=== PATIENT | female | born 1995 | race Caucasian/White ===

== ENCOUNTER 2016-10-13 16:48 | Emergency (ER) | payer OTHER ==
[2016-10-13 16:55] VITALS: BP 109/72
[2016-10-13 17:36] LABS: BILIRUBIN,URINE NEGATIVE (NEGATIVE)
[2016-10-13 17:40] LABS: HCG UR QUAL NEGATIVE; UA w/ MICROSCOPIC CHARGE YES
[2016-10-13 17:42] LABS: UR CULTURE IF IND NOT INDICATED; WBC,URINE 0-3 /HPF (0-5)
--- NOTE | 2016-10-13 17:53 | ED Physician Documentation ---
PD HPI MHE - Stated complaint Stated Complaint: SI - Chief complaint Chief Complaint: MHE - History obtained from History obtained from: Patient, Family (mom) - History of Present Illness Primary symptom: Other (21-year-old woman with long-standing auditory hallucinations, on olanzapine pain for same. She has subacute suicidal ideation without plan. She had an emotional outburst this morning prompting emergency department visit.) Review of Systems Constitutional: reports: Reviewed and negative Throat: reports: Reviewed and negative Cardiac: reports: Reviewed and negative Respiratory: reports: Reviewed and negative PD PAST MEDICAL HISTORY - Past Surgical History Past Surgical History: No - Present Medications Home Medications: Ambulatory Orders Medication Instructions Recorded Confirmed Olanzapine 10 mg PO DAILY 10/13/16 10/13/16 - Allergies Allergies/Adverse Reactions: Allergies Allergy/AdvReac Type Severity Reaction Status Date / Time No Known Drug Allergies Allergy Verified 02/04/13 19:29 - Social History Does the pt smoke?: No Smoking Status: Never smoker Does the pt drink ETOH?: Yes Does the pt have substance abuse?: Yes - Immunizations Immunizations are current?: Yes - POLST Patient has POLST: No PD ED PE NORMAL - Vitals Vital signs reviewed: Yes - General General: Alert and oriented X 3, No acute distress - HEENT HEENT: PERRL, EOMI - Neck Neck: Supple, no meningeal sign, No bony TTP - Cardiac Cardiac: RRR, No murmur - Respiratory Respiratory: No respiratory distress, Clear bilaterally - Abdomen Abdomen: Non tender - Neuro Neuro: Alert and oriented X 3, Normal speech - Psych Psych: Normal mood, Normal affect Results - Vitals Vitals: Vital Signs - 24 hr 10/13/16 16:50 Temperature 36.6 C Heart Rate 75 Respiratory 20 Rate Blood Pressure 109/72 O2 Saturation 99 Oxygen O2 Source Room air - Labs Labs: Laboratory Tests 10/13/16 10/13/16 17:14 17:14 Urine Color YELLOW Urine Clarity CLEAR Urine pH 6.0 Ur Specific [place] 1.025 Urine Protein NEGATIVE Urine Glucose (UA) NEGATIVE Urine Ketones NEGATIVE Urine Occult Blood MODERATE H Urine Nitrite NEGATIVE Urine Bilirubin NEGATIVE Urine Urobilinogen 0.2 (NORMAL) Ur Leukocyte Esterase NEGATIVE Urine RBC 0-5 Urine WBC 0-3 Ur Squamous Epith Cells RARE Squamous Urine Bacteria Rare Ur Microscopic Review INDICATED Urine Culture Comments NOT INDICATED Urine HCG, Qual NEGATIVE Urine Opiates Screen NEGATIVE Ur Oxycodone Screen NEGATIVE Urine Methadone Screen NEGATIVE Ur Propoxyphene Screen NEGATIVE Ur Barbiturates Screen NEGATIVE Ur Tricyclics Screen NEGATIVE Ur Phencyclidine Scrn NEGATIVE Ur Amphetamine Screen NEGATIVE U Methamphetamines Scrn NEGATIVE U Benzodiazepines Scrn NEGATIVE Urine Cocaine Screen NEGATIVE U Cannabinoids Screen NEGATIVE PD MEDICAL DECISION MAKING - ED course ED course: She has underlying psychiatric disease with suicidal ideation that is chronic but no plan. She has a normal mood and affect at this juncture. We discussed potentially hospitalization it is something she would like to consider, however there is no social research assistant available at this hour. She contracted for safety overnight and plans to return in the morning as opposed to boarding in the emergency department. Mom is also comfortable with the plan. Departure - Departure Disposition: 01 Home, Self Care Clinical Impression: Depressive disorder Condition: Good Record reviewed to determine appropriate education?: Yes Instructions: ED Depression Comments: Come back tomorrow at 8 a.m. for social research assistant evaluation or call your psychiatrist in the morning. Return sooner if worse. Discharge Date/Time: 10/13/16 17:57
== END 2016-10-13 17:57 | disposition home or self-care (01) ==
LOC: ED 16:48
DX: F32.9 Major depressive disorder, single episode, unspecified (principal); R45.851 Suicidal ideations; R44.0 Auditory hallucinations
CPT/HCPCS: 80306; 81001; 81003; 81025; 87086; 99282; 99284

== ENCOUNTER 2017-08-03 11:09 | Outpatient (CLI) | payer OTHER | END 2017-08-03 11:10 | disposition critical access hospital (66) | LOC: EMS 11:09 | PROVIDERS: ATTEND Surgery | DX: R45.851 Suicidal ideations (principal) | CPT/HCPCS: A0425; A0429 ==

== ENCOUNTER 2017-08-03 11:43 | Emergency (ER) | payer OTHER ==
[2017-08-03 12:18] LABS: MEAN CORPUSCULAR HEMOGLOBIN 29.6 pg (27.0-31.0); MEAN CORPUSCULAR HGB CONC 34.2 g/dL (32.0-36.0); MEAN CORPUSCULAR VOLUME 86.6 fL (81.0-99.0); MEAN PLATELET VOLUME 6.6 fL (7.9-10.8); RED BLOOD COUNT 4.39 10^6/uL (4.20-5.40); RED CELL DISTRIBUTION WIDTH 13.3 % (12.0-15.0); WHITE BLOOD COUNT 7.7 x10^3/uL (4.8-10.8)
[2017-08-03 12:36] LABS: ALBUMIN 5.2 g/dL (3.2-5.5); ALBUMIN/GLOBULIN RATIO 1.7 (1.0-2.2); ALKALINE PHOSPHATASE 48 IU/L (42-121); ALT ALANINE AMINOTRANSFERASE 39 IU/L (10-60); AST ASPARTATE AMINOTRANSFERASE 55 IU/L (10-42); BUN - BLOOD UREA NITROGEN 11 mg/dL (6-20); CALCIUM 9.5 mg/dL (8.5-10.3); CARBON DIOXIDE - CO2 26 mmol/L (21-32); CHLORIDE 103 mmol/L (101-111); CREATININE 0.7 mg/dL (0.4-1.0); GFR - MDRD 104 (>89); GLUCOSE 93 mg/dL (70-100); LIPASE 16 U/L (22-51); SALICYLATE < 6.0 mg/dL; SODIUM 138 mmol/L (135-145); TOTAL PROTEIN 8.3 g/dL (6.7-8.2)
[2017-08-03 12:37] LABS: ACETAMINOPHEN < 10 ug/mL (10-30)
[2017-08-03 13:01] LABS: MUDS CUTOFF CONCENTRATIONS CUTOFF CONC BELOW:
[2017-08-03 13:05] LABS: GLUCOSE, URINE (UA) NEGATIVE (NEGATIVE); KETONES,URINE (UA) 15 mg/dL (NEGATIVE); LEUKOCYTE ESTERASE, URINE TRACE (NEGATIVE); NITRITE,URINE NEGATIVE (NEGATIVE); OCCULT BLOOD,URINE SMALL (NEGATIVE); PROTEIN,URINE NEGATIVE (NEGATIVE); UROBILINOGEN,URINE 0.2 (NORMAL) E.U./dL (NORMAL)
[2017-08-03 13:12] LABS: BILIRUBIN,URINE NEGATIVE (NEGATIVE); CLARITY,URINE CLEAR (CLEAR); HCG UR QUAL NEGATIVE; ICTOTEST,URINE NEGATIVE
[2017-08-03 13:14] LABS: AMPHETAMINE SCREEN,URINE POSITIVE (NEGATIVE); BENZODIAZEPINES SCREEN, URINE NEGATIVE (NEGATIVE); COCAINE SCREEN URINE POSITIVE (NEGATIVE); METHADONE SCREEN, URINE NEGATIVE (NEGATIVE); METHAMPHETAMINES SCREEN, URINE POSITIVE (NEGATIVE); OPIATE SCREEN, URINE NEGATIVE (NEGATIVE); OXYCODONE SCREEN, URINE NEGATIVE (NEGATIVE); PROPOXYPHENE SCREEN, URINE NEGATIVE (NEGATIVE); TRICYCLIC ANTIDEPRESSANT,URINE NEGATIVE (NEGATIVE)
[2017-08-03 13:29] LABS: BACTERIA,URINE Few /HPF (None Seen); RBC,URINE 0-5 /HPF (0-5); SQUAMOUS EPITHELIAL CELL,UR RARE Squamous (<= Few)
--- NOTE | 2017-08-03 13:39 | ED Physician Documentation ---
PD HPI MHE - Stated complaint Stated Complaint: MHE/SI - Chief complaint Chief Complaint: MHE - History obtained from History obtained from: Patient - History of Present Illness Primary symptom: Other (She got out of a residential treatment facility for methamphetamines about 5 days ago and immediately started using again. She has had some suicidal ideation today without plan. She is not interested in going back into treatment or psychiatric care.) Review of Systems Constitutional: reports: Reviewed and negative Cardiac: reports: Reviewed and negative Respiratory: reports: Reviewed and negative PD PAST MEDICAL HISTORY - Past Surgical History Past Surgical History: No - Present Medications Home Medications: Ambulatory Orders Medication Instructions Recorded Confirmed OLANZapine [Olanzapine] 10 mg PO DAILY 10/13/16 08/03/17 - Allergies Allergies/Adverse Reactions: Allergies Allergy/AdvReac Type Severity Reaction Status Date / Time No Known Drug Allergies Allergy Verified 08/03/17 11:51 - Social History Does the pt smoke?: No Smoking Status: Never smoker Does the pt drink ETOH?: Yes Does the pt have substance abuse?: Yes - Immunizations Immunizations are current?: Yes - POLST Patient has POLST: No PD ED PE NORMAL - Vitals Vital signs reviewed: Yes - General General: Alert and oriented X 3, No acute distress - HEENT HEENT: PERRL, EOMI - Neck Neck: Supple, no meningeal sign, No bony TTP - Derm Derm: No rash - Neuro Neuro: Alert and oriented X 3, No motor deficit, No sensory deficit, Normal speech Eye Opening: Spontaneous Motor: Obeys Commands Verbal: Oriented GCS Score: 15 - Psych Psych: Normal mood, Normal affect Results - Vitals Vitals: Vital Signs - 24 hr 08/03/17 11:47 Temperature 36.5 C Heart Rate 77 Respiratory 20 Rate Blood Pressure 105/76 O2 Saturation 100 Oxygen O2 Source Room air - Labs Labs: Laboratory Tests 08/03/17 08/03/17 08/03/17 12:13 12:13 12:58 WBC 7.7 RBC 4.39 Hgb 13.0 Hct 38.0 MCV 86.6 MCH 29.6 MCHC 34.2 RDW 13.3 Plt Count 328 MPV 6.6 L Sodium 138 Potassium 4.1 Chloride 103 Carbon Dioxide 26 Anion Gap 9.0 BUN 11 Creatinine 0.7 Estimated GFR (MDRD) 104 Glucose 93 Calcium 9.5 Total Bilirubin 1.0 AST 55 H ALT 39 Alkaline Phosphatase 48 Total Protein 8.3 H Albumin 5.2 Globulin 3.1 Albumin/Globulin Ratio 1.7 Lipase 16 L Urine Color Urine Clarity Urine pH Ur Specific [place] Urine Protein Urine Glucose (UA) Urine Ketones Urine Occult Blood Urine Nitrite Urine Bilirubin Urine Urobilinogen Ur Leukocyte Esterase Urine RBC Urine WBC Ur Squamous Epith Cells Urine Bacteria Ur Microscopic Review Urine Culture Comments Urine HCG, Qual Salicylates < 6.0 Urine Opiates Screen NEGATIVE Ur Oxycodone Screen NEGATIVE Urine Methadone Screen NEGATIVE Ur Propoxyphene Screen NEGATIVE Acetaminophen < 10 L Ur Barbiturates Screen NEGATIVE Ur Tricyclics Screen NEGATIVE Ur Phencyclidine Scrn NEGATIVE Ur Amphetamine Screen POSITIVE H U Methamphetamines Scrn POSITIVE H U Benzodiazepines Scrn NEGATIVE Urine Cocaine Screen POSITIVE H U Cannabinoids Screen POSITIVE H Ethyl Alcohol < 5.0 08/03/17 12:58 WBC RBC Hgb Hct MCV MCH MCHC RDW Plt Count MPV Sodium Potassium Chloride Carbon Dioxide Anion Gap BUN Creatinine Estimated GFR (MDRD) Glucose Calcium Total Bilirubin AST ALT Alkaline Phosphatase Total Protein Albumin Globulin Albumin/Globulin Ratio Lipase Urine Color YELLOW Urine Clarity CLEAR Urine pH 6.0 Ur Specific [place] 1.025 Urine Protein NEGATIVE Urine Glucose (UA) NEGATIVE Urine Ketones 15 H Urine Occult Blood SMALL H Urine Nitrite NEGATIVE Urine Bilirubin NEGATIVE Urine Urobilinogen 0.2 (NORMAL) Ur Leukocyte Esterase TRACE H Urine RBC 0-5 Urine WBC 4-5 Ur Squamous Epith Cells RARE Squamous Urine Bacteria Few Ur Microscopic Review INDICATED Urine Culture Comments INDICATED Urine HCG, Qual NEGATIVE Salicylates Urine Opiates Screen Ur Oxycodone Screen Urine Methadone Screen Ur Propoxyphene Screen Acetaminophen Ur Barbiturates Screen Ur Tricyclics Screen Ur Phencyclidine Scrn Ur Amphetamine Screen U Methamphetamines Scrn U Benzodiazepines Scrn Urine Cocaine Screen U Cannabinoids Screen Ethyl Alcohol PD MEDICAL DECISION MAKING - ED course ED course: She has had vague suicidal ideation, but no plan and she is not suicidal at this juncture. She declines further evaluation or treatment. There is no director social service available to evaluate her, but she seems safe for discharge given that she is not actively suicidal. Departure - Departure Disposition: 01 Home, Self Care Clinical Impression: Depressive disorder, Methamphetamine abuse Condition: Good Record reviewed to determine appropriate education?: Yes Instructions: ED Depression Comments: Avoid taking drugs. Return anytime if you are worse or feel unsafe.
[2017-08-03 14:51] VITALS: BP 110/74
== END 2017-08-03 14:49 | disposition home or self-care (01) ==
LOC: EDUNIT# → ED 11:43
DX: F32.9 Major depressive disorder, single episode, unspecified (principal); F15.10 Other stimulant abuse, uncomplicated; R45.851 Suicidal ideations
CPT/HCPCS: 36415; 80053; 80306; 80307; 80320; 80329; 81001; 81003; 81025; 83690; 87086; 99283

== ENCOUNTER 2018-03-10 12:12 | Emergency (ER) | payer OTHER, MEDICAID ==
[2018-03-10 12:59] LABS: BILIRUBIN,URINE NEGATIVE (NEGATIVE); GLUCOSE, URINE (UA) NEGATIVE (NEGATIVE); KETONES,URINE (UA) NEGATIVE (NEGATIVE); LEUKOCYTE ESTERASE, URINE NEGATIVE (NEGATIVE); NITRITE,URINE NEGATIVE (NEGATIVE); OCCULT BLOOD,URINE NEGATIVE (NEGATIVE); PROTEIN,URINE NEGATIVE (NEGATIVE); UROBILINOGEN,URINE 0.2 (NORMAL) E.U./dL (NORMAL)
[2018-03-10 13:03] LABS: CLARITY,URINE CLEAR (CLEAR); HCG UR QUAL NEGATIVE
[2018-03-10 13:13] LABS: AMPHETAMINE SCREEN,URINE NEGATIVE (NEGATIVE); BENZODIAZEPINES SCREEN, URINE NEGATIVE (NEGATIVE); COCAINE SCREEN URINE NEGATIVE (NEGATIVE); METHADONE SCREEN, URINE NEGATIVE (NEGATIVE); METHAMPHETAMINES SCREEN, URINE NEGATIVE (NEGATIVE); MUDS CUTOFF CONCENTRATIONS CUTOFF CONC BELOW:; OPIATE SCREEN, URINE NEGATIVE (NEGATIVE); OXYCODONE SCREEN, URINE NEGATIVE (NEGATIVE); PROPOXYPHENE SCREEN, URINE NEGATIVE (NEGATIVE); TRICYCLIC ANTIDEPRESSANT,URINE NEGATIVE (NEGATIVE)
[2018-03-10 13:24] LABS: BASOPHILS % (AUTO) 0.4 %; HGB - HEMOGLOBIN 13.3 g/dL (12.0-16.0); LYMPHOCYTES # (AUTO) 2.8 10^3/uL (1.5-3.5); LYMPHOCYTES % (AUTO) 30.9 %; MEAN CORPUSCULAR HEMOGLOBIN 28.8 pg (27.0-31.0); MEAN CORPUSCULAR HGB CONC 33.8 g/dL (32.0-36.0); MEAN CORPUSCULAR VOLUME 85.3 fL (81.0-99.0); MONOCYTES # (AUTO) 0.7 10^3/uL (0.0-1.0); MONOCYTES % (AUTO) 8.4 %; NEUTROPHILS # (AUTO) 5.4 10^3/uL (1.5-6.6); NEUTROPHILS % (AUTO) 60.3 %; PLT - PLATELET COUNT 358 10^3/uL (130-450); RED CELL DISTRIBUTION WIDTH 13.9 % (12.0-15.0); WHITE BLOOD COUNT 8.9 x10^3/uL (4.8-10.8)
[2018-03-10 13:36] LABS: ALBUMIN 4.9 g/dL (3.2-5.5); ALBUMIN/GLOBULIN RATIO 1.5 (1.0-2.2); ALKALINE PHOSPHATASE 60 IU/L (42-121); ALT ALANINE AMINOTRANSFERASE 20 IU/L (10-60); AST ASPARTATE AMINOTRANSFERASE 20 IU/L (10-42); BILIRUBIN,TOTAL 0.6 mg/dL (0.2-1.0); BUN - BLOOD UREA NITROGEN 8 mg/dL (6-20); CALCIUM 9.7 mg/dL (8.5-10.3); CARBON DIOXIDE - CO2 27 mmol/L (21-32); CHLORIDE 102 mmol/L (101-111); CREATININE 0.6 mg/dL (0.4-1.0); GFR - MDRD 124 (>89); GLUCOSE 75 mg/dL (70-100); LIPASE 29 U/L (22-51); SALICYLATE < 6.0 mg/dL; SODIUM 136 mmol/L (135-145); TOTAL PROTEIN 8.1 g/dL (6.7-8.2)
[2018-03-10 13:37] LABS: ACETAMINOPHEN < 10 ug/mL (10-30)
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
[2018-03-10] MEDS ORDERED: cefTRIAXone 250 MG VIAL IM STA (18:48)
[2018-03-10] MEDS ORDERED: LIDOCAINE 1% 2 ML VIAL SUBQ ONE (18:48)
[2018-03-10] MEDS ORDERED: AZITHROMYCIN 250 MG TABLET PO STA (18:49)
[2018-03-10] MEDS ORDERED: ULIPRISTAL ACETATE 30 MG TABLET PO STA (18:51)
[2018-03-10 19:31] VITALS: BP 117/57
== END 2018-03-10 19:55 | disposition home or self-care (01) ==
LOC: ED 12:12
DX: Z04.71 Encounter for examination and observation following alleged adult physical abuse (principal)
CPT/HCPCS: 0133C; 36415; 80053; 80306; 80307; 80320; 80329; 81003; 81025; 83690; 85025; 87491; 87591; A9270; 81001; 87086; 99283

== ENCOUNTER 2018-03-15 13:27 | Emergency (ER) | payer MEDICAID ==
--- NOTE | 2018-03-15 14:45 | ED Physician Documentation ---
PD HPI MHE - Stated complaint Stated Complaint: MHE - Chief complaint Chief Complaint: MHE - History obtained from History obtained from: Patient - History of Present Illness Primary symptom: Other (She presents with someone from [facility] house although this person is not at the bedside when I am talking to her. She admits to methamphetamine use last night and is feeling out of sorts and would like "group therapy counselor" which is traditional for her ethnicity which is /[place] /[place]. She denies suicidal or homicidal ideation) Review of Systems Ten Systems: 10 systems reviewed and negative Constitutional: denies: Fever, Chills GI: denies: Nausea, Vomiting : denies: Now [place] PD PAST MEDICAL HISTORY - Past Surgical History Past Surgical History: No - Present Medications Home Medications: Ambulatory Orders Medication Instructions Recorded Confirmed OLANZapine [Olanzapine] 10 mg PO DAILY 10/13/16 08/03/17 - Allergies Allergies/Adverse Reactions: Allergies Allergy/AdvReac Type Severity Reaction Status Date / Time No Known Drug Allergies Allergy Verified 03/15/18 13:39 - Social History Does the pt smoke?: No Smoking Status: Never smoker Does the pt drink ETOH?: Yes Does the pt have substance abuse?: Yes - Immunizations Immunizations are current?: Yes - POLST Patient has POLST: No PD ED PE NORMAL - Vitals Vital signs reviewed: Yes - General General: Alert and oriented X 3, Other (She is a tangential historian and somewhat intense affect but cooperative and pleasant.) - HEENT HEENT: PERRL, EOMI - Neck Neck: Supple, no meningeal sign, No bony TTP - Cardiac Cardiac: RRR, No murmur - Respiratory Respiratory: No respiratory distress, Clear bilaterally - Abdomen Abdomen: Non tender - Back Back: No CVA TTP, No spinal TTP - Derm Derm: Normal color, Warm and dry - Neuro Neuro: Alert and oriented X 3 - Psych Psych: Normal mood Results - Vitals Vitals: Vital Signs - 24 hr 03/15/18 13:34 Temperature 37 C Heart Rate 128 H Respiratory 22 Rate Blood Pressure 135/100 H O2 Saturation 100 Oxygen O2 Source Room air PD MEDICAL DECISION MAKING - ED course ED course: Seen and evaluated by the bilingual social worker who gave her resources on how to obtain travel group therapy counselor. She was advised not to use methamphetamines. Other than drug use no ongoing medical emergency was identified. She was stable for discharge. - Sepsis Event Vital Signs: Vital Signs - 24 hr 03/15/18 13:34 Temperature 37 C Heart Rate 128 H Respiratory 22 Rate Blood Pressure 135/100 H O2 Saturation 100 Oxygen O2 Source Room air Departure - Departure Disposition: 01 Home, Self Care Clinical Impression: Methamphetamine abuse Condition: Good Record reviewed to determine appropriate education?: Yes Instructions: ED Drug Abuse General Comments: Follow the instructions the bilingual social worker on how to obtain [place] group therapy counselor. Return if worse. Avoid using methamphetamines. Your blood pressure was elevated today on check into the emergency department. This does not mean that you have hypertension, it is a common phenomenon to come to the emergency department and have elevated blood pressure. I recommend that you see your primary care physician within the week to have it rechecked when you are feeling better.
[2018-03-15 15:53] VITALS: BP 163/149
== END 2018-03-15 15:51 | disposition home or self-care (01) ==
LOC: ED 13:27
DX: F15.10 Other stimulant abuse, uncomplicated (principal); R03.0 Elevated blood-pressure reading, without diagnosis of hypertension
CPT/HCPCS: 80053; 80307; 80320; 80329; 83690; 99283

== ENCOUNTER 2018-03-15 18:54 | Emergency (ER) | payer MEDICAID ==
[2018-03-15] MEDS ORDERED: ALPRAZolam 0.25 MG TABLET PO STA (19:13)
--- NOTE | 2018-03-15 19:16 | ED Physician Documentation ---
PD HPI MHE - Stated complaint Stated Complaint: MHE - Chief complaint Chief Complaint: MHE - History obtained from History obtained from: Patient, Caregiver - History of Present Illness Primary symptom: Other (She was seen earlier in the day for being high on methamphetamines. Given resources by the socially responsible investment adviser but returns from her youth assisted-living facility because of continued odd behavior.) - Additional information Additional information: Rep from [facility] house tells me, "they are saving a bed for her at [facility] and will pick her up tomorrow" Review of Systems Ten Systems: 10 systems reviewed and negative Constitutional: denies: Fever, Chills Cardiac: denies: Chest pain / pressure, Palpitations Respiratory: denies: Dyspnea, Cough PD PAST MEDICAL HISTORY - Past Medical History Past Medical History: No - Past Surgical History Past Surgical History: No - Present Medications Home Medications: Ambulatory Orders Medication Instructions Recorded Confirmed OLANZapine [Olanzapine] 10 mg PO DAILY 10/13/16 08/03/17 - Allergies Allergies/Adverse Reactions: Allergies Allergy/AdvReac Type Severity Reaction Status Date / Time No Known Drug Allergies Allergy Verified 03/15/18 13:39 - Social History Does the pt smoke?: No Smoking Status: Never smoker Does the pt drink ETOH?: Yes Does the pt have substance abuse?: Yes - Family History Family history: reports: Non contributory - Immunizations Immunizations are current?: Yes - POLST Patient has POLST: No PD ED PE NORMAL - Vitals Vital signs reviewed: Yes - General General: Alert and oriented X 3, Other (She is tearful and tangential. However she is cooperative and makes good eye contact.) - HEENT HEENT: PERRL, EOMI - Neck Neck: Supple, no meningeal sign, No bony TTP - Cardiac Cardiac: RRR, No murmur - Respiratory Respiratory: No respiratory distress, Clear bilaterally - Abdomen Abdomen: Normal bowel sounds, Soft, Non tender - Back Back: No CVA TTP, No spinal TTP - Derm Derm: Normal color, Warm and dry - Extremities Extremities: No deformity, No tenderness to palpate - Neuro Neuro: Alert and oriented X 3, Normal speech Results - Vitals Vitals: Vital Signs - 24 hr 03/15/18 19:00 Temperature 36.6 C Heart Rate 107 H Respiratory 22 Rate Blood Pressure 129/100 H O2 Saturation 100 Oxygen O2 Source Room air PD MEDICAL DECISION MAKING - ED course ED course: She presents with continued odd behavior related to ongoing methamphetamine abuse. No new use since last discharge. Will board overnight in Ed pending soc wk eval. No obvious EMC other than methamphetamine use on eval. - Sepsis Event Vital Signs: Vital Signs - 24 hr 03/15/18 19:00 Temperature 36.6 C Heart Rate 107 H Respiratory 22 Rate Blood Pressure 129/100 H O2 Saturation 100 Oxygen O2 Source Room air Departure - Departure Clinical Impression: Methamphetamine abuse Condition: Stable Record reviewed to determine appropriate education?: Yes
[2018-03-16] MEDS ORDERED: ALPRAZolam 0.25 MG TABLET PO STA (03:06)
[2018-03-16 08:49] LABS: BASOPHILS % (AUTO) 0.5 %; EOSINOPHILS % (AUTO) 0.2 %; HGB - HEMOGLOBIN 12.9 g/dL (12.0-16.0); LYMPHOCYTES # (AUTO) 3.4 10^3/uL (1.5-3.5); LYMPHOCYTES % (AUTO) 45.2 %; MEAN CORPUSCULAR HEMOGLOBIN 29.2 pg (27.0-31.0); MEAN CORPUSCULAR HGB CONC 34.5 g/dL (32.0-36.0); MEAN CORPUSCULAR VOLUME 84.6 fL (81.0-99.0); MEAN PLATELET VOLUME 6.7 fL (7.9-10.8); MONOCYTES # (AUTO) 0.8 10^3/uL (0.0-1.0); MONOCYTES % (AUTO) 10.4 %; NEUTROPHILS # (AUTO) 3.3 10^3/uL (1.5-6.6); NEUTROPHILS % (AUTO) 43.7 %; PLT - PLATELET COUNT 277 10^3/uL (130-450); RED BLOOD COUNT 4.44 10^6/uL (4.20-5.40); RED CELL DISTRIBUTION WIDTH 13.7 % (12.0-15.0); WHITE BLOOD COUNT 7.5 x10^3/uL (4.8-10.8)
[2018-03-16 09:05] LABS: ALBUMIN 4.3 g/dL (3.2-5.5); ALBUMIN/GLOBULIN RATIO 1.5 (1.0-2.2); ALKALINE PHOSPHATASE 46 IU/L (42-121); ALT ALANINE AMINOTRANSFERASE 25 IU/L (10-60); AST ASPARTATE AMINOTRANSFERASE 37 IU/L (10-42); BILIRUBIN,TOTAL 0.9 mg/dL (0.2-1.0); BUN - BLOOD UREA NITROGEN 12 mg/dL (6-20); CALCIUM 9.4 mg/dL (8.5-10.3); CARBON DIOXIDE - CO2 25 mmol/L (21-32); CHLORIDE 105 mmol/L (101-111); CK- CREATINE KINASE 595 IU/L (22-269); CREATININE 0.8 mg/dL (0.4-1.0); GFR - MDRD 89 (>89); GLUCOSE 81 mg/dL (70-100); LIPASE 22 U/L (22-51); SODIUM 138 mmol/L (135-145); TOTAL PROTEIN 7.2 g/dL (6.7-8.2)
[2018-03-16 12:10] LABS: MUDS CUTOFF CONCENTRATIONS CUTOFF CONC BELOW:
[2018-03-16 12:13] LABS: BILIRUBIN,URINE NEGATIVE (NEGATIVE); GLUCOSE, URINE (UA) NEGATIVE (NEGATIVE); KETONES,URINE (UA) NEGATIVE (NEGATIVE); LEUKOCYTE ESTERASE, URINE NEGATIVE (NEGATIVE); NITRITE,URINE NEGATIVE (NEGATIVE); OCCULT BLOOD,URINE NEGATIVE (NEGATIVE); PROTEIN,URINE NEGATIVE (NEGATIVE); UROBILINOGEN,URINE 0.2 (NORMAL) E.U./dL (NORMAL)
[2018-03-16 12:18] LABS: CLARITY,URINE CLEAR (CLEAR); HCG UR QUAL NEGATIVE
[2018-03-16 12:26] LABS: AMPHETAMINE SCREEN,URINE POSITIVE (NEGATIVE); BENZODIAZEPINES SCREEN, URINE POSITIVE (NEGATIVE); COCAINE SCREEN URINE NEGATIVE (NEGATIVE); METHADONE SCREEN, URINE NEGATIVE (NEGATIVE); METHAMPHETAMINES SCREEN, URINE POSITIVE (NEGATIVE); OPIATE SCREEN, URINE NEGATIVE (NEGATIVE); OXYCODONE SCREEN, URINE NEGATIVE (NEGATIVE); PROPOXYPHENE SCREEN, URINE NEGATIVE (NEGATIVE); TRICYCLIC ANTIDEPRESSANT,URINE NEGATIVE (NEGATIVE)
--- NOTE | 2018-03-16 19:08 | ED Physician Documentation ---
ED Addendum - Addendum Addendum: The patient remains stable here in the emergency department. She is seen by social work and subsequently by Mar Lazcano. They do feel the patient needs to be detained. There looking for bed availability at the psychiatric facilities. There decision is based on information from the visits here as well as talking with counselors and other personnel at [facility] where she is staying. 03/16/18 19:06
--- NOTE | 2018-03-16 21:15 | ED Physician Documentation ---
ED Addendum - Addendum Addendum: 03/16/18 21:14 Patient placed on JUAN CARLOS hold. Dr. Hooks at [facility] accepts. COBRA forms completed. Pt transferred. Departure - Departure Disposition: 65 Psych Hosp/Unit DC/Xfer Clinical Impression: Methamphetamine abuse Psychosis Qualifiers: Psychosis type: unspecified psychosis type Qualified Code(s): F29 - Unspecified psychosis not due to a substance or known physiological condition Condition: Stable
[2018-03-17 00:13] VITALS: BP 103/57
== END 2018-03-17 00:05 ==
LOC: ED 18:54
DX: F15.10 Other stimulant abuse, uncomplicated (principal); Z75.1 Person awaiting admission to adequate facility elsewhere; F29 Unspecified psychosis not due to a substance or known physiological condition; F15.159 Other stimulant abuse with stimulant-induced psychotic disorder, unspecified
CPT/HCPCS: 36415; 80053; 80306; 80320; 81003; 81025; 82550; 83690; 85025; 99283; 99284; A9270; 81001; 87086

== ENCOUNTER 2018-03-17 | Outpatient (CLI) | payer MEDICAID | END 2018-03-17 00:01 | disposition critical access hospital (66) | LOC: EMS | PROVIDERS: ATTEND Surgery | DX: F91.9 Conduct disorder, unspecified (principal) | CPT/HCPCS: A0425; A0428; A0999 ==

== ENCOUNTER 2018-03-24 11:45 | Outpatient (CLI) | payer MEDICAID ==
[2018-03-26 15:51] LABS: HIV AG/AB 4TH GEN NON-REACTIVE (NON-REACTIVE)
[2018-03-26 16:56] LABS: HEPATITIS C ANTIBODY NON-REACTIVE (NON-REACTIVE)
[2018-03-27 13:21] LABS: HSV 2 IGG TYPE SPECIFIC AB <0.90 index
== END 2018-03-24 11:46 | disposition home or self-care (01) ==
LOC: LAB.F 11:45
PROVIDERS: ATTEND Nurse Practitioner Family
DX: Z11.3 Encounter for screening for infections with a predominantly sexual mode of transmission (principal)
CPT/HCPCS: 36415; 81599; 86592; 86695; 86696; 86803; 87389; 87491; 87591

== ENCOUNTER 2018-04-05 08:00 | Outpatient (CLI) | payer MEDICAID | END 2018-04-05 08:01 | disposition home or self-care (01) | LOC: LAB.R 08:00 | PROVIDERS: ATTEND Nurse Practitioner Family | DX: R19.5 Other fecal abnormalities (principal) | CPT/HCPCS: 87177; 87209 ==

== ENCOUNTER 2018-04-26 08:00 | Outpatient (CLI) | payer MEDICAID | END 2018-04-26 08:01 | disposition home or self-care (01) | LOC: LAB.R 08:00 | PROVIDERS: ATTEND Nurse Practitioner Family | DX: R19.5 Other fecal abnormalities (principal) | CPT/HCPCS: 87177; 87209 ==

== ENCOUNTER 2018-05-03 10:50 | Outpatient (CLI) | payer MEDICAID | END 2018-05-03 10:51 | disposition home or self-care (01) | LOC: LAB.R 10:50 | PROVIDERS: ATTEND Nurse Practitioner Family | DX: R19.5 Other fecal abnormalities (principal) | CPT/HCPCS: 87177; 87209 ==

== ENCOUNTER 2020-06-14 20:16 | Outpatient (CLI) | payer MEDICAID | END 2020-06-14 20:17 | disposition critical access hospital (66) | LOC: EMS 20:16 | PROVIDERS: ATTEND Surgery | DX: R41.89 Other symptoms and signs involving cognitive functions and awareness (principal); Z59.0 Homelessness | CPT/HCPCS: A0425; A0429 ==

== ENCOUNTER 2020-06-14 20:33 | Emergency (ER) | payer MEDICAID ==
[2020-06-14 22:37] LABS: MUDS CUTOFF CONCENTRATIONS CUTOFF CONC BELOW:
[2020-06-14 22:40] LABS: BILIRUBIN,URINE NEGATIVE (NEGATIVE); GLUCOSE, URINE (UA) NEGATIVE (NEGATIVE); KETONES,URINE (UA) NEGATIVE (NEGATIVE); LEUKOCYTE ESTERASE, URINE NEGATIVE (NEGATIVE); NITRITE,URINE NEGATIVE (NEGATIVE); OCCULT BLOOD,URINE TRACE-INTA (NEGATIVE); PH,URINE 5.5 PH (5.0-7.5); PROTEIN,URINE NEGATIVE (NEGATIVE); UROBILINOGEN,URINE 2 E.U./dL (NORMAL)
[2020-06-14 22:42] LABS: CLARITY,URINE CLEAR (CLEAR); HCG UR QUAL NEGATIVE
[2020-06-14 22:54] LABS: BASOPHILS % (AUTO) 0.3 %; HGB - HEMOGLOBIN 12.4 g/dL (12.0-16.0); LYMPHOCYTES # (AUTO) 2.9 10^3/uL (1.5-3.5); LYMPHOCYTES % (AUTO) 26.7 %; MEAN CORPUSCULAR HEMOGLOBIN 28.8 pg (27.0-31.0); MEAN CORPUSCULAR HGB CONC 31.5 g/dL (32.0-36.0); MEAN CORPUSCULAR VOLUME 91.4 fL (81.0-99.0); MEAN PLATELET VOLUME 8.9 fL (7.9-10.8); MONOCYTES # (AUTO) 0.9 10^3/uL (0.0-1.0); MONOCYTES % (AUTO) 8.5 %; PLT - PLATELET COUNT 280 10^3/uL (130-450); RED BLOOD COUNT 4.31 10^6/uL (4.20-5.40); RED CELL DISTRIBUTION WIDTH 12.3 % (12.0-15.0); WHITE BLOOD COUNT 10.9 x10^3/uL (4.8-10.8)
[2020-06-14 22:55] LABS: COCAINE SCREEN URINE NEGATIVE (NEGATIVE)
[2020-06-14 22:56] LABS: AMPHETAMINE SCREEN,URINE POSITIVE (NEGATIVE); BENZODIAZEPINES SCREEN, URINE NEGATIVE (NEGATIVE); METHADONE SCREEN, URINE NEGATIVE (NEGATIVE); METHAMPHETAMINES SCREEN, URINE POSITIVE (NEGATIVE); OPIATE SCREEN, URINE POSITIVE (NEGATIVE); OXYCODONE SCREEN, URINE NEGATIVE (NEGATIVE); PROPOXYPHENE SCREEN, URINE NEGATIVE (NEGATIVE); TRICYCLIC ANTIDEPRESSANT,URINE NEGATIVE (NEGATIVE)
[2020-06-14 23:11] LABS: ACETAMINOPHEN < 10 ug/mL (10-30); ALBUMIN 4.7 g/dL (3.2-5.5); ALBUMIN/GLOBULIN RATIO 1.6 (1.0-2.2); ALKALINE PHOSPHATASE 68 IU/L (42-121); ALT ALANINE AMINOTRANSFERASE 14 IU/L (10-60); AST ASPARTATE AMINOTRANSFERASE 16 IU/L (10-42); BILIRUBIN,TOTAL 0.5 mg/dL (0.2-1.0); BUN - BLOOD UREA NITROGEN 14 mg/dL (6-20); CARBON DIOXIDE - CO2 26 mmol/L (21-32); CHLORIDE 103 mmol/L (101-111); CREATININE 0.8 mg/dL (0.4-1.0); GLUCOSE 88 mg/dL (70-100); LIPASE 24 U/L (22-51); SALICYLATE < 6.0 mg/dL; SODIUM 140 mmol/L (135-145); TOTAL PROTEIN 7.6 g/dL (6.7-8.2)
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
--- NOTE | 2020-06-15 13:54 | ED Physician Documentation ---
ED Addendum - Addendum Addendum: Patient's mental status cleared back to her normal baseline in the emergency department as the methamphetamine wore off. Social work was consulted, they spoke with the patient as well. She is not suicidal, homicidal or acutely psychotic. Resources given. [facility] Counseled not to use methamphetamine. Patient counseled regarding signs and symptoms for which I believe and urgent re-evaluation would be necessary. Patient with good understanding of and agreement to plan and is comfortable going home at this time This document was made in part using voice recognition software. While efforts are made to proofread this document, sound alike and grammatical errors may occur. Departure - Departure Disposition: Home, Self Care Clinical Impression: Methamphetamine abuse Psychosis Qualifiers: Psychosis type: unspecified psychosis type Qualified Code(s): F29 - Unspecified psychosis not due to a substance or known physiological condition Condition: Stable Instructions: Abuse Meth Abuse and Addiction Follow-Up: your,doctor in 1 week [Other] Comments: Follow-up with your doctor for further care. Return if you worsen. You should stop using methamphetamines. Crisis Line and is available to talk to someone [email or web address] is also available to chat with someone online if you prefer. There are also many resources on this website and apps for your phone to help with your mental health You can also text the word START to [phone] to chat with someome via text.
[2020-06-15 14:04] VITALS: BP 109/61
[2020-06-15] MEDS ORDERED: ACETAMINOPHEN 325 MG TABLET PO STA (14:10)
== END 2020-06-15 14:15 | disposition home or self-care (01) ==
LOC: EDUNIT# → ED 20:33
DX: F15.129 Other stimulant abuse with intoxication, unspecified (principal); F22 Delusional disorders; F17.200 Nicotine dependence, unspecified, uncomplicated; Z59.0 Homelessness
CPT/HCPCS: 36415; 80053; 80306; 80307; 80320; 80329; 81003; 81025; 83690; 85025; 99283; 99284; A9270; 81001; 87086

== ENCOUNTER 2020-06-27 07:46 | Outpatient (CLI) | payer MEDICAID | END 2020-06-27 07:47 | disposition critical access hospital (66) | LOC: EMS 07:46 | PROVIDERS: ATTEND Surgery | DX: R46.89 Other symptoms and signs involving appearance and behavior (principal) | CPT/HCPCS: A0425; A0429; A0999 ==

== ENCOUNTER 2020-06-27 08:10 | Emergency (ER) | payer MEDICAID ==
[2020-06-27] MEDS ORDERED: KETAMINE 500 MG/10 ML VIAL IM STA (08:14)
--- NOTE | 2020-06-27 08:22 | ED Physician Documentation ---
PD HPI MHE - Stated complaint Stated Complaint: MHE - Chief complaint Chief Complaint: MHE - History obtained from History obtained from: Patient, EMS - History of Present Illness Primary symptom: Psychosis - Additional information Additional information: 25-year-old female with psychosis. EMS brought in by ambulance. Patient was placed on an [facility] hold by police. She reportedly was outside of a [employer] this morning, screaming and yelling. They state that she believes she is a historical figure from [place]. Patient is yelling, gesturing and appears quite agitated. She has a history of methamphetamine abuse. Review of Systems Ten Systems: 10 systems reviewed and negative Constitutional: denies: Fever, Chills GI: denies: Vomiting, Diarrhea Skin: denies: Rash Musculoskeletal: denies: Neck pain, Back pain Neurologic: denies: Focal weakness, Numbness, Headache PD PAST MEDICAL HISTORY - Past Medical History Cardiovascular: None Respiratory: None Neuro: None Endocrine/Autoimmune: None GI: None DRIP BOX TENDER: None : None HEENT: None Psych: Depression, Anxiety Musculoskeletal: None Derm: None - Past Surgical History Past Surgical History: No - Present Medications Home Medications: Ambulatory Orders Medication Instructions Recorded Confirmed ARIPiprazole [Abilify] 06/14/20 Cephalexin [Keflex] 500 mg PO Q6H #20 capsule 06/27/20 - Allergies Allergies/Adverse Reactions: Allergies Allergy/AdvReac Type Severity Reaction Status Date / Time No Known Drug Allergies Allergy Verified 06/14/20 20:45 - Social History Does the pt smoke?: Yes Smoking Status: Current every day smoker Does the pt drink ETOH?: Yes Does the pt have substance abuse?: Yes - Immunizations Immunizations are current?: Yes - POLST Patient has POLST: No PD ED PE NORMAL - Vitals Vital signs reviewed: Yes - General General: Other (Agitated, gesticulating wildly, screaming) - HEENT HEENT: Moist mucous membranes - Neck Neck: Supple, no meningeal sign - Cardiac Cardiac: RRR - Respiratory Respiratory: No respiratory distress, Clear bilaterally - Abdomen Abdomen: Soft, Non tender, Non distended - Derm Derm: Warm and dry - Neuro Neuro: Alert and oriented X 3 - Psych Psych: Normal mood, Normal affect Results - Vitals Vitals: Vital Signs - 24 hr 06/27/20 06/27/20 06/27/20 08:10 09:10 09:15 Temperature 36.6 C Heart Rate 136 H 118 H 104 H Respiratory 22 19 20 Rate Blood Pressure 116/96 H 134/78 H 123/74 O2 Saturation 100 100 98 06/27/20 06/27/20 06/27/20 09:30 09:45 10:00 Temperature Heart Rate 99 103 H 110 H Respiratory 18 18 20 Rate Blood Pressure 103/73 111/64 115/69 O2 Saturation 99 98 99 06/27/20 06/27/20 10:15 15:05 Temperature 36.8 C Heart Rate 95 90 Respiratory 19 20 Rate Blood Pressure 108/67 110/54 L O2 Saturation 96 100 Oxygen O2 Source Room air - Labs Labs: Laboratory Tests 06/27/20 06/27/20 06/27/20 08:50 08:50 08:50 WBC 24.9 H RBC 4.89 Hgb 14.2 Hct 43.0 MCV 87.9 MCH 29.0 MCHC 33.0 RDW 12.7 Plt Count 408 MPV 8.7 Neut # (Auto) Not Reportable Lymph # (Auto) Not Reportable [place] # (Auto) Not Reportable Eos # (Auto) Not Reportable Baso # (Auto) Not Reportable Absolute Nucleated RBC Not Reportable Total Counted 100 Band Neuts % (Manual) 5 Abnorm Lymph % (Manual) 0 Nucleated RBC % Not Reportable Neutrophils # (Manual) 21.2 H Lymphocytes # (Manual) 2.2 Monocytes # (Manual) 1.2 H Eosinophils # (Manual) 0.0 Basophils # (Manual) 0.2 H Differential Comment MANUAL DIFFERENTIAL Manual Slide Review Indicated WBC Morphology 1+ VACUOLATION Platelet Estimate NORMAL (130-450,000) Platelet Morphology NORMAL APPEARANCE RBC Morph Micro Appear NORMAL APPEARANCE Sodium 141 Potassium 4.4 Chloride 102 Carbon Dioxide 19 L Anion Gap 20.0 H BUN 25 H Creatinine 2.3 H Estimated GFR (MDRD) 26 L Glucose 76 Calcium 10.5 H Total Bilirubin 0.9 AST 49 H ALT 30 Alkaline Phosphatase 59 Total Creatine Kinase Total Protein 8.8 H Albumin 5.3 Globulin 3.5 Albumin/Globulin Ratio 1.5 Lipase 28 TSH 6.07 H Urine Color Urine Clarity Urine pH Ur Specific [place] Urine Protein Urine Glucose (UA) Urine Ketones Urine Occult Blood Urine Nitrite Urine Bilirubin Urine Urobilinogen Ur Leukocyte Esterase Urine RBC Urine WBC Urine WBC Clumps Ur Squamous Epith Cells Urine Crystals Amorphous Sediment Urine Bacteria Urine Casts Ur Microscopic Review Urine Culture Comments Urine HCG, Qual Salicylates < 6.0 Urine Opiates Screen Ur Oxycodone Screen Urine Methadone Screen Ur Propoxyphene Screen Acetaminophen < 10 L Ur Barbiturates Screen Ur Tricyclics Screen Ur Phencyclidine Scrn Ur Amphetamine Screen U Methamphetamines Scrn U Benzodiazepines Scrn Urine Cocaine Screen U Cannabinoids Screen Ethyl Alcohol < 5.0 06/27/20 06/27/20 06/27/20 08:50 09:05 13:00 WBC 17.9 H RBC 4.08 L Hgb 12.0 Hct 36.7 L MCV 90.0 MCH 29.4 MCHC 32.7 RDW 12.9 Plt Count 319 MPV 8.6 Neut # (Auto) 13.6 H Lymph # (Auto) 3.0 [place] # (Auto) 1.1 H Eos # (Auto) 0.0 Baso # (Auto) 0.1 Absolute Nucleated RBC 0.00 Total Counted Band Neuts % (Manual) Abnorm Lymph % (Manual) Nucleated RBC % 0.0 Neutrophils # (Manual) Lymphocytes # (Manual) Monocytes # (Manual) Eosinophils # (Manual) Basophils # (Manual) Differential Comment Manual Slide Review WBC Morphology Platelet Estimate Platelet Morphology RBC Morph Micro Appear Sodium Potassium Chloride Carbon Dioxide Anion Gap BUN Creatinine Estimated GFR (MDRD) Glucose Calcium Total Bilirubin AST ALT Alkaline Phosphatase Total Creatine Kinase 1144 H* Total Protein Albumin Globulin Albumin/Globulin Ratio Lipase TSH Urine Color YELLOW Urine Clarity CLOUDY Urine pH 5.0 Ur Specific [place] >=1.030 H Urine Protein 100 H Urine Glucose (UA) NEGATIVE Urine Ketones NEGATIVE Urine Occult Blood TRACE-INTA Urine Nitrite NEGATIVE Urine Bilirubin NEGATIVE Urine Urobilinogen 0.2 (NORMAL) Ur Leukocyte Esterase NEGATIVE Urine RBC 0-5 Urine WBC >25 H Urine WBC Clumps PRESENT Ur Squamous Epith Cells MANY Squamous H Urine Crystals 3-5 Calcium Oxalate Amorphous Sediment Marked Urine Bacteria Many H Urine Casts 3-5 Granular Casts Ur Microscopic Review INDICATED Urine Culture Comments NOT INDICATED Urine HCG, Qual NEGATIVE Salicylates Urine Opiates Screen NEGATIVE Ur Oxycodone Screen NEGATIVE Urine Methadone Screen NEGATIVE Ur Propoxyphene Screen NEGATIVE Acetaminophen Ur Barbiturates Screen NEGATIVE Ur Tricyclics Screen NEGATIVE Ur Phencyclidine Scrn NEGATIVE Ur Amphetamine Screen POSITIVE H U Methamphetamines Scrn POSITIVE H U Benzodiazepines Scrn NEGATIVE Urine Cocaine Screen NEGATIVE U Cannabinoids Screen NEGATIVE Ethyl Alcohol 06/27/20 13:00 WBC RBC Hgb Hct MCV MCH MCHC RDW Plt Count MPV Neut # (Auto) Lymph # (Auto) [place] # (Auto) Eos # (Auto) Baso # (Auto) Absolute Nucleated RBC Total Counted Band Neuts % (Manual) Abnorm Lymph % (Manual) Nucleated RBC % Neutrophils # (Manual) Lymphocytes # (Manual) Monocytes # (Manual) Eosinophils # (Manual) Basophils # (Manual) Differential Comment Manual Slide Review WBC Morphology Platelet Estimate Platelet Morphology RBC Morph Micro Appear Sodium 141 Potassium 4.4 Chloride 106 Carbon Dioxide 21 Anion Gap 14.0 H BUN 21 H Creatinine 1.4 H Estimated GFR (MDRD) 45 L Glucose 87 Calcium 8.9 Total Bilirubin AST ALT Alkaline Phosphatase Total Creatine Kinase 810 H Total Protein Albumin Globulin Albumin/Globulin Ratio Lipase TSH Urine Color Urine Clarity Urine pH Ur Specific [place] Urine Protein Urine Glucose (UA) Urine Ketones Urine Occult Blood Urine Nitrite Urine Bilirubin Urine Urobilinogen Ur Leukocyte Esterase Urine RBC Urine WBC Urine WBC Clumps Ur Squamous Epith Cells Urine Crystals Amorphous Sediment Urine Bacteria Urine Casts Ur Microscopic Review Urine Culture Comments Urine HCG, Qual Salicylates Urine Opiates Screen Ur Oxycodone Screen Urine Methadone Screen Ur Propoxyphene Screen Acetaminophen Ur Barbiturates Screen Ur Tricyclics Screen Ur Phencyclidine Scrn Ur Amphetamine Screen U Methamphetamines Scrn U Benzodiazepines Scrn Urine Cocaine Screen U Cannabinoids Screen Ethyl Alcohol PD MEDICAL DECISION MAKING - ED course Complexity details: reviewed results, re-evaluated patient, considered differential, d/w patient ED course: Patient was given ketamine in the emergency department. Her symptoms gradually improved and resolved. Feels better after IV fluids. Tolerating p.o. without d ifficulty here. She is not suicidal or homicidal. Social work was consulted and she was given drug information. She is not acutely psychotic. This is a methamphetamine induced psychosis. Patient counseled regarding signs and symptoms for which I believe and urgent re-evaluation would be necessary. Patient with good understanding of and agreement to plan and is comfortable going home at this time This document was made in part using voice recognition software. While efforts are made to proofread this document, sound alike and grammatical errors may occur. Patient given Rocephin for UTI. Will place on Keflex for home. Departure - Departure Disposition: Home, Self Care Clinical Impression: Methamphetamine abuse, Dehydration Psychosis Qualifiers: Psychosis type: unspecified psychosis type Qualified Code(s): F29 - Unspecified psychosis not due to a substance or known physiological condition UTI (urinary tract infection) Qualifiers: Urinary tract infection type: acute cystitis Hematuria presence: without hematuria Qualified Code(s): N30.00 - Acute cystitis without hematuria Condition: Stable Instructions: ED Drug Abuse General Follow-Up: your,doctor in 1 week [Other] Prescriptions: Cephalexin [Keflex] 500 mg PO Q6H #20 capsule Comments: You need to stop using methamphetamines. Follow-up with your doctor for further care. Return if you worsen Discharge Date/Time: 06/27/20 15:35
[2020-06-27 08:53] LABS: BASOPHILS % (AUTO) 0.3 %; HGB - HEMOGLOBIN 14.2 g/dL (12.0-16.0); LYMPHOCYTES % (AUTO) 8.4 %; MEAN CORPUSCULAR VOLUME 87.9 fL (81.0-99.0); MEAN PLATELET VOLUME 8.7 fL (7.9-10.8); MONOCYTES % (AUTO) 5.6 %; NEUTROPHILS % (AUTO) 85.2 %; PLT - PLATELET COUNT 408 10^3/uL (130-450); RED BLOOD COUNT 4.89 10^6/uL (4.20-5.40); RED CELL DISTRIBUTION WIDTH 12.7 % (12.0-15.0); WHITE BLOOD COUNT 24.9 x10^3/uL (4.8-10.8)
[2020-06-27 09:03] LABS: ABNORMAL LYMPHS % (MANUAL) 0 %
[2020-06-27 09:13] LABS: MUDS CUTOFF CONCENTRATIONS CUTOFF CONC BELOW:
[2020-06-27 09:13] LABS: ACETAMINOPHEN < 10 ug/mL (10-30); ALBUMIN 5.3 g/dL (3.2-5.5); ALBUMIN/GLOBULIN RATIO 1.5 (1.0-2.2); ALKALINE PHOSPHATASE 59 IU/L (42-121); ALT ALANINE AMINOTRANSFERASE 30 IU/L (10-60); AST ASPARTATE AMINOTRANSFERASE 49 IU/L (10-42); BILIRUBIN,TOTAL 0.9 mg/dL (0.2-1.0); BUN - BLOOD UREA NITROGEN 25 mg/dL (6-20); CALCIUM 10.5 mg/dL (8.5-10.3); CARBON DIOXIDE - CO2 19 mmol/L (21-32); CHLORIDE 102 mmol/L (101-111); CREATININE 2.3 mg/dL (0.4-1.0); GLUCOSE 76 mg/dL (70-100); LIPASE 28 U/L (22-51); SALICYLATE < 6.0 mg/dL; SODIUM 141 mmol/L (135-145); TOTAL PROTEIN 8.8 g/dL (6.7-8.2)
[2020-06-27 09:19] LABS: GLUCOSE, URINE (UA) NEGATIVE (NEGATIVE); KETONES,URINE (UA) NEGATIVE (NEGATIVE); LEUKOCYTE ESTERASE, URINE NEGATIVE (NEGATIVE); NITRITE,URINE NEGATIVE (NEGATIVE); OCCULT BLOOD,URINE TRACE-INTA (NEGATIVE); PROTEIN,URINE 100 mg/dL (NEGATIVE); UROBILINOGEN,URINE 0.2 (NORMAL) E.U./dL (NORMAL)
[2020-06-27 09:25] LABS: BILIRUBIN,URINE NEGATIVE (NEGATIVE); CLARITY,URINE CLOUDY (CLEAR); HCG UR QUAL NEGATIVE; ICTOTEST,URINE NEGATIVE
[2020-06-27 09:29] LABS: BAND NEUTROPHILS % (MANUAL) 5 %; BASOPHILS # (MANUAL) 0.2 10^3/uL (0-0.1); BASOPHILS % (MANUAL) 1 %; DIFFERENTIAL COMMENT MANUAL DIFFERENTIAL; LYMPHOCYTES # (MANUAL) 2.2 10^3/uL (1.5-3.5); LYMPHOCYTES % (MANUAL) 9 %; MONOCYTES # (MANUAL) 1.2 10^3/uL (0.0-1.0)
[2020-06-27 09:30] LABS: PLATELET ESTIMATE, MANUAL NORMAL (130-450,000) (NORMAL); PLATELET MORPHOLOGY NORMAL APPEARANCE (NORMAL); RBC MORPHOLOGY (MULTIPLE) NORMAL APPEARANCE (NORMAL)
[2020-06-27] MEDS ORDERED: SODIUM CHLORIDE 0.9% 1,000 ML IV STA ×3 (09:32→12:56)
[2020-06-27 09:37] LABS: AMORPHOUS SEDIMENT,UR Marked /LPF; BACTERIA,URINE Many /HPF (None Seen); RBC,URINE 0-5 /HPF (0-5); SQUAMOUS EPITHELIAL CELL,UR MANY Squamous (<= Few); WBC CLUMPS,URINE PRESENT
[2020-06-27 09:38] LABS: CRYSTALS,URINE 3-5 Calcium Oxalate /LPF
[2020-06-27] MEDS ORDERED: cefTRIAXone 1 GM VIAL IVP STA (09:53)
[2020-06-27 09:55] LABS: AMPHETAMINE SCREEN,URINE POSITIVE (NEGATIVE); BENZODIAZEPINES SCREEN, URINE NEGATIVE (NEGATIVE); COCAINE SCREEN URINE NEGATIVE (NEGATIVE); METHADONE SCREEN, URINE NEGATIVE (NEGATIVE); METHAMPHETAMINES SCREEN, URINE POSITIVE (NEGATIVE); OPIATE SCREEN, URINE NEGATIVE (NEGATIVE); OXYCODONE SCREEN, URINE NEGATIVE (NEGATIVE); PROPOXYPHENE SCREEN, URINE NEGATIVE (NEGATIVE); TRICYCLIC ANTIDEPRESSANT,URINE NEGATIVE (NEGATIVE)
[2020-06-27 13:08] LABS: BASOPHILS # (AUTO) 0.1 10^3/uL (0.0-0.1); BASOPHILS % (AUTO) 0.3 %; LYMPHOCYTES % (AUTO) 16.9 %; MEAN CORPUSCULAR HEMOGLOBIN 29.4 pg (27.0-31.0); MEAN CORPUSCULAR HGB CONC 32.7 g/dL (32.0-36.0); MEAN PLATELET VOLUME 8.6 fL (7.9-10.8); MONOCYTES # (AUTO) 1.1 10^3/uL (0.0-1.0); MONOCYTES % (AUTO) 6.2 %; NEUTROPHILS # (AUTO) 13.6 10^3/uL (1.5-6.6); NEUTROPHILS % (AUTO) 76.3 %; PLT - PLATELET COUNT 319 10^3/uL (130-450); RED BLOOD COUNT 4.08 10^6/uL (4.20-5.40); RED CELL DISTRIBUTION WIDTH 12.9 % (12.0-15.0); WHITE BLOOD COUNT 17.9 x10^3/uL (4.8-10.8)
[2020-06-27 13:24] LABS: CALCIUM 8.9 mg/dL (8.5-10.3); CREATININE 1.4 mg/dL (0.4-1.0)
[2020-06-27 15:05] VITALS: BP 110/54
== END 2020-06-27 15:35 | disposition home or self-care (01) ==
LOC: ED 08:10
DX: F15.159 Other stimulant abuse with stimulant-induced psychotic disorder, unspecified (principal); N30.00 Acute cystitis without hematuria; E86.0 Dehydration; F17.200 Nicotine dependence, unspecified, uncomplicated
CPT/HCPCS: 36415; 51701; 80048; 80053; 80306; 80307; 80320; 80329; 81001; 81003; 81025; 82550; 83690; 84443; 85025; 87086; 99285

== ENCOUNTER 2020-07-07 22:54 | Emergency (ER) | payer MEDICAID ==
[2020-07-08 01:31] LABS: BASOPHILS % (AUTO) 0.3 %; HGB - HEMOGLOBIN 12.4 g/dL (12.0-16.0); LYMPHOCYTES # (AUTO) 3.5 10^3/uL (1.5-3.5); LYMPHOCYTES % (AUTO) 33.6 %; MEAN CORPUSCULAR HEMOGLOBIN 28.6 pg (27.0-31.0); MEAN CORPUSCULAR VOLUME 89.2 fL (81.0-99.0); MEAN PLATELET VOLUME 8.5 fL (7.9-10.8); MONOCYTES # (AUTO) 0.8 10^3/uL (0.0-1.0); MONOCYTES % (AUTO) 8.1 %; NEUTROPHILS % (AUTO) 57.8 %; PLT - PLATELET COUNT 373 10^3/uL (130-450); RED BLOOD COUNT 4.34 10^6/uL (4.20-5.40); RED CELL DISTRIBUTION WIDTH 12.8 % (12.0-15.0); WHITE BLOOD COUNT 10.3 x10^3/uL (4.8-10.8)
[2020-07-08 01:42] LABS: ALBUMIN 4.7 g/dL (3.2-5.5); ALBUMIN/GLOBULIN RATIO 1.6 (1.0-2.2); ALKALINE PHOSPHATASE 52 IU/L (42-121); ALT ALANINE AMINOTRANSFERASE 21 IU/L (10-60); AST ASPARTATE AMINOTRANSFERASE 20 IU/L (10-42); BILIRUBIN,TOTAL 1.1 mg/dL (0.2-1.0); BUN - BLOOD UREA NITROGEN 10 mg/dL (6-20); CALCIUM 9.8 mg/dL (8.5-10.3); CARBON DIOXIDE - CO2 23 mmol/L (21-32); CHLORIDE 102 mmol/L (101-111); CREATININE 0.8 mg/dL (0.4-1.0); GLUCOSE 98 mg/dL (70-100); TOTAL PROTEIN 7.7 g/dL (6.7-8.2)
[2020-07-08] MEDS ORDERED: OLANZapine ODT 5 MG TABLET TL ONE (01:49)
[2020-07-08] MEDS ORDERED: OLANZapine ODT 5 MG TABLET TL STA (03:06)
[2020-07-08] MEDS ORDERED: ARIPiprazole 5 MG TABLET PO SCH (03:30)
[2020-07-08] MEDS ORDERED: HALOPERIDOL 5 MG/ML VIAL IM STA (03:42)
[2020-07-08 05:16] LABS: MUDS CUTOFF CONCENTRATIONS CUTOFF CONC BELOW:
[2020-07-08 05:19] LABS: HCG UR QUAL NEGATIVE
[2020-07-08 05:27] LABS: AMPHETAMINE SCREEN,URINE POSITIVE (NEGATIVE); BENZODIAZEPINES SCREEN, URINE NEGATIVE (NEGATIVE); COCAINE SCREEN URINE NEGATIVE (NEGATIVE); METHADONE SCREEN, URINE NEGATIVE (NEGATIVE); METHAMPHETAMINES SCREEN, URINE POSITIVE (NEGATIVE); OPIATE SCREEN, URINE NEGATIVE (NEGATIVE); OXYCODONE SCREEN, URINE NEGATIVE (NEGATIVE); PROPOXYPHENE SCREEN, URINE NEGATIVE (NEGATIVE); TRICYCLIC ANTIDEPRESSANT,URINE NEGATIVE (NEGATIVE)
[2020-07-08 06:09] LABS: C. PNEUMONIAE- RESP PCR PANEL NOT DETECTED
--- NOTE | 2020-07-08 07:21 | ED Physician Documentation ---
History of Present Illness - Stated complaint Stated Complaint: MHE - Chief complaint Chief Complaint: MHE - History obtained from History obtained from: Patient - Additonal information Additional information: Patient is brought to the emergency department by the police after being found in her van, which is her home, screaming, hallucinating, and combative. Police report that the patient is calm down considerably well in their custody. The patient has a history of traumatic brain injury and has had issues with depression, anxiety, and substance abuse since. Patient does admit to taking meth within the last 24 hours. She states she was screaming and yelling because "people were trying to attack her". Patient states that she has been on Abilify recently, but has been off her medications for the last 2 weeks. According to a letter sent from the patient's family, the patient has previously been on Zyprexa with good results, but was switched to Abilify after she brought up concerns over weight gain. Family feel that the Abilify has been somewhat helpful, but not as effective as the Zyprexa. The patient is not able to offer any other information at this time. Review of Systems Ten Systems: 10 systems reviewed and negative Constitutional: reports: Reviewed and negative Eyes: reports: Reviewed and negative Ears: reports: Reviewed and negative Nose: reports: Reviewed and negative Throat: reports: Reviewed and negative Cardiac: reports: Reviewed and negative Respiratory: reports: Reviewed and negative GI: reports: Reviewed and negative : reports: Reviewed and negative Skin: reports: Reviewed and negative Musculoskeletal: reports: Reviewed and negative Neurologic: reports: Reviewed and negative Psychiatric: reports: Hallucinations, Anxiety, Insomnia Endocrine: reports: Reviewed and negative Immunocompromised: reports: Reviewed and negative PD PAST MEDICAL HISTORY - Past Medical History Past Medical History: Yes Cardiovascular: None Respiratory: None Neuro: None Endocrine/Autoimmune: None GI: None JACKAROO: None : None HEENT: None Psych: Depression, Anxiety, Other Musculoskeletal: None Derm: None Other Past Medical History: Schizoaffective Disorder - Past Surgical History Past Surgical History: No - Present Medications Home Medications: Ambulatory Orders Medication Instructions Recorded Confirmed ARIPiprazole [Abilify] 06/14/20 Cephalexin [Keflex] 500 mg PO Q6H #20 capsule 06/27/20 - Allergies Allergies/Adverse Reactions: Allergies Allergy/AdvReac Type Severity Reaction Status Date / Time No Known Drug Allergies Allergy Verified 06/14/20 20:45 - Social History Does the pt smoke?: Yes Smoking Status: Current every day smoker Does the pt drink ETOH?: Yes Does the pt have substance abuse?: Yes - Immunizations Immunizations are current?: Yes - POLST Patient has POLST: No PD ED PE NORMAL - Vitals Vital signs reviewed: Yes - General General: Other (Patient is agitated and disheveled, but answers questions and is reasonably cooperative.) - HEENT HEENT: Atraumatic, PERRL, EOMI, Moist mucous membranes - Neck Neck: Supple, no meningeal sign - Cardiac Cardiac: RRR, No murmur - Respiratory Respiratory: No respiratory distress, Clear bilaterally - Abdomen Abdomen: Soft, Non tender, Non distended - Derm Derm: Normal color, Warm and dry, No rash - Extremities Extremities: No deformity, No edema, No calf tenderness / cord - Neuro Neuro: Other (Patient is awake and neurologic exam is grossly intact with the exception of psychiatric exam as below.) - Psych Psych: Other (Patient is agitated and frequently distracted by internal stimuli, to which she does respond with agitation. Patient is modestly cooperative.) Results - Vitals Vitals: Vital Signs - 24 hr 07/07/20 23:56 Temperature 37.4 C Heart Rate 101 H Respiratory 20 Rate Blood Pressure 129/80 O2 Saturation 98 Oxygen O2 Source Room air - Labs Labs: Laboratory Tests 07/08/20 07/08/20 07/08/20 01:25 01:25 05:10 WBC 10.3 RBC 4.34 Hgb 12.4 Hct 38.7 MCV 89.2 MCH 28.6 MCHC 32.0 RDW 12.8 Plt Count 373 MPV 8.5 Neut # (Auto) 6.0 Lymph # (Auto) 3.5 [place]ia # (Auto) 0.8 Eos # (Auto) 0.0 Baso # (Auto) 0.0 Absolute Nucleated RBC 0.00 Nucleated RBC % 0.0 Sodium 135 Potassium 3.3 L Chloride 102 Carbon Dioxide 23 Anion Gap 10.0 BUN 10 Creatinine 0.8 Estimated GFR (MDRD) 87 L Glucose 98 Calcium 9.8 Total Bilirubin 1.1 H AST 20 ALT 21 Alkaline Phosphatase 52 Total Protein 7.7 Albumin 4.7 Globulin 3.0 Albumin/Globulin Ratio 1.6 Urine HCG, Qual Nasal Adenovirus (PCR) Nasal B. parapertussis DNA (PCR) Nasal Coronavir 229E PCR Nasal Coronavir HKU1 PCR Nasal Coronavir NL63 PCR Nasal Coronavir OC43 PCR Nasal Enterovir/Rhinovir PCR Nasal Influenza B PCR Nasal Influenza A PCR Nasal Parainfluen 1 PCR Nasal Parainfluen 2 PCR Nasal Parainfluen 3 PCR Nasal Parainfluen 4 PCR Nasal RSV (PCR) Nasal B.pertussis DNA PCR Nasal C.pneumoniae (PCR) Jayesh Human Metapneumo PCR Nasal M.pneumoniae (PCR) Nasal SARS-CoV-2 (PCR) Urine Opiates Screen NEGATIVE Ur Oxycodone Screen NEGATIVE Urine Methadone Screen NEGATIVE Ur Propoxyphene Screen NEGATIVE Ur Barbiturates Screen NEGATIVE Ur Tricyclics Screen NEGATIVE Ur Phencyclidine Scrn NEGATIVE Ur Amphetamine Screen POSITIVE H U Methamphetamines Scrn POSITIVE H U Benzodiazepines Scrn NEGATIVE Urine Cocaine Screen NEGATIVE U Cannabinoids Screen NEGATIVE Ethyl Alcohol < 5.0 07/08/20 07/08/20 05:10 05:10 WBC RBC Hgb Hct MCV MCH MCHC RDW Plt Count MPV Neut # (Auto) Lymph # (Auto) Concordia # (Auto) Eos # (Auto) Baso # (Auto) Absolute Nucleated RBC Nucleated RBC % Sodium Potassium Chloride Carbon Dioxide Anion Gap BUN Creatinine Estimated GFR (MDRD) Glucose Calcium Total Bilirubin AST ALT Alkaline Phosphatase Total Protein Albumin Globulin Albumin/Globulin Ratio Urine HCG, Qual NEGATIVE Nasal Adenovirus (PCR) NOT DETECTED Nasal B. parapertussis DNA (PCR) NOT DETECTED Nasal Coronavir 229E PCR NOT DETECTED Nasal Coronavir HKU1 PCR NOT DETECTED Nasal Coronavir NL63 PCR NOT DETECTED Nasal Coronavir OC43 PCR NOT DETECTED Nasal Enterovir/Rhinovir PCR NOT DETECTED Nasal Influenza B PCR NOT DETECTED Nasal Influenza A PCR NOT DETECTED Nasal Parainfluen 1 PCR NOT DETECTED Nasal Parainfluen 2 PCR NOT DETECTED Nasal Parainfluen 3 PCR NOT DETECTED Nasal Parainfluen 4 PCR NOT DETECTED Nasal RSV (PCR) NOT DETECTED Nasal B.pertussis DNA PCR NOT DETECTED Nasal C.pneumoniae (PCR) NOT DETECTED Jayesh Human Metapneumo PCR NOT DETECTED Nasal M.pneumoniae (PCR) NOT DETECTED Nasal SARS-CoV-2 (PCR) NOT DETECTED Urine Opiates Screen Ur Oxycodone Screen Urine Methadone Screen Ur Propoxyphene Screen Ur Barbiturates Screen Ur Tricyclics Screen Ur Phencyclidine Scrn Ur Amphetamine Screen U Methamphetamines Scrn U Benzodiazepines Scrn Urine Cocaine Screen U Cannabinoids Screen Ethyl Alcohol PD MEDICAL DECISION MAKING - ED course Complexity details: reviewed results, re-evaluated patient, considered differential, d/w patient ED course: The patient was worked up with labs, urine drug screen and urine test. She did seem to become increasingly agitated throughout her stay in the emergency department and was initially given Zyprexa 5 mg p.o. and then Abilify 15 mg after refusing a second dose of Zyprexa. When neither of these were successful in calming the patient's increasing agitation, she was given Haldol 5 mg IM. The patient did rest quietly after this. I spoke with the DCR Cinthya after the patient's labs were back and she was medically cleared, and DCR did agree to come and see the patient in the emergency department. The patient is signed out to oncoming emergency physician Dr. Yepez, pending DCR evaluation and final disposition.
--- NOTE | 2020-07-08 07:28 | ED Physician Documentation ---
ED Addendum - Addendum Addendum: 07/08/20 07:27 Tonny pending DCR evaluation this morning. Patient had endorsed methamphetamine use overnight in the setting of traumatic brain injury and psychiatric illness. She was acutely agitated delirium overnight requiring Haldol administration and is still sleepy but has no complaints at this time. Opening her eyes to voice, shaking and nodding her head. Denies pain. 07/08/20 16:17 dw DCR re: bed availability- no one available within 12 hour time frame. [facility] stating they are interested but need her to wake up more. likely going to close the case for the 12 hour period however will plan to re-dispatch when condition changes. 07/08/20 17:25 DCR called back and states that patient has forethought about how to voluntarily address her mental health issues. Symptoms last night are consistent with being high on meth. no pattern of escalation. patient will be re-enrolled with [facility] tomorrow (team will f/u.) also will call her to touch base on getting back on her psych meds. can't detain. patient will f/u with voluntary outpatient services. patient still not eating. not responding to internal stimuli at present. if anything changes, please re-consult. 07/08/20 19:22 Patient still not eating. will monitor and have social work see the patient as needed in the morning. Patient endorsed to Dr Rivas for further managment. 07/08/20 19:22
[2020-07-08 20:41] VITALS: BP 110/60
== END 2020-07-08 21:17 | disposition home or self-care (01) ==
LOC: ED 22:54
DX: F15.121 Other stimulant abuse with intoxication delirium (principal); Z87.820 Personal history of traumatic brain injury; F17.200 Nicotine dependence, unspecified, uncomplicated
CPT/HCPCS: 0202U; 36415; 80053; 80306; 80320; 81025; 85025; 93005; 96372; 99283; 99284; A9270

== ENCOUNTER 2020-08-22 06:03 | Emergency (ER) | payer MEDICAID ==
[2020-08-22] MEDS ORDERED: ARIPiprazole 5 MG TABLET PO STA (06:17)
--- NOTE | 2020-08-22 06:21 | ED Physician Documentation ---
PD HPI MHE - Stated complaint Stated Complaint: MHE - History obtained from History obtained from: Patient - History of Present Illness Primary symptom: Psychosis, Anxiety, Out of meds (she says she needs a refill of her medication that she takes "for mood stabilization". She also has some swelling and tenderness 4th MCP right hand, and does not remember injury of it. Brought by Sheriff rbiggs when found wandering on street.). No: Suicidal ideation, Self harm - other Timing - onset: Today, Last night Contributing factors: Substance abuse - drugs (prior history of meth use causing exac of psychiatric symptoms. Last seen June 2020 for similar. Not detained.) Similar symptoms before: Diagnosis (Meth abuse and also psychiatric diagnoses.) Recently seen: Emergency Dept (last time Jun 2020) Review of Systems Constitutional: denies: Fever Nose: denies: Rhinorrhea / runny nose, Congestion Throat: denies: Sore throat Respiratory: denies: Cough GI: denies: Vomiting, Diarrhea Skin: denies: Abrasion (s), Laceration (s) Musculoskeletal: reports: Extremity swelling (right hand) Neurologic: denies: Headache, Head injury PD PAST MEDICAL HISTORY - Past Medical History Cardiovascular: None Respiratory: None Neuro: None Endocrine/Autoimmune: None GI: None 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 : None HEENT: None Psych: Depression, Anxiety, Other Musculoskeletal: None Derm: None - Past Surgical History Past Surgical History: No - Present Medications Home Medications: Ambulatory Orders Medication Instructions Recorded Confirmed ARIPiprazole [Abilify] 06/14/20 cephALEXin [Keflex] 500 mg PO Q6H #20 capsule 06/27/20 Aripiprazole [Abilify] 15 mg PO DAILY #60 tablet 07/08/20 Aripiprazole [Abilify] 15 mg PO DAILY #30 tab 08/22/20 Mupirocin Calcium [Mupirocin] 1 applic TP TID #15 gm 08/22/20 - Allergies Allergies/Adverse Reactions: Allergies Allergy/AdvReac Type Severity Reaction Status Date / Time No Known Drug Allergies Allergy Verified 06/14/20 20:45 - Social History Does the pt smoke?: Yes Smoking Status: Current every day smoker Does the pt drink ETOH?: Yes Does the pt have substance abuse?: Yes - Immunizations Immunizations are current?: Yes - POLST Patient has POLST: No PD ED PE NORMAL - Vitals Vital signs reviewed: Yes - General General: Alert and oriented X 3, Well developed/nourished, Other (anxious and reluctant for care. Agrees to get hand checked and some limited testing in order to get Rx of her psych med. ) - HEENT HEENT: Atraumatic, Other (lower lip with small split without signs of infection. ) - Neck Neck: Supple, no meningeal sign, No adenopathy - Cardiac Cardiac: RRR, No murmur - Respiratory Respiratory: No respiratory distress, Clear bilaterally - Derm Derm: Normal color, Warm and dry - Extremities Extremities: Normal ROM s pain, Other (dorsum right hand with swelling and mild tender over 4th MC/MCP. No bony deformity and has good flex/extension there. No skin breakdown. ) - Neuro Neuro: Alert and oriented X 3, No motor deficit Eye Opening: Spontaneous Motor: Obeys Commands Verbal: Oriented GCS Score: 15 - Psych Psych: Other (She is a little bit agitated and is quite certain that she does not want any blood tests. She does take her usual medication Abilify but declines Tylenol or Ativan. She is able to tell me where she is and has a plan for the day to head back towards her house. ). No: Normal affect (anxious, slightly hyperkinetic, but able to answer questions. ) - Free text exam Free text exam: I asked the patient how she would get towards home and she states she would take the [employer] bus [address] to get home. She denies any self-harm ideation. She states she does not want any social work evaluation and declines any other treatment at this time aside from her usual prescription medication. She seems able to make clear decisions even though she is a bit agitated. There is no apparent grave disability nor potential harm to self or others. At this point do not see a reason for involuntarily detaining her. Results - Vitals Vitals: Oxygen O2 Source Room air PD MEDICAL DECISION MAKING - ED course Complexity details: reviewed results (CLinically the hand/knuckle does not feel broken. The patient declines xray. I feel comfortable with this. ), considered differential (The school occupational therapist's deputy that brought her here did not feel she met grounds for involuntary detainment. He had brought her here as courtesy to try to get help and evaluation. I talked with her and the patient was accepting of care for some ointment for her hand and also a refill of her prescription.), d/w patient ED course: There is enough clear thinking with a plan of self-care of getting home and wanting to be on her usual medications. Despite some agitation she does not seem to reach the level of disability no are any potential for harm to self or others. As such I do not see reason for detainment. Her mother is reportedly in the parking lot and talked with the nurse and is upset that we cannot forcing treatment on the patient. The nurse did convey the rationale that there is a certain level of disability that needs to be met in order to involuntarily treat. Departure - Departure Disposition: 01 Home, Self Care Clinical Impression: Anxiety, Agitation Hand swelling Qualifiers: Laterality: right Qualified Code(s): M79.89 - Other specified soft tissue disorders Condition: Stable Record reviewed to determine appropriate education?: Yes Follow-Up: [facility] [Provider Group] [facility] [Provider Group] Prescriptions: Aripiprazole [Abilify] 15 mg PO DAILY #30 tab Mupirocin Calcium [Mupirocin] 1 applic TP TID #15 gm Comments: Stay well-hydrated. Avoid recreational drugs. Use ointment twice daily to the skin sore as needed. Continue usual Abilify medication. Follow-up with your primary care or a primary care. Follow-up with counseling and psychological services. Return if you are needing extra help with medications and other treatment.
[2020-08-22] MEDS: LORazepam 1 MG TABLET PO STA ×2 (06:25→07:16)
[2020-08-22] MEDS: ACETAMINOPHEN 325 MG TABLET PO STA ×2 (06:25→07:16)
[2020-08-22] MEDS ORDERED: BACITRACIN ZINC OINT 1 PACKET TOP STA (06:43)
[2020-08-22 07:16] VITALS: BP 128/75
== END 2020-08-22 06:55 | disposition home or self-care (01) ==
LOC: ED 06:03
DX: F41.9 Anxiety disorder, unspecified (principal); R45.1 Restlessness and agitation; M79.89 Other specified soft tissue disorders; M79.641 Pain in right hand; F17.200 Nicotine dependence, unspecified, uncomplicated
CPT/HCPCS: 99283; 99284; A9270

== ENCOUNTER 2020-09-02 21:58 | Emergency (ER) | payer MEDICAID ==
[2020-09-02] MEDS ORDERED: OLANZapine ODT 5 MG TABLET TL ONE (22:15)
--- NOTE | 2020-09-02 23:56 | ED Physician Documentation ---
History of Present Illness - Stated complaint Stated Complaint: AMS - Chief complaint Chief Complaint: MHE - History obtained from History obtained from: Police - Additonal information Additional information: 25-year-old woman with history of schizophrenia and methamphetamine abuse presents After being brought in by police as an JUAN CARLOS, found in a [employer] line acting erratic in the rain. On arrival to the emergency department patient was initially handcuffed and shivering but was able to be uncuffed and is compliant with staff although muttering to herself. She is endorsing methamphetamine ab use tonight. Denies pain anywhere. Agreeable to oral zyprexa. 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 : None HEENT: None Psych: Depression, Anxiety, Other Musculoskeletal: None Derm: None - Past Surgical History Past Surgical History: No - Present Medications Home Medications: Ambulatory Orders Medication Instructions Recorded Confirmed ARIPiprazole [Abilify] 06/14/20 cephALEXin [Keflex] 500 mg PO Q6H #20 capsule 06/27/20 Aripiprazole [Abilify] 15 mg PO DAILY #60 tablet 07/08/20 Aripiprazole [Abilify] 15 mg PO DAILY #30 tab 08/22/20 Mupirocin Calcium [Mupirocin] 1 applic TP TID #15 gm 08/22/20 - Allergies Allergies/Adverse Reactions: Allergies Allergy/AdvReac Type Severity Reaction Status Date / Time No Known Drug Allergies Allergy Verified 09/02/20 22:17 - Social History Does the pt smoke?: Yes Smoking Status: Current every day smoker Does the pt drink ETOH?: Yes Does the pt have substance abuse?: Yes Substance Use and Type: Meth - Immunizations Immunizations are current?: Yes - POLST Patient has POLST: No PD ED PE NORMAL - Vitals Vital signs reviewed: Yes - General General: No acute distress (clinically intoxicated with meth), Other - HEENT HEENT: Atraumatic, PERRL, EOMI - Neck Neck: Supple, no meningeal sign - Cardiac Cardiac: Other - Respiratory Respiratory: No respiratory distress, Clear bilaterally - Abdomen Abdomen: Non tender, Non distended - Female Female : Deferred - Rectal Rectal: Deferred - Back Back: No spinal TTP - Derm Derm: Normal color, Warm and dry - Extremities Extremities: No deformity - Neuro Neuro: Other (able to state name. intermittently mumbling to self. clinically intoxicated) - Psych Psych: Other (clinically intoxicated with methamphetamine) Results - Vitals Vitals: Vital Signs - 24 hr 09/02/20 09/02/20 09/03/20 22:17 22:23 06:52 Temperature 36.6 C 36.6 C 36.7 C Heart Rate 120 H 120 H 97 Respiratory 16 16 16 Rate Blood Pressure 122/72 122/72 125/57 L O2 Saturation 97 97 98 Oxygen O2 Source Room air PD MEDICAL DECISION MAKING - ED course ED course: 25-year-old woman with history of methamphetamine abuse presents brought in by police after being found acting erratically in a [employer] line. She was compliant on arrival to the emergency department and is now sleeping comfortably. Will reassess in a few hours. 4:30am- patient ambulatory to bathroom without difficulty. Appears tired/drawn but is speaking with staff. 7am - patient endorsed to Dr. Meyer. still sleepy but appears to be sobering up. Departure - Departure Clinical Impression: Methamphetamine abuse Condition: Good Instructions: Abuse Meth Abuse and Addiction
--- NOTE | 2020-09-03 12:42 | ED Physician Documentation ---
ED Addendum - Addendum Addendum: 09/03/20 12:40The patient has cleared mentation well after sleeping. She is able to interact with the nurses. Her main issue was "I do not have a place to go". She does have a history of psychiatric disorder and some substance abuse so I had social work talk with her to see if there was any potential for crisis bed or such. Social work talked with her and the patient declined actually any placement like that. She had lived with her mother and she states she will call her mother and see if she can come back home. [place] those previously as well. No suicidal ideation and is not seeming gravely disabled. Has clear conversation and forward planning. Disposition: The patient is discharged home in stable condition.
[2020-09-03 12:45] VITALS: BP 106/46
[2020-09-03] MEDS ORDERED: OLANZapine ODT 5 MG TABLET TL ONE (13:34)
[2020-09-03] MEDS ORDERED: ARIPiprazole 5 MG TABLET PO ONE (14:15)
[2020-09-04] MEDS ORDERED: ARIPiprazole 5 MG TABLET PO SCH (09:00)
== END 2020-09-03 14:18 | disposition home or self-care (01) ==
LOC: ED 21:58
DX: F15.129 Other stimulant abuse with intoxication, unspecified (principal); F20.9 Schizophrenia, unspecified; F17.200 Nicotine dependence, unspecified, uncomplicated
CPT/HCPCS: 99281; 99282; A9270

== ENCOUNTER 2020-09-16 09:43 | Outpatient (CLI) | payer MEDICAID | END 2020-09-16 09:44 | disposition critical access hospital (66) | LOC: EMS 09:43 | PROVIDERS: ATTEND Emergency Medicine | DX: R46.89 Other symptoms and signs involving appearance and behavior (principal) | CPT/HCPCS: A0425; A0429; A0999 ==

== ENCOUNTER 2020-09-16 10:00 | Emergency (ER) | payer MEDICAID ==
[2020-09-16] MEDS ORDERED: LORazepam 1 MG TABLET PO STA (10:12)
[2020-09-16] MEDS ORDERED: OLANZapine ODT 5 MG TABLET TL ONE (10:12)
--- NOTE | 2020-09-16 10:13 | ED Physician Documentation ---
PD HPI MHE - Stated complaint Stated Complaint: MHE - History obtained from History obtained from: Patient, EMS - History of Present Illness Primary symptom: Psychosis (She was in [employer] and screaming and yelling and acting erratically. Police were called and then EMS to bring her for evaluation. History of similar episodes in the past related to psychiatric disorder and meth use.), Other (She repeatedly claims we have made sex toys from her blood from previous visits. She states she does not consent to sex toys being made for her. 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 She states she has made her own medications in past approved by [employer].) Timing - onset: Today Contributing factors: Substance abuse - drugs (meth use in the past, and has been to ER multiple times with similar presentation. Typically has calmed and been discharged after time for drugs to wear off a bit.) Similar symptoms before: Diagnosis (some psychiatric underlying, and often meth psychosis.) Recently seen: Not recently seen Review of Systems Unable to obtain: Uncooperative (will answer questions but somewhat unfocused, but does answer some ROS.) Constitutional: denies: Fever Nose: denies: Rhinorrhea / runny nose, Congestion Throat: denies: Sore throat Cardiac: denies: Chest pain / pressure Respiratory: denies: Cough GI: denies: Abdominal Pain Neurologic: denies: Headache, Head injury PD PAST MEDICAL HISTORY - Past Medical History Cardiovascular: None Respiratory: None Neuro: None Endocrine/Autoimmune: None GI: None 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 : None HEENT: None Psych: Depression, Anxiety, Other Musculoskeletal: None Derm: None - Past Surgical History Past Surgical History: No - Present Medications Home Medications: Ambulatory Orders Medication Instructions Recorded Confirmed ARIPiprazole [Abilify] 06/14/20 cephALEXin [Keflex] 500 mg PO Q6H #20 capsule 06/27/20 Aripiprazole [Abilify] 15 mg PO DAILY #30 tab 08/22/20 Mupirocin Calcium [Mupirocin] 1 applic TP TID #15 gm 08/22/20 Aripiprazole [Abilify] 15 mg PO DAILY #60 tab 09/03/20 - Allergies Allergies/Adverse Reactions: Allergies Allergy/AdvReac Type Severity Reaction Status Date / Time No Known Drug Allergies Allergy Verified 09/16/20 10:15 - Social History Does the pt smoke?: Yes Smoking Status: Current every day smoker Does the pt drink ETOH?: Yes Does the pt have substance abuse?: Yes - Immunizations Immunizations are current?: Yes - POLST Patient has POLST: No PD ED PE NORMAL - Vitals Vital signs reviewed: Yes - General General: Alert and oriented X 3 (labile mood with yelling and angry at times; other times not really sounding angry by content, just yelling the answer. 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 ) - Cardiac Cardiac: RRR, No murmur - Respiratory Respiratory: Clear bilaterally - Abdomen Abdomen: Other (not examined) - Derm Derm: Normal color, Warm and dry - Neuro Neuro: Alert and oriented X 3, No motor deficit - Psych Psych: No: Normal affect (agitated and rather hyperkinetic, with hand gestures but no threatening gestures nor any directed at providers. ) Results - Vitals Vitals: Oxygen O2 Source Room air PD MEDICAL DECISION MAKING - ED course Complexity details: re-evaluated patient (The patient did take oral medication here. It did not been that long but she was calming some in less erratic. She was not yelling. The Yefri was here talking to whoever when she was cooperative. She did state she wanted to leave and not stay. She eloped and decision to not bring her back. ), considered differential, d/w patient ED course: The Yefri was here talking with the patient. She was calm and interacting with him. She had stated she did not want to stay and was declining further treatment. She declined blood draw. She was seeming calmer enough and having decision process at the officer did not feel she needed detaining per se. Departure - Departure Disposition: ED Elope Discharge Date/Time: 09/16/20 10:29
== END 2020-09-16 10:29 | disposition left against medical advice (07) ==
LOC: EDUNIT# → ED 10:00
DX: Z53.29 Procedure and treatment not carried out because of patient's decision for other reasons (principal); F17.200 Nicotine dependence, unspecified, uncomplicated
CPT/HCPCS: 99283; A9270; J8499; 80053; 80307; 80320; 80329; 83690; 84443; 85025

== ENCOUNTER 2020-09-23 11:51 | Outpatient (CLI) | payer MEDICAID | END 2020-09-23 11:52 | disposition critical access hospital (66) | LOC: EMS 11:51 | PROVIDERS: ATTEND Emergency Medicine | DX: R46.89 Other symptoms and signs involving appearance and behavior (principal) | CPT/HCPCS: A0425; A0429; A0999 ==

== ENCOUNTER 2020-09-23 12:31 | Emergency (ER) | payer MEDICAID ==
[2020-09-23] MEDS ORDERED: KETAMINE 500 MG/10 ML VIAL IM STA (12:36)
--- NOTE | 2020-09-23 12:40 | ED Physician Documentation ---
History of Present Illness - Stated complaint Stated Complaint: MHE - Chief complaint Chief Complaint: MHE - History obtained from History obtained from: Patient, EMS, Police - History of Present Illness Timing: Today - Additonal information Additional information: 25-year-old female was caught stealing a water bottle from a store. When police arrived she started screaming, acting aggressively, walking into traffic. She has been speaking to people that are not present. Accusing EMS of grabbing her genitals. She has a longstanding history of methamphetamine abuse and mental health issues. Unknown if she is taking her medications or not. Patient is completely uncooperative here. Attempted to strike the paramedics multiple times. She arrives in restraints. 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 : None HEENT: None Psych: Depression, Anxiety, Other Musculoskeletal: None Derm: None - Past Surgical History Past Surgical History: No - Present Medications Home Medications: Ambulatory Orders Medication Instructions Recorded Confirmed ARIPiprazole [Abilify] 06/14/20 cephALEXin [Keflex] 500 mg PO Q6H #20 capsule 06/27/20 Aripiprazole [Abilify] 15 mg PO DAILY #30 tab 08/22/20 Mupirocin Calcium [Mupirocin] 1 applic TP TID #15 gm 08/22/20 Aripiprazole [Abilify] 15 mg PO DAILY #60 tab 09/03/20 - Allergies Allergies/Adverse Reactions: Allergies Allergy/AdvReac Type Severity Reaction Status Date / Time No Known Drug Allergies Allergy Verified 09/23/20 12:43 - Social History Does the pt smoke?: Yes Smoking Status: Current every day smoker Does the pt drink ETOH?: Yes Does the pt have substance abuse?: Yes - Immunizations Immunizations are current?: Yes - POLST Patient has POLST: No PD ED PE NORMAL - Vitals Vital signs reviewed: Yes - General General: Other (alert, screaming, spitting, attempting to hit and bite) - HEENT HEENT: Moist mucous membranes, Pharynx benign - Neck Neck: Supple, no meningeal sign - Cardiac Cardiac: RRR - Respiratory Respiratory: No respiratory distress, Clear bilaterally - Abdomen Abdomen: Soft, Non tender, Non distended - Derm Derm: Warm and dry - Extremities Extremities: Other (MAEE) - Neuro Neuro: Other (alert, hyperverbal, speaking to non-existant people, screaming) Results - Vitals Vitals: Vital Signs - 24 hr 09/23/20 09/23/20 09/23/20 12:43 12:51 19:01 Temperature 37.6 C 37.6 C 36.7 C Heart Rate 137 H 137 H 73 Respiratory 17 17 14 Rate Blood Pressure 130/70 130/70 100/47 L O2 Saturation 98 98 100 Oxygen O2 Source Room air - EKG (time done) 2012 Rate: Rate (enter#) (68) Rhythm: NSR [place]: Normal Intervals: Normal [place] QRS: Normal Ischemia: Normal ST segments - Labs Labs: Laboratory Tests 09/23/20 09/23/20 09/23/20 13:12 13:12 13:12 WBC 7.3 RBC 4.27 Hgb 12.4 Hct 38.1 MCV 89.2 MCH 29.0 MCHC 32.5 RDW 13.0 Plt Count 316 MPV 8.5 Neut # (Auto) 4.1 Lymph # (Auto) 2.5 [place] # (Auto) 0.5 Eos # (Auto) 0.2 Baso # (Auto) 0.0 Absolute Nucleated RBC 0.00 Nucleated RBC % 0.0 Sodium 137 Potassium 3.8 Chloride 102 Carbon Dioxide 21 Anion Gap 14.0 H BUN 26 H Creatinine 1.0 Estimated GFR (MDRD) 67 L Glucose 125 H Calcium 9.8 Total Bilirubin 1.0 AST 22 ALT 20 Alkaline Phosphatase 48 Total Protein 7.4 Albumin 4.6 Globulin 2.8 Albumin/Globulin Ratio 1.6 Lipase 20 L TSH 1.05 Urine Color Urine Clarity Urine pH Ur Specific [place] Urine Protein Urine Glucose (UA) Urine Ketones Urine Occult Blood Urine Nitrite Urine Bilirubin Urine Urobilinogen Ur Leukocyte Esterase Urine RBC Urine WBC Ur Squamous Epith Cells Amorphous Sediment Urine Bacteria Ur Microscopic Review Urine Culture Comments Urine HCG, Qual Nasal Adenovirus (PCR) Nasal B. parapertussis DNA (PCR) Nasal Coronavir 229E PCR Nasal Coronavir HKU1 PCR Nasal Coronavir NL63 PCR Nasal Coronavir OC43 PCR Nasal Enterovir/Rhinovir PCR Nasal Influenza B PCR Nasal Influenza A PCR Nasal Parainfluen 1 PCR Nasal Parainfluen 2 PCR Nasal Parainfluen 3 PCR Nasal Parainfluen 4 PCR Nasal RSV (PCR) Nasal B.pertussis DNA PCR Nasal C.pneumoniae (PCR) Jayesh Human Metapneumo PCR Nasal M.pneumoniae (PCR) Nasal SARS-CoV-2 (PCR) Salicylates < 6.0 Urine Opiates Screen Ur Oxycodone Screen Urine Methadone Screen Ur Propoxyphene Screen Acetaminophen < 10 L Ur Barbiturates Screen Ur Tricyclics Screen Ur Phencyclidine Scrn Ur Amphetamine Screen U Methamphetamines Scrn U Benzodiazepines Scrn Urine Cocaine Screen U Cannabinoids Screen Ethyl Alcohol < 5.0 09/23/20 09/23/20 13:21 14:57 WBC RBC Hgb Hct MCV MCH MCHC RDW Plt Count MPV Neut # (Auto) Lymph # (Auto) [place] # (Auto) Eos # (Auto) Baso # (Auto) Absolute Nucleated RBC Nucleated RBC % Sodium Potassium Chloride Carbon Dioxide Anion Gap BUN Creatinine Estimated GFR (MDRD) Glucose Calcium Total Bilirubin AST ALT Alkaline Phosphatase Total Protein Albumin Globulin Albumin/Globulin Ratio Lipase TSH Urine Color YELLOW Urine Clarity CLOUDY Urine pH 5.5 Ur Specific [place] >=1.030 H Urine Protein NEGATIVE Urine Glucose (UA) NEGATIVE Urine Ketones NEGATIVE Urine Occult Blood TRACE-INTA Urine Nitrite NEGATIVE Urine Bilirubin NEGATIVE Urine Urobilinogen 0.2 (NORMAL) Ur Leukocyte Esterase MODERATE H Urine RBC 6-10 H Urine WBC 11-25 H Ur Squamous Epith Cells MANY Squamous H Amorphous Sediment Few Urine Bacteria Many H Ur Microscopic Review INDICATED Urine Culture Comments NOT INDICATED Urine HCG, Qual NEGATIVE Nasal Adenovirus (PCR) NOT DETECTED Nasal B. parapertussis DNA (PCR) NOT DETECTED Nasal Coronavir 229E PCR NOT DETECTED Nasal Coronavir HKU1 PCR NOT DETECTED Nasal Coronavir NL63 PCR NOT DETECTED Nasal Coronavir OC43 PCR NOT DETECTED Nasal Enterovir/Rhinovir PCR NOT DETECTED Nasal Influenza B PCR NOT DETECTED Nasal Influenza A PCR NOT DETECTED Nasal Parainfluen 1 PCR NOT DETECTED Nasal Parainfluen 2 PCR NOT DETECTED Nasal Parainfluen 3 PCR NOT DETECTED Nasal Parainfluen 4 PCR NOT DETECTED Nasal RSV (PCR) NOT DETECTED Nasal B.pertussis DNA PCR NOT DETECTED Nasal C.pneumoniae (PCR) NOT DETECTED Jayesh Human Metapneumo PCR NOT DETECTED Nasal M.pneumoniae (PCR) NOT DETECTED Nasal SARS-CoV-2 (PCR) NOT DETECTED Salicylates Urine Opiates Screen NEGATIVE Ur Oxycodone Screen NEGATIVE Urine Methadone Screen NEGATIVE Ur Propoxyphene Screen NEGATIVE Acetaminophen Ur Barbiturates Screen NEGATIVE Ur Tricyclics Screen NEGATIVE Ur Phencyclidine Scrn NEGATIVE Ur Amphetamine Screen POSITIVE H U Methamphetamines Scrn POSITIVE H U Benzodiazepines Scrn NEGATIVE Urine Cocaine Screen NEGATIVE U Cannabinoids Screen NEGATIVE Ethyl Alcohol PD MEDICAL DECISION MAKING - ED course Complexity details: reviewed results, re-evaluated patient, considered differential, d/w patient ED course: 25-year-old female with history of bipolar disorder, traumatic brain injury and methamphetamine abuse. Appears acutely psychotic. Consistent with prior presentations. She is medically clear for psychiatric care. Would likely benefit from long-acting antipsychotics. She was given Macrobid for UTI. Patient signed out to the oncoming ED physician awaiting final disposition Would recommend Macrobid p.o. twice daily for 3 more days for her UTI Departure - Departure Clinical Impression: Acute psychosis, Methamphetamine abuse UTI (urinary tract infection) Qualifiers: Urinary tract infection type: acute cystitis Hematuria presence: without hematuria Qualified Code(s): N30.00 - Acute cystitis without hematuria Condition: Stable
[2020-09-23 13:17] LABS: BASOPHILS % (AUTO) 0.4 %; EOSINOPHILS # (AUTO) 0.2 10^3/uL (0.0-0.7); EOSINOPHILS % (AUTO) 2.1 %; HCT - HEMATOCRIT 38.1 % (37.0-47.0); HGB - HEMOGLOBIN 12.4 g/dL (12.0-16.0); LYMPHOCYTES # (AUTO) 2.5 10^3/uL (1.5-3.5); LYMPHOCYTES % (AUTO) 34.2 %; MEAN CORPUSCULAR HGB CONC 32.5 g/dL (32.0-36.0); MEAN CORPUSCULAR VOLUME 89.2 fL (81.0-99.0); MEAN PLATELET VOLUME 8.5 fL (7.9-10.8); MONOCYTES # (AUTO) 0.5 10^3/uL (0.0-1.0); MONOCYTES % (AUTO) 6.7 %; NEUTROPHILS # (AUTO) 4.1 10^3/uL (1.5-6.6); NEUTROPHILS % (AUTO) 56.3 %; PLT - PLATELET COUNT 316 10^3/uL (130-450); RED BLOOD COUNT 4.27 10^6/uL (4.20-5.40); WHITE BLOOD COUNT 7.3 x10^3/uL (4.8-10.8)
[2020-09-23 13:36] LABS: ACETAMINOPHEN < 10 ug/mL (10-30); ALBUMIN 4.6 g/dL (3.2-5.5); ALBUMIN/GLOBULIN RATIO 1.6 (1.0-2.2); ALKALINE PHOSPHATASE 48 IU/L (42-121); ALT ALANINE AMINOTRANSFERASE 20 IU/L (10-60); AST ASPARTATE AMINOTRANSFERASE 22 IU/L (10-42); BUN - BLOOD UREA NITROGEN 26 mg/dL (6-20); CALCIUM 9.8 mg/dL (8.5-10.3); CARBON DIOXIDE - CO2 21 mmol/L (21-32); CHLORIDE 102 mmol/L (101-111); ETOH - ETHANOL < 5.0 mg/dL; GFR - MDRD 67 (>89); GLUCOSE 125 mg/dL (70-100); LIPASE 20 U/L (22-51); POTASSIUM 3.8 mmol/L (3.5-5.0); SALICYLATE < 6.0 mg/dL; SODIUM 137 mmol/L (135-145); TOTAL PROTEIN 7.4 g/dL (6.7-8.2)
[2020-09-23 14:17] LABS: B. PARAPERTUSSIS- RESP PCR PAN NOT DETECTED; B. PERTUSSIS- RESP PCR PANEL NOT DETECTED; C. PNEUMONIAE- RESP PCR PANEL NOT DETECTED; CORONAVIRUS 229E-RESP PCR NOT DETECTED; CORONAVIRUS HKU1-RESP PCR NOT DETECTED; CORONAVIRUS NL63-RESP PCR NOT DETECTED; CORONAVIRUS OC43-RESP PCR NOT DETECTED; HUMAN METAPNEUMOVIRUS NOT DETECTED; INFLUENZA A- RESP PCR PANEL NOT DETECTED; INFLUENZA B - RESP PCR PANEL NOT DETECTED; M. PNEUMONIAE- RESP PCR PANEL NOT DETECTED; PARAINFLUENZA VIRUS 1 NOT DETECTED; PARAINFLUENZA VIRUS 2 NOT DETECTED; PARAINFLUENZA VIRUS 3 NOT DETECTED; PARAINFLUENZA VIRUS 4 NOT DETECTED; RHINOVIRUS/ENTEROVIRUS NOT DETECTED; RSV- RESP PCR PANEL NOT DETECTED; SARS-CoV-2 -RESP PCR PANEL NOT DETECTED
[2020-09-23 15:03] LABS: MUDS CUTOFF CONCENTRATIONS CUTOFF CONC BELOW:
[2020-09-23 15:07] LABS: BILIRUBIN,URINE NEGATIVE (NEGATIVE); GLUCOSE, URINE (UA) NEGATIVE (NEGATIVE); KETONES,URINE (UA) NEGATIVE (NEGATIVE); LEUKOCYTE ESTERASE, URINE MODERATE (NEGATIVE); NITRITE,URINE NEGATIVE (NEGATIVE); OCCULT BLOOD,URINE TRACE-INTA (NEGATIVE); PH,URINE 5.5 PH (5.0-7.5); PROTEIN,URINE NEGATIVE (NEGATIVE); UROBILINOGEN,URINE 0.2 (NORMAL) E.U./dL (NORMAL)
[2020-09-23 15:09] LABS: CLARITY,URINE CLOUDY (CLEAR); HCG UR QUAL NEGATIVE
[2020-09-23 15:17] LABS: AMORPHOUS SEDIMENT,UR Few /LPF; AMPHETAMINE SCREEN,URINE POSITIVE (NEGATIVE); BACTERIA,URINE Many /HPF (None Seen); BENZODIAZEPINES SCREEN, URINE NEGATIVE (NEGATIVE); COCAINE SCREEN URINE NEGATIVE (NEGATIVE); METHADONE SCREEN, URINE NEGATIVE (NEGATIVE); METHAMPHETAMINES SCREEN, URINE POSITIVE (NEGATIVE); OPIATE SCREEN, URINE NEGATIVE (NEGATIVE); SQUAMOUS EPITHELIAL CELL,UR MANY Squamous (<= Few); THC CANNABINOID SCREEN, URINE NEGATIVE (NEGATIVE); TRICYCLIC ANTIDEPRESSANT,URINE NEGATIVE (NEGATIVE)
[2020-09-23 15:18] LABS: BARBITURATE SCREEN,UR NEGATIVE (NEGATIVE); OXYCODONE SCREEN, URINE NEGATIVE (NEGATIVE); PROPOXYPHENE SCREEN, URINE NEGATIVE (NEGATIVE)
[2020-09-23] MEDS ORDERED: NITROFURANTOIN MACRO 100 MG CAPSULE PO STA (15:20)
[2020-09-23] MEDS ORDERED: OLANZapine 10 MG VIAL IM STA ×2 (15:22→20:43)
--- NOTE | 2020-09-24 00:50 | ED Physician Documentation ---
ED Addendum - Addendum Addendum: 09/24/20 00:49 Patient endorsed to me by Dr. Barrett. She has a bed available at [facility]Sleeping comfortably at this time after getting Zyprexa. Prescription printed out for her Macrobid for urinary tract infection. Diagnosis 1. Acute psychosis 2. Methamphetamine abuse 3. Urinary tract infection
[2020-09-24 08:20] VITALS: BP 111/78
--- OUTSIDE RECORDS SUMMARY | 2020-10-15 14:29 | EXTERNAL MEDICAL SUMMARY RPT | Continuity of Care Document ---
:1995 Demographics Phone Unavailable Preferred Language Unknown Marital Status Unknown Faith Affiliation Unknown Race Unknown Ethnic Group Unknown Author Organization [place] Address [address] [phone] Phone Social History date description facility [phone]
== END 2020-09-24 08:20 ==
LOC: EDUNIT# → EDBD → ED 12:31
DX: N30.00 Acute cystitis without hematuria (principal); F23 Brief psychotic disorder; F15.129 Other stimulant abuse with intoxication, unspecified; F31.9 Bipolar disorder, unspecified; F17.200 Nicotine dependence, unspecified, uncomplicated; Z20.822 Contact with and (suspected) exposure to COVID-19
CPT/HCPCS: 0202U; 36415; 80053; 80306; 80307; 80320; 80329; 81001; 81025; 83690; 84443; 85025; 93005; 96372; 99285; A9270; 81003; 87086

== ENCOUNTER 2020-10-06 03:37 | Outpatient (CLI) | payer MEDICAID | END 2020-10-06 03:38 | disposition critical access hospital (66) | LOC: EMS 03:37 | PROVIDERS: ATTEND Emergency Medicine | DX: R41.82 Altered mental status, unspecified (principal) | CPT/HCPCS: A0425; A0429; A0999 ==

== ENCOUNTER 2020-10-06 03:52 | Emergency (ER) | payer MEDICAID ==
[2020-10-06] MEDS ORDERED: OLANZapine ODT 5 MG TABLET TL ONE ×2 (04:19→07:09)
[2020-10-06 05:18] LABS: MUDS CUTOFF CONCENTRATIONS CUTOFF CONC BELOW:
[2020-10-06 05:19] LABS: BILIRUBIN,URINE NEGATIVE (NEGATIVE); GLUCOSE, URINE (UA) NEGATIVE (NEGATIVE); KETONES,URINE (UA) 15 mg/dL (NEGATIVE); LEUKOCYTE ESTERASE, URINE NEGATIVE (NEGATIVE); NITRITE,URINE NEGATIVE (NEGATIVE); OCCULT BLOOD,URINE NEGATIVE (NEGATIVE); PH,URINE 6.5 PH (5.0-7.5); PROTEIN,URINE TRACE mg/dL (NEGATIVE); UROBILINOGEN,URINE 1 (NORMAL) E.U./dL (NORMAL)
[2020-10-06 05:20] LABS: CLARITY,URINE CLEAR (CLEAR)
[2020-10-06 05:21] LABS: HCG UR QUAL NEGATIVE
[2020-10-06 05:30] LABS: COCAINE SCREEN URINE NEGATIVE (NEGATIVE); METHAMPHETAMINES SCREEN, URINE POSITIVE (NEGATIVE); OPIATE SCREEN, URINE NEGATIVE (NEGATIVE); THC CANNABINOID SCREEN, URINE NEGATIVE (NEGATIVE)
[2020-10-06 05:31] LABS: AMPHETAMINE SCREEN,URINE POSITIVE (NEGATIVE); BARBITURATE SCREEN,UR NEGATIVE (NEGATIVE); BENZODIAZEPINES SCREEN, URINE NEGATIVE (NEGATIVE); METHADONE SCREEN, URINE NEGATIVE (NEGATIVE); OXYCODONE SCREEN, URINE NEGATIVE (NEGATIVE); PROPOXYPHENE SCREEN, URINE NEGATIVE (NEGATIVE); TRICYCLIC ANTIDEPRESSANT,URINE NEGATIVE (NEGATIVE)
--- NOTE | 2020-10-06 05:45 | ED Physician Documentation ---
PD HPI MHE - Stated complaint Stated Complaint: MHE - Chief complaint Chief Complaint: MHE - History obtained from History obtained from: EMS - History of Present Illness Primary symptom: Psychosis Timing - onset: Today Contributing factors: Other (unknown) Similar symptoms before: Diagnosis (acute psychosis) Recently seen: Not recently seen - Additional information Additional information: 25-year-old female with a history of psychosis and amphetamine abuse was found in the [employer] store talking nonsensically yelling and required restraint for transfer to the hospital. She is unable to provide any significant history as she appears acutely psychotic. 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 : None HEENT: None Psych: Depression, Anxiety, Schizophrenia, Other Musculoskeletal: None Derm: None - Past Surgical History Past Surgical History: No - Present Medications Home Medications: Ambulatory Orders Medication Instructions Recorded Confirmed Aripiprazole [Abilify] 15 mg PO DAILY #30 tab 08/22/20 10/06/20 Nitrofurantoin Monohyd/M-Cryst 100 mg PO BID 3 Days #6 tab 09/24/20 10/06/20 [Macrobid 100 mg Capsule] - Allergies Allergies/Adverse Reactions: Allergies Allergy/AdvReac Type Severity Reaction Status Date / Time No Known Drug Allergies Allergy Verified 10/06/20 04:11 - Social History Does the pt smoke?: Yes Smoking Status: Current every day smoker Does the pt drink ETOH?: Yes Does the pt have substance abuse?: Yes - Immunizations Immunizations are current?: Yes - POLST Patient has POLST: No PD ED PE NORMAL - Vitals Vital signs reviewed: Yes (Tachycardic and hypertensive) - General General: Well developed/nourished, Other (25-year-old female with wide open eyes and nonsensical talk. She has been removed from restraints and is being cooperative at the time.) - HEENT HEENT: Atraumatic, PERRL, EOMI - Neck Neck: Supple, no meningeal sign, No bony TTP - Cardiac Cardiac: RRR, No murmur - Respiratory Respiratory: No respiratory distress, Clear bilaterally - Abdomen Abdomen: Normal bowel sounds, Soft, Non distended, No organomegaly - Back Back: No CVA TTP, No spinal TTP - Derm Derm: Normal color, Warm and dry, No rash - Extremities Extremities: No deformity, No edema - Neuro Neuro: Alert and oriented X 3, Normal speech Eye Opening: Spontaneous Motor: Obeys Commands Verbal: Confused GCS Score: 14 - Psych Psych: Other (mood and affect are labile ) Results - Vitals Vitals: Vital Signs - 24 hr 10/06/20 10/06/20 03:52 05:18 Temperature 37.0 C 36.6 C Heart Rate 119 H 96 Respiratory 20 16 Rate Blood Pressure 146/103 H 117/77 O2 Saturation 100 97 Oxygen O2 Source Room air - Labs Labs: Laboratory Tests 10/06/20 10/06/20 10/06/20 05:12 06:20 06:20 WBC 15.4 H RBC 4.00 L Hgb 11.8 L Hct 35.3 L MCV 88.3 MCH 29.5 MCHC 33.4 RDW 12.9 Plt Count 308 MPV 8.4 Neut # (Auto) 11.0 H Lymph # (Auto) 3.4 [place] # (Auto) 0.8 Eos # (Auto) 0.0 Baso # (Auto) 0.1 Absolute Nucleated RBC 0.00 Nucleated RBC % 0.0 Sodium 143 Potassium 3.9 Chloride 109 Carbon Dioxide 23 Anion Gap 11.0 BUN 16 Creatinine 0.9 Estimated GFR (MDRD) 76 L Glucose 94 Calcium 9.6 Total Bilirubin 0.9 AST 29 ALT 22 Alkaline Phosphatase 56 Total Protein 7.1 Albumin 4.5 Globulin 2.6 Albumin/Globulin Ratio 1.7 Lipase 18 L TSH Urine Color YELLOW Urine Clarity CLEAR Urine pH 6.5 Ur Specific [place] 1.025 Urine Protein TRACE Urine Glucose (UA) NEGATIVE Urine Ketones 15 H Urine Occult Blood NEGATIVE Urine Nitrite NEGATIVE Urine Bilirubin NEGATIVE Urine Urobilinogen 1 (NORMAL) Ur Leukocyte Esterase NEGATIVE Ur Microscopic Review NOT INDICATED Urine Culture Comments NOT INDICATED Urine HCG, Qual NEGATIVE Salicylates < 6.0 Urine Opiates Screen NEGATIVE Ur Oxycodone Screen NEGATIVE Urine Methadone Screen NEGATIVE Ur Propoxyphene Screen NEGATIVE Acetaminophen < 10 L Ur Barbiturates Screen NEGATIVE Ur Tricyclics Screen NEGATIVE Ur Phencyclidine Scrn NEGATIVE Ur Amphetamine Screen POSITIVE H U Methamphetamines Scrn POSITIVE H U Benzodiazepines Scrn NEGATIVE Urine Cocaine Screen NEGATIVE U Cannabinoids Screen NEGATIVE Ethyl Alcohol < 5.0 10/06/20 06:20 WBC RBC Hgb Hct MCV MCH MCHC RDW Plt Count MPV Neut # (Auto) Lymph # (Auto) [place] # (Auto) Eos # (Auto) Baso # (Auto) Absolute Nucleated RBC Nucleated RBC % Sodium Potassium Chloride Carbon Dioxide Anion Gap BUN Creatinine Estimated GFR (MDRD) Glucose Calcium Total Bilirubin AST ALT Alkaline Phosphatase Total Protein Albumin Globulin Albumin/Globulin Ratio Lipase TSH 1.25 Urine Color Urine Clarity Urine pH Ur Specific [place] Urine Protein Urine Glucose (UA) Urine Ketones Urine Occult Blood Urine Nitrite Urine Bilirubin Urine Urobilinogen Ur Leukocyte Esterase Ur Microscopic Review Urine Culture Comments Urine HCG, Qual Salicylates Urine Opiates Screen Ur Oxycodone Screen Urine Methadone Screen Ur Propoxyphene Screen Acetaminophen Ur Barbiturates Screen Ur Tricyclics Screen Ur Phencyclidine Scrn Ur Amphetamine Screen U Methamphetamines Scrn U Benzodiazepines Scrn Urine Cocaine Screen U Cannabinoids Screen Ethyl Alcohol PD MEDICAL DECISION MAKING - ED course Complexity details: reviewed old records, reviewed results, re-evaluated patient, considered differential, d/w patient ED course: 25-year-old female with a history of TBI, psychosis and methamphetamine abuse presents to the emergency department this morning confused and psychotic. We are able to remove the restraints and the patient is cooperative to take Zyprexa 5 mg TL. We were able to obtain specimens. We are able to obtain a urinalysis and tox screen demonstrating methamphetamine and amphetamine. She has similar prior presentation with meth induced psychosis. She has previously metabolized to [facility] and she has previously been detained to psych facility. Most recently 2+ weeks ago she was transferred to psych facility. She is homeless wet and cold. At shift change her care is turned over to the capable Dr. Ivey. Departure - Departure Clinical Impression: Acute psychosis, Methamphetamine abuse Condition: Serious
[2020-10-06 06:27] LABS: BASOPHILS # (AUTO) 0.1 10^3/uL (0.0-0.1); BASOPHILS % (AUTO) 0.5 %; HCT - HEMATOCRIT 35.3 % (37.0-47.0); HGB - HEMOGLOBIN 11.8 g/dL (12.0-16.0); LYMPHOCYTES # (AUTO) 3.4 10^3/uL (1.5-3.5); LYMPHOCYTES % (AUTO) 22.3 %; MEAN CORPUSCULAR HEMOGLOBIN 29.5 pg (27.0-31.0); MEAN CORPUSCULAR HGB CONC 33.4 g/dL (32.0-36.0); MEAN CORPUSCULAR VOLUME 88.3 fL (81.0-99.0); MEAN PLATELET VOLUME 8.4 fL (7.9-10.8); MONOCYTES # (AUTO) 0.8 10^3/uL (0.0-1.0); MONOCYTES % (AUTO) 5.5 %; NEUTROPHILS % (AUTO) 71.3 %; PLT - PLATELET COUNT 308 10^3/uL (130-450); RED CELL DISTRIBUTION WIDTH 12.9 % (12.0-15.0); WHITE BLOOD COUNT 15.4 x10^3/uL (4.8-10.8)
[2020-10-06 06:40] LABS: ACETAMINOPHEN < 10 ug/mL (10-30); ALBUMIN 4.5 g/dL (3.2-5.5); ALBUMIN/GLOBULIN RATIO 1.7 (1.0-2.2); ALKALINE PHOSPHATASE 56 IU/L (42-121); ALT ALANINE AMINOTRANSFERASE 22 IU/L (10-60); AST ASPARTATE AMINOTRANSFERASE 29 IU/L (10-42); BILIRUBIN,TOTAL 0.9 mg/dL (0.2-1.0); BUN - BLOOD UREA NITROGEN 16 mg/dL (6-20); CALCIUM 9.6 mg/dL (8.5-10.3); CARBON DIOXIDE - CO2 23 mmol/L (21-32); CHLORIDE 109 mmol/L (101-111); CREATININE 0.9 mg/dL (0.4-1.0); ETOH - ETHANOL < 5.0 mg/dL; GFR - MDRD 76 (>89); GLUCOSE 94 mg/dL (70-100); LIPASE 18 U/L (22-51); POTASSIUM 3.9 mmol/L (3.5-5.0); SALICYLATE < 6.0 mg/dL; SODIUM 143 mmol/L (135-145); TOTAL PROTEIN 7.1 g/dL (6.7-8.2)
[2020-10-06] MEDS ORDERED: LORazepam 1 MG TABLET PO STA (08:09)
[2020-10-06 13:10] LABS: CORONAVIRUS 229E-RESP PCR NOT DETECTED; CORONAVIRUS HKU1-RESP PCR NOT DETECTED; CORONAVIRUS NL63-RESP PCR NOT DETECTED; CORONAVIRUS OC43-RESP PCR NOT DETECTED; HUMAN METAPNEUMOVIRUS NOT DETECTED; INFLUENZA A- RESP PCR PANEL NOT DETECTED; RHINOVIRUS/ENTEROVIRUS NOT DETECTED; SARS-CoV-2 -RESP PCR PANEL NOT DETECTED
[2020-10-06 13:11] LABS: B. PARAPERTUSSIS- RESP PCR PAN NOT DETECTED; B. PERTUSSIS- RESP PCR PANEL NOT DETECTED; C. PNEUMONIAE- RESP PCR PANEL NOT DETECTED; INFLUENZA B - RESP PCR PANEL NOT DETECTED; M. PNEUMONIAE- RESP PCR PANEL NOT DETECTED; PARAINFLUENZA VIRUS 1 NOT DETECTED; PARAINFLUENZA VIRUS 2 NOT DETECTED; PARAINFLUENZA VIRUS 3 NOT DETECTED; PARAINFLUENZA VIRUS 4 NOT DETECTED; RSV- RESP PCR PANEL NOT DETECTED
--- NOTE | 2020-10-06 15:10 | ED Physician Documentation ---
ED Addendum - Addendum Addendum: 10/06/20 15:10 Patient is medically clear for psychiatric care. She was evaluated by social work and the DCR was consulted. DCRCinthya, evaluated the patient and will look for a bed. EKG 1450 - 97 bpm, sinus rhythm, RSR prime in V1. Normal ST segments. Normal AL segments. Normal QRS duration. 10/06/20 18:37 Patient accepted to a [facility] in [place] by MOLLY Mendosa. COBRA forms completed. Patient was detained by the DCR and an involuntary hold and will be transferred. This document was made in part using voice recognition software. While efforts are made to proofread this document, sound alike and grammatical errors may occur. Departure - Departure Disposition: [facility] Psych Hosp/Unit DC/Xfer Clinical Impression: Acute psychosis, Methamphetamine abuse Condition: Serious
[2020-10-06 19:47] VITALS: BP 134/98
[2020-10-06] MEDS ORDERED: LORazepam 0.5 MG TABLET PO STA (19:56)
== END 2020-10-06 21:38 ==
LOC: EDUNIT# → ED 03:52
DX: F23 Brief psychotic disorder (principal); F15.129 Other stimulant abuse with intoxication, unspecified; F17.200 Nicotine dependence, unspecified, uncomplicated; Z59.0 Homelessness; Z20.822 Contact with and (suspected) exposure to COVID-19
CPT/HCPCS: 0202U; 36415; 80053; 80306; 80307; 80320; 80329; 81003; 81025; 83690; 84443; 85025; 93005; 99281; 99285; A9270; J8499; 81001; 87086

== ENCOUNTER 2020-11-03 14:28 | Outpatient (CLI) | payer MEDICAID | END 2020-11-03 14:29 | disposition critical access hospital (66) | LOC: EMS 14:28 | DX: R45.89 Other symptoms and signs involving emotional state (principal); N93.9 Abnormal uterine and vaginal bleeding, unspecified | CPT/HCPCS: A0425; A0429; A0999 ==

== ENCOUNTER 2020-11-03 14:33 | Emergency (ER) | payer MEDICAID ==
--- OUTSIDE RECORDS SUMMARY | 2020-11-03 14:37 | EXTERNAL MEDICAL SUMMARY RPT | Continuity of Care Document ---
:1995 Demographics Phone Unavailable Preferred Language Unknown Marital Status Unknown Catholic Affiliation Unknown Race Unknown Ethnic Group Unknown Author Organization [place] Address [address] [phone] Phone Social History date description facility [phone]
--- OUTSIDE RECORDS SUMMARY | 2020-11-03 14:39 | EXTERNAL MEDICAL SUMMARY RPT | Continuity of Care Document ---
:1995 Demographics Phone Unavailable Preferred Language Unknown Marital Status Unknown Mandaen Affiliation Unknown Race Unknown Ethnic Group Unknown Author Organization [place] Address [address] [phone] Phone Social History date description facility [phone]
[2020-11-03] MEDS ORDERED: LORazepam 2 MG/ML VIAL IM STA (14:57)
[2020-11-03] MEDS ORDERED: OLANZapine 10 MG VIAL IM STA (14:57)
--- NOTE | 2020-11-03 15:00 | ED Physician Documentation ---
PD HPI ALTERED MENTAL STATUS - Stated complaint Stated Complaint: FEMALE - Chief complaint Chief Complaint: MHE - History obtained from History obtained from: Patient - Additional information Additional information: This is an unfortunate 25-year-old woman who presents by private vehicle for hard to elicit complaints. She says that there is something wrong with her vagina and she would like a debridement. She is mumbling rambling and anxious crying historian not making much sense. She has a history of heavy chronic methamphetamine abuse which is probably relevant to her current presentation. 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 : None HEENT: None Psych: Depression, Anxiety, Schizophrenia, Other Musculoskeletal: None Derm: None - Past Surgical History Past Surgical History: No - Present Medications Home Medications: Ambulatory Orders Medication Instructions Recorded Confirmed Aripiprazole [Abilify] 15 mg PO DAILY #30 tab 08/22/20 10/06/20 Nitrofurantoin Monohyd/M-Cryst 100 mg PO BID 3 Days #6 tab 09/24/20 10/06/20 [Macrobid 100 mg Capsule] - Allergies Allergies/Adverse Reactions: Allergies Allergy/AdvReac Type Severity Reaction Status Date / Time No Known Drug Allergies Allergy Verified 11/03/20 14:35 - Social History Does the pt smoke?: Yes Smoking Status: Current every day smoker Does the pt drink ETOH?: Yes Does the pt have substance abuse?: Yes - Immunizations Immunizations are current?: Yes - POLST Patient has POLST: No PD ED PE NORMAL - Vitals Vital signs reviewed: Yes - General General: Other (She is crying, mumbling, almost inconsolable, hard to tell what she is saying.) - HEENT HEENT: PERRL, EOMI - Neck Neck: Supple, no meningeal sign, No bony TTP - Cardiac Cardiac: RRR, No murmur - Respiratory Respiratory: No respiratory distress, Clear bilaterally - Abdomen Abdomen: Normal bowel sounds, Soft, Non tender - Female Female : Other (External genitalia examination is normal. I would not have normally examined her in the hallway, but she lifted up her blanket and showed me her privates without prompting.) - Back Back: No CVA TTP, No spinal TTP - Derm Derm: Normal color, Warm and dry - Extremities Extremities: No edema, No calf tenderness / cord - Neuro Eye Opening: Spontaneous Motor: Obeys Commands Verbal: Inappropriate GCS Score: 13 Results - Vitals Vitals: Vital Signs - 24 hr 11/03/20 11/03/20 14:35 19:28 Temperature 36.5 C 36.7 C Heart Rate 108 H 84 Respiratory 16 20 Rate Blood Pressure 147/85 H 113/67 O2 Saturation 97 99 Oxygen O2 Source Room air - Labs Labs: Laboratory Tests 11/03/20 11/03/20 11/03/20 15:12 15:12 15:12 WBC 8.0 RBC 4.12 L Hgb 12.0 Hct 36.4 L MCV 88.3 MCH 29.1 MCHC 33.0 RDW 13.3 Plt Count 321 MPV 8.7 Neut # (Auto) 4.6 Lymph # (Auto) 2.8 [place] # (Auto) 0.6 Eos # (Auto) 0.0 Baso # (Auto) 0.1 Absolute Nucleated RBC 0.00 Nucleated RBC % 0.0 Sodium 138 Potassium 3.8 Chloride 103 Carbon Dioxide 23 Anion Gap 12.0 BUN 17 Creatinine 0.5 Estimated GFR (MDRD) 149 Glucose 102 H Calcium 9.5 Total Bilirubin 1.0 AST 26 ALT 26 Alkaline Phosphatase 49 Total Protein 7.4 Albumin 4.7 Globulin 2.7 Albumin/Globulin Ratio 1.7 Lipase 26 TSH 1.00 Urine Color Urine Clarity Urine pH Ur Specific [place] Urine Protein Urine Glucose (UA) Urine Ketones Urine Occult Blood Urine Nitrite Urine Bilirubin Urine Urobilinogen Ur Leukocyte Esterase Ur Microscopic Review Urine Culture Comments Urine HCG, Qual Nasal Adenovirus (PCR) Nasal B. parapertussis DNA (PCR) Nasal Coronavir 229E PCR Nasal Coronavir HKU1 PCR Nasal Coronavir NL63 PCR Nasal Coronavir OC43 PCR Nasal Enterovir/Rhinovir PCR Nasal Influenza B PCR Nasal Influenza A PCR Nasal Parainfluen 1 PCR Nasal Parainfluen 2 PCR Nasal Parainfluen 3 PCR Nasal Parainfluen 4 PCR Nasal RSV (PCR) Nasal B.pertussis DNA PCR Nasal C.pneumoniae (PCR) Jayesh Human Metapneumo PCR Nasal M.pneumoniae (PCR) Nasal SARS-CoV-2 (PCR) Salicylates < 6.0 Urine Opiates Screen Ur Oxycodone Screen Urine Methadone Screen Ur Propoxyphene Screen Acetaminophen < 10 L Ur Barbiturates Screen Ur Tricyclics Screen Ur Phencyclidine Scrn Ur Amphetamine Screen U Methamphetamines Scrn U Benzodiazepines Scrn Urine Cocaine Screen U Cannabinoids Screen Ethyl Alcohol < 5.0 11/03/20 11/03/20 18:08 19:26 WBC RBC Hgb Hct MCV MCH MCHC RDW Plt Count MPV Neut # (Auto) Lymph # (Auto) [place] # (Auto) Eos # (Auto) Baso # (Auto) Absolute Nucleated RBC Nucleated RBC % Sodium Potassium Chloride Carbon Dioxide Anion Gap BUN Creatinine Estimated GFR (MDRD) Glucose Calcium Total Bilirubin AST ALT Alkaline Phosphatase Total Protein Albumin Globulin Albumin/Globulin Ratio Lipase TSH Urine Color LT. YELLOW Urine Clarity CLEAR Urine pH 5.5 Ur Specific [place] >=1.030 H Urine Protein NEGATIVE Urine Glucose (UA) NEGATIVE Urine Ketones NEGATIVE Urine Occult Blood TRACE-LYSE Urine Nitrite NEGATIVE Urine Bilirubin NEGATIVE Urine Urobilinogen 1 (NORMAL) Ur Leukocyte Esterase NEGATIVE Ur Microscopic Review NOT INDICATED Urine Culture Comments NOT INDICATED Urine HCG, Qual NEGATIVE Nasal Adenovirus (PCR) NOT DETECTED Nasal B. parapertussis DNA (PCR) NOT DETECTED Nasal Coronavir 229E PCR NOT DETECTED Nasal Coronavir HKU1 PCR NOT DETECTED Nasal Coronavir NL63 PCR NOT DETECTED Nasal Coronavir OC43 PCR NOT DETECTED Nasal Enterovir/Rhinovir PCR NOT DETECTED Nasal Influenza B PCR NOT DETECTED Nasal Influenza A PCR NOT DETECTED Nasal Parainfluen 1 PCR NOT DETECTED Nasal Parainfluen 2 PCR NOT DETECTED Nasal Parainfluen 3 PCR NOT DETECTED Nasal Parainfluen 4 PCR NOT DETECTED Nasal RSV (PCR) NOT DETECTED Nasal B.pertussis DNA PCR NOT DETECTED Nasal C.pneumoniae (PCR) NOT DETECTED Jayesh Human Metapneumo PCR NOT DETECTED Nasal M.pneumoniae (PCR) NOT DETECTED Nasal SARS-CoV-2 (PCR) NOT DETECTED Salicylates Urine Opiates Screen NEGATIVE Ur Oxycodone Screen NEGATIVE Urine Methadone Screen NEGATIVE Ur Propoxyphene Screen NEGATIVE Acetaminophen Ur Barbiturates Screen NEGATIVE Ur Tricyclics Screen NEGATIVE Ur Phencyclidine Scrn NEGATIVE Ur Amphetamine Screen POSITIVE H U Methamphetamines Scrn POSITIVE H U Benzodiazepines Scrn POSITIVE H Urine Cocaine Screen NEGATIVE U Cannabinoids Screen POSITIVE H Ethyl Alcohol PD MEDICAL DECISION MAKING - ED course ED course: 25 yo female presents high on meth. SW felt DCR appropriate for eval. DCR consulted but patient required sedation and then was too sleepy to talk to her. Care to overnight ED MD to redispatch DCR when pt able to converse with her. Departure - Departure Clinical Impression: Methamphetamine abuse, Acute psychosis Condition: Stable
[2020-11-03 15:19] LABS: BASOPHILS # (AUTO) 0.1 10^3/uL (0.0-0.1); BASOPHILS % (AUTO) 0.6 %; EOSINOPHILS % (AUTO) 0.1 %; HCT - HEMATOCRIT 36.4 % (37.0-47.0); LYMPHOCYTES # (AUTO) 2.8 10^3/uL (1.5-3.5); LYMPHOCYTES % (AUTO) 34.3 %; MEAN CORPUSCULAR HEMOGLOBIN 29.1 pg (27.0-31.0); MEAN CORPUSCULAR VOLUME 88.3 fL (81.0-99.0); MEAN PLATELET VOLUME 8.7 fL (7.9-10.8); MONOCYTES # (AUTO) 0.6 10^3/uL (0.0-1.0); MONOCYTES % (AUTO) 7.1 %; NEUTROPHILS # (AUTO) 4.6 10^3/uL (1.5-6.6); NEUTROPHILS % (AUTO) 57.7 %; PLT - PLATELET COUNT 321 10^3/uL (130-450); RED BLOOD COUNT 4.12 10^6/uL (4.20-5.40); RED CELL DISTRIBUTION WIDTH 13.3 % (12.0-15.0)
[2020-11-03 15:37] LABS: ACETAMINOPHEN < 10 ug/mL (10-30); ALBUMIN 4.7 g/dL (3.2-5.5); ALBUMIN/GLOBULIN RATIO 1.7 (1.0-2.2); ALKALINE PHOSPHATASE 49 IU/L (42-121); ALT ALANINE AMINOTRANSFERASE 26 IU/L (10-60); AST ASPARTATE AMINOTRANSFERASE 26 IU/L (10-42); BUN - BLOOD UREA NITROGEN 17 mg/dL (6-20); CALCIUM 9.5 mg/dL (8.5-10.3); CARBON DIOXIDE - CO2 23 mmol/L (21-32); CHLORIDE 103 mmol/L (101-111); CREATININE 0.5 mg/dL (0.4-1.0); ETOH - ETHANOL < 5.0 mg/dL; GFR - MDRD 149 (>89); GLUCOSE 102 mg/dL (70-100); LIPASE 26 U/L (22-51); POTASSIUM 3.8 mmol/L (3.5-5.0); SALICYLATE < 6.0 mg/dL; SODIUM 138 mmol/L (135-145); TOTAL PROTEIN 7.4 g/dL (6.7-8.2)
[2020-11-03 19:19] LABS: B. PARAPERTUSSIS- RESP PCR PAN NOT DETECTED; B. PERTUSSIS- RESP PCR PANEL NOT DETECTED; C. PNEUMONIAE- RESP PCR PANEL NOT DETECTED; CORONAVIRUS 229E-RESP PCR NOT DETECTED; CORONAVIRUS HKU1-RESP PCR NOT DETECTED; CORONAVIRUS NL63-RESP PCR NOT DETECTED; CORONAVIRUS OC43-RESP PCR NOT DETECTED; HUMAN METAPNEUMOVIRUS NOT DETECTED; INFLUENZA A- RESP PCR PANEL NOT DETECTED; INFLUENZA B - RESP PCR PANEL NOT DETECTED; M. PNEUMONIAE- RESP PCR PANEL NOT DETECTED; PARAINFLUENZA VIRUS 1 NOT DETECTED; PARAINFLUENZA VIRUS 2 NOT DETECTED; PARAINFLUENZA VIRUS 3 NOT DETECTED; PARAINFLUENZA VIRUS 4 NOT DETECTED; RHINOVIRUS/ENTEROVIRUS NOT DETECTED; RSV- RESP PCR PANEL NOT DETECTED; SARS-CoV-2 -RESP PCR PANEL NOT DETECTED
[2020-11-03 19:32] LABS: MUDS CUTOFF CONCENTRATIONS CUTOFF CONC BELOW:
[2020-11-03 19:35] LABS: BILIRUBIN,URINE NEGATIVE (NEGATIVE); GLUCOSE, URINE (UA) NEGATIVE (NEGATIVE); KETONES,URINE (UA) NEGATIVE (NEGATIVE); LEUKOCYTE ESTERASE, URINE NEGATIVE (NEGATIVE); NITRITE,URINE NEGATIVE (NEGATIVE); OCCULT BLOOD,URINE TRACE-LYSE (NEGATIVE); PH,URINE 5.5 PH (5.0-7.5); PROTEIN,URINE NEGATIVE (NEGATIVE); UROBILINOGEN,URINE 1 (NORMAL) E.U./dL (NORMAL)
[2020-11-03 19:39] LABS: CLARITY,URINE CLEAR (CLEAR); HCG UR QUAL NEGATIVE
[2020-11-03 19:49] LABS: AMPHETAMINE SCREEN,URINE POSITIVE (NEGATIVE); BARBITURATE SCREEN,UR NEGATIVE (NEGATIVE); BENZODIAZEPINES SCREEN, URINE POSITIVE (NEGATIVE); COCAINE SCREEN URINE NEGATIVE (NEGATIVE); METHADONE SCREEN, URINE NEGATIVE (NEGATIVE); METHAMPHETAMINES SCREEN, URINE POSITIVE (NEGATIVE); OPIATE SCREEN, URINE NEGATIVE (NEGATIVE); THC CANNABINOID SCREEN, URINE POSITIVE (NEGATIVE); TRICYCLIC ANTIDEPRESSANT,URINE NEGATIVE (NEGATIVE)
[2020-11-03 19:50] LABS: OXYCODONE SCREEN, URINE NEGATIVE (NEGATIVE); PROPOXYPHENE SCREEN, URINE NEGATIVE (NEGATIVE)
--- NOTE | 2020-11-04 10:35 | ED Physician Documentation ---
ED Addendum - Addendum Addendum: 11/04/20 10:33 25-year-old female was medically clear for psychiatric care. DCRCinthya, evaluated the patient. The patient was calm and cooperative at this point. The patient has an IOP appointment tomorrow. [facility] She is not acutely psychotic. She is clear and coherent currently. Cinthya does not feel that the patient needs inpatient care at this time. She did discuss with the patient that should she relapse and return within the next 48 hours, she would likely be detained. Patient was comfortable going home and states she will abstain from drugs. Patient counseled regarding signs and symptoms for which I believe and urgent re-evaluation would be necessary. Patient with good understanding of and agreement to plan and is comfortable going home at this time This document was made in part using voice recognition software. While efforts are made to proofread this document, sound alike and grammatical errors may occur. Departure - Departure Disposition: 01 Home, Self Care Clinical Impression: Methamphetamine abuse, Acute psychosis Condition: Stable Instructions: ED Drug Abuse General Follow-Up: your,doctor tomorrow [Other] Comments: Make sure you are keeping all of your appointments and avoid any drug use. Return if you worsen
[2020-11-04 10:41] VITALS: BP 126/76
== END 2020-11-04 10:50 | disposition home or self-care (01) ==
LOC: ED 14:33
DX: F15.129 Other stimulant abuse with intoxication, unspecified (principal); F23 Brief psychotic disorder; F17.200 Nicotine dependence, unspecified, uncomplicated; Z20.822 Contact with and (suspected) exposure to COVID-19
CPT/HCPCS: 0202U; 36415; 80053; 80306; 80307; 80320; 80329; 81003; 81025; 83690; 84443; 85025; 96372; 99281; 99284; J2060; 81001; 87086

== ENCOUNTER 2020-11-24 01:02 | Outpatient (CLI) | payer MEDICAID, OTHER | END 2020-11-24 01:03 | disposition EMS.NT | LOC: EMS 01:02 | DX: S80.219A Abrasion, unspecified knee, initial encounter (principal); Y09 Assault by unspecified means ==

== ENCOUNTER 2020-12-08 16:38 | Outpatient (CLI) | payer MEDICAID | END 2020-12-08 16:39 | disposition critical access hospital (66) | LOC: EMS 16:38 | DX: R41.82 Altered mental status, unspecified (principal) | CPT/HCPCS: A0425; A0429; A0999 ==

== ENCOUNTER 2020-12-08 16:56 | Emergency (ER) | payer MEDICAID ==
--- OUTSIDE RECORDS SUMMARY | 2020-12-08 17:17 | EXTERNAL MEDICAL SUMMARY RPT | Continuity of Care Document ---
:1995 Demographics Phone Unavailable Preferred Language Unknown Marital Status Unknown Congregational Affiliation Unknown Race Unknown Ethnic Group Unknown Author Organization [facility] Address [address] [phone] Phone Allergies Encounters Medications Problems Results
[2020-12-08] MEDS ORDERED: QUEtiapine 25 MG TABLET PO STA (17:23)
[2020-12-08] MEDS ORDERED: OLANZapine ODT 5 MG TABLET TL ONE (17:23)
--- NOTE | 2020-12-08 17:33 | ED Physician Documentation ---
PD HPI MHE - Stated complaint Stated Complaint: MHE - Chief complaint Chief Complaint: MHE - History obtained from History obtained from: Patient, EMS - Additional information Additional information: 25-year-old female brought in by EMS for reported psychotic behavior today. They state that they were contacted by police to bring her into the emergency department. According to police the patient has not been taking her medications. She was running into traffic and "threatening the police". Patient denies running into traffic. She states that she has not been taking her medications because there are people trespassing in her house. Patient refuses blood draw here. 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 : None HEENT: None Psych: Depression, Anxiety, Schizophrenia, Other Musculoskeletal: None Derm: None - Past Surgical History Past Surgical History: No - Present Medications Home Medications: Ambulatory Orders Medication Instructions Recorded Confirmed ARIPiprazole [Abilify] 15 mg PO DAILY #30 tab 08/22/20 10/06/20 Nitrofurantoin Monohyd/M-Cryst 100 mg PO BID 3 Days #6 tab 09/24/20 10/06/20 [Macrobid 100 mg Capsule] - Allergies Allergies/Adverse Reactions: Allergies Allergy/AdvReac Type Severity Reaction Status Date / Time No Known Drug Allergies Allergy Verified 12/08/20 17:08 - Social History Does the pt smoke?: Yes Smoking Status: Current every day smoker Does the pt drink ETOH?: Yes Does the pt have substance abuse?: Yes - Immunizations Immunizations are current?: Yes - POLST Patient has POLST: No PD ED PE NORMAL - Vitals Vital signs reviewed: Yes - General General: No acute distress, Well developed/nourished, Other (alert, intermittently screams) - HEENT HEENT: PERRL, Moist mucous membranes - Neck Neck: Supple, no meningeal sign - Cardiac Cardiac: RRR, Strong equal pulses - Respiratory Respiratory: No respiratory distress, Clear bilaterally - Abdomen Abdomen: Soft, Non tender, Non distended - Derm Derm: Warm and dry - Extremities Extremities: No edema - Neuro Neuro: Alert and oriented X 3 - Psych Psych: Normal mood, Normal affect Results - Vitals Vitals: Vital Signs - 24 hr 12/08/20 12/08/20 17:03 22:10 Temperature 36.3 C L 36.4 C L Heart Rate 100 81 Respiratory 20 18 Rate Blood Pressure 132/89 H 122/79 O2 Saturation 98 98 Oxygen O2 Source Room air PD MEDICAL DECISION MAKING - ED course Complexity details: reviewed old records, reviewed results, re-evaluated patient, considered differential, d/w patient, d/w account consultant ED course: Patient is uncooperative in the emergency department. She refuses blood work. She did take her Abilify eventually. She is screaming and taunting patients around her. She was given Zyprexa IM. VOMarek was contacted for DCR dispatch, apparently the dispatch will not take place until the patient has blood work. After sedation, will reevaluate to see if she will allow us to draw blood. Patient will be signed out to the oncoming emergency department physician. Patient on an JUAN CARLOS from police. This document was made in part using voice recognition software. While efforts are made to proofread this document, sound alike and grammatical errors may occur. Departure - Departure Clinical Impression: Psychosis Qualifiers: Psychosis type: unspecified psychosis type Qualified Code(s): F29 - Unspecified psychosis not due to a substance or known physiological condition Condition: Stable
[2020-12-08] MEDS ORDERED: OLANZapine 10 MG VIAL IM STA (19:32)
[2020-12-09] MEDS ORDERED: QUEtiapine 25 MG TABLET PO STA (06:58)
--- NOTE | 2020-12-09 06:58 | ED Physician Documentation ---
ED Addendum - Addendum Addendum: 12/09/20 06:57 The patient was resting when I came into see her on change of shift. She aroused easily and was calm and smiled. I asked how she was doing and she said feeling okay. I asked if she felt able to be discharged and what her plan would be. She stated she would try to get a ride and get back to her home in [place]. She denied any intention of self-harm. At this point the nursing notes states she was not in need of being evaluated by VOA/DCR. We could wait for so cial work to talk with her although she could be discharged at this point. Not sure how she would get back to [place] as the buses are not running today.
[2020-12-09 07:40] VITALS: BP 120/74
== END 2020-12-09 07:40 | disposition home or self-care (01) ==
LOC: EDBD → EDUNIT# → ED 16:56
DX: F29 Unspecified psychosis not due to a substance or known physiological condition (principal); Z91.14 Patient's other noncompliance with medication regimen; F17.200 Nicotine dependence, unspecified, uncomplicated
CPT/HCPCS: 96372; 99281; 99283; A9270; 80053; 80307; 80320; 80329; 83690; 84443; 85025

== ENCOUNTER 2020-12-19 17:08 | Outpatient (CLI) | payer MEDICAID | END 2020-12-19 17:09 | disposition critical access hospital (66) | LOC: EMS 17:08 | DX: Z04.6 Encounter for general psychiatric examination, requested by authority (principal); R46.89 Other symptoms and signs involving appearance and behavior; Z78.1 Physical restraint status | CPT/HCPCS: A0425; A0429; A0999 ==

== ENCOUNTER 2020-12-19 17:32 | Emergency (ER) | payer MEDICAID ==
[2020-12-19] MEDS ORDERED: OLANZapine 10 MG VIAL IM STA ×2 (17:34→18:28)
--- NOTE | 2020-12-19 17:40 | ED Physician Documentation ---
PD HPI MHE - Stated complaint Stated Complaint: MHE - History obtained from History obtained from: Patient, EMS, Police - History of Present Illness Primary symptom: Psychosis Pain level max: 0 Pain level now: 0 Contributing factors: Substance abuse - drugs - Additional information Additional information: Patient is a 25-year-old female who was put on an involuntary hold by the police for psychosis. No threats to herself. She has a history of traumatic brain injury and methamphetamine abuse. Patient is uncooperative. 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: None : None HEENT: None Psych: Depression, Anxiety, Schizophrenia, Other Musculoskeletal: None Derm: None - Past Surgical History Past Surgical History: No - Present Medications Home Medications: Ambulatory Orders Medication Instructions Recorded Confirmed Home Medications Unobtainable 12/09/20 12/09/20 [HOME MEDICATIONS UNOBTAINABLE] - Allergies Allergies/Adverse Reactions: Allergies Allergy/AdvReac Type Severity Reaction Status Date / Time No Known Drug Allergies Allergy Verified 12/08/20 17:08 - Social History Does the pt smoke?: Yes Smoking Status: Current every day smoker Does the pt drink ETOH?: Yes Does the pt have substance abuse?: Yes - Immunizations Immunizations are current?: Yes - POLST Patient has POLST: No PD ED PE NORMAL - Vitals Vital signs reviewed: Yes - General General: No acute distress, Well developed/nourished, Other (alert, screaming, attempting to bite and hit staff) - HEENT HEENT: Moist mucous membranes - Neck Neck: Supple, no meningeal sign - Cardiac Cardiac: RRR - Respiratory Respiratory: No respiratory distress, Clear bilaterally - Abdomen Abdomen: Soft, Non tender, Non distended - Back Back: No spinal TTP - Derm Derm: Warm and dry, No rash - Extremities Extremities: Other (maee) - Neuro Neuro: Other (alert) - Psych Psych: Other (psychotic) Results - Vitals Vitals: Vital Signs - 24 hr 12/19/20 12/19/20 12/19/20 17:45 18:00 18:28 Temperature Heart Rate 128 H 129 H 120 H Respiratory 25 H 22 20 Rate Blood Pressure 95/67 98/69 101/69 O2 Saturation 95 96 92 0612/19/20 12/19/20 19:00 19:32 22:02 Temperature 36.1 C L Heart Rate 102 H 101 H 86 Respiratory 20 18 16 Rate Blood Pressure 107/62 103/68 91/55 L O2 Saturation 100 98 100 Oxygen O2 Source Room air - Labs Labs: Laboratory Tests 12/19/20 12/19/20 12/19/20 19:16 19:16 19:16 WBC 12.9 H RBC 4.38 Hgb 13.0 Hct 39.0 MCV 89.0 MCH 29.7 MCHC 33.3 RDW 12.7 Plt Count 324 MPV 8.3 Neut # (Auto) 9.5 H Lymph # (Auto) 2.3 Borden # (Auto) 1.0 Eos # (Auto) 0.0 Baso # (Auto) 0.0 Absolute Nucleated RBC 0.00 Nucleated RBC % 0.0 Sodium 140 Potassium 3.5 Chloride 104 Carbon Dioxide 26 Anion Gap 10.0 BUN 13 Creatinine 1.1 H Estimated GFR (MDRD) 60 L Glucose 88 Calcium 10.0 Total Bilirubin 1.0 AST 22 ALT 18 Alkaline Phosphatase 41 L Total Protein 7.7 Albumin 4.8 Globulin 2.9 Albumin/Globulin Ratio 1.7 Lipase 20 L TSH 3.22 Nasal Adenovirus (PCR) Nasal B. parapertussis DNA (PCR) Nasal Coronavir 229E PCR Nasal Coronavir HKU1 PCR Nasal Coronavir NL63 PCR Nasal Coronavir OC43 PCR Nasal Enterovir/Rhinovir PCR Nasal Influenza B PCR Nasal Influenza A PCR Nasal Parainfluen 1 PCR Nasal Parainfluen 2 PCR Nasal Parainfluen 3 PCR Nasal Parainfluen 4 PCR Nasal RSV (PCR) Nasal B.pertussis DNA PCR Nasal C.pneumoniae (PCR) Jayesh Human Metapneumo PCR Nasal M.pneumoniae (PCR) Nasal SARS-CoV-2 (PCR) Salicylates < 6.0 Acetaminophen < 10 L Ethyl Alcohol < 5.0 12/19/20 20:10 WBC RBC Hgb Hct MCV MCH MCHC RDW Plt Count MPV Neut # (Auto) Lymph # (Auto) Borden # (Auto) Eos # (Auto) Baso # (Auto) Absolute Nucleated RBC Nucleated RBC % Sodium Potassium Chloride Carbon Dioxide Anion Gap BUN Creatinine Estimated GFR (MDRD) Glucose Calcium Total Bilirubin AST ALT Alkaline Phosphatase Total Protein Albumin Globulin Albumin/Globulin Ratio Lipase TSH Nasal Adenovirus (PCR) NOT DETECTED Nasal B. parapertussis DNA (PCR) NOT DETECTED Nasal Coronavir 229E PCR NOT DETECTED Nasal Coronavir HKU1 PCR NOT DETECTED Nasal Coronavir NL63 PCR NOT DETECTED Nasal Coronavir OC43 PCR NOT DETECTED Nasal Enterovir/Rhinovir PCR NOT DETECTED Nasal Influenza B PCR NOT DETECTED Nasal Influenza A PCR NOT DETECTED Nasal Parainfluen 1 PCR NOT DETECTED Nasal Parainfluen 2 PCR NOT DETECTED Nasal Parainfluen 3 PCR NOT DETECTED Nasal Parainfluen 4 PCR NOT DETECTED Nasal RSV (PCR) NOT DETECTED Nasal B.pertussis DNA PCR NOT DETECTED Nasal C.pneumoniae (PCR) NOT DETECTED Jayesh Human Metapneumo PCR NOT DETECTED Nasal M.pneumoniae (PCR) NOT DETECTED Nasal SARS-CoV-2 (PCR) NOT DETECTED Salicylates Acetaminophen Ethyl Alcohol PD MEDICAL DECISION MAKING - ED course Complexity details: reviewed old records, considered differential ED course: Patient with a longstanding psychiatric history, traumatic brain injury and methamphetamine abuse. She was administered 20 mg total of Zyprexa over 2 hours along with 2 mg of Ativan. Placed in restraints. Eventually the restraints were able to be removed and she became calm and cooperative. She will be reassessed once she wakes up from sleeping. Patient signed out to the [facility] emergency department physician. This document was made in part using voice recognition software. While efforts are made to proofread this document, sound alike and grammatical errors may occur. Departure - Departure Clinical Impression: Methamphetamine abuse Psychosis Qualifiers: Psychosis type: unspecified psychosis type Qualified Code(s): F29 - Unspecified psychosis not due to a substance or known physiological condition Schizoaffective disorder Qualifiers: Schizoaffective disorder type: unspecified Qualified Code(s): F25.9 - Schizoaffective disorder, unspecified Condition: Stable
--- OUTSIDE RECORDS SUMMARY | 2020-12-19 17:40 | EXTERNAL MEDICAL SUMMARY RPT | Continuity of Care Document ---
:1995 Demographics Phone Unavailable Preferred Language Unknown Marital Status Unknown Adventist Affiliation Unknown Race Unknown Ethnic Group Unknown Author Organization [facility] Address [address] [phone] Phone Allergies Encounters Medications Problems Results
[2020-12-19] MEDS ORDERED: LORazepam 2 MG/ML VIAL IM STA (17:43)
[2020-12-19 19:21] LABS: BASOPHILS % (AUTO) 0.3 %; LYMPHOCYTES # (AUTO) 2.3 10^3/uL (1.5-3.5); MEAN CORPUSCULAR HEMOGLOBIN 29.7 pg (27.0-31.0); MEAN CORPUSCULAR HGB CONC 33.3 g/dL (32.0-36.0); MEAN PLATELET VOLUME 8.3 fL (7.9-10.8); MONOCYTES % (AUTO) 7.4 %; NEUTROPHILS # (AUTO) 9.5 10^3/uL (1.5-6.6); PLT - PLATELET COUNT 324 10^3/uL (130-450); RED BLOOD COUNT 4.38 10^6/uL (4.20-5.40); RED CELL DISTRIBUTION WIDTH 12.7 % (12.0-15.0); WHITE BLOOD COUNT 12.9 x10^3/uL (4.8-10.8)
[2020-12-19 19:37] LABS: ACETAMINOPHEN < 10 ug/mL (10-30); ALBUMIN 4.8 g/dL (3.2-5.5); ALBUMIN/GLOBULIN RATIO 1.7 (1.0-2.2); ALKALINE PHOSPHATASE 41 IU/L (42-121); ALT ALANINE AMINOTRANSFERASE 18 IU/L (10-60); AST ASPARTATE AMINOTRANSFERASE 22 IU/L (10-42); BUN - BLOOD UREA NITROGEN 13 mg/dL (6-20); CARBON DIOXIDE - CO2 26 mmol/L (21-32); CHLORIDE 104 mmol/L (101-111); CREATININE 1.1 mg/dL (0.4-1.0); ETOH - ETHANOL < 5.0 mg/dL; GFR - MDRD 60 (>89); GLUCOSE 88 mg/dL (70-100); LIPASE 20 U/L (22-51); POTASSIUM 3.5 mmol/L (3.5-5.0); SALICYLATE < 6.0 mg/dL; SODIUM 140 mmol/L (135-145); TOTAL PROTEIN 7.7 g/dL (6.7-8.2)
[2020-12-19 21:20] LABS: B. PARAPERTUSSIS- RESP PCR PAN NOT DETECTED; B. PERTUSSIS- RESP PCR PANEL NOT DETECTED; C. PNEUMONIAE- RESP PCR PANEL NOT DETECTED; CORONAVIRUS 229E-RESP PCR NOT DETECTED; CORONAVIRUS HKU1-RESP PCR NOT DETECTED; CORONAVIRUS NL63-RESP PCR NOT DETECTED; CORONAVIRUS OC43-RESP PCR NOT DETECTED; HUMAN METAPNEUMOVIRUS NOT DETECTED; INFLUENZA A- RESP PCR PANEL NOT DETECTED; INFLUENZA B - RESP PCR PANEL NOT DETECTED; M. PNEUMONIAE- RESP PCR PANEL NOT DETECTED; PARAINFLUENZA VIRUS 1 NOT DETECTED; PARAINFLUENZA VIRUS 2 NOT DETECTED; PARAINFLUENZA VIRUS 3 NOT DETECTED; PARAINFLUENZA VIRUS 4 NOT DETECTED; RHINOVIRUS/ENTEROVIRUS NOT DETECTED; RSV- RESP PCR PANEL NOT DETECTED; SARS-CoV-2 -RESP PCR PANEL NOT DETECTED
[2020-12-20] MEDS ORDERED: OLANZapine ODT 5 MG TABLET TL STA (10:06)
[2020-12-20] MEDS ORDERED: ARIPiprazole 5 MG TABLET PO STA (10:07)
--- NOTE | 2020-12-20 10:10 | ED Physician Documentation ---
ED Addendum - Addendum Addendum: 12/20/20 10:08The patient is awake now and exhibiting verbal outbursts at times. This is consistent with prior visits when she has been here. She asks for her normal daily medicines. I did ask if she would like any added medicines to help her relax and she was agreeable for oral medications. Social work will talk with the patient
--- NOTE | 2020-12-20 10:24 | ED Physician Documentation ---
Face to Face for Restraints - Immediate Situation Face to Face Evaluation Date: 12/19/20 Face to Face Evaluation Time: 19:15 Restraint Situation: Locking, Chemical Patient's Reactions to the Intervention: Fighting restraints, Swearing, Screaming/Yelling - Behavioral Condition Attitude: Other (angry) Behavior: Belligerent, Agitated Orientation: Not oriented to person, place, time, and situation Mood: Angry - Evaluation Review of Systems: uncooperative Pertinent History/Illicit Drugs/Medications/Results: psychosis - Plan Need to Continue or Terminate Violent or Chemical Restraint: continue
[2020-12-20] MEDS ORDERED: OLANZapine 10 MG VIAL IM STA (11:10)
--- NOTE | 2020-12-20 11:14 | ED Physician Documentation ---
Face to Face for Restraints - Immediate Situation Face to Face Evaluation Date: 12/20/20 Face to Face Evaluation Time: 11:12 Restraint Situation: Chemical Patient's Reactions to the Intervention: Swearing, Screaming/Yelling - Behavioral Condition Attitude: Guarded Behavior: Agitated Orientation: Person Mood: Labile, Angry Behavioral Condition Comments: The patient had been given her morning medications that she had asked for earlier. She does have a history of yelling and physical agitation in the past. This is currently more than her baseline. She has unable to focus and follow direction. We attempted verbal calming and offered food and repeat oral medicines which she did not seem to comprehend. At this point we will repeat dose of Zyprexa IM. She does have verbal yelling and is not able to be calmed by, voice. She is physically thrusting her arms out towards other people though is physically distant enough from them to not actually be able to hit anyone but seems to be emotionally trying to lash out. Concern for physical safety. - Evaluation Review of Systems: uncooperative Pertinent History/Illicit Drugs/Medications/Results: psychosis - Plan Need to Continue or Terminate Violent or Chemical Restraint: We will provide IM medication here and reassess the need for any further interventions.
[2020-12-20] MEDS ORDERED: LORazepam 2 MG/ML VIAL IM STA (11:52)
--- NOTE | 2020-12-20 11:55 | ED Physician Documentation ---
Face to Face for Restraints - Immediate Situation Face to Face Evaluation Date: 12/20/20 Face to Face Evaluation Time: 11:53 Restraint Situation: Chemical Patient's Reactions to the Intervention: Screaming/Yelling, Demanding - Behavioral Condition Attitude: Guarded Behavior: Belligerent, Agitated Orientation: Person, Place Mood: Labile, Angry - Evaluation Review of Systems: uncooperative Pertinent History/Illicit Drugs/Medications/Results: psychosis - Plan Need to Continue or Terminate Violent or Chemical Restraint: We will reassess after time for medication and see if any further interventions are needed.
--- NOTE | 2020-12-20 12:49 | ED Physician Documentation ---
ED Addendum - Addendum Addendum: 12/20/20 12:47The patient had been given further medications to help with her anxiety and anger. She was starting to feel little bit relaxed. Social work had talked with her and DCR was coming to see her. The patient eloped from the ER towards the bus stop. Ronel Asif was notified to assess the patient.
--- NOTE | 2020-12-20 14:06 | ED Physician Documentation ---
Face to Face for Restraints - Immediate Situation Face to Face Evaluation Date: 12/20/20 Face to Face Evaluation Time: 02:05 Restraint Situation: Locking Patient's Reactions to the Intervention: Physically safe, Resting quietly - Behavioral Condition Attitude: Guarded Behavior: Uncooperative Orientation: Person, Place Mood: Content - Evaluation Review of Systems: uncooperative Pertinent History/Illicit Drugs/Medications/Results: psychosis - Plan Need to Continue or Terminate Violent or Chemical Restraint: terminate restraints
--- NOTE | 2020-12-20 22:36 | ED Physician Documentation ---
ED Addendum - Addendum Addendum: 12/20/20 22:35 Patient was signed out to me awaiting DCR placement. The DCR stated that they were going to come in and see the patient but they have not yet arrived. Patient has been sleeping throughout most of my shift. She did elope from the emergency department x1 and was brought back by police. Was briefly back in restraints but then they were removed. Patient signed out to the oncoming emergency department physician.
[2020-12-21 05:23] LABS: MUDS CUTOFF CONCENTRATIONS CUTOFF CONC BELOW:
[2020-12-21 05:25] LABS: BILIRUBIN,URINE NEGATIVE (NEGATIVE); GLUCOSE, URINE (UA) NEGATIVE (NEGATIVE); KETONES,URINE (UA) NEGATIVE (NEGATIVE); LEUKOCYTE ESTERASE, URINE NEGATIVE (NEGATIVE); NITRITE,URINE POSITIVE (NEGATIVE); OCCULT BLOOD,URINE NEGATIVE (NEGATIVE); PH,URINE 5.5 PH (5.0-7.5); PROTEIN,URINE NEGATIVE (NEGATIVE); UROBILINOGEN,URINE 0.2 (NORMAL) E.U./dL (NORMAL)
[2020-12-21 05:27] LABS: CLARITY,URINE CLEAR (CLEAR); HCG UR QUAL NEGATIVE
[2020-12-21 05:32] LABS: BACTERIA,URINE Moderate /HPF (None Seen); RBC,URINE None Seen /HPF (0-5); SQUAMOUS EPITHELIAL CELL,UR NONE SEEN (<= Few)
[2020-12-21 05:35] LABS: AMPHETAMINE SCREEN,URINE POSITIVE (NEGATIVE); BARBITURATE SCREEN,UR NEGATIVE (NEGATIVE); BENZODIAZEPINES SCREEN, URINE POSITIVE (NEGATIVE); COCAINE SCREEN URINE NEGATIVE (NEGATIVE); METHADONE SCREEN, URINE NEGATIVE (NEGATIVE); METHAMPHETAMINES SCREEN, URINE POSITIVE (NEGATIVE); OPIATE SCREEN, URINE NEGATIVE (NEGATIVE); OXYCODONE SCREEN, URINE NEGATIVE (NEGATIVE); PROPOXYPHENE SCREEN, URINE NEGATIVE (NEGATIVE); THC CANNABINOID SCREEN, URINE NEGATIVE (NEGATIVE); TRICYCLIC ANTIDEPRESSANT,URINE NEGATIVE (NEGATIVE)
--- NOTE | 2020-12-21 08:38 | ED Physician Documentation ---
Face to Face for Restraints - Immediate Situation Face to Face Evaluation Date: 12/21/20 Face to Face Evaluation Time: 08:37 Restraint Situation: Locking Patient's Reactions to the Intervention: Fighting restraints, Swearing, Screaming/Yelling - Behavioral Condition Attitude: Guarded, Indifferent Behavior: Uncooperative, Belligerent, Agitated Orientation: Person Mood: Labile - Evaluation Review of Systems: uncooperative Pertinent History/Illicit Drugs/Medications/Results: psychosis - Plan Need to Continue or Terminate Violent or Chemical Restraint: Patient had eloped from the department. I was notified after she left. Apparently has been watching the clock and knows when the bus comes by so had just gotten on the bus. She was brought back by police. DCR is still considering penitentiary.
[2020-12-21 20:11] VITALS: BP 112/54
== END 2020-12-21 20:26 ==
LOC: EDUNIT# → ED 17:32
DX: F15.10 Other stimulant abuse, uncomplicated (principal); F29 Unspecified psychosis not due to a substance or known physiological condition; F25.9 Schizoaffective disorder, unspecified; Z78.1 Physical restraint status; Z87.820 Personal history of traumatic brain injury; F41.9 Anxiety disorder, unspecified; Z20.822 Contact with and (suspected) exposure to COVID-19; F17.200 Nicotine dependence, unspecified, uncomplicated
CPT/HCPCS: 0202U; 36415; 80053; 80306; 80307; 80320; 80329; 81001; 81025; 83690; 84443; 85025; 87086; 87181; 93005; 96372; 99285; A9270; J2060; 81003

== ENCOUNTER 2021-05-11 21:16 | Outpatient (CLI) | payer MEDICAID | END 2021-05-11 21:17 | disposition EMS.NT | LOC: EMS 21:16 | DX: R11.2 Nausea with vomiting, unspecified (principal) ==

== ENCOUNTER 2021-05-23 11:05 | Outpatient (CLI) | payer MEDICAID ==
--- NOTE | 2021-05-23 12:40 | Ultrasound Report ---
PROCEDURE: OB Detailed Eval INDICATIONS: SUPERVISION OF HIGH RISK , UNKNOWN LMP OUTSIDE/PRIOR DATING DATA: Last menstrual period (LMP): Not known. LMP-based estimated date of delivery (YUDELKA): Not applicable. First dating scan (date and location): Today. Estimated date of delivery (YUDELKA) from first dating scan: 09/14/2021. The below data below was generated using the ultrasound YUDELKA of 09/14/2021 TECHNIQUE: Real-time scanning was performed of the fetus, with image documentation and biometric measurements. COMPARISON: None. FINDINGS: General: A single living intrauterine gestation is present. Presentation: Cephalic Placenta: Placental position is posterior, without previa. Amniotic fluid index: 13.9 cm, largest pocket is 3.6 cm normal for gestational age. A synechia is noted in the fundus. heart rate: 150 beats per minute. Maternal cervical canal: 8.8 cm long; normal length is 2.5 cm or more. biometrics: Biparietal diameter: 5.7 cm. 23 weeks 3 days Head circumference: 21.2 cm. 23 weeks 2 days. Abdominal circumference: 18.8 cm. 23 weeks 4 days. Femur length: 4.5 cm. 24 weeks 5 days. Estimated gestational age from initial scan: not applicable. Composite gestational age from present scan: 23 weeks 5 days Estimated weight and percentile: 648 g Measurement variability in biometric dating: +/- 10 days from 12-20 weeks gestation, +/- 2 weeks from 20-30 weeks gestation, +/- 3 weeks at 30 weeks gestation or later. Anatomic survey: Neuro: Ventricles are normal at less than 10 mm. Cisterna magna is normal at 3-11 mm. Cerebellum i s normal in size and morphology. Nuchal skin fold: Normal at less than 6 mm between 14 and 20 weeks gestational age. Face: Nose and lips, facial profile are normal. Spine: No evidence for spina bifida. Heart: 4-chambered heart is present, with normal ventricular outflow tracts. Diaphragm: Diaphragm is intact. Stomach: Left-sided stomach is present. Kidneys: No hydronephrosis. Normal is less than 5 mm in 2nd trimester, less than 7 mm in 3rd trimester. Cord: 3 vessel cord has orthotopic insertion. Bladder: Normal in size. Extremities: All 4 extremities are visualized. IMPRESSION: 1. Normal intrauterine with a composite ultrasound age of 23 weeks 5 days. 2. Normal BEENA = 13.9 cm. In length. 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 3. Reviewed by: Guru Trinidad on 05/23/2021 12:39 PM PST Approved by: Guru Trinidad on 05/23/2021 12:39 PM PST Station ID: [id number]
[2021-05-23 15:05] LABS: BASOPHILS % (AUTO) 0.3 %; HCT - HEMATOCRIT 34.7 % (37.0-47.0); HGB - HEMOGLOBIN 11.4 g/dL (12.0-16.0); LYMPHOCYTES # (AUTO) 2.5 10^3/uL (1.5-3.5); LYMPHOCYTES % (AUTO) 25.4 %; MEAN CORPUSCULAR HEMOGLOBIN 29.7 pg (27.0-31.0); MEAN CORPUSCULAR HGB CONC 32.9 g/dL (32.0-36.0); MEAN CORPUSCULAR VOLUME 90.4 fL (81.0-99.0); MEAN PLATELET VOLUME 8.4 fL (7.9-10.8); MONOCYTES # (AUTO) 0.6 10^3/uL (0.0-1.0); MONOCYTES % (AUTO) 5.8 %; NEUTROPHILS # (AUTO) 6.7 10^3/uL (1.5-6.6); NEUTROPHILS % (AUTO) 68.2 %; PLT - PLATELET COUNT 294 10^3/uL (130-450); RED BLOOD COUNT 3.84 10^6/uL (4.20-5.40); WHITE BLOOD COUNT 9.8 x10^3/uL (4.8-10.8)
[2021-05-23 15:07] LABS: BILIRUBIN,URINE NEGATIVE (NEGATIVE); GLUCOSE, URINE (UA) NEGATIVE (NEGATIVE); KETONES,URINE (UA) TRACE mg/dL (NEGATIVE); LEUKOCYTE ESTERASE, URINE SMALL (NEGATIVE); NITRITE,URINE NEGATIVE (NEGATIVE); OCCULT BLOOD,URINE NEGATIVE (NEGATIVE); PH,URINE 6.5 PH (5.0-7.5); PROTEIN,URINE NEGATIVE (NEGATIVE); UROBILINOGEN,URINE 1 (NORMAL) E.U./dL (NORMAL)
[2021-05-23 15:26] LABS: BACTERIA,URINE Rare /HPF (None Seen); CLARITY,URINE CLEAR (CLEAR); MUCUS,URINE Few Strands; RBC,URINE None Seen /HPF (0-5); SQUAMOUS EPITHELIAL CELL,UR RARE Squamous (<= Few)
[2021-05-24 13:21] LABS: HEPATITIS B SURFACE ANTIGEN NON-REACTIVE (NON-REACTIVE); HEPATITIS C ANTIBODY NON-REACTIVE (NON-REACTIVE)
[2021-05-24 15:30] LABS: HIV AG/AB 4TH GEN NON-REACTIVE (NON-REACTIVE)
== END 2021-05-23 11:06 | disposition home or self-care (01) ==
LOC: DI 11:05
PROVIDERS: ATTEND Obstetrics & Gynecology
DX: O09.92 Supervision of high risk pregnancy, unspecified, second trimester (principal); Z36.89 Encounter for other specified antenatal screening; Z3A.23 23 weeks gestation of pregnancy
CPT/HCPCS: 36415; 81001; 85025; 86592; 86762; 86787; 86803; 86850; 86900; 86901; 87086; 87340; 87389

== ENCOUNTER 2021-08-08 20:24 | Outpatient (CLI) | payer MEDICAID | END 2021-08-08 20:25 | disposition critical access hospital (66) | LOC: EMS 20:24 | DX: O26.93 Pregnancy related conditions, unspecified, third trimester (principal); R45.89 Other symptoms and signs involving emotional state; O99.333 Smoking (tobacco) complicating pregnancy, third trimester; F17.210 Nicotine dependence, cigarettes, uncomplicated | CPT/HCPCS: A0425; A0429 ==

== ENCOUNTER 2021-08-08 21:00 | Outpatient (CLI) | payer MEDICAID ==
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
[2021-08-08 23:58] VITALS: BP 126/81
--- NOTE | 2021-08-09 01:45 | Ultrasound Report ---
PROCEDURE: OB F/U or Repeat INDICATIONS: malnutrition OUTSIDE/PRIOR DATING DATA: Last menstrual period (LMP): Unknown. LMP-based estimated date of delivery (YUDELKA): Unknown. First dating scan (date and location): 05/23/2021. Estimated date of delivery (YUDELKA) from first dating scan: 09/14/2021. The below data below was generated using the ultrasound YUDELKA of 09/14/2021 TECHNIQUE: Real-time scanning was performed of the fetus, with image documentation and biometric measurements. COMPARISON: OB ultrasound 05/23/2021 FINDINGS: General: A single living intrauterine gestation is present. Presentation: Vertex Placenta: Placental position is posterior, without previa. Amniotic fluid index: 11.1 cm, within normal limits for gestational age. Largest pocket 5.0 cm heart rate: 135 beats per minute. Maternal cervical canal: 3.3 cm long; normal length is 2.5 cm or more. biometrics: Biparietal diameter: 2.4 cm 33 weeks 6 days Head circumference: 31.5 cm 35 weeks 3 days Abdominal circumference: 20.8 cm 32 weeks 5 days Femur length: 6.8 cm 35 weeks 1 day Estimated gestational age from initial scan: 34 weeks 5 days Composite gestational age from present scan: 34 weeks 2 days Estimated weight and percentile: 2283 g, 22nd percentile Measurement variability in biometric dating: +/- 10 days from 12-20 weeks gestation, +/- 2 weeks from 20-30 weeks gestation, +/- 3 weeks at 30 weeks gestation or more. Other: Not applicable. IMPRESSION: 1. Single live intrauterine with ultrasound gestational age today of 34 weeks 2 days compar ed to 34 weeks 5 days from initial ultrasound. 2. Appropriate interval growth. 3. Previous uterine synechiae is nonvisualized on current exam. However, it is noted this area had li mited visualization secondary to position. Reviewed by: Miryam Lilly MD on 08/09/2021 1:44 AM PST Approved by: Miryam Lilly MD on 08/09/2021 1:44 AM PST Station ID: [id number]
[2021-08-09 02:06] LABS: NEISSERIA GONORRHOEAE DNA NEGATIVE (NEGATIVE); TRICHOMONAS VAGINALIS DNA NEGATIVE (NEGATIVE)
[2021-08-09 02:07] LABS: CHLAMYDIA TRACHOMATIS DNA POSITIVE (NEGATIVE)
[2021-08-09] MEDS ORDERED: ERYTHROMYCIN BASE DR 250 MG TABLET PO SCH (03:00)
== END 2021-08-09 02:50 | disposition home or self-care (01) ==
LOC: WFO 21:00 → FBP 21:07 → WFO 08-09 02:50
PROVIDERS: ATTEND Obstetrics & Gynecology
DX: O36.8130 Decreased fetal movements, third trimester, not applicable or unspecified (principal); O09.33 Supervision of pregnancy with insufficient antenatal care, third trimester; O99.343 Other mental disorders complicating pregnancy, third trimester; F20.9 Schizophrenia, unspecified; O99.891 Other specified diseases and conditions complicating pregnancy; M79.89 Other specified soft tissue disorders; O9A.413 Sexual abuse complicating pregnancy, third trimester; O98.313 Other infections with a predominantly sexual mode of transmission complicating pregnancy, third trimester; A56.09 Other chlamydial infection of lower genitourinary tract; Z3A.34 34 weeks gestation of pregnancy; Z59.01 Sheltered homelessness; Z87.820 Personal history of traumatic brain injury
CPT/HCPCS: 59025; 76816; 87491; 87591; 87661; 99215; A9270; 85025

== ENCOUNTER 2021-08-27 15:28 | Outpatient (CLI) | payer MEDICAID | END 2021-08-27 15:29 | disposition critical access hospital (66) | LOC: EMS 15:28 | DX: R46.89 Other symptoms and signs involving appearance and behavior (principal); Z78.1 Physical restraint status; Z87.820 Personal history of traumatic brain injury | CPT/HCPCS: A0425; A0429; A0999 ==

== ENCOUNTER 2021-08-27 15:44 | Emergency (ER) | payer MEDICAID ==
--- NOTE | 2021-08-27 15:50 | ED Physician Documentation ---
PD HPI MHE - Stated complaint Stated Complaint: MHE - History obtained from History obtained from: Patient, EMS - Additional information Additional information: 26-year-old woman with recent miscarriage, homeless, history of traumatic brain injury and methamphetamine abuse presents by ambulance. Recent discharge from [facility] for stillbirth. Recent frostbite of the toes. She was acting agitated And brought in by ambulance. She was agitated on route and violence but doing better now and the restraints were released at least initially on arrival. Review of Systems Unable to obtain: Uncooperative PD PAST MEDICAL HISTORY - Past Medical History Cardiovascular: None Respiratory: None Neuro: None Endocrine/Autoimmune: None GI: None SPEEDER TENDER: None : None HEENT: None Psych: Depression, Anxiety, Schizophrenia, Other Musculoskeletal: None Derm: None - Past Surgical History Past Surgical History: No - Present Medications Home Medications: Ambulatory Orders Medication Instructions Recorded Confirmed Home Medications Unobtainable 12/09/20 12/09/20 [HOME MEDICATIONS UNOBTAINABLE] - Allergies Allergies/Adverse Reactions: Allergies Allergy/AdvReac Type Severity Reaction Status Date / Time No Known Drug Allergies Allergy Verified 08/27/21 16:08 - Social History Does the pt smoke?: Yes Smoking Status: Current every day smoker Does the pt drink ETOH?: Yes Does the pt have substance abuse?: Yes - Immunizations Immunizations are current?: Yes - POLST Patient has POLST: No PD ED PE NORMAL - Vitals Vital signs reviewed: Yes - General General: Other (Tearful, slightly agitated but generally cooperative, incontinent of urine and disheveled) - HEENT HEENT: PERRL, EOMI - Neck Neck: Supple, no meningeal sign, No bony TTP - Cardiac Cardiac: RRR, No murmur - Respiratory Respiratory: No respiratory distress, Clear bilaterally - Abdomen Abdomen: Normal bowel sounds, Soft, Non tender - Back Back: No CVA TTP, No spinal TTP - Derm Derm: Normal color, Warm and dry - Extremities Extremities: Other (She is multiple areas of frostbite of the feet, some small areas of gangrene of the toes and ulcers, nothing needing urgent intervention though. But will need wound care.) - Neuro Eye Opening: Spontaneous Motor: Obeys Commands Verbal: Confused GCS Score: 14 Results - Vitals Vitals: Vital Signs - 24 hr 08/27/21 08/28/21 08/28/21 23:15 07:53 15:05 Heart Rate 89 102 H 84 Respiratory 16 16 16 Rate Blood Pressure 131/81 H 133/77 H 123/60 O2 Saturation 97 98 100 Oxygen O2 Source Room air - Labs Labs: Laboratory Tests 08/27/21 08/27/21 08/27/21 16:45 16:45 16:45 WBC 10.3 RBC 4.16 L Hgb 11.9 L Hct 36.4 L MCV 87.5 MCH 28.6 MCHC 32.7 RDW 15.4 H Plt Count 349 MPV 8.0 Neut # (Auto) 7.2 H Lymph # (Auto) 2.2 [place] # (Auto) 0.8 Eos # (Auto) 0.0 Baso # (Auto) 0.1 Absolute Nucleated RBC 0.00 Nucleated RBC % 0.0 Sodium 135 Potassium 3.6 Chloride 99 L Carbon Dioxide 24 Anion Gap 12.0 BUN 16 Creatinine 0.7 Estimated GFR (MDRD) 100 Glucose 130 H Calcium 8.9 Total Bilirubin 0.8 AST 66 H ALT 50 Alkaline Phosphatase 84 Total Protein 6.7 Albumin 3.3 Globulin 3.4 Albumin/Globulin Ratio 1.0 Lipase 25 TSH 0.43 Urine Color Urine Clarity Urine pH Ur Specific [place] Urine Protein Urine Glucose (UA) Urine Ketones Urine Occult Blood Urine Nitrite Urine Bilirubin Urine Urobilinogen Ur Leukocyte Esterase Urine RBC Urine WBC Ur Squamous Epith Cells Amorphous Sediment Urine Bacteria Urine Mucus Ur Microscopic Review Urine Culture Comments Urine HCG, Qual Salicylates < 6.0 Urine Opiates Screen Ur Oxycodone Screen Urine Methadone Screen Ur Propoxyphene Screen Acetaminophen < 10 L Ur Barbiturates Screen Ur Tricyclics Screen Ur Phencyclidine Scrn Ur Amphetamine Screen U Methamphetamines Scrn U Benzodiazepines Scrn Urine Cocaine Screen U Cannabinoids Screen Ethyl Alcohol < 5.0 SARS-CoV-2 (PCR) 08/27/21 08/28/21 08/28/21 17:30 11:08 11:08 WBC RBC Hgb Hct MCV MCH MCHC RDW Plt Count MPV Neut # (Auto) Lymph # (Auto) [place] # (Auto) Eos # (Auto) Baso # (Auto) Absolute Nucleated RBC Nucleated RBC % Sodium Potassium Chloride Carbon Dioxide Anion Gap BUN Creatinine Estimated GFR (MDRD) Glucose Calcium Total Bilirubin AST ALT Alkaline Phosphatase Total Protein Albumin Globulin Albumin/Globulin Ratio Lipase TSH Urine Color ORANGE Urine Clarity CLEAR Urine pH 6.5 Ur Specific [place] 1.025 Urine Protein NEGATIVE Urine Glucose (UA) NEGATIVE Urine Ketones NEGATIVE Urine Occult Blood MODERATE H Urine Nitrite NEGATIVE Urine Bilirubin NEGATIVE Urine Urobilinogen Ur Leukocyte Esterase NEGATIVE Urine RBC 6-10 H Urine WBC 4-5 Ur Squamous Epith Cells RARE Squamous Amorphous Sediment None Seen Urine Bacteria Few Urine Mucus Few Strands Ur Microscopic Review INDICATED Urine Culture Comments NOT INDICATED Urine HCG, Qual POSITIVE Salicylates Urine Opiates Screen NEGATIVE Ur Oxycodone Screen NEGATIVE Urine Methadone Screen NEGATIVE Ur Propoxyphene Screen NEGATIVE Acetaminophen Ur Barbiturates Screen NEGATIVE Ur Tricyclics Screen NEGATIVE Ur Phencyclidine Scrn NEGATIVE Ur Amphetamine Screen POSITIVE H U Methamphetamines Scrn POSITIVE H U Benzodiazepines Scrn NEGATIVE Urine Cocaine Screen NEGATIVE U Cannabinoids Screen NEGATIVE Ethyl Alcohol SARS-CoV-2 (PCR) NOT DETECTED PD MEDICAL DECISION MAKING - ED course ED course: 26-year-old woman brought in with restraints in place and these were removed. She was initially cooperative but then became more uncooperative when the need for blood work for the DCR placement was discussed. As such chemical restraint was ordered but was never actually initiated as the patient became more cooperative without this intervention and blood was drawn. The DCR is looking for a bed for her. Departure - Departure Disposition: [facility] Hosp/Unit DC/Xfer Clinical Impression: Methamphetamine abuse, Depressive disorder Psychosis Qualifiers: Psychosis type: schizoaffective disorder Schizoaffective disorder type: depressive Qualified Code(s): F25.1 - Schizoaffective disorder, depressive type Condition: Stable Discharge Date/Time: 08/28/21 18:21 Face to Face for Restraints - Immediate Situation Face to Face Evaluation Date: 08/27/21 Face to Face Evaluation Time: 16:21 Restraint Situation: Chemical Patient's Reactions to the Intervention: Screaming/Yelling, Demanding - Behavioral Condition Attitude: Indifferent Behavior: Belligerent, Agitated Orientation: Person Mood: Labile - Evaluation Review of Systems: unable d/t condition Pertinent History/Illicit Drugs/Medications/Results: 26-year-old woman with mental illness and methamphetamine abuse is being detained by the DCR if able. They need blood work for placement and the patient is not cooperative and fighting with staff. - Plan Need to Continue or Terminate Violent or Chemical Restraint: sdf
[2021-08-27] MEDS ORDERED: MIDAZOLAM 2 MG/2 ML VIAL IM STA (16:20)
[2021-08-27] MEDS ORDERED: HALOPERIDOL 5 MG/ML VIAL IM STA (16:20)
[2021-08-27 16:52] LABS: BASOPHILS # (AUTO) 0.1 10^3/uL (0.0-0.1); BASOPHILS % (AUTO) 0.5 %; EOSINOPHILS % (AUTO) 0.1 %; HCT - HEMATOCRIT 36.4 % (37.0-47.0); HGB - HEMOGLOBIN 11.9 g/dL (12.0-16.0); LYMPHOCYTES # (AUTO) 2.2 10^3/uL (1.5-3.5); LYMPHOCYTES % (AUTO) 21.6 %; MEAN CORPUSCULAR HEMOGLOBIN 28.6 pg (27.0-31.0); MEAN CORPUSCULAR HGB CONC 32.7 g/dL (32.0-36.0); MEAN CORPUSCULAR VOLUME 87.5 fL (81.0-99.0); MONOCYTES # (AUTO) 0.8 10^3/uL (0.0-1.0); MONOCYTES % (AUTO) 7.3 %; NEUTROPHILS # (AUTO) 7.2 10^3/uL (1.5-6.6); NEUTROPHILS % (AUTO) 70.1 %; PLT - PLATELET COUNT 349 10^3/uL (130-450); RED BLOOD COUNT 4.16 10^6/uL (4.20-5.40); RED CELL DISTRIBUTION WIDTH 15.4 % (12.0-15.0); WHITE BLOOD COUNT 10.3 x10^3/uL (4.8-10.8)
[2021-08-27 17:10] LABS: ACETAMINOPHEN < 10 ug/mL (10-30); ALBUMIN 3.3 g/dL (3.2-5.5); ALKALINE PHOSPHATASE 84 IU/L (42-121); ALT ALANINE AMINOTRANSFERASE 50 IU/L (10-60); AST ASPARTATE AMINOTRANSFERASE 66 IU/L (10-42); BILIRUBIN,TOTAL 0.8 mg/dL (0.2-1.0); BUN - BLOOD UREA NITROGEN 16 mg/dL (6-20); CALCIUM 8.9 mg/dL (8.5-10.3); CARBON DIOXIDE - CO2 24 mmol/L (21-32); CHLORIDE 99 mmol/L (101-111); CREATININE 0.7 mg/dL (0.4-1.0); ETOH - ETHANOL < 5.0 mg/dL; GFR - MDRD 100 (>89); GLUCOSE 130 mg/dL (70-100); LIPASE 25 U/L (22-51); POTASSIUM 3.6 mmol/L (3.5-5.0); SALICYLATE < 6.0 mg/dL; SODIUM 135 mmol/L (135-145); TOTAL PROTEIN 6.7 g/dL (6.7-8.2)
[2021-08-28] MEDS ORDERED: OLANZapine ODT 5 MG TABLET TL ONE (08:07)
[2021-08-28 11:34] LABS: MUDS CUTOFF CONCENTRATIONS CUTOFF CONC BELOW:
[2021-08-28 11:38] LABS: BILIRUBIN,URINE NEGATIVE (NEGATIVE); GLUCOSE, URINE (UA) NEGATIVE (NEGATIVE); KETONES,URINE (UA) NEGATIVE (NEGATIVE); LEUKOCYTE ESTERASE, URINE NEGATIVE (NEGATIVE); NITRITE,URINE NEGATIVE (NEGATIVE); OCCULT BLOOD,URINE MODERATE (NEGATIVE); PH,URINE 6.5 PH (5.0-7.5); PROTEIN,URINE NEGATIVE (NEGATIVE)
[2021-08-28 11:45] LABS: CLARITY,URINE CLEAR (CLEAR)
[2021-08-28 11:47] LABS: AMPHETAMINE SCREEN,URINE POSITIVE (NEGATIVE); BARBITURATE SCREEN,UR NEGATIVE (NEGATIVE); BENZODIAZEPINES SCREEN, URINE NEGATIVE (NEGATIVE); COCAINE SCREEN URINE NEGATIVE (NEGATIVE); HCG UR QUAL POSITIVE; METHADONE SCREEN, URINE NEGATIVE (NEGATIVE); METHAMPHETAMINES SCREEN, URINE POSITIVE (NEGATIVE); OPIATE SCREEN, URINE NEGATIVE (NEGATIVE); THC CANNABINOID SCREEN, URINE NEGATIVE (NEGATIVE); TRICYCLIC ANTIDEPRESSANT,URINE NEGATIVE (NEGATIVE)
[2021-08-28 11:48] LABS: OXYCODONE SCREEN, URINE NEGATIVE (NEGATIVE); PROPOXYPHENE SCREEN, URINE NEGATIVE (NEGATIVE)
[2021-08-28 11:52] LABS: BACTERIA,URINE Few /HPF (None Seen); SQUAMOUS EPITHELIAL CELL,UR RARE Squamous (<= Few)
[2021-08-28 11:53] LABS: AMORPHOUS SEDIMENT,UR None Seen /LPF; MUCUS,URINE Few Strands
[2021-08-28 15:05] VITALS: BP 123/60
--- NOTE | 2021-08-28 16:37 | ED Physician Documentation ---
ED Addendum - Addendum Addendum: 08/28/21 16:36 26-year-old homeless female who was recently had a stillbirth has become significantly depressed and she is using excessive amounts of methamphetamine and amphetamine. She has depression enough that she has become suicidal and has developed psychosis. Abated a dual diagnosis facility has been secured for the patient and she will be transferred there.
== END 2021-08-28 18:21 ==
LOC: EDUNIT# → ED 15:44
DX: T34.8 Frostbite with tissue necrosis of ankle, foot, and toe(s) (principal); F25.1 Schizoaffective disorder, depressive type; F15.129 Other stimulant abuse with intoxication, unspecified; F32.A Depression, unspecified; F17.200 Nicotine dependence, unspecified, uncomplicated; Z59.00 Homelessness unspecified
CPT/HCPCS: 36415; 80053; 80306; 80307; 80320; 80329; 81001; 81003; 81025; 83690; 84443; 85025; 87086; 99285

== ENCOUNTER 2021-09-28 12:30 | Outpatient (CLI) | payer MEDICAID | END 2021-09-28 12:31 | disposition critical access hospital (66) | LOC: EMS 12:30 | DX: L98.9 Disorder of the skin and subcutaneous tissue, unspecified (principal); M79.89 Other specified soft tissue disorders; M79.672 Pain in left foot; M79.671 Pain in right foot; Z59.02 Unsheltered homelessness | CPT/HCPCS: A0425; A0429 ==

== ENCOUNTER 2021-09-28 12:50 | Emergency (ER) | payer MEDICAID ==
--- NOTE | 2021-09-28 13:02 | ED Physician Documentation ---
PD HPI WOUND RECHECK - Stated complaint Stated Complaint: FROSTBITE - Chief complaint Chief Complaint: Wound - Histroy obtained from History obtained from: Patient, EMS - Additional information Additional information: 26-year-old woman with history of homelessness and methamphetamine abuse presents "requesting iodine treatment" for her feet. She has sores on both feet that are infected that have been there for at least a few days. She also requests inpatient treatment for depression and detoxification. Review of Systems Ten Systems: 10 systems reviewed and negative Constitutional: reports: Reviewed and negative Ears: reports: Reviewed and negative Nose: reports: Reviewed and negative Throat: reports: Reviewed and negative Cardiac: reports: Reviewed and negative Respiratory: reports: Reviewed and negative PD PAST MEDICAL HISTORY - Past Medical History Cardiovascular: None Respiratory: None Neuro: None Endocrine/Autoimmune: None GI: None RECORDS MANAGEMENT ASSOCIATE: None : None HEENT: None Psych: Depression, Anxiety, Schizophrenia, Other Musculoskeletal: None Derm: None - Past Surgical History Past Surgical History: No - Present Medications Home Medications: Ambulatory Orders Medication Instructions Recorded Confirmed cephALEXin [Keflex] 500 mg PO Q6H #28 cap 09/28/21 - Allergies Allergies/Adverse Reactions: Allergies Allergy/AdvReac Type Severity Reaction Status Date / Time No Known Drug Allergies Allergy Verified 08/27/21 16:08 - Social History Does the pt smoke?: Yes Smoking Status: Current every day smoker Does the pt drink ETOH?: Yes Does the pt have substance abuse?: Yes - Immunizations Immunizations are current?: Yes - POLST Patient has POLST: No PD ED PE NORMAL - Vitals Vital signs reviewed: Yes - General General: Alert and oriented X 3, No acute distress - HEENT HEENT: PERRL, EOMI - Neck Neck: Supple, no meningeal sign, No bony TTP - Cardiac Cardiac: RRR, No murmur - Respiratory Respiratory: No respiratory distress, Clear bilaterally - Abdomen Abdomen: Normal bowel sounds, Soft, Non tender - Back Back: No CVA TTP, No spinal TTP - Derm Derm: Normal color, Warm and dry - Extremities Extremities: Other (Sore on the tip/bottom of the right great toe with infection and purulent base but no significant spreading cellulitis. There is also a sore on the lateral side of the distal fifth metatarsal on the left with a purulent base and mild surrounding cellulitis.) - Neuro Neuro: Alert and oriented X 3, Normal speech Results - Vitals Vitals: Vital Signs - 24 hr 09/29/21 09/29/21 07:55 14:35 Temperature 37.4 C 37 C Heart Rate 73 74 Respiratory 16 16 Rate Blood Pressure 111/72 110/75 O2 Saturation 98 98 Oxygen O2 Source Room air - Labs Labs: Microbiology 09/28/21 16:14 Wound Culture - Preliminary Foot - Left Laboratory Tests 09/28/21 09/28/21 09/28/21 06:03 13:02 13:02 WBC 5.9 RBC 4.59 Hgb 13.0 Hct 40.8 MCV 88.9 MCH 28.3 MCHC 31.9 L RDW 14.4 Plt Count 312 MPV 8.6 Neut # (Auto) 3.7 Lymph # (Auto) 1.8 [place] # (Auto) 0.4 Eos # (Auto) 0.0 Baso # (Auto) 0.0 Absolute Nucleated RBC 0.00 Nucleated RBC % 0.0 Sodium 140 Potassium 3.8 Chloride 101 Carbon Dioxide 26 Anion Gap 13.0 BUN 7 Creatinine 0.6 Estimated GFR (MDRD) 120 Glucose 85 Calcium 9.5 Total Bilirubin 0.3 AST 34 ALT 27 Alkaline Phosphatase 60 Total Protein 7.6 Albumin 4.5 Globulin 3.1 Albumin/Globulin Ratio 1.5 Lipase 31 TSH Urine Color Urine Clarity Urine pH Ur Specific [place] Urine Protein Urine Glucose (UA) Urine Ketones Urine Occult Blood Urine Nitrite Urine Bilirubin Urine Urobilinogen Ur Leukocyte Esterase Urine RBC Urine WBC Ur Squamous Epith Cells Urine Bacteria Ur Microscopic Review Urine Culture Comments Urine HCG, Qual Salicylates < 6.0 Urine Opiates Screen NEGATIVE Ur Oxycodone Screen NEGATIVE Urine Methadone Screen NEGATIVE Ur Propoxyphene Screen NEGATIVE Acetaminophen < 10 L Ur Barbiturates Screen NEGATIVE Ur Tricyclics Screen NEGATIVE Ur Phencyclidine Scrn NEGATIVE Ur Amphetamine Screen POSITIVE H U Methamphetamines Scrn POSITIVE H U Benzodiazepines Scrn NEGATIVE Urine Cocaine Screen NEGATIVE U Cannabinoids Screen NEGATIVE Ethyl Alcohol < 5.0 SARS-CoV-2 (PCR) 09/28/21 09/28/21 09/29/21 13:02 19:19 06:03 WBC RBC Hgb Hct MCV MCH MCHC RDW Plt Count MPV Neut # (Auto) Lymph # (Auto) [place] # (Auto) Eos # (Auto) Baso # (Auto) Absolute Nucleated RBC Nucleated RBC % Sodium Potassium Chloride Carbon Dioxide Anion Gap BUN Creatinine Estimated GFR (MDRD) Glucose Calcium Total Bilirubin AST ALT Alkaline Phosphatase Total Protein Albumin Globulin Albumin/Globulin Ratio Lipase TSH 0.73 Urine Color YELLOW Urine Clarity CLEAR Urine pH 6.5 Ur Specific [place] 1.015 Urine Protein NEGATIVE Urine Glucose (UA) NEGATIVE Urine Ketones NEGATIVE Urine Occult Blood SMALL H Urine Nitrite NEGATIVE Urine Bilirubin NEGATIVE Urine Urobilinogen 1 (NORMAL) Ur Leukocyte Esterase NEGATIVE Urine RBC 0-5 Urine WBC 0-3 Ur Squamous Epith Cells FEW Squamous Urine Bacteria Rare Ur Microscopic Review INDICATED Urine Culture Comments NOT INDICATED Urine HCG, Qual NEGATIVE Salicylates Urine Opiates Screen Ur Oxycodone Screen Urine Methadone Screen Ur Propoxyphene Screen Acetaminophen Ur Barbiturates Screen Ur Tricyclics Screen Ur Phencyclidine Scrn Ur Amphetamine Screen U Methamphetamines Scrn U Benzodiazepines Scrn Urine Cocaine Screen U Cannabinoids Screen Ethyl Alcohol SARS-CoV-2 (PCR) NOT DETECTED - Rads (name of study) Three-view x-ray of bilateral feet show no evidence of osteomyelitis Radiology: EMP read contemporaneously PD MEDICAL DECISION MAKING - ED course ED course: 26-year-old woman presents by ambulance with bilateral feet wounds, one on the right great toe and 1 on the left fifth metatarsal. The larger one on the left fifth metatarsal was cultured and both were cleansed and dressed. She is started on Keflex. She would like to go to detox, but become somnolent after arrival suggesting methamphetamine withdrawal and social work was unable to place during her shift due to that. Probably boarding overnight pending sobriety and reevaluation in the morning for outpatient voluntary detoxification. Departure - Departure Disposition: 01 Home, Self Care Clinical Impression: Methamphetamine abuse Open wound of foot Qualifiers: Encounter type: initial encounter Laterality: unspecified laterality Qualified Code(s): S91.309A - Unspecified open wound, unspecified foot, initial encounter Condition: Stable Record reviewed to determine appropriate education?: Yes Instructions: ED Drug Abuse General, ED Wound Care Follow-Up: Your,doctor in 2 to 3 days [Other] Prescriptions: cephALEXin [Keflex] 500 mg PO Q6H #28 cap Comments: We are performing a wound culture, the results should be done in 48-72 hours. If antibiotic change is necessary we will call you. Return if worse in the meantime, especially if you develop increased pain, fevers, cannot keep down the medication. Otherwise follow-up with your physician in approximately 2-3 days. At that visit discuss a referral to wound care for your feet. Your prescriptions were sent to [facility] in [place] Discharge Date/Time: 09/29/21 15:25
[2021-09-28 13:07] LABS: BASOPHILS % (AUTO) 0.3 %; HCT - HEMATOCRIT 40.8 % (37.0-47.0); LYMPHOCYTES # (AUTO) 1.8 10^3/uL (1.5-3.5); LYMPHOCYTES % (AUTO) 30.3 %; MEAN CORPUSCULAR HEMOGLOBIN 28.3 pg (27.0-31.0); MEAN CORPUSCULAR HGB CONC 31.9 g/dL (32.0-36.0); MEAN CORPUSCULAR VOLUME 88.9 fL (81.0-99.0); MEAN PLATELET VOLUME 8.6 fL (7.9-10.8); MONOCYTES # (AUTO) 0.4 10^3/uL (0.0-1.0); MONOCYTES % (AUTO) 6.8 %; NEUTROPHILS # (AUTO) 3.7 10^3/uL (1.5-6.6); NEUTROPHILS % (AUTO) 62.4 %; PLT - PLATELET COUNT 312 10^3/uL (130-450); RED BLOOD COUNT 4.59 10^6/uL (4.20-5.40); RED CELL DISTRIBUTION WIDTH 14.4 % (12.0-15.0); WHITE BLOOD COUNT 5.9 x10^3/uL (4.8-10.8)
--- OUTSIDE RECORDS SUMMARY | 2021-09-28 13:19 | EXTERNAL MEDICAL SUMMARY RPT | Continuity of Care Document ---
:1995 Author Organization [facility] Address [address] [place] [address] Phone Allergies No information. Encounters No information. Medications No information. Problems date description facility [id number] Unspecified psychosis not due to a [facility] substance or known physiological condition [id number] Maternal care for intrauterine , [facility] fetus 1 [id number] Encounter for full-term uncomplicated [facility] delivery [id number] Vomiting, unspecified [facility] [id number] Personal history of other mental and [facility] behavioral disorders [id number] Other psychoactive substance abuse, in [facility] remission [id number] Nausea with vomiting, unspecified [facility] [id number] Homelessness unspecified [facility] [id number] Encounter for supervision of normal [facility] , unspecified, unspecified trimester [id number] Diarrhea, unspecified [facility] [id number] Dehydration [facility] [id number] Contusion of right forearm, initial [facility] encounter [id number] 30 weeks gestation of [facility] Results No information.
[2021-09-28 13:23] LABS: ACETAMINOPHEN < 10 ug/mL (10-30); ALBUMIN 4.5 g/dL (3.2-5.5); ALBUMIN/GLOBULIN RATIO 1.5 (1.0-2.2); ALKALINE PHOSPHATASE 60 IU/L (42-121); ALT ALANINE AMINOTRANSFERASE 27 IU/L (10-60); AST ASPARTATE AMINOTRANSFERASE 34 IU/L (10-42); BILIRUBIN,TOTAL 0.3 mg/dL (0.2-1.0); BUN - BLOOD UREA NITROGEN 7 mg/dL (6-20); CALCIUM 9.5 mg/dL (8.5-10.3); CARBON DIOXIDE - CO2 26 mmol/L (21-32); CHLORIDE 101 mmol/L (101-111); CREATININE 0.6 mg/dL (0.4-1.0); ETOH - ETHANOL < 5.0 mg/dL; GFR - MDRD 120 (>89); GLUCOSE 85 mg/dL (70-100); LIPASE 31 U/L (22-51); POTASSIUM 3.8 mmol/L (3.5-5.0); SALICYLATE < 6.0 mg/dL; SODIUM 140 mmol/L (135-145); TOTAL PROTEIN 7.6 g/dL (6.7-8.2)
[2021-09-28] MEDS ORDERED: NAPROXEN 250 MG TABLET PO STA (14:26)
--- NOTE | 2021-09-28 14:58 | XRAY Report ---
PROCEDURE: Foot 3 View BILAT INDICATIONS: Infected wound right great toe and left fifth MTP TECHNIQUE: views of the foot were acquired. COMPARISON: None FINDINGS: Soft tissue irregularity at the lateral aspect of the left foot adjacent to the metatarsophalangeal j oint. No evidence of osteomyelitis radiographically in either foot. No acute fracture. No suspicious lytic or blastic osseous lesion. No radio opaque foreign body. IMPRESSION: No plain radiographic evidence of osteomyelitis. Reviewed by: Vamshi Munguia MD on 09/28/2021 2:57 PM PDT Approved by: Vamshi Munguia MD on 09/28/2021 2:57 PM PDT Station ID: [id number]
[2021-09-28] MEDS ORDERED: cephALEXin 250 MG CAPSULE PO SCH (17:00)
[2021-09-29] MEDS: cephALEXin 250 MG CAPSULE PO SCH ×3 (01:42→13:43)
[2021-09-29 06:06] LABS: MUDS CUTOFF CONCENTRATIONS CUTOFF CONC BELOW:
[2021-09-29 06:19] LABS: BILIRUBIN,URINE NEGATIVE (NEGATIVE); GLUCOSE, URINE (UA) NEGATIVE (NEGATIVE); KETONES,URINE (UA) NEGATIVE (NEGATIVE); LEUKOCYTE ESTERASE, URINE NEGATIVE (NEGATIVE); NITRITE,URINE NEGATIVE (NEGATIVE); OCCULT BLOOD,URINE SMALL (NEGATIVE); PH,URINE 6.5 PH (5.0-7.5); PROTEIN,URINE NEGATIVE (NEGATIVE); UROBILINOGEN,URINE 1 (NORMAL) E.U./dL (NORMAL)
[2021-09-29 06:22] LABS: CLARITY,URINE CLEAR (CLEAR); HCG UR QUAL NEGATIVE
[2021-09-29 06:26] LABS: BACTERIA,URINE Rare /HPF (None Seen); RBC,URINE 0-5 /HPF (0-5); SQUAMOUS EPITHELIAL CELL,UR FEW Squamous (<= Few); WBC,URINE 0-3 /HPF (0-5)
[2021-09-29 06:28] LABS: AMPHETAMINE SCREEN,URINE POSITIVE (NEGATIVE); COCAINE SCREEN URINE NEGATIVE (NEGATIVE); METHAMPHETAMINES SCREEN, URINE POSITIVE (NEGATIVE); OPIATE SCREEN, URINE NEGATIVE (NEGATIVE); THC CANNABINOID SCREEN, URINE NEGATIVE (NEGATIVE)
[2021-09-29 06:29] LABS: BARBITURATE SCREEN,UR NEGATIVE (NEGATIVE); BENZODIAZEPINES SCREEN, URINE NEGATIVE (NEGATIVE); METHADONE SCREEN, URINE NEGATIVE (NEGATIVE); OXYCODONE SCREEN, URINE NEGATIVE (NEGATIVE); PROPOXYPHENE SCREEN, URINE NEGATIVE (NEGATIVE); TRICYCLIC ANTIDEPRESSANT,URINE NEGATIVE (NEGATIVE)
--- NOTE | 2021-09-29 14:22 | ED Physician Documentation ---
ED Addendum - Addendum Addendum: 09/29/21 14:21 26-year-old female is awaiting social work consult for possible inpatient detox. She has not suicidal or homicidal. While waiting in the emergency department and after speaking with social work she does not feel that she needs inpatient detox any longer. Her feet were cleansed and bandaged. We will start her on oral antibiotics. No fevers. No evidence of sepsis, osteomyelitis. Patient counseled regarding signs and symptoms for which I believe and urgent re-francie luation would be necessary. Patient with good understanding of and agreement to plan and is comfortable going home at this time This document was made in part using voice recognition software. While efforts are made to proofread this document, sound alike and grammatical errors may occur. Departure - Departure Disposition: 01 Home, Self Care Clinical Impression: Methamphetamine abuse Open wound of foot Qualifiers: Encounter type: initial encounter Laterality: unspecified laterality Qualified Code(s): S91.309A - Unspecified open wound, unspecified foot, initial encounter Condition: Stable Instructions: ED Drug Abuse General, ED Wound Care Follow-Up: Your,doctor in 2 to 3 days [Other] Prescriptions: cephALEXin [Keflex] 500 mg PO Q6H #28 cap Comments: We are performing a wound culture, the results should be done in 48-72 hours. If antibiotic change is necessary we will call you. Return if worse in the meantime, especially if you develop increased pain, fevers, cannot keep down the medication. Otherwise follow-up with your physician in approximately 2-3 days. At that visit discuss a referral to wound care for your feet. Your prescriptions were sent to [facility]
[2021-09-29 15:00] VITALS: BP 110/75
--- NOTE | 2021-10-01 14:48 | ED Physician Documentation ---
ED Addendum - Addendum Addendum: 10/01/21 14:47 Bactrim was added to the patient's prescription. 1 tab p.o. twice daily x7 days. 10/01/21 14:48 The prescription was electronically sent to [facility]. Departure - Departure Disposition: 01 Home, Self Care Clinical Impression: Methamphetamine abuse Open wound of foot Qualifiers: Encounter type: initial encounter Laterality: unspecified laterality Qualified Code(s): S91.309A - Unspecified open wound, unspecified foot, initial encounter Condition: Stable Instructions: ED Drug Abuse General, ED Wound Care Follow-Up: Your,doctor in 2 to 3 days [Other] Prescriptions: Sulfamethox/Trimeth 800/160 [Bactrim Ds 800/160] 1 each PO BID #14 tablet cephALEXin [Keflex] 500 mg PO Q6H #28 cap Comments: We are performing a wound culture, the results should be done in 48-72 hours. If antibiotic change is necessary we will call you. Return if worse in the meantime, especially if you develop increased pain, fevers, cannot keep down the medication. Otherwise follow-up with your physician in approximately 2-3 days. At that visit discuss a referral to wound care for your feet. Your prescriptions were sent to [facility] Discharge Date/Time: 09/29/21 15:25
== END 2021-09-29 15:25 | disposition home or self-care (01) ==
LOC: EDUNIT# → ED 12:50
DX: F15.10 Other stimulant abuse, uncomplicated (principal); S91.309A Unspecified open wound, unspecified foot, initial encounter; X31.XXXA Exposure to excessive natural cold, initial encounter; F17.200 Nicotine dependence, unspecified, uncomplicated; Z59.00 Homelessness unspecified; Z20.822 Contact with and (suspected) exposure to COVID-19
CPT/HCPCS: 36415; 73630; 80053; 80306; 80307; 80320; 80329; 81001; 81025; 83690; 84443; 85025; 87070; 87077; 87181; 87205; 87635; 99284; A9270; 81003; 87086

== ENCOUNTER 2021-10-02 21:42 | Outpatient (CLI) | payer MEDICAID | END 2021-10-02 21:43 | disposition critical access hospital (66) | LOC: EMS 21:42 | DX: R41.82 Altered mental status, unspecified (principal); R46.89 Other symptoms and signs involving appearance and behavior | CPT/HCPCS: A0425; A0429; A0999 ==

== ENCOUNTER 2021-10-02 21:58 | Emergency (ER) | payer MEDICAID ==
--- OUTSIDE RECORDS SUMMARY | 2021-10-02 22:13 | EXTERNAL MEDICAL SUMMARY RPT | Continuity of Care Document ---
:1995 Author Organization [facility] Address [address] [place] [address] Phone Allergies No information. Encounters No information. Medications No information. Problems date description facility [id number] Unspecified psychosis not due to a [facility] substance or known physiological condition [id number] Maternal care for intrauterine , [facility] fetus 1 [id number] Encounter for full-term uncomplicated [facility] delivery [id number] Vomiting, unspecified [facility] [id number] Personal history of other mental and [facility] behavioral disorders [id number] Other psychoactive substance abuse, in [facility] remission [id number] Nausea with vomiting, unspecified [facility] [id number] Homelessness unspecified [facility] [id number] Encounter for supervision of normal [facility] , unspecified, unspecified trimester [id number] Diarrhea, unspecified [facility] [id number] Dehydration [facility] [id number] Contusion of right forearm, initial [facility] encounter [id number] 30 weeks gestation of [facility] Results No information.
--- NOTE | 2021-10-03 01:02 | ED Physician Documentation ---
PD HPI MHE - Stated complaint Stated Complaint: URINATING ON [employer] DO[address], YELLING - Chief complaint Chief Complaint: MHE - History obtained from History obtained from: EMS - Additional information Additional information: Patient with a history of a traumatic brain injury and methamphetamine abuse presenting for evaluation via EMS. She was reportedly urinating on the door at [employer] and yelling. Police were at the scene and placed the patient in an involuntary hold for acute psychosis. No reported suicidal or homicidal threats.Patient is not cooperative with history taking. 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 : None HEENT: None Psych: Depression, Anxiety, Schizophrenia, Other Musculoskeletal: None Derm: None - Past Surgical History Past Surgical History: No - Present Medications Home Medications: Ambulatory Orders Medication Instructions Recorded Confirmed cephALEXin [Keflex] 500 mg PO Q6H #28 cap 09/28/21 Sulfamethox/Trimeth 800/160 1 each PO BID #14 tablet 10/01/21 [Bactrim Ds 800/160] Sulfamethox/Trimeth 800/160 1 each PO BID #14 tablet 10/03/21 [Bactrim Ds 800/160] - Allergies Allergies/Adverse Reactions: Allergies Allergy/AdvReac Type Severity Reaction Status Date / Time No Known Drug Allergies Allergy Verified 10/02/21 22:03 - Social History Does the pt smoke?: Yes Smoking Status: Current every day smoker Does the pt drink ETOH?: Yes Does the pt have substance abuse?: Yes - Immunizations Immunizations are current?: Yes - POLST Patient has POLST: No PD ED PE NORMAL - General General: No acute distress, Well developed/nourished - HEENT HEENT: Atraumatic, PERRL, Moist mucous membranes - Neck Neck: Supple, no meningeal sign - Cardiac Cardiac: Other (Tachycardic, regular rhythm) - Respiratory Respiratory: No respiratory distress - Extremities Extremities: Other (Uncooperative with removing boots and shoes to evaluate feet as she is recently been seen for frostbite) - Neuro Neuro: No motor deficit - Psych Psych: Other (Rapid, pressured speech,At times yelling statements, Not cooperative with answering direct questions, speaking to herself, waving her arms around,) Results - Vitals Vitals: Vital Signs - 24 hr 10/02/21 10/03/21 22:03 03:45 Temperature 36.7 C Heart Rate 101 H 88 Respiratory 18 16 Rate Blood Pressure 140/60 H 132/62 H O2 Saturation 98 97 Oxygen O2 Source Room air - Labs Labs: Laboratory Tests 10/02/21 10/03/21 10/03/21 22:35 06:12 06:12 WBC 6.8 RBC 4.09 L Hgb 12.0 Hct 35.6 L MCV 87.0 MCH 29.3 MCHC 33.7 RDW 13.8 Plt Count 277 MPV 8.5 Neut # (Auto) 4.1 Lymph # (Auto) 2.0 [place] # (Auto) 0.7 Eos # (Auto) 0.0 Baso # (Auto) 0.0 Absolute Nucleated RBC 0.00 Nucleated RBC % 0.0 Sodium 137 Potassium 3.8 Chloride 103 Carbon Dioxide 25 Anion Gap 9.0 BUN 9 Creatinine 0.6 Estimated GFR (MDRD) 120 Glucose 112 H Calcium 9.1 Total Bilirubin 0.6 AST 17 ALT 18 Alkaline Phosphatase 59 Total Protein 6.6 L Albumin 3.6 Globulin 3.0 Albumin/Globulin Ratio 1.2 Lipase 24 TSH Urine Color Urine Clarity Urine pH Ur Specific [place] Urine Protein Urine Glucose (UA) Urine Ketones Urine Occult Blood Urine Nitrite Urine Bilirubin Urine Urobilinogen Ur Leukocyte Esterase Ur Microscopic Review Urine Culture Comments Urine HCG, Qual Salicylates < 6.0 Urine Opiates Screen Ur Oxycodone Screen Urine Methadone Screen Ur Propoxyphene Screen Acetaminophen < 10 L Ur Barbiturates Screen Ur Tricyclics Screen Ur Phencyclidine Scrn Ur Amphetamine Screen U Methamphetamines Scrn U Benzodiazepines Scrn Urine Cocaine Screen U Cannabinoids Screen Ethyl Alcohol < 5.0 SARS-CoV-2 (PCR) NOT DETECTED 10/03/21 10/03/21 10/03/21 06:12 07:01 07:01 WBC RBC Hgb Hct MCV MCH MCHC RDW Plt Count MPV Neut # (Auto) Lymph # (Auto) [place] # (Auto) Eos # (Auto) Baso # (Auto) Absolute Nucleated RBC Nucleated RBC % Sodium Potassium Chloride Carbon Dioxide Anion Gap BUN Creatinine Estimated GFR (MDRD) Glucose Calcium Total Bilirubin AST ALT Alkaline Phosphatase Total Protein Albumin Globulin Albumin/Globulin Ratio Lipase TSH 0.70 Urine Color YELLOW Urine Clarity CLEAR Urine pH 5.5 Ur Specific [place] >=1.030 H Urine Protein NEGATIVE Urine Glucose (UA) NEGATIVE Urine Ketones NEGATIVE Urine Occult Blood NEGATIVE Urine Nitrite NEGATIVE Urine Bilirubin NEGATIVE Urine Urobilinogen 0.2 (NORMAL) Ur Leukocyte Esterase NEGATIVE Ur Microscopic Review NOT INDICATED Urine Culture Comments NOT INDICATED Urine HCG, Qual NEGATIVE Salicylates Urine Opiates Screen NEGATIVE Ur Oxycodone Screen NEGATIVE Urine Methadone Screen NEGATIVE Ur Propoxyphene Screen NEGATIVE Acetaminophen Ur Barbiturates Screen NEGATIVE Ur Tricyclics Screen NEGATIVE Ur Phencyclidine Scrn NEGATIVE Ur Amphetamine Screen POSITIVE H U Methamphetamines Scrn POSITIVE H U Benzodiazepines Scrn NEGATIVE Urine Cocaine Screen NEGATIVE U Cannabinoids Screen NEGATIVE Ethyl Alcohol SARS-CoV-2 (PCR) PD MEDICAL DECISION MAKING - ED course ED course: 1:01 - Patient has been refusing lab draws and giving a urine specimen. However she has not been violent or aggressive with emergency department staff. I do not think she warrants chemical or physical restraints in order to obtain these tests at this time.We will continue to encourage patient to be cooperative. 04:30 - Patient has been sleeping with no outbursts. When asked to cooperate for labs and urine specimen collection, patient states "no". Not exhibiting behavior warranting chemical or physical restraints. 0607 - Patient allowed me to remove her boots and socks to examine her feet. Socks were wet. Healing ulcer to Dorsum of right great toe and Lateral aspect of left fifth toe. Patient also agrees to blood draws long as it is only a small amount. 0640- Patient states she is dying and needs to stay in the hospital Because we took so much blood. Becoming argumentative And again talking to herself. 0700 - Patient signed out to Dr. Izaguirre. Plan for UA and dispatch DCR. Departure - Departure Disposition: 01 Home, Self Care Clinical Impression: Methamphetamine abuse Open wound of foot Qualifiers: Encounter type: subsequent encounter Laterality: unspecified laterality Qualified Code(s): S91.309D - Unspecified open wound, unspecified foot, subsequent encounter Psychosis Qualifiers: Psychosis type: unspecified psychosis type Qualified Code(s): F29 - Unspecified psychosis not due to a substance or known physiological condition Condition: Good Instructions: ED Drug Abuse General, ED Wound Care Prescriptions: Sulfamethox/Trimeth 800/160 [Bactrim Ds 800/160] 1 each PO BID #14 tablet Comments: Continue the antibiotics you are prescribed on last visit. Recommend you abstain from methamphetamines and other intoxicants. Based on prior culture review I am changing your antibiotics, you can stop the cephalexin and simply start the new antibiotic. You should wash your feet with soap and water once a day and apply clean dressings at that time. Follow-up with your primary care physician. Return for new or worsening symptoms. Discharge Date/Time: 10/03/21 12:42
[2021-10-03 03:46] VITALS: BP 132/62
[2021-10-03 06:16] LABS: BASOPHILS % (AUTO) 0.3 %; HCT - HEMATOCRIT 35.6 % (37.0-47.0); MEAN CORPUSCULAR HEMOGLOBIN 29.3 pg (27.0-31.0); MEAN CORPUSCULAR HGB CONC 33.7 g/dL (32.0-36.0); MEAN PLATELET VOLUME 8.5 fL (7.9-10.8); MONOCYTES # (AUTO) 0.7 10^3/uL (0.0-1.0); MONOCYTES % (AUTO) 10.8 %; NEUTROPHILS # (AUTO) 4.1 10^3/uL (1.5-6.6); NEUTROPHILS % (AUTO) 59.6 %; PLT - PLATELET COUNT 277 10^3/uL (130-450); RED BLOOD COUNT 4.09 10^6/uL (4.20-5.40); RED CELL DISTRIBUTION WIDTH 13.8 % (12.0-15.0); WHITE BLOOD COUNT 6.8 x10^3/uL (4.8-10.8)
[2021-10-03 06:37] LABS: ACETAMINOPHEN < 10 ug/mL (10-30); ALBUMIN 3.6 g/dL (3.2-5.5); ALBUMIN/GLOBULIN RATIO 1.2 (1.0-2.2); ALKALINE PHOSPHATASE 59 IU/L (42-121); ALT ALANINE AMINOTRANSFERASE 18 IU/L (10-60); AST ASPARTATE AMINOTRANSFERASE 17 IU/L (10-42); BILIRUBIN,TOTAL 0.6 mg/dL (0.2-1.0); BUN - BLOOD UREA NITROGEN 9 mg/dL (6-20); CALCIUM 9.1 mg/dL (8.5-10.3); CARBON DIOXIDE - CO2 25 mmol/L (21-32); CHLORIDE 103 mmol/L (101-111); CREATININE 0.6 mg/dL (0.4-1.0); ETOH - ETHANOL < 5.0 mg/dL; GFR - MDRD 120 (>89); GLUCOSE 112 mg/dL (70-100); LIPASE 24 U/L (22-51); POTASSIUM 3.8 mmol/L (3.5-5.0); SALICYLATE < 6.0 mg/dL; SODIUM 137 mmol/L (135-145); TOTAL PROTEIN 6.6 g/dL (6.7-8.2)
[2021-10-03] MEDS ORDERED: KETAMINE 500 MG/10 ML VIAL IM STA (06:57)
--- NOTE | 2021-10-03 06:59 | ED Physician Documentation ---
Face to Face for Restraints - Immediate Situation Face to Face Evaluation Date: 10/03/21 Face to Face Evaluation Time: 06:58 Restraint Situation: Chemical Patient's Reactions to the Intervention: Swearing, Screaming/Yelling - Behavioral Condition Attitude: Indifferent Behavior: Belligerent, Agitated Orientation: Not oriented to person, place, time, and situation Mood: Labile, Angry - Evaluation Review of Systems: not cooperative Pertinent History/Illicit Drugs/Medications/Results: high on meth - Plan Need to Continue or Terminate Violent or Chemical Restraint: Sedate for now, straight cath UA and DCR That said, she was able to be verbally deescalated by the nurse prior to ketamine administration, the ketamine was canceled but she was still given Zyprexa IM, but this was for anxiolysis.
[2021-10-03] MEDS ORDERED: OLANZapine 10 MG VIAL IM STA (07:06)
[2021-10-03 07:10] LABS: MUDS CUTOFF CONCENTRATIONS CUTOFF CONC BELOW:
[2021-10-03 07:13] LABS: BILIRUBIN,URINE NEGATIVE (NEGATIVE); GLUCOSE, URINE (UA) NEGATIVE (NEGATIVE); KETONES,URINE (UA) NEGATIVE (NEGATIVE); LEUKOCYTE ESTERASE, URINE NEGATIVE (NEGATIVE); NITRITE,URINE NEGATIVE (NEGATIVE); OCCULT BLOOD,URINE NEGATIVE (NEGATIVE); PH,URINE 5.5 PH (5.0-7.5); PROTEIN,URINE NEGATIVE (NEGATIVE); UROBILINOGEN,URINE 0.2 (NORMAL) E.U./dL (NORMAL)
[2021-10-03 07:16] LABS: CLARITY,URINE CLEAR (CLEAR); HCG UR QUAL NEGATIVE
[2021-10-03 07:21] LABS: AMPHETAMINE SCREEN,URINE POSITIVE (NEGATIVE); BENZODIAZEPINES SCREEN, URINE NEGATIVE (NEGATIVE); COCAINE SCREEN URINE NEGATIVE (NEGATIVE); METHAMPHETAMINES SCREEN, URINE POSITIVE (NEGATIVE); OPIATE SCREEN, URINE NEGATIVE (NEGATIVE); THC CANNABINOID SCREEN, URINE NEGATIVE (NEGATIVE)
[2021-10-03 07:22] LABS: BARBITURATE SCREEN,UR NEGATIVE (NEGATIVE); METHADONE SCREEN, URINE NEGATIVE (NEGATIVE); OXYCODONE SCREEN, URINE NEGATIVE (NEGATIVE); PROPOXYPHENE SCREEN, URINE NEGATIVE (NEGATIVE); TRICYCLIC ANTIDEPRESSANT,URINE NEGATIVE (NEGATIVE)
--- NOTE | 2021-10-03 11:08 | ED Physician Documentation ---
ED Addendum - Addendum Addendum: 10/03/21 11:08 Signed out to me at shift change by Dr. Mckeon. Briefly this is an u nfortunate and fairly well-known 26-year-old woman with history of brain injury and methamphetamine abuse. Brought in with JUAN CARLOS paperwork from [place] [employer]. DCR was dispatched but DCR would not come until evaluated by social work. [facility] saw the patient and then discussed with the DCR. DCR did not feel there was any need for involuntary long term. [facility]. Note made that she has wounds on the feet, I personally viewed these and they are improving with the current plan of care. That said cultures were reviewed and I will change her to Bactrim as first generation cephalosporin may not be the best for one of the isolates. Disposition discharged Condition stable 10/03/21 11:09 Diagnosis: 1. Methamphetamine abuse 2. Psychosis 3. Homelessness 4. Open foot wounds
== END 2021-10-03 12:42 | disposition home or self-care (01) ==
LOC: EDUNIT# → ED 21:58
DX: F15.129 Other stimulant abuse with intoxication, unspecified (principal); F29 Unspecified psychosis not due to a substance or known physiological condition; S91.301A Unspecified open wound, right foot, initial encounter; S91.302A Unspecified open wound, left foot, initial encounter; X31.XXXA Exposure to excessive natural cold, initial encounter; F17.200 Nicotine dependence, unspecified, uncomplicated; Z59.00 Homelessness unspecified
CPT/HCPCS: 36415; 80053; 80306; 80307; 80320; 80329; 81001; 81003; 81025; 83690; 84443; 85025; 87086; 96372; 99281; 99285

== ENCOUNTER 2021-10-08 16:07 | Outpatient (CLI) | payer MEDICAID ==
--- NOTE | 2021-10-09 10:18 | XRAY Report ---
PROCEDURE: Foot 2 View LT INDICATIONS: WOUND INFECTION TECHNIQUE: 3 views of the foot were acquired. COMPARISON: X-ray foot 09/28/2021 FINDINGS: Bones: No fractures or dislocations. Interval since the prior exam, there has been progressive decre ased density at the distal fifth metatarsal head. Soft tissues: No tibiotalar joint effusion. Achilles tendon appears normal. Soft tissue irregulari ty is noted adjacent to the fifth metatarsal head. IMPRESSION: Left lateral soft tissue wound with adjacent decreased density in the fifth metatarsal head, highly s uggestive of developing osteomyelitis. Reviewed by: Miryam Lilly MD on 10/09/2021 10:17 AM PDT Approved by: Miryam Lilly MD on 10/09/2021 10:17 AM PDT Station ID: [id number]
== END 2021-10-08 23:59 | disposition home or self-care (01) ==
LOC: DI.N 16:07
PROVIDERS: ATTEND Nurse Practitioner
DX: L08.9 Local infection of the skin and subcutaneous tissue, unspecified (principal)
CPT/HCPCS: 87070; 87077; 87181; 87205

== ENCOUNTER 2021-10-13 01:53 | Outpatient (CLI) | payer MEDICAID | END 2021-10-13 01:54 | disposition critical access hospital (66) | LOC: EMS 01:53 | DX: M79.672 Pain in left foot (principal); M79.89 Other specified soft tissue disorders; R45.1 Restlessness and agitation | CPT/HCPCS: A0425; A0429; A0999 ==

== ENCOUNTER 2021-10-13 02:08 | Emergency (ER) | payer MEDICAID ==
[2021-10-13] MEDS ORDERED: MUPIROCIN 2% OINT 1 GM TOP STA (02:17)
[2021-10-13] MEDS ORDERED: ACETAMINOPHEN 325 MG TABLET PO STA (02:17)
[2021-10-13] MEDS ORDERED: OLANZapine ODT 5 MG TABLET TL ONE (02:17)
--- NOTE | 2021-10-13 02:17 | ED Physician Documentation ---
PD HPI WOUND RECHECK - Stated complaint Stated Complaint: LEG PAIN AND LEFT FOOT SWELLING - Histroy obtained from History obtained from: Patient, EMS - History of Present Illness Location: Right Foot (great toe plantar tip.), Left Foot (heel and first MTP side medially) Timing - onset: How many weeks ago (2) Associated symptoms: Pain. No: Redness, Drainage Similar symptoms before: Diagnosis (diagnosis frostbite of toes and heel 2 weeks ago. has had bandage change ? at skilled nursing. 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 : None HEENT: None Psych: Depression, Anxiety, Schizophrenia, Other Musculoskeletal: None Derm: None - Past Surgical History Past Surgical History: No - Present Medications Home Medications: Ambulatory Orders Medication Instructions Recorded Confirmed cephALEXin [Keflex] 500 mg PO Q6H #28 cap 09/28/21 Sulfamethox/Trimeth 800/160 1 each PO BID #14 tablet 10/01/21 [Bactrim Ds 800/160] Sulfamethox/Trimeth 800/160 1 each PO BID #14 tablet 10/03/21 [Bactrim Ds 800/160] - Allergies Allergies/Adverse Reactions: Allergies Allergy/AdvReac Type Severity Reaction Status Date / Time No Known Drug Allergies Allergy Verified 10/02/21 22:03 - Social History Does the pt smoke?: Yes Smoking Status: Current every day smoker Does the pt drink ETOH?: Yes Does the pt have substance abuse?: Yes - Immunizations Immunizations are current?: Yes - POLST Patient has POLST: No PD ED PE NORMAL - Vitals Vital signs reviewed: Yes - General General: No acute distress, Well developed/nourished, Other (unfocused attention and tangential, but then will give directions and requests for particular ways to remove dressings and cleanse wound. She wants to do much of it herself. ) - HEENT HEENT: Atraumatic - Neck Neck: Supple, no meningeal sign - Cardiac Cardiac: RRR, No murmur - Respiratory Respiratory: Clear bilaterally - Abdomen Abdomen: Soft, Non tender - Derm Derm: Normal color, Warm and dry - Extremities Extremities: Other (right foot with skin breakdown to fatty tissue on great toe tip. No infection appearance. Left foot with skin breakdown heel and medial MTP first toe area. Not appearing infected there either. ) - Neuro Neuro: Alert and oriented X 3, No motor deficit, No sensory deficit, Normal speech, Other (good color and cap refill in base of great toes and the ends of other toes. ) Results - Vitals Vitals: Vital Signs - 24 hr 10/13/21 02:11 Heart Rate 93 O2 Saturation 100 Oxygen O2 Source Room air PD MEDICAL DECISION MAKING - ED course Complexity details: re-evaluated patient, considered differential (RemoveMostly here for dressing change. The dressings with her cooperation. She then started having more unfocused behavior with responding to internal stimulus. At this point we will let her relax a bit. She declined oral medication. ), d/w patient ED course: She is not acting out enough to really feel we need to do involuntary medication. Knowing Jennique from the past, it often is undulating degrees of psychosis and at this point I would give her some time and see if she focuses better again to allow possible oral medication and reapplication of dressings. Prolonged stay in ER due to her psychosis with some yelling at times. She was not bad enough to need involuntary medication, but did need time to sleep a few hours and see then if at her cooperative baseline. Would then redress wounds and discharge. The patient is still sleeping of presumed medication effect at the time of shift change. She has been calmer now. Departure - Departure Clinical Impression: Open wound of foot, Dressing change or removal, nonsurgical wound, Psychosis Condition: Stable Record reviewed to determine appropriate education?: Yes Comments: CLeanse the wounds daily with soap and water and apply some ointment. Dressing again. Recheck in about 4-5 days.
--- OUTSIDE RECORDS SUMMARY | 2021-10-13 02:37 | EXTERNAL MEDICAL SUMMARY RPT | Continuity of Care Document ---
:1995 Author Organization [facility] Address [address] [place] [address] Phone Allergies No information. Encounters No information. Medications No information. Problems date description facility [id number] Unspecified psychosis not due to a [facility] substance or known physiological condition [id number] Maternal care for intrauterine , [facility] fetus 1 [id number] Encounter for full-term uncomplicated [facility] delivery Results No information.
[2021-10-13] MEDS ORDERED: OLANZapine 10 MG VIAL IM ONE (03:48)
[2021-10-13 11:59] VITALS: BP 106/68
== END 2021-10-13 12:51 | disposition home or self-care (01) ==
LOC: EDUNIT# → ED 02:08
DX: Z48.00 Encounter for change or removal of nonsurgical wound dressing (principal); F29 Unspecified psychosis not due to a substance or known physiological condition; F17.200 Nicotine dependence, unspecified, uncomplicated
CPT/HCPCS: 99281; A9270

== ENCOUNTER 2021-10-18 08:00 | Outpatient (CLI) | payer MEDICAID | END 2021-10-18 08:01 | disposition critical access hospital (66) | LOC: EMS 08:00 | DX: M79.672 Pain in left foot (principal); M79.671 Pain in right foot; R53.1 Weakness | CPT/HCPCS: A0425; A0429; A0999 ==

== ENCOUNTER 2021-10-18 19:48 | Emergency (ER) | payer MEDICAID ==
[2021-10-18 19:58] VITALS: BP 127/71
--- OUTSIDE RECORDS SUMMARY | 2021-10-18 20:01 | EXTERNAL MEDICAL SUMMARY RPT | Continuity of Care Document ---
:1995 Author Organization [facility] Address [address] [phone] Phone Allergies No information. Encounters No information. Medications No information. Problems date description facility [id number] Unspecified psychosis not due to a [facility] substance or known physiological condition [id number] Maternal care for intrauterine , [facility] fetus 1 [id number] Encounter for full-term uncomplicated [facility] delivery Results No information.
--- NOTE | 2021-10-18 20:27 | ED Physician Documentation ---
PD HPI LOWER EXT INJURY - Stated complaint Stated Complaint: L LEG PX - Chief complaint Chief Complaint: Ext Problem - History obtained from History obtained from: Patient - Additional information Additional information: Patient Is a 26-year-old female with a long history of psychiatric disease and methamphetamine abuse presenting for Wanting her left foot to be cleaned. He was seen earlier this morning for left foot pain. She denies current pain and denies needing medication for pain.She did incur frostbite injury to the foot approximately 1 month ago and does have healing ulcers to the foot.History is limited due to patient's Chronic psychiatric illness. 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 : None HEENT: None Psych: Depression, Anxiety, Schizophrenia, Other Musculoskeletal: None Derm: None - Past Surgical History Past Surgical History: No - Present Medications Home Medications: Ambulatory Orders Medication Instructions Recorded Confirmed cephALEXin [Keflex] 500 mg PO Q6H #28 cap 09/28/21 Sulfamethox/Trimeth 800/160 1 each PO BID #14 tablet 10/01/21 [Bactrim Ds 800/160] Sulfamethox/Trimeth 800/160 1 each PO BID #14 tablet 10/03/21 [Bactrim Ds 800/160] - Allergies Allergies/Adverse Reactions: Allergies Allergy/AdvReac Type Severity Reaction Status Date / Time No Known Drug Allergies Allergy Verified 10/18/21 19:58 - Social History Does the pt smoke?: Yes Smoking Status: Current every day smoker Does the pt drink ETOH?: Yes Does the pt have substance abuse?: Yes - Immunizations Immunizations are current?: Yes - POLST Patient has POLST: No PD ED PE NORMAL - General General: No acute distress, Well developed/nourished, Other (Calm, pleasant, muttering to herself, Will answer direct questions) - HEENT HEENT: Atraumatic, PERRL, Moist mucous membranes - Neck Neck: Supple, no meningeal sign - Cardiac Cardiac: RRR, Strong equal pulses - Respiratory Respiratory: No respiratory distress - Extremities Extremities: Other (Left foot: Stage II ulcerations to lateral aspect of left fifth MTP joint and medial aspect of right first MTP joint, No surrounding erythema, no tenderness, palpable distal pulse, sensation and motor intact in foot, compartments of foot are soft) - Neuro Neuro: No motor deficit Results - Vitals Vitals: Vital Signs - 24 hr 10/18/21 19:54 Temperature 37.2 C Heart Rate 100 Respiratory 16 Rate Blood Pressure 127/71 O2 Saturation 95 Oxygen O2 Source Room air PD MEDICAL DECISION MAKING - ED course ED course: Patient with wounds to her left foot that appear to be healing, not currently infected, patient is ambulatory. Denies recent injury. Is requesting for her foot to be cleaned. Reviewed this with her nurse who attempted to clean the patient's foot but she only wanted to use hand hemstitcher on her foot. Patient has clean socks. Instructed that if her socks or dressing become wet that she should change them. Departure - Departure Disposition: 01 Home, Self Care Clinical Impression: Left foot pain Condition: Stable Instructions: Pressure Ulcer Foot Comments: Please try and keep your socks and dressings dry. If they do get wet you should replace them.
== END 2021-10-18 20:40 | disposition home or self-care (01) ==
LOC: ED 19:48
DX: L97.529 Non-pressure chronic ulcer of other part of left foot with unspecified severity (principal); F17.200 Nicotine dependence, unspecified, uncomplicated

== ENCOUNTER 2021-12-07 20:43 | Emergency (ER) | payer MEDICAID ==
[2021-12-07] MEDS ORDERED: OLANZapine 10 MG VIAL IM STA (20:59)
--- NOTE | 2021-12-07 21:05 | ED Physician Documentation ---
PD HPI ALTERED MENTAL STATUS - Stated complaint Stated Complaint: MHE - History obtained from History obtained from: Other (SANTIAGO Mehta (by phone)) - History of Present Illness Timing - onset: Unknown Quality / character: Agitated, Hallucinating Recently seen: Emergency Dept (few visits to [facility] ED last month. she is well known to this ED for frequent visits) - Additional information Additional information: brought to ED after evaluation in field by SANTIAGO Mehta. Per my phone conversation with Janine , patient is familiar to her from previous e valuations and Janine says this is unusual behavior for patient. Patient reportedly was out in rain , soaked, and covered in mud, and acting agitated and was exhibiting psychotic behaviors (growling, nonsensical statements, hallucinations). Patient has h/o TBI as well as methamphetamine use .However, Janine says she saw police confiscate patient's methamphetamines yesterday Patient is brought to ED by law enforcement. Patient is yelling, thrashing, verbally abusive to staff. She appears to be responding to internal stimuli and frequently describing people she perceives are in the room that are not in the room (such as celebrities). She does not contribute to HPI/ROS due to this behavior. She continues this behavior despite attempts to redirect and deescalate by ED staff and requires physical and chemical restraint. 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 : None HEENT: None Psych: Depression, Anxiety, Schizophrenia, Other Musculoskeletal: None Derm: None - Past Surgical History Past Surgical History: No - Present Medications Home Medications: Ambulatory Orders Medication Instructions Recorded Confirmed cephALEXin [Keflex] 500 mg PO Q6H #28 cap 09/28/21 Sulfamethox/Trimeth 800/160 1 each PO BID #14 tablet 10/01/21 [Bactrim Ds 800/160] Sulfamethox/Trimeth 800/160 1 each PO BID #14 tablet 10/03/21 [Bactrim Ds 800/160] - Allergies Allergies/Adverse Reactions: Allergies Allergy/AdvReac Type Severity Reaction Status Date / Time No Known Drug Allergies Allergy Verified 10/18/21 19:58 - Social History Does the pt smoke?: Yes Smoking Status: Current every day smoker Does the pt drink ETOH?: Yes Does the pt have substance abuse?: Yes - Immunizations Immunizations are current?: Yes - POLST Patient has POLST: No PD ED PE NORMAL - Vitals Vital signs reviewed: Yes - General General: Well developed/nourished, Other (portions of the exam below were performed subsequent to sedation with zyprexa) - HEENT HEENT: Atraumatic, PERRL - Cardiac Cardiac: RRR, No murmur - Respiratory Respiratory: No respiratory distress, Clear bilaterally - Abdomen Abdomen: Soft, Non distended - Derm Derm: Warm and dry - Extremities Extremities: No edema - Neuro Eye Opening: Spontaneous Motor: Localizes to Pain Verbal: Inappropriate GCS Score: 12 PD ED PE EXPANDED - General General: Disheveled, poorly kept, Other (agitated, yelling, verbally abusive to staff) - Extremities Extremities: Other (flat erythema right great toe , plantar surface, with superficial abrasion. superficial abrasions to lateral aspect of left foot, do not appear new (scabbed)) - Psych Psych: Anxious, Agitated, Combative Results - Vitals Vitals: Vital Signs - 24 hr 12/07/21 12/07/21 12/08/21 20:51 21:27 00:00 Temperature 36.2 C L 36.4 C L Heart Rate 102 H 105 H 83 Respiratory 22 18 14 Rate Blood Pressure 94/48 L 110/67 108/65 O2 Saturation 98 96 100 Oxygen O2 Source Room air - Labs Labs: Laboratory Tests 12/07/21 12/07/21 12/07/21 21:14 21:20 21:37 WBC 13.9 H RBC 4.00 L Hgb 11.5 L Hct 35.0 L MCV 87.5 MCH 28.8 MCHC 32.9 RDW 13.2 Plt Count 293 MPV 8.9 Neut # (Auto) 10.8 H Lymph # (Auto) 2.0 [place] # (Auto) 1.1 H Eos # (Auto) 0.0 Baso # (Auto) 0.0 Absolute Nucleated RBC 0.00 Nucleated RBC % 0.0 Sodium Potassium Chloride Carbon Dioxide Anion Gap BUN Creatinine Estimated GFR (MDRD) Glucose Calcium Total Bilirubin AST ALT Alkaline Phosphatase Total Protein Albumin Globulin Albumin/Globulin Ratio Lipase TSH Urine Color YELLOW Urine Clarity HAZY Urine pH 5.5 Ur Specific [place] >=1.030 H Urine Protein 100 H Urine Glucose (UA) NEGATIVE Urine Ketones 40 H Urine Occult Blood NEGATIVE Urine Nitrite NEGATIVE Urine Bilirubin NEGATIVE Urine Urobilinogen 0.2 (NORMAL) Ur Leukocyte Esterase NEGATIVE Urine RBC 0-5 Urine WBC 4-5 Ur Squamous Epith Cells FEW Squamous Urine Bacteria Few Ur Microscopic Review INDICATED Urine Culture Comments NOT INDICATED Urine HCG, Qual NEGATIVE Salicylates Urine Opiates Screen NEGATIVE Ur Oxycodone Screen NEGATIVE Urine Methadone Screen NEGATIVE Ur Propoxyphene Screen NEGATIVE Acetaminophen Ur Barbiturates Screen NEGATIVE Ur Tricyclics Screen NEGATIVE Ur Phencyclidine Scrn NEGATIVE Ur Amphetamine Screen POSITIVE H U Methamphetamines Scrn POSITIVE H U Benzodiazepines Scrn NEGATIVE Urine Cocaine Screen NEGATIVE U Cannabinoids Screen NEGATIVE Ethyl Alcohol SARS-CoV-2 (PCR) NOT DETECTED 12/07/21 12/07/21 21:37 21:37 WBC RBC Hgb Hct MCV MCH MCHC RDW Plt Count MPV Neut # (Auto) Lymph # (Auto) [place] # (Auto) Eos # (Auto) Baso # (Auto) Absolute Nucleated RBC Nucleated RBC % Sodium 141 Potassium 3.5 Chloride 106 Carbon Dioxide 13 L Anion Gap 22.0 H BUN 26 H Creatinine 1.1 H Estimated GFR (MDRD) 60 L Glucose 80 Calcium 9.7 Total Bilirubin 1.7 H AST 31 ALT 21 Alkaline Phosphatase 41 L Total Protein 7.7 Albumin 4.9 Globulin 2.8 Albumin/Globulin Ratio 1.8 Lipase 27 TSH 1.24 Urine Color Urine Clarity Urine pH Ur Specific [place] Urine Protein Urine Glucose (UA) Urine Ketones Urine Occult Blood Urine Nitrite Urine Bilirubin Urine Urobilinogen Ur Leukocyte Esterase Urine RBC Urine WBC Ur Squamous Epith Cells Urine Bacteria Ur Microscopic Review Urine Culture Comments Urine HCG, Qual Salicylates < 6.0 Urine Opiates Screen Ur Oxycodone Screen Urine Methadone Screen Ur Propoxyphene Screen Acetaminophen < 10 L Ur Barbiturates Screen Ur Tricyclics Screen Ur Phencyclidine Scrn Ur Amphetamine Screen U Methamphetamines Scrn U Benzodiazepines Scrn Urine Cocaine Screen U Cannabinoids Screen Ethyl Alcohol < 5.0 SARS-CoV-2 (PCR) PD MEDICAL DECISION MAKING - ED course Complexity details: reviewed old records, reviewed results, re-evaluated patient, considered differential ED course: presents for AMS with h/o TBI as well as methamphetamine use. Her behavior requires both physical and chemical restraints (see HPI, above). IM zyprexa resulted in good sedation. UDS is positive for amphetamines/methamphetamines. There are no concerning findings on her blood tests (mild leukocytosis, mildly elevated bun/creatinine, mildly elevated bilirubin without other LFT abnormalities). Restraints were removed early in ED stay once she was sedated and adequate time had passed to build confidence that patient was not going to return to agitated and combative behavior. She slept for the rest of my shift. Plan is to sign out to oncoming ED physician and patient can be reevaluated once she is awake and alert enough for reevaluation.
--- OUTSIDE RECORDS SUMMARY | 2021-12-07 21:17 | EXTERNAL MEDICAL SUMMARY RPT | Continuity of Care Document ---
:1995 Author Organization [facility] Address [address] [place] [address] Phone Allergies No information. Encounters No information. Medications No information. Problems date description facility [id number] Homeless [facility] [id number] Foot Pain [facility] Results No information.
--- NOTE | 2021-12-07 21:21 | ED Physician Documentation ---
Face to Face for Restraints - Immediate Situation Face to Face Evaluation Date: 12/07/21 Face to Face Evaluation Time: 21:20 Restraint Situation: Locking, Chemical Patient's Reactions to the Intervention: Swearing, Screaming/Yelling - Behavioral Condition Attitude: Indifferent Behavior: Agitated Orientation: Not oriented to person, place, time, and situation (unknown (does not give appropriate answers to any questions)) Mood: Angry, Anxious - Evaluation Review of Systems: see H+P (separate note) Pertinent History/Illicit Drugs/Medications/Results: see note (separate H+P) - Plan Need to Continue or Terminate Violent or Chemical Restraint: calm and cooperative
[2021-12-07] MEDS ORDERED: OLANZapine 10 MG VIAL IM ONE (21:28)
[2021-12-07 21:44] LABS: MUDS CUTOFF CONCENTRATIONS CUTOFF CONC BELOW:
[2021-12-07 21:45] LABS: BASOPHILS % (AUTO) 0.3 %; HGB - HEMOGLOBIN 11.5 g/dL (12.0-16.0); LYMPHOCYTES % (AUTO) 14.3 %; MEAN CORPUSCULAR HEMOGLOBIN 28.8 pg (27.0-31.0); MEAN CORPUSCULAR HGB CONC 32.9 g/dL (32.0-36.0); MEAN CORPUSCULAR VOLUME 87.5 fL (81.0-99.0); MEAN PLATELET VOLUME 8.9 fL (7.9-10.8); MONOCYTES # (AUTO) 1.1 10^3/uL (0.0-1.0); MONOCYTES % (AUTO) 7.5 %; NEUTROPHILS # (AUTO) 10.8 10^3/uL (1.5-6.6); NEUTROPHILS % (AUTO) 77.5 %; PLT - PLATELET COUNT 293 10^3/uL (130-450); RED CELL DISTRIBUTION WIDTH 13.2 % (12.0-15.0); WHITE BLOOD COUNT 13.9 x10^3/uL (4.8-10.8)
[2021-12-07 21:47] LABS: GLUCOSE, URINE (UA) NEGATIVE (NEGATIVE); KETONES,URINE (UA) 40 mg/dL (NEGATIVE); LEUKOCYTE ESTERASE, URINE NEGATIVE (NEGATIVE); NITRITE,URINE NEGATIVE (NEGATIVE); OCCULT BLOOD,URINE NEGATIVE (NEGATIVE); PH,URINE 5.5 PH (5.0-7.5); PROTEIN,URINE 100 mg/dL (NEGATIVE); UROBILINOGEN,URINE 0.2 (NORMAL) E.U./dL (NORMAL)
[2021-12-07 21:50] LABS: BILIRUBIN,URINE NEGATIVE (NEGATIVE); CLARITY,URINE HAZY (CLEAR); HCG UR QUAL NEGATIVE; ICTOTEST,URINE NEGATIVE
[2021-12-07 21:59] LABS: ACETAMINOPHEN < 10 ug/mL (10-30); ALBUMIN 4.9 g/dL (3.2-5.5); ALBUMIN/GLOBULIN RATIO 1.8 (1.0-2.2); ALKALINE PHOSPHATASE 41 IU/L (42-121); ALT ALANINE AMINOTRANSFERASE 21 IU/L (10-60); AST ASPARTATE AMINOTRANSFERASE 31 IU/L (10-42); BILIRUBIN,TOTAL 1.7 mg/dL (0.2-1.0); BUN - BLOOD UREA NITROGEN 26 mg/dL (6-20); CALCIUM 9.7 mg/dL (8.5-10.3); CARBON DIOXIDE - CO2 13 mmol/L (21-32); CHLORIDE 106 mmol/L (101-111); CREATININE 1.1 mg/dL (0.4-1.0); ETOH - ETHANOL < 5.0 mg/dL; GFR - MDRD 60 (>89); GLUCOSE 80 mg/dL (70-100); LIPASE 27 U/L (22-51); POTASSIUM 3.5 mmol/L (3.5-5.0); SALICYLATE < 6.0 mg/dL; SODIUM 141 mmol/L (135-145); TOTAL PROTEIN 7.7 g/dL (6.7-8.2)
[2021-12-07 22:01] LABS: BACTERIA,URINE Few /HPF (None Seen); RBC,URINE 0-5 /HPF (0-5); SQUAMOUS EPITHELIAL CELL,UR FEW Squamous (<= Few)
[2021-12-07 22:02] LABS: COCAINE SCREEN URINE NEGATIVE (NEGATIVE); METHAMPHETAMINES SCREEN, URINE POSITIVE (NEGATIVE); THC CANNABINOID SCREEN, URINE NEGATIVE (NEGATIVE)
[2021-12-07 22:03] LABS: AMPHETAMINE SCREEN,URINE POSITIVE (NEGATIVE); BARBITURATE SCREEN,UR NEGATIVE (NEGATIVE); BENZODIAZEPINES SCREEN, URINE NEGATIVE (NEGATIVE); METHADONE SCREEN, URINE NEGATIVE (NEGATIVE); OPIATE SCREEN, URINE NEGATIVE (NEGATIVE); OXYCODONE SCREEN, URINE NEGATIVE (NEGATIVE); PROPOXYPHENE SCREEN, URINE NEGATIVE (NEGATIVE); TRICYCLIC ANTIDEPRESSANT,URINE NEGATIVE (NEGATIVE)
--- NOTE | 2021-12-08 12:50 | ED Physician Documentation ---
ED Addendum - Addendum Addendum: 12/08/21 12:48The patient was asleep at the time of shift change and is remained sleeping and rested and quiet through the morning. Periodic assessment by nursing showed no obvious distress and nonlabored breathing etc. I subsequently did rouse the patient with just verbal and light tactile stimulus and she opened her eyes and was able to answer questions of if she was having any pains or any problems. She does have a history of Volatile Emotions so I the stimuli minimal. She does seem arousable enough to be able to interact with DCR. The DCR had left instruction overnight to be contacted when the patient was able to interact. Nursing staff will contact the [facility] to dispatch DCR. The concern is for level of grave disability as witnessed by the DCR evaluation out of hospital yesterday.
[2021-12-08] MEDS ORDERED: OLANZapine ODT 5 MG TABLET TL ONE (15:25)
[2021-12-08 16:12] VITALS: BP 110/70
== END 2021-12-08 16:12 | disposition home or self-care (01) ==
LOC: ED 20:43
DX: F15.159 Other stimulant abuse with stimulant-induced psychotic disorder, unspecified (principal); F25.9 Schizoaffective disorder, unspecified; F17.200 Nicotine dependence, unspecified, uncomplicated; Z20.822 Contact with and (suspected) exposure to COVID-19; Z78.1 Physical restraint status
CPT/HCPCS: 36415; 80053; 80306; 80307; 80320; 80329; 81001; 81025; 83690; 84443; 85025; 87635; 96372; 99285; A9270; 81003; 87086

== ENCOUNTER 2022-01-07 00:46 | Emergency (ER) | payer MEDICAID ==
[2022-01-07] MEDS ORDERED: OLANZapine ODT 5 MG TABLET TL ONE ×2 (01:18→01:20)
[2022-01-07] MEDS ORDERED: KETAMINE 500 MG/10 ML VIAL IM STA (01:56)
--- NOTE | 2022-01-07 02:10 | ED Physician Documentation ---
PD HPI MHE - Stated complaint Stated Complaint: MHE - Chief complaint Chief Complaint: MHE - History obtained from History obtained from: EMS - Additional information Additional information: Patient is a 26-year-old female with a history of methamphetamine abuse and traumatic brain injury presenting for mental health evaluation. Patient is a very poor historian. Per EMS, she Was with law enforcement and requested to come to the emergency department. She admitted to drug use. She stated she needed something to calm her down. Patient is responding to internal stimuli, frequently having conversations with people not present in the room And is very difficult to elicit any meaningful history from her.She at times is screaming and yelling as well as swearing. 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 : None HEENT: None Psych: Depression, Anxiety, Schizophrenia, Other Musculoskeletal: None Derm: None - Past Surgical History Past Surgical History: No - Present Medications Home Medications: Ambulatory Orders Medication Instructions Recorded Confirmed No Known Home Medications 12/08/21 12/08/21 - Allergies Allergies/Adverse Reactions: Allergies Allergy/AdvReac Type Severity Reaction Status Date / Time No Known Drug Allergies Allergy Verified 01/07/22 00:51 - Social History Does the pt smoke?: Yes Smoking Status: Current every day smoker Does the pt drink ETOH?: Yes Does the pt have substance abuse?: Yes - Immunizations Immunizations are current?: Yes - POLST Patient has POLST: No PD ED PE NORMAL - General General: Well developed/nourished, Other (Alert, knows her name and where she is) - HEENT HEENT: Atraumatic, PERRL, Moist mucous membranes - Neck Neck: Supple, no meningeal sign - Cardiac Cardiac: No murmur, Strong equal pulses, Other (Tachycardic, regular rhythm) - Respiratory Respiratory: No respiratory distress, Clear bilaterally - Abdomen Abdomen: Soft, Non tender, Non distended - Derm Derm: Warm and dry - Extremities Extremities: No edema - Psych Psych: Other (Very labile, easily agitated, hallucinating,). No: Normal mood, Normal affect Results - Vitals Vitals: Vital Signs - 24 hr 01/07/22 01/07/22 01/07/22 00:51 02:34 03:33 Temperature 37.1 C Heart Rate 117 H 116 H 98 Respiratory 18 15 16 Rate Blood Pressure 111/80 129/77 103/65 O2 Saturation 98 98 97 01/07/22 01/07/22 04:39 06:24 Temperature Heart Rate 81 73 Respiratory 15 15 Rate Blood Pressure 107/72 103/71 O2 Saturation 99 99 Oxygen O2 Source Room air - EKG (time done) 0336 Rate: Rate (enter#) (96) Rhythm: NSR Golden: Normal Intervals: No: Prolonged QT (QTC 463) Ischemia: No: ST elevation c/w ischemia - Labs Labs: Laboratory Tests 01/07/22 01/07/22 01/07/22 03:20 05:29 05:29 WBC 15.5 H RBC 4.14 L Hgb 11.8 L Hct 35.5 L MCV 85.7 MCH 28.5 MCHC 33.2 RDW 13.9 Plt Count 280 MPV 8.8 Neut # (Auto) 11.1 H Lymph # (Auto) 3.0 [place] # (Auto) 1.2 H Eos # (Auto) 0.0 Baso # (Auto) 0.0 Absolute Nucleated RBC 0.00 Nucleated RBC % 0.0 Sodium 135 Potassium 3.7 Chloride 102 Carbon Dioxide 21 Anion Gap 12.0 BUN 22 H Creatinine 1.1 H Estimated GFR (MDRD) 60 L Glucose 90 Calcium 9.3 Total Bilirubin 1.2 H AST 45 H ALT 24 Alkaline Phosphatase 44 Total Creatine Kinase 1800 H* Total Protein 7.3 Albumin 4.5 Globulin 2.8 Albumin/Globulin Ratio 1.6 Lipase 24 TSH Urine Color YELLOW Urine Clarity CLEAR Urine pH 5.5 Ur Specific [place] >=1.030 H Urine Protein 100 H Urine Glucose (UA) NEGATIVE Urine Ketones TRACE Urine Occult Blood NEGATIVE Urine Nitrite NEGATIVE Urine Bilirubin NEGATIVE Urine Urobilinogen 0.2 (NORMAL) Ur Leukocyte Esterase NEGATIVE Urine RBC 0-5 Urine WBC 0-3 Ur Squamous Epith Cells RARE Squamous Urine Bacteria Rare Urine Casts 6-10 Hyaline Casts Urine Mucus Few Strands Ur Microscopic Review INDICATED Urine Culture Comments NOT INDICATED Urine HCG, Qual NEGATIVE Salicylates < 6.0 Urine Opiates Screen NEGATIVE Ur Oxycodone Screen NEGATIVE Urine Methadone Screen NEGATIVE Ur Propoxyphene Screen NEGATIVE Acetaminophen < 10 L Ur Barbiturates Screen NEGATIVE Ur Tricyclics Screen NEGATIVE Ur Phencyclidine Scrn NEGATIVE Ur Amphetamine Screen POSITIVE H U Methamphetamines Scrn POSITIVE H U Benzodiazepines Scrn NEGATIVE Urine Cocaine Screen NEGATIVE U Cannabinoids Screen NEGATIVE Ethyl Alcohol < 5.0 01/07/22 05:29 WBC RBC Hgb Hct MCV MCH MCHC RDW Plt Count MPV Neut # (Auto) Lymph # (Auto) [place] # (Auto) Eos # (Auto) Baso # (Auto) Absolute Nucleated RBC Nucleated RBC % Sodium Potassium Chloride Carbon Dioxide Anion Gap BUN Creatinine Estimated GFR (MDRD) Glucose Calcium Total Bilirubin AST ALT Alkaline Phosphatase Total Creatine Kinase Total Protein Albumin Globulin Albumin/Globulin Ratio Lipase TSH 1.62 Urine Color Urine Clarity Urine pH Ur Specific [place] Urine Protein Urine Glucose (UA) Urine Ketones Urine Occult Blood Urine Nitrite Urine Bilirubin Urine Urobilinogen Ur Leukocyte Esterase Urine RBC Urine WBC Ur Squamous Epith Cells Urine Bacteria Urine Casts Urine Mucus Ur Microscopic Review Urine Culture Comments Urine HCG, Qual Salicylates Urine Opiates Screen Ur Oxycodone Screen Urine Methadone Screen Ur Propoxyphene Screen Acetaminophen Ur Barbiturates Screen Ur Tricyclics Screen Ur Phencyclidine Scrn Ur Amphetamine Screen U Methamphetamines Scrn U Benzodiazepines Scrn Urine Cocaine Screen U Cannabinoids Screen Ethyl Alcohol PD MEDICAL DECISION MAKING - ED course Complexity details: reviewed results, re-evaluated patient, d/w patient ED course: Patient well-known to ED presenting in agitated state. Admits to drug use and has history of methamphetamine abuse. Patient was initially given Zyprexa PO For her behavior. However it continued to escalate and for her safety as well as for staff members, we did administer IM ketamine. Patient remained on hall monitor. Patient did continue to be awake double with stimuli and took some time for Labs to be drawn. Labs reviewed with mild leukocytosis which patient has had previously as well as elevated CK. Will administer IV fluids and recheck CK. If CK is downtrending and patient is able to hydrate orally and she has returned to her baseline then can likely be discharged. Patient will be signed out to oncoming ED physician. 0156 - Shouting at person not present in room, growling, not able to redirect or calm her down for very long. Pt did take PO zyprexa but continues to ramp up in her agitation and psychosis. Becoming disruptive to other patients in ED.Will order IM Ketamine for sedation to help maintain her safety as she is at times climbing to stand on the bed and yell And is not redirectable. 0617 - Patient is awake able to touch, Attempted to review labs with the patient including elevated CK.Unclear if she was able to understand the conversation I was having with her.IV placed and patient to receive IV hydration. Plan to recheck CK In a few hours. If downtrending and patient is returned to baseline And able to hydrate orally, patient can likely be discharged. 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 Departure - Departure Clinical Impression: Methamphetamine abuse
--- NOTE | 2022-01-07 02:12 | ED Physician Documentation ---
Face to Face for Restraints - Immediate Situation Face to Face Evaluation Date: 01/07/22 Face to Face Evaluation Time: 02:11 Restraint Situation: Chemical Patient's Reactions to the Intervention: Physically safe, Screaming/Yelling - Behavioral Condition Attitude: Indifferent Behavior: Agitated Orientation: Person, Place Mood: Labile - Evaluation Review of Systems: See H&P from ED note Pertinent History/Illicit Drugs/Medications/Results: See H&P from ED note - Plan Need to Continue or Terminate Violent or Chemical Restraint: Cooperative, calm,Not yelling/swearing
[2022-01-07 03:28] LABS: MUDS CUTOFF CONCENTRATIONS CUTOFF CONC BELOW:
[2022-01-07 03:29] LABS: BILIRUBIN,URINE NEGATIVE (NEGATIVE); GLUCOSE, URINE (UA) NEGATIVE (NEGATIVE); KETONES,URINE (UA) TRACE mg/dL (NEGATIVE); LEUKOCYTE ESTERASE, URINE NEGATIVE (NEGATIVE); NITRITE,URINE NEGATIVE (NEGATIVE); OCCULT BLOOD,URINE NEGATIVE (NEGATIVE); PH,URINE 5.5 PH (5.0-7.5); PROTEIN,URINE 100 mg/dL (NEGATIVE); UROBILINOGEN,URINE 0.2 (NORMAL) E.U./dL (NORMAL)
[2022-01-07 03:37] LABS: BACTERIA,URINE Rare /HPF (None Seen); CASTS, URINE 6-10 Hyaline Casts /LPF; CLARITY,URINE CLEAR (CLEAR); HCG UR QUAL NEGATIVE; MUCUS,URINE Few Strands; RBC,URINE 0-5 /HPF (0-5); SQUAMOUS EPITHELIAL CELL,UR RARE Squamous (<= Few); WBC,URINE 0-3 /HPF (0-5)
[2022-01-07 04:04] LABS: AMPHETAMINE SCREEN,URINE POSITIVE (NEGATIVE); BARBITURATE SCREEN,UR NEGATIVE (NEGATIVE); BENZODIAZEPINES SCREEN, URINE NEGATIVE (NEGATIVE); COCAINE SCREEN URINE NEGATIVE (NEGATIVE); METHADONE SCREEN, URINE NEGATIVE (NEGATIVE); METHAMPHETAMINES SCREEN, URINE POSITIVE (NEGATIVE); OPIATE SCREEN, URINE NEGATIVE (NEGATIVE); OXYCODONE SCREEN, URINE NEGATIVE (NEGATIVE); PROPOXYPHENE SCREEN, URINE NEGATIVE (NEGATIVE); THC CANNABINOID SCREEN, URINE NEGATIVE (NEGATIVE); TRICYCLIC ANTIDEPRESSANT,URINE NEGATIVE (NEGATIVE)
[2022-01-07 05:37] LABS: BASOPHILS % (AUTO) 0.3 %; HCT - HEMATOCRIT 35.5 % (37.0-47.0); HGB - HEMOGLOBIN 11.8 g/dL (12.0-16.0); LYMPHOCYTES % (AUTO) 19.7 %; MEAN CORPUSCULAR HEMOGLOBIN 28.5 pg (27.0-31.0); MEAN CORPUSCULAR HGB CONC 33.2 g/dL (32.0-36.0); MEAN CORPUSCULAR VOLUME 85.7 fL (81.0-99.0); MEAN PLATELET VOLUME 8.8 fL (7.9-10.8); MONOCYTES # (AUTO) 1.2 10^3/uL (0.0-1.0); MONOCYTES % (AUTO) 7.9 %; NEUTROPHILS # (AUTO) 11.1 10^3/uL (1.5-6.6); NEUTROPHILS % (AUTO) 71.8 %; PLT - PLATELET COUNT 280 10^3/uL (130-450); RED BLOOD COUNT 4.14 10^6/uL (4.20-5.40); RED CELL DISTRIBUTION WIDTH 13.9 % (12.0-15.0); WHITE BLOOD COUNT 15.5 x10^3/uL (4.8-10.8)
[2022-01-07 06:01] LABS: ACETAMINOPHEN < 10 ug/mL (10-30); ALBUMIN 4.5 g/dL (3.2-5.5); ALBUMIN/GLOBULIN RATIO 1.6 (1.0-2.2); ALKALINE PHOSPHATASE 44 IU/L (42-121); ALT ALANINE AMINOTRANSFERASE 24 IU/L (10-60); AST ASPARTATE AMINOTRANSFERASE 45 IU/L (10-42); BILIRUBIN,TOTAL 1.2 mg/dL (0.2-1.0); BUN - BLOOD UREA NITROGEN 22 mg/dL (6-20); CALCIUM 9.3 mg/dL (8.5-10.3); CARBON DIOXIDE - CO2 21 mmol/L (21-32); CHLORIDE 102 mmol/L (101-111); CREATININE 1.1 mg/dL (0.4-1.0); ETOH - ETHANOL < 5.0 mg/dL; GFR - MDRD 60 (>89); GLUCOSE 90 mg/dL (70-100); LIPASE 24 U/L (22-51); POTASSIUM 3.7 mmol/L (3.5-5.0); SALICYLATE < 6.0 mg/dL; SODIUM 135 mmol/L (135-145); TOTAL PROTEIN 7.3 g/dL (6.7-8.2)
[2022-01-07 06:02] LABS: CK- CREATINE KINASE 1800 IU/L (22-269)
[2022-01-07] MEDS ORDERED: SODIUM CHLORIDE 0.9% 2,000 ML IV STA (06:02)
[2022-01-07 13:23] VITALS: BP 115/65
[2022-01-07 13:43] LABS: CALCIUM 8.6 mg/dL (8.5-10.3); CREATININE 0.8 mg/dL (0.4-1.0); POTASSIUM 3.4 mmol/L (3.5-5.0)
[2022-01-07] MEDS ORDERED: SODIUM CHLORIDE 0.9% 1,000 ML IV STA (14:02)
== END 2022-01-07 15:26 | disposition home or self-care (01) ==
LOC: EDUNIT# → ED 00:46
DX: F15.10 Other stimulant abuse, uncomplicated (principal); F17.200 Nicotine dependence, unspecified, uncomplicated
CPT/HCPCS: 36415; 80048; 80053; 80306; 80307; 80320; 80329; 81001; 81025; 82550; 83690; 83880; 84443; 85025; 93005; 96372; 99281; 99284; A9270; 81003; 87086

== ENCOUNTER → 2022-01-07 | Outpatient (CLI) | payer MEDICAID | END | disposition critical access hospital (66) | LOC: EMS 00:28 | DX: R41.82 Altered mental status, unspecified (principal); R46.89 Other symptoms and signs involving appearance and behavior; R45.1 Restlessness and agitation | CPT/HCPCS: A0425; A0429; A0999 ==

== ENCOUNTER 2022-01-17 06:12 | Outpatient (CLI) | payer MEDICAID | END 2022-01-17 06:13 | disposition critical access hospital (66) | LOC: EMS 06:12 | DX: R46.89 Other symptoms and signs involving appearance and behavior (principal); R41.82 Altered mental status, unspecified; R45.6 Violent behavior | CPT/HCPCS: A0425; A0429; A0999 ==

== ENCOUNTER 2022-01-17 06:28 | Emergency (ER) | payer MEDICAID ==
[2022-01-17] MEDS ORDERED: LORazepam 2 MG/ML VIAL IM STA (07:10)
[2022-01-17] MEDS ORDERED: HALOPERIDOL 5 MG/ML VIAL IM STA (07:10)
--- NOTE | 2022-01-17 07:29 | ED Physician Documentation ---
History of Present Illness - Stated complaint Stated Complaint: METH USE - Chief complaint Chief Complaint: General - History obtained from History obtained from: Patient - Additonal information Additional information: Patient is brought to the emergency department by EMS after being found to be agitated and creating a public nuisance. The patient is well-known to emergency department for both mental illness and methamphetamine use and has presented many times in the same condition previously. She does not offer any information and is intermittently yelling and then asking for ice water. When she asked for ice water, she is calm and coherent, but quickly reverts back to yelling. The patient denies any injuries. She does not give any specific information regarding when she might of last used methamphetamines. No complaints at this time. 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 : None HEENT: None Psych: Depression, Anxiety, Schizophrenia, Other Musculoskeletal: None Derm: None - Past Surgical History Past Surgical History: No - Present Medications Home Medications: Ambulatory Orders Medication Instructions Recorded Confirmed No Known Home Medications 12/08/21 12/08/21 - Allergies Allergies/Adverse Reactions: Allergies Allergy/AdvReac Type Severity Reaction Status Date / Time No Known Drug Allergies Allergy Verified 01/17/22 06:52 - Social History Does the pt smoke?: Yes Smoking Status: Current every day smoker Does the pt drink ETOH?: Yes Does the pt have substance abuse?: Yes - Immunizations Immunizations are current?: Yes - POLST Patient has POLST: No PD ED PE NORMAL - Vitals Vital signs reviewed: Yes - General General: Other (Alert, agitated, yelling repeatedly "fuck off, bitch!" and "get away from me!", Interspersed with "ice water please".) - HEENT HEENT: Atraumatic, PERRL, EOMI, Moist mucous membranes - Neck Neck: Supple, no meningeal sign - Respiratory Respiratory: No respiratory distress - Derm Derm: Normal color, Warm and dry, No rash - Extremities Extremities: No deformity, Normal ROM s pain - Neuro Neuro: Other (Other than hallucinations, neurologic exam is grossly intact.) - Psych Psych: Other (Agitated, yelling) Results - Vitals Vitals: Vital Signs - 24 hr 0701/17/22 01/17/22 06:53 08:18 14:38 Temperature 37.1 C 36.4 C L Heart Rate 116 H 76 69 Respiratory 24 12 12 Rate Blood Pressure 123/85 H 126/83 H O2 Saturation 98 92 100 Oxygen O2 Source Room air - Labs Labs: Laboratory Tests 01/17/22 01/17/22 01/17/22 13:34 13:34 14:27 WBC 14.7 H RBC 4.37 Hgb 12.5 Hct 38.2 MCV 87.4 MCH 28.6 MCHC 32.7 RDW 14.3 Plt Count 374 MPV 8.5 Neut # (Auto) 9.1 H Lymph # (Auto) 4.1 H [place] # (Auto) 1.4 H Eos # (Auto) 0.0 Baso # (Auto) 0.1 Absolute Nucleated RBC 0.00 Nucleated RBC % 0.0 Sodium 138 Potassium 4.2 Chloride 100 L Carbon Dioxide 27 Anion Gap 11.0 BUN 20 Creatinine 1.0 Estimated GFR (MDRD) 67 L Glucose 81 Calcium 9.4 Total Bilirubin 0.8 AST 30 ALT 24 Alkaline Phosphatase 47 Total Protein 7.6 Albumin 4.6 Globulin 3.0 Albumin/Globulin Ratio 1.5 Lipase 21 L Ethyl Alcohol < 5.0 SARS-CoV-2 (PCR) NOT DETECTED PD MEDICAL DECISION MAKING - ED course Complexity details: reviewed results, re-evaluated patient, considered differential, d/w family ED course: Patient was given Haldol and Ativan in the emergency department, Which did calm her down quite a bit. She was somnolent for some hours but eventually up and about in the emergency department, and did consume food. Overall, she was much Colmer than previously. Patient's mother came and was adamant that she wanted her daughter evaluated by the DCR and committed involuntarily. I did discuss with mom that we are unable to do a long-term psychiatric hold in the emergency department at this time as we are already boarding several psychiatric patients as well as to medical transfers and 3 inpatient admissions in our 13 bed emergency department. Ashley is very familiar to our department and has presented in the way that she almost always does. There is nothing different about her presentation today. She is not suicidal and is chronically gravely disabled, but is at baseline with this. SANTIAGO Gomez did come to see the patient after being called by the patient's mother, and has also relayed to the patient's mother that it is unlikely that the patient will be able to be placed involuntarily, given the paucity of beds. Mom is still unwilling to consider a voluntary inpatient stay, as she is afraid the patient will just leave. At this point in time, the patient has been medically cleared and is awaiting final evaluation by DCR. She is signed out to Dr. Izaguirre, pending final disposition. Departure - Departure Clinical Impression: Methamphetamine abuse, Methamphetamine-induced psychotic disorder Condition: Stable Instructions: ED Drug Abuse General
[2022-01-17 13:41] LABS: BASOPHILS # (AUTO) 0.1 10^3/uL (0.0-0.1); BASOPHILS % (AUTO) 0.3 %; HCT - HEMATOCRIT 38.2 % (37.0-47.0); HGB - HEMOGLOBIN 12.5 g/dL (12.0-16.0); LYMPHOCYTES # (AUTO) 4.1 10^3/uL (1.5-3.5); LYMPHOCYTES % (AUTO) 27.6 %; MEAN CORPUSCULAR HEMOGLOBIN 28.6 pg (27.0-31.0); MEAN CORPUSCULAR HGB CONC 32.7 g/dL (32.0-36.0); MEAN CORPUSCULAR VOLUME 87.4 fL (81.0-99.0); MEAN PLATELET VOLUME 8.5 fL (7.9-10.8); MONOCYTES # (AUTO) 1.4 10^3/uL (0.0-1.0); MONOCYTES % (AUTO) 9.7 %; NEUTROPHILS # (AUTO) 9.1 10^3/uL (1.5-6.6); NEUTROPHILS % (AUTO) 62.1 %; PLT - PLATELET COUNT 374 10^3/uL (130-450); RED BLOOD COUNT 4.37 10^6/uL (4.20-5.40); RED CELL DISTRIBUTION WIDTH 14.3 % (12.0-15.0); WHITE BLOOD COUNT 14.7 x10^3/uL (4.8-10.8)
[2022-01-17 13:53] LABS: ALBUMIN 4.6 g/dL (3.2-5.5); ALBUMIN/GLOBULIN RATIO 1.5 (1.0-2.2); ALKALINE PHOSPHATASE 47 IU/L (42-121); ALT ALANINE AMINOTRANSFERASE 24 IU/L (10-60); AST ASPARTATE AMINOTRANSFERASE 30 IU/L (10-42); BILIRUBIN,TOTAL 0.8 mg/dL (0.2-1.0); BUN - BLOOD UREA NITROGEN 20 mg/dL (6-20); CALCIUM 9.4 mg/dL (8.5-10.3); CARBON DIOXIDE - CO2 27 mmol/L (21-32); CHLORIDE 100 mmol/L (101-111); ETOH - ETHANOL < 5.0 mg/dL; GFR - MDRD 67 (>89); GLUCOSE 81 mg/dL (70-100); LIPASE 21 U/L (22-51); POTASSIUM 4.2 mmol/L (3.5-5.0); SODIUM 138 mmol/L (135-145); TOTAL PROTEIN 7.6 g/dL (6.7-8.2)
[2022-01-17 20:46] LABS: MUDS CUTOFF CONCENTRATIONS CUTOFF CONC BELOW:
[2022-01-17 20:47] LABS: BILIRUBIN,URINE NEGATIVE (NEGATIVE); GLUCOSE, URINE (UA) NEGATIVE (NEGATIVE); KETONES,URINE (UA) NEGATIVE (NEGATIVE); LEUKOCYTE ESTERASE, URINE NEGATIVE (NEGATIVE); NITRITE,URINE NEGATIVE (NEGATIVE); OCCULT BLOOD,URINE NEGATIVE (NEGATIVE); PH,URINE 5.5 PH (5.0-7.5); PROTEIN,URINE 100 mg/dL (NEGATIVE); UROBILINOGEN,URINE 0.2 (NORMAL) E.U./dL (NORMAL)
[2022-01-17 20:52] LABS: CLARITY,URINE CLEAR (CLEAR); HCG UR QUAL NEGATIVE
[2022-01-17 20:58] LABS: AMPHETAMINE SCREEN,URINE POSITIVE (NEGATIVE); BARBITURATE SCREEN,UR NEGATIVE (NEGATIVE); BENZODIAZEPINES SCREEN, URINE POSITIVE (NEGATIVE); COCAINE SCREEN URINE NEGATIVE (NEGATIVE); METHADONE SCREEN, URINE NEGATIVE (NEGATIVE); METHAMPHETAMINES SCREEN, URINE POSITIVE (NEGATIVE); OPIATE SCREEN, URINE NEGATIVE (NEGATIVE); OXYCODONE SCREEN, URINE NEGATIVE (NEGATIVE); PROPOXYPHENE SCREEN, URINE NEGATIVE (NEGATIVE); THC CANNABINOID SCREEN, URINE NEGATIVE (NEGATIVE); TRICYCLIC ANTIDEPRESSANT,URINE NEGATIVE (NEGATIVE)
[2022-01-17 21:02] LABS: AMORPHOUS SEDIMENT,UR Marked /LPF; BACTERIA,URINE Moderate /HPF (None Seen); RBC,URINE None Seen /HPF (0-5); SQUAMOUS EPITHELIAL CELL,UR MOD Squamous (<= Few)
[2022-01-17 21:03] LABS: CASTS, URINE 0-2 Course Granular /LPF
--- NOTE | 2022-01-18 00:42 | ED Physician Documentation ---
ED Addendum - Addendum Addendum: Pt received in signout. DCR has evaluated the patient and she is pending placement. 01/18/22 04:06 Patient has been accepted to a psychiatric facility in [place]. Unfortunately we have not been able to find transportation to get the patient to This facility. Per PROTOTYPE MODEL MAKER, patient needs to arrive by 4 PM or they will lose the bed. Patient signed out to Dr. Barrett at shift change. Departure - Departure Disposition: [facility]/Unit DC/Xfer Clinical Impression: Methamphetamine abuse, Methamphetamine-induced psychotic disorder Condition: Stable Instructions: ED Drug Abuse General Discharge Date/Time: 01/18/22 14:37
--- NOTE | 2022-01-18 09:06 | ED Physician Documentation ---
ED Addendum - Addendum Addendum: 01/18/22 09:05 An ambulance ride was finally found for the patient to take her to [facility]. COBRA forms have been completed. Patient will be transported for further care
[2022-01-18 11:14] VITALS: BP 97/48
== END 2022-01-18 14:37 ==
LOC: EDUNIT# → ED 06:28
DX: F15.159 Other stimulant abuse with stimulant-induced psychotic disorder, unspecified (principal); F17.200 Nicotine dependence, unspecified, uncomplicated; Z20.822 Contact with and (suspected) exposure to COVID-19
CPT/HCPCS: 36415; 80053; 80306; 80320; 81001; 81025; 83690; 85025; 87635; 93005; 96372; 99285; J2060; 81003; 87086

== ENCOUNTER 2022-04-10 09:13 | Emergency (ER) | payer MEDICAID ==
--- OUTSIDE RECORDS SUMMARY | 2022-04-10 09:19 | EXTERNAL MEDICAL SUMMARY RPT | Continuity of Care Document ---
:1995 Author Organization [facility] Address [address] [place] [address] Phone Allergies and Intolerances date description facility type (no date) Sulfa (Sulfonamide Antibiotics) [facility] (unknown) Encounters No information. Functional Status No information. Immunizations No information. Medications No information. Problems No information. Procedures No information. Results/Labs test date author facility value unit interpret ation Result panel 1 (unknown) (no date) (unknown) (unknown) (no value) (units (un known) unknown) (unknown) (no date) (unknown) (unknown) [address] (units ([address] nown) [address] unknown) (unknown) (no date) (unknown) (unknown) [place], [place] (units (unknown) [id number] unknown) (unknown) (no date) (unknown) (unknown) [facility]) (unknown) (no date) (unknown) (unknown) Signed (units (unkn own) unknown) (unknown) (no date) (unknown) (unknown) XRay Report (units (u nknown) unknown) (unknown) (no date) (unknown) (unknown) (no value) (units (un known) unknown) (unknown) (no date) (unknown) (unknown) 02/18/22 (units (unkn own) unknown) (unknown) (no date) (unknown) (unknown) 1. No (units (unkn own) fractures or unknown) radiopaque foreign bodies. (unknown) (no date) (unknown) (unknown) Approved by: (units ( unknown) marlena Abernathy) Elis on 02/19/2022 at 0:03 (unknown) (no date) (unknown) (unknown) Bones: No (units (unk nown) fractures or unknown) dislocations. No suspicious bony lesions. (unknown) (no date) (unknown) (unknown) COMPARISON: (units (u nknown) None. unknown) (unknown) (no date) (unknown) (unknown) Dictated by: (units ( unknown) Pepito Root unknown) Elis on 02/19/2022 at 0:02 (unknown) (no date) (unknown) (unknown) FINDINGS: (units (unk nown) unknown) (unknown) (no date) (unknown) (unknown) IMPRESSION: (units (u nknown) unknown) (unknown) (no date) (unknown) (unknown) INDICATIONS: (units ( unknown) Pain/injury/for unknown) eign body (unknown) (no date) (unknown) (unknown) Soft tissues: (units (unknown) No radiopaque unknown) foreign bodies. (unknown) (no date) (unknown) (unknown) TECHNIQUE: 3 (units ( unknown) views of the unknown) foot were acquired. (unknown) (no date) (unknown) (unknown) [id number] (units (unk nown) unknown) (unknown) (no date) (unknown) (unknown) Accession (units (unk nown) Number: unknown) [id number] (unknown) (no date) (unknown) (unknown) Age/Sex: 26 / (units (unknown) F Date of unknown) Service: (unknown) (no date) (unknown) (unknown) : (units (unkn own) 1995 unknown) Acct:[id number] (unknown) (no date) (unknown) (unknown) Loc: ED (units (unkn own) unknown) (unknown) (no date) (unknown) (unknown) Ordering (units (unkn own) Provider: unknown) Jeremy Griffin MD (unknown) (no date) (unknown) (unknown) PROCEDURE: XR (units (unknown) FOOT RT MIN 3V unknown) (unknown) (no date) (unknown) (unknown) Patient: (units (unkn own) Maria A Davisleola unknown) C MR#: [id number] (unknown) (no date) (unknown) (unknown) Procedure: XR (units (unknown) foot RT min 3V unknown) Result panel 2 (unknown) (no (unknown) (unknown) (no value) (units (unk nown) date) unknown) (unknown) (no (unknown) (unknown) Radiologist's (units ( unknown) date) Impression: unknown) (unknown) (no (unknown) (unknown) Date of (units (unkno wn) date) Service: unknown) 02/18/22 (unknown) (no (unknown) (unknown) (no value) (units (unk nown) date) unknown) (unknown) (no (unknown) (unknown) [address] (units (unkn own) date) Street unknown) (unknown) (no (unknown) (unknown) Allergies (units (unkn own) date) unknown) (unknown) (no (unknown) (unknown) [place] (units ( unknown) date) [address] unknown) (unknown) (no (unknown) (unknown) Documented By: (units (unknown) date) DKB unknown) (unknown) (no (unknown) (unknown) ED Orders (units (unkn own) date) unknown) (unknown) (no (unknown) (unknown) Emergency (units (unkn own) date) Report unknown) (unknown) (no (unknown) (unknown) [facility] (units (unknown) date) unknown) (unknown) (no (unknown) (unknown) [facility] (units (unknown) date) [address] unknown) [place] [address] (unknown) (no (unknown) (unknown) Last Admin: (units (un known) date) 02/18/22 22:54 unknown) Dose: 0.5 ml (unknown) (no (unknown) (unknown) Signed (units (unkno wn) date) unknown) (unknown) (no (unknown) (unknown) Stop: 02/18/22 (units (unknown) date) 22:14 unknown) (unknown) (no (unknown) (unknown) Vital Signs - 8 (units (unknown) date) hr unknown) (unknown) (no (unknown) (unknown) XRay Report (units (un known) date) unknown) (unknown) (no (unknown) (unknown) (no value) (units (unk nown) date) unknown) (unknown) (no (unknown) (unknown) 02/18/22 (units (unkno wn) date) unknown) (unknown) (no (unknown) (unknown) [id number] (units (unkno wn) date) unknown) (unknown) (no (unknown) (unknown) 02/18/22 22:13 (units (unknown) date) unknown) (unknown) (no (unknown) (unknown) 02/18/22 22:18 (units (unknown) date) unknown) (unknown) (no (unknown) (unknown) 1. No fractures (units (unknown) date) or radiopaque unknown) foreign bodies.? (unknown) (no (unknown) (unknown) 22:21 (units (unkno wn) date) unknown) (unknown) (no (unknown) (unknown) ? (units (unkno wn) date) unknown) (unknown) (no (unknown) (unknown) Accession (units (unkn own) date) Number: unknown) [id number] ?? (unknown) (no (unknown) (unknown) Acct:[id number] (units (unknown) date) unknown) (unknown) (no (unknown) (unknown) Age/Sex: 26 / F (units (unknown) date) unknown) (unknown) (no (unknown) (unknown) Age/Sex: 26 / F (units (unknown) date) unknown) (unknown) (no (unknown) (unknown) Allergy/AdvReac (units (unknown) date) Type Severity unknown) Reaction Status Date / Time (unknown) (no (unknown) (unknown) Antibiotics) (units (u nknown) date) unknown) (unknown) (no (unknown) (unknown) Approved by: (units (u nknown) date) Pepito Root unknownFelix Gillis on 02/19/2022 at 0:03 ? (unknown) (no (unknown) (unknown) BACK: No flank (units (unknown) date) tenderness. unknown) (unknown) (no (unknown) (unknown) Blood Pressure (units (unknown) date) 109/75 02/18/22 unknown) 22:21 (unknown) (no (unknown) (unknown) Blood Pressure (units (unknown) date) unknown) (unknown) (no (unknown) (unknown) Bones:? No (units (unk nown) date) fractures or unknown) dislocations.? No suspicious bony lesions.? (unknown) (no (unknown) (unknown) CARDIOVASCULAR: (units (unknown) date) Denies chest unknown) pain, palpitations (unknown) (no (unknown) (unknown) CARDIOVASCULAR: (units (unknown) date) Regular rate and unknown) rhythm without murmurs (unknown) (no (unknown) (unknown) COMPARISON:? (units (u nknown) date) None. unknown) (unknown) (no (unknown) (unknown) Chief (units (unkno wn) date) Complaint: unknown) Extremity Injury, Lower (unknown) (no (unknown) (unknown) Consult to [facility] (units (unknown) date) - Social unknown) Services Stat (unknown) (no (unknown) (unknown) Course (units (unkno wn) date) unknown) (unknown) (no (unknown) (unknown) : 1995 (units (unknown) date) Acct:[id number] unknown) (unknown) (no (unknown) (unknown) : 1995 (units (unknown) date) unknown) (unknown) (no (unknown) (unknown) Date of (units (o wn) date) Service: unknown) 02/18/22 (unknown) (no (unknown) (unknown) Dictated by: (units (u nknown) date) Pepito Root, unknown) Elis on 02/19/2022 at 0:02 ? ? (unknown) (no (unknown) (unknown) Differential (units (u nknown) date) Diagnosis unknown) (unknown) (no (unknown) (unknown) Differential (units (u nknown) date) diagnosis: unknown) Likely acute psychosis, bipolar disorder, depression, (unknown) (no (unknown) (unknown) Diphtheria/Teta (units (unknown) date) nus/Acell unknown) Pertussis (Tet,Diph,Pertus s(Acell),Vac/Pf 0.5 Ml (unknown) (no (unknown) (unknown) Discontinued (units (u nknown) date) Medications unknown) (unknown) (no (unknown) (unknown) ENT: Mucous (units (un known) date) membranes moist. unknown) (unknown) (no (unknown) (unknown) ER Physician: (units ( unknown) date) Jeremy Griffin unknown) (unknown) (no (unknown) (unknown) EXTREMITIES: No (units (unknown) date) gross unknown) deformities. Nontender bilateral shoulders elbows wrists (unknown) (no (unknown) (unknown) EYES: Pupils (units (u nknown) date) equal round No unknown) scleral icterus. (unknown) (no (unknown) (unknown) Exam (units (unkno wn) date) unknown) (unknown) (no (unknown) (unknown) Exam Narrative: (units (unknown) date) unknown) (unknown) (no (unknown) (unknown) Extremity x-ray (units (unknown) date) #1: unknown) (unknown) (no (unknown) (unknown) FINDINGS:? (units (unk nown) date) unknown) (unknown) (no (unknown) (unknown) GASTROINTESTINA (units (unknown) date) L: Abdomen soft, unknown) non-tender (unknown) (no (unknown) (unknown) GASTROINTESTINA (units (unknown) date) L: Denies unknown) nausea, vomiting, abdominal pain (unknown) (no (unknown) (unknown) GENERAL: Denies (units (unknown) date) chills, fatigue, unknown) malaise, fever, sweats. (unknown) (no (unknown) (unknown) GENERAL: in no (units (unknown) date) distress, not unknown) toxic not dyspneic (unknown) (no (unknown) (unknown) : Denies (units (unk nown) date) dysuria, unknown) frequency, hematuria (unknown) (no (unknown) (unknown) General (units (unkno wn) date) unknown) (unknown) (no (unknown) (unknown) HEAD: (units (unkno wn) date) Normocephalic. unknown) (unknown) (no (unknown) (unknown) HEENT: Denies (units ( unknown) date) sinus pain, ear unknown) pain, sore throat (unknown) (no (unknown) (unknown) HPI - Psych (units (un known) date) unknown) (unknown) (no (unknown) (unknown) HPI Narrative: (units (unknown) date) unknown) (unknown) (no (unknown) (unknown) History of (units (unk nown) date) Present Illness unknown) (unknown) (no (unknown) (unknown) IMPRESSION:? (units (u nknown) date) unknown) (unknown) (no (unknown) (unknown) INDICATIONS:? (units ( unknown) date) Pain/injury/fore unknown) ign body (unknown) (no (unknown) (unknown) Imaging Data (units (u nknown) date) unknown) (unknown) (no (unknown) (unknown) Initial Vital (units ( unknown) date) Signs unknown) (unknown) (no (unknown) (unknown) Initial Vital (units ( unknown) date) Signs: unknown) (unknown) (no (unknown) (unknown) Loc: ED (units (unkno wn) date) unknown) (unknown) (no (unknown) (unknown) MDM - Psych (units (un known) date) unknown) (unknown) (no (unknown) (unknown) MR#: [id number] (units (unknown) date) unknown) (unknown) (no (unknown) (unknown) MUSCULOSKELETAL (units (unknown) date) : denies muscle unknown) or bony pain (unknown) (no (unknown) (unknown) Mild tenderness (units (unknown) date) to touch. No unknown) erythema. (unknown) (no (unknown) (unknown) NECK: Trachea (units ( unknown) date) midline. unknown) (unknown) (no (unknown) (unknown) NEURO: Awake (units (un known) date) alert oriented unknown) to self and date of , clear speech. No facial (unknown) (no (unknown) (unknown) NEUROLOGIC: (units (un known) date) Denies weakness, unknown) numbness (unknown) (no (unknown) (unknown) Narrative (units (unkn own) date) unknown) (unknown) (no (unknown) (unknown) Narrative: (units (unk nown) date) unknown) (unknown) (no (unknown) (unknown) Not combative. (units (unknown) date) unknown) (unknown) (no (unknown) (unknown) Ordered: (units (unkno wn) date) unknown) (unknown) (no (unknown) (unknown) Ordering (units (unkno wn) date) Provider: unknown) Jeremy Griffin MD (unknown) (no (unknown) (unknown) Orders (units (unkno wn) date) unknown) (unknown) (no (unknown) (unknown) Oxygen Delivery (units (unknown) date) Method 02/18/22 unknown) 22:21 (unknown) (no (unknown) (unknown) Oxygen Delivery (units (unknown) date) Method Room Air unknown) (unknown) (no (unknown) (unknown) PROCEDURE:? XR (units (unknown) date) FOOT RT MIN 3V unknown) (unknown) (no (unknown) (unknown) PSYCH: Is (units (unkn own) date) slightly unknown) anxious, is cooperative, no SI or HI. No hallucinations. (unknown) (no (unknown) (unknown) PSYCH: No SI (units (u nknown) date) HI. Denies any unknown) auditory or visual hallucinations. Is not (unknown) (no (unknown) (unknown) Patient History (units (unknown) date) unknown) (unknown) (no (unknown) (unknown) Patient brought (units (unknown) date) in by ambulance unknown) from a [facility]ent[facility]. Police were called because (unknown) (no (unknown) (unknown) Patient (units (unkno wn) date) sleeping unknown) comfortably in no distress not agitated (unknown) (no (unknown) (unknown) Patient: (units (unkno wn) date) Suzi Davis unknown) MR#: [id number] (unknown) (no (unknown) (unknown) Patient: (units (unkno wn) date) Suzi Davis unknown) (unknown) (no (unknown) (unknown) Procedure: XR (units ( unknown) date) foot RT min 3V unknown) (unknown) (no (unknown) (unknown) Pulse Oximetry (units (unknown) date) 100 02/18/22 unknown) 22:21 (unknown) (no (unknown) (unknown) Pulse Oximetry (units (unknown) date) 100 unknown) (unknown) (no (unknown) (unknown) Pulse Rate 91 H (units (unknown) date) 02/18/22 22:21 unknown) (unknown) (no (unknown) (unknown) Pulse Rate 91 H (units (unknown) date) unknown) (unknown) (no (unknown) (unknown) RESPIRATORY: (units (un known) date) Clear to unknown) auscultation. Breath sounds equal bilaterally. No wheezes, (unknown) (no (unknown) (unknown) RESPIRATORY: (units (u nknown) date) Denies dyspnea, unknown) cough (unknown) (no (unknown) (unknown) ROS (units (unkno wn) date) Unobtainable: unknown) All systems reviewed + are unremarkable except as noted in HPI (unknown) (no (unknown) (unknown) Reevaluation (units (u nknown) date) #1: unknown) (unknown) (no (unknown) (unknown) Reevaluation(s) (units (unknown) date) unknown) (unknown) (no (unknown) (unknown) Related Data (units (u nknown) date) unknown) (unknown) (no (unknown) (unknown) Review of (units (unkn own) date) Systems unknown) (unknown) (no (unknown) (unknown) SKIN: Warm and (units (unknown) date) dry unknown) (unknown) (no (unknown) (unknown) SKIN: Denies (units (u nknown) date) rash, skin unknown) lesions, positive skin injury (unknown) (no (unknown) (unknown) Signed By: (units (unk nown) date) unknown) (unknown) (no (unknown) (unknown) Smoking Status: (units (unknown) date) Current every unknown) day smoker (unknown) (no (unknown) (unknown) Social History (units (unknown) date) (Reviewed unknown) 02/18/22 @ 22:18 by Jeremy Griffin MD) (unknown) (no (unknown) (unknown) Soft tissues:? (units (unknown) date) No radiopaque unknown) foreign bodies. (unknown) (no (unknown) (unknown) Stated (units (unkno wn) date) Complaint: psych unknown) (unknown) (no (unknown) (unknown) Sulfa (units (unkno wn) date) (Sulfonamide unknown) Allergy Verified 02/18/22 22:55 (unknown) (no (unknown) (unknown) Syringe) 0.5 ml (units (unknown) date) IM .ONCE ONE unknown) (unknown) (no (unknown) (unknown) TECHNIQUE:? 3 (units ( unknown) date) views of the unknown) foot were acquired.? (unknown) (no (unknown) (unknown) Temperature (units (un known) date) 97.6 F 02/18/22 unknown) 22:21 (unknown) (no (unknown) (unknown) Temperature (units (un known) date) 97.6 F unknown) (unknown) (no (unknown) (unknown) Time Seen by (units (u nknown) date) Provider: unknown) 02/18/22 22:12 (unknown) (no (unknown) (unknown) Time: 01:35 (units (un known) date) unknown) (unknown) (no (unknown) (unknown) Vital Signs (units (un known) date) unknown) (unknown) (no (unknown) (unknown) Vital signs: (units (u nknown) date) unknown) (unknown) (no (unknown) (unknown) XR foot RT min (units (unknown) date) 3V Stat unknown) (unknown) (no (unknown) (unknown) agent listed. We (units (unknown) date) are calling this unknown) contact center professional for more information. Patient (unknown) (no (unknown) (unknown) and below (units (unkn own) date) unknown) (unknown) (no (unknown) (unknown) combative. Is (units ( unknown) date) cooperative. unknown) (unknown) (no (unknown) (unknown) droop. 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 Patient denies any pain. No recent (unknown) (no (unknown) (unknown) her very well. (units (unknown) date) She is usually unknown) very agitated because she does meth, no known (unknown) (no (unknown) (unknown) illness. (units (unkno wn) date) unknown) (unknown) (no (unknown) (unknown) instructions. (units ( unknown) date) Is compliant at unknown) this time. Patient arrives with a DCR form with (unknown) (no (unknown) (unknown) lateral sole of (units (unknown) date) the foot. No unknown) discharge. Nontender. No visible foreign body. (unknown) (no (unknown) (unknown) other (units (unkno wn) date) substances. No unknown) alcohol. She is known in the community. She called the (unknown) (no (unknown) (unknown) patient was (units (un known) date) being disruptive unknown) at the penitentiary. JUAN CARLOS was placed by police and EMS (unknown) (no (unknown) (unknown) pelvis hips (units (un known) date) knees and unknown) ankles. Small punctate skin puncture at the right distal (unknown) (no (unknown) (unknown) rales, or (units (unkn own) date) rhonchi. unknown) (unknown) (no (unknown) (unknown) same EMS (units (unkno wn) date) personnel today unknown) for a right foot injury but then refused treatment. At (unknown) (no (unknown) (unknown) smokes meth, (units (u nknown) date) does not inject. unknown) She denies any SI or HI. Patient is following (unknown) (no (unknown) (unknown) this time she (units ( unknown) date) is cooperative. unknown) She states she denies taking meth today. She (unknown) (no (unknown) (unknown) was called. EMS (units (unknown) date) state law unknown) enforcement left and they were instructed to go to (unknown) (no (unknown) (unknown) [facility] (units (unknown) date) [facility]. unknown) However they are on EMS divert. EMS state they know Result panel 3 (unknown) (no (unknown) (unknown) (no value) (units (unk nown) date) unknown) (unknown) (no (unknown) (unknown) Radiologist's (units ( unknown) date) Impression: unknown) (unknown) (no (unknown) (unknown) Date of (units (unkno wn) date) Service: unknown) 02/18/22 (unknown) (no (unknown) (unknown) (no value) (units (unk nown) date) unknown) (unknown) (no (unknown) (unknown) [address]units (unkn own) date) [address] unknown) (unknown) (no (unknown) (unknown) Allergies (units (unkn own) date) unknown) (unknown) (no (unknown) (unknown) [place] (units ( unknown) date) [id number] unknown) (unknown) (no (unknown) (unknown) Documented By: (units (unknown) date) DKB unknown) (unknown) (no (unknown) (unknown) ED Orders (units (unkn own) date) unknown) (unknown) (no (unknown) (unknown) Emergency (units (unkn own) date) Report unknown) (unknown) (no (unknown) (unknown) [facility] (units (unknown) date) unknown) (unknown) (no (unknown) (unknown) [facility] (units (unknown) date) [address] unknown) [place], [place] [address] (unknown) (no (unknown) (unknown) Last Admin: (units (un known) date) 02/18/22 22:54 unknown) Dose: 0.5 ml (unknown) (no (unknown) (unknown) Signed (units (unkno wn) date) unknown) (unknown) (no (unknown) (unknown) Stop: 02/18/22 (units (unknown) date) 22:14 unknown) (unknown) (no (unknown) (unknown) Vital Signs - 8 (units (unknown) date) hr unknown) (unknown) (no (unknown) (unknown) XRay Report (units (un known) date) unknown) (unknown) (no (unknown) (unknown) (no value) (units (unk nown) date) unknown) (unknown) (no (unknown) (unknown) 02/18/22 (units (unkno wn) date) unknown) (unknown) (no (unknown) (unknown) [id number] (units (unkno wn) date) unknown) (unknown) (no (unknown) (unknown) 02/18/22 22:13 (units (unknown) date) unknown) (unknown) (no (unknown) (unknown) 02/18/22 22:18 (units (unknown) date) unknown) (unknown) (no (unknown) (unknown) 1. No fractures (units (unknown) date) or radiopaque unknown) foreign bodies.? (unknown) (no (unknown) (unknown) 22:21 (units (unkno wn) date) unknown) (unknown) (no (unknown) (unknown) ? (units (unkno wn) date) unknown) (unknown) (no (unknown) (unknown) Accession (units (unkn own) date) Number: unknown) [id number] ?? (unknown) (no (unknown) (unknown) Acct:[id number] (units (unknown) date) unknown) (unknown) (no (unknown) (unknown) Age/Sex: 26 / F (units (unknown) date) unknown) (unknown) (no (unknown) (unknown) Age/Sex: 26 / F (units (unknown) date) unknown) (unknown) (no (unknown) (unknown) Allergy/AdvReac (units (unknown) date) Type Severity unknown) Reaction Status Date / Time (unknown) (no (unknown) (unknown) Antibiotics) (units (u nknown) date) unknown) (unknown) (no (unknown) (unknown) Approved by: (units (u nknown) date) Pepito Root, unknown) Elis on 02/19/2022 at 0:03 ? (unknown) (no (unknown) (unknown) BACK: No flank (units (unknown) date) tenderness. unknown) (unknown) (no (unknown) (unknown) Blood Pressure (units (unknown) date) 109/75 02/18/22 unknown) 22:21 (unknown) (no (unknown) (unknown) Blood Pressure (units (unknown) date) 109/ unknown) (unknown) (no (unknown) (unknown) Bones:? No (units (unk nown) date) fractures or unknown) dislocations.? No suspicious bony lesions.? (unknown) (no (unknown) (unknown) CARDIOVASCULAR: (units (unknown) date) Denies chest unknown) pain, palpitations (unknown) (no (unknown) (unknown) CARDIOVASCULAR: (units (unknown) date) Regular rate and unknown) rhythm without murmurs (unknown) (no (unknown) (unknown) COMPARISON:? (units (u nknown) date) None. unknown) (unknown) (no (unknown) (unknown) Chief (units (unkno wn) date) Complaint: unknown) Extremity Injury, Lower (unknown) (no (unknown) (unknown) Consult to [facility] [place] (units (unknown) date) - Social unknown) Services Stat (unknown) (no (unknown) (unknown) Course (units (unkno wn) date) unknown) (unknown) (no (unknown) (unknown) : 1995 (units (unknown) date) Acct:[id number] unknown) (unknown) (no (unknown) (unknown) : 1995 (units (unknown) date) unknown) (unknown) (no (unknown) (unknown) Date of (units (unkno wn) date) Service: unknown) 02/18/22 (unknown) (no (unknown) (unknown) Dictated by: (units (u nknown) date) Pepito Root, unknownFelix Gillis on 02/19/2022 at 0:02 ? ? (unknown) (no (unknown) (unknown) Differential (units (u nknown) date) Diagnosis unknown) (unknown) (no (unknown) (unknown) Differential (units (u nknown) date) diagnosis: unknown) Likely acute psychosis, bipolar disorder, depression, (unknown) (no (unknown) (unknown) Diphtheria/Teta (units (unknown) date) nus/Acell unknown) Pertussis (Tet,Diph,Pertus s(Acell),Vac/Pf 0.5 Ml (unknown) (no (unknown) (unknown) Discontinued (units (u nknown) date) Medications unknown) (unknown) (no (unknown) (unknown) ENT: Mucous (units (un known) date) membranes moist. unknown) (unknown) (no (unknown) (unknown) ER Physician: (units ( unknown) date) Jeremy Griffin unknown) (unknown) (no (unknown) (unknown) EXTREMITIES: No (units (unknown) date) gross unknown) deformities. Nontender bilateral shoulders elbows wrists (unknown) (no (unknown) (unknown) EYES: Pupils (units (u nknown) date) equal round No unknown) scleral icterus. (unknown) (no (unknown) (unknown) Exam (units (unkno wn) date) unknown) (unknown) (no (unknown) (unknown) Exam Narrative: (units (unknown) date) unknown) (unknown) (no (unknown) (unknown) Extremity x-ray (units (unknown) date) #1: unknown) (unknown) (no (unknown) (unknown) FINDINGS:? (units (unk nown) date) unknown) (unknown) (no (unknown) (unknown) GASTROINTESTINA (units (unknown) date) L: Abdomen soft, unknown) non-tender (unknown) (no (unknown) (unknown) GASTROINTESTINA (units (unknown) date) L: Denies unknown) nausea, vomiting, abdominal pain (unknown) (no (unknown) (unknown) GENERAL: Denies (units (unknown) date) chills, fatigue, unknown) malaise, fever, sweats. (unknown) (no (unknown) (unknown) GENERAL: in no (units (unknown) date) distress, not unknown) toxic not dyspneic (unknown) (no (unknown) (unknown) : Denies (units (unk nown) date) dysuria, unknown) frequency, hematuria (unknown) (no (unknown) (unknown) General (units (unkno wn) date) unknown) (unknown) (no (unknown) (unknown) HEAD: (units (unkno wn) date) Normocephalic. unknown) (unknown) (no (unknown) (unknown) HEENT: Denies (units ( unknown) date) sinus pain, ear unknown) pain, sore throat (unknown) (no (unknown) (unknown) HPI - Psych (units (un known) date) unknown) (unknown) (no (unknown) (unknown) HPI Narrative: (units (unknown) date) unknown) (unknown) (no (unknown) (unknown) History of (units (unk nown) date) Present Illness unknown) (unknown) (no (unknown) (unknown) IMPRESSION:? (units (u nknown) date) unknown) (unknown) (no (unknown) (unknown) INDICATIONS:? (units ( unknown) date) Pain/injury/fore unknown) ign body (unknown) (no (unknown) (unknown) Imaging Data (units (u nknown) date) unknown) (unknown) (no (unknown) (unknown) Initial Vital (units ( unknown) date) Signs unknown) (unknown) (no (unknown) (unknown) Initial Vital (units ( unknown) date) Signs: unknown) (unknown) (no (unknown) (unknown) Loc: ED (units (unkno wn) date) unknown) (unknown) (no (unknown) (unknown) MDM - Psych (units (un known) date) unknown) (unknown) (no (unknown) (unknown) MR#: [id number] (units (unknown) date) unknown) (unknown) (no (unknown) (unknown) MUSCULOSKELETAL (units (unknown) date) : denies muscle unknown) or bony pain (unknown) (no (unknown) (unknown) Mild tenderness (units (unknown) date) to touch. No unknown) erythema. (unknown) (no (unknown) (unknown) NECK: Trachea (units ( unknown) date) midline. unknown) (unknown) (no (unknown) (unknown) NEURO: Awake (units (un known) date) alert oriented unknown) to self and date of , clear speech. No facial (unknown) (no (unknown) (unknown) NEUROLOGIC: (units (un known) date) Denies weakness, unknown) numbness (unknown) (no (unknown) (unknown) Narrative (units (unkn own) date) unknown) (unknown) (no (unknown) (unknown) Narrative: (units (unk nown) date) unknown) (unknown) (no (unknown) (unknown) Not combative. (units (unknown) date) unknown) (unknown) (no (unknown) (unknown) Ordered: (units (unkno wn) date) unknown) (unknown) (no (unknown) (unknown) Ordering (units (unkno wn) date) Provider: unknown) Jeremy Griffin MD (unknown) (no (unknown) (unknown) Orders (units (unkno wn) date) unknown) (unknown) (no (unknown) (unknown) Oxygen Delivery (units (unknown) date) Method 02/18/22 unknown) 22:21 (unknown) (no (unknown) (unknown) Oxygen Delivery (units (unknown) date) Method Room Air unknown) (unknown) (no (unknown) (unknown) PROCEDURE:? XR (units (unknown) date) FOOT RT MIN 3V unknown) (unknown) (no (unknown) (unknown) PSYCH: Is (units (unkn own) date) slightly unknown) anxious, is cooperative, no SI or HI. No hallucinations. (unknown) (no (unknown) (unknown) PSYCH: No SI (units (u nknown) date) HI. Denies any unknown) auditory or visual hallucinations. Is not (unknown) (no (unknown) (unknown) Patient History (units (unknown) date) unknown) (unknown) (no (unknown) (unknown) Patient brought (units (unknown) date) in by ambulance unknown) from a penitent[facility]. Police were called because (unknown) (no (unknown) (unknown) Patient (units (unkno wn) date) sleeping unknown) comfortably in no distress not agitated (unknown) (no (unknown) (unknown) Patient: (units (unkno wn) date) Suzi Davis unknown) MR#: [id number] (unknown) (no (unknown) (unknown) Patient: (units (unkno wn) date) Suzi Davis unknown) (unknown) (no (unknown) (unknown) Procedure: XR (units ( unknown) date) foot RT min 3V unknown) (unknown) (no (unknown) (unknown) Pulse Oximetry (units (unknown) date) 100 02/18/22 unknown) 22:21 (unknown) (no (unknown) (unknown) Pulse Oximetry (units (unknown) date) 100 unknown) (unknown) (no (unknown) (unknown) Pulse Rate 91 H (units (unknown) date) 02/18/22 22:21 unknown) (unknown) (no (unknown) (unknown) Pulse Rate 91 H (units (unknown) date) unknown) (unknown) (no (unknown) (unknown) RESPIRATORY: (units (un known) date) Clear to unknown) auscultation. Breath sounds equal bilaterally. No wheezes, (unknown) (no (unknown) (unknown) RESPIRATORY: (units (u nknown) date) Denies dyspnea, unknown) cough (unknown) (no (unknown) (unknown) ROS (units (unkno wn) date) Unobtainable: unknown) All systems reviewed + are unremarkable except as noted in HPI (unknown) (no (unknown) (unknown) Reevaluation (units (u nknown) date) #1: unknown) (unknown) (no (unknown) (unknown) Reevaluation(s) (units (unknown) date) unknown) (unknown) (no (unknown) (unknown) Related Data (units (u nknown) date) unknown) (unknown) (no (unknown) (unknown) Review of (units (unkn own) date) Systems unknown) (unknown) (no (unknown) (unknown) SKIN: Warm and (units (unknown) date) dry unknown) (unknown) (no (unknown) (unknown) SKIN: Denies (units (u nknown) date) rash, skin unknown) lesions, positive skin injury (unknown) (no (unknown) (unknown) Signed By: (units (unk nown) date) unknown) (unknown) (no (unknown) (unknown) Smoking Status: (units (unknown) date) Current every unknown) day smoker (unknown) (no (unknown) (unknown) Social History (units (unknown) date) (Reviewed unknown) 02/18/22 @ 22:18 by Jeremy Griffin MD) (unknown) (no (unknown) (unknown) Soft tissues:? (units (unknown) date) No radiopaque unknown) foreign bodies. (unknown) (no (unknown) (unknown) Stated (units (unkno wn) date) Complaint: psych unknown) (unknown) (no (unknown) (unknown) Sulfa (units (unkno wn) date) (Sulfonamide unknown) Allergy Verified 02/18/22 22:55 (unknown) (no (unknown) (unknown) Syringe) 0.5 ml (units (unknown) date) IM .ONCE ONE unknown) (unknown) (no (unknown) (unknown) TECHNIQUE:? 3 (units ( unknown) date) views of the unknown) foot were acquired.? (unknown) (no (unknown) (unknown) Temperature (units (un known) date) 97.6 F 02/18/22 unknown) 22:21 (unknown) (no (unknown) (unknown) Temperature (units (un known) date) 97.6 F unknown) (unknown) (no (unknown) (unknown) Time Seen by (units (u nknown) date) Provider: unknown) 02/18/22 22:12 (unknown) (no (unknown) (unknown) Time: 01:35 (units (un known) date) unknown) (unknown) (no (unknown) (unknown) Vital Signs (units (un known) date) unknown) (unknown) (no (unknown) (unknown) Vital signs: (units (u nknown) date) unknown) (unknown) (no (unknown) (unknown) XR foot RT min (units (unknown) date) 3V Stat unknown) (unknown) (no (unknown) (unknown) agent listed. We (units (unknown) date) are calling this unknown) contact center professional for more information. Patient (unknown) (no (unknown) (unknown) and below (units (unkn own) date) unknown) (unknown) (no (unknown) (unknown) combative. Is (units ( unknown) date) cooperative. unknown) (unknown) (no (unknown) (unknown) droop. 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 Patient denies any pain. No recent (unknown) (no (unknown) (unknown) her very well. (units (unknown) date) She is usually unknown) very agitated because she does meth, no known (unknown) (no (unknown) (unknown) illness. (units (unkno wn) date) unknown) (unknown) (no (unknown) (unknown) instructions. (units ( unknown) date) Is compliant at unknown) this time. Patient arrives with a DCR form with (unknown) (no (unknown) (unknown) lateral sole of (units (unknown) date) the foot. No unknown) discharge. Nontender. No visible foreign body. (unknown) (no (unknown) (unknown) other (units (unkno wn) date) substances. No unknown) alcohol. She is known in the community. She called the (unknown) (no (unknown) (unknown) patient was (units (un known) date) being disruptive unknown) at the penitentiary. JUAN CARLOS was placed by police and EMS (unknown) (no (unknown) (unknown) pelvis hips (units (un known) date) knees and unknown) ankles. Small punctate skin puncture at the right distal (unknown) (no (unknown) (unknown) rales, or (units (unkn own) date) rhonchi. unknown) (unknown) (no (unknown) (unknown) same EMS (units (unkno wn) date) personnel today unknown) for a right foot injury but then refused treatment. At (unknown) (no (unknown) (unknown) smokes meth, (units (u nknown) date) does not inject. unknown) She denies any SI or HI. Patient is following (unknown) (no (unknown) (unknown) this time she (units ( unknown) date) is cooperative. unknown) She states she denies taking meth today. She (unknown) (no (unknown) (unknown) was called. EMS (units (unknown) date) state law unknown) enforcement left and they were instructed to go to (unknown) (no (unknown) (unknown) [facility] (units (unknown) date) [facility]. unknown) However they are on EMS divert. EMS state they know Result panel 4 (unknown) (no (unknown) (unknown) (no value) (units (unk nown) date) unknown) (unknown) (no (unknown) (unknown) Radiologist's (units ( unknown) date) Impression: unknown) (unknown) (no (unknown) (unknown) Date of (units (unkno wn) date) Service: unknown) 02/18/22 (unknown) (no (unknown) (unknown) (no value) (units (unk nown) date) unknown) (unknown) (no (unknown) (unknown) [address] (units (unkn own) date) Street unknown) (unknown) (no (unknown) (unknown) Allergies (units (unkn own) date) unknown) (unknown) (no (unknown) (unknown) ESTELLA [place]on (units ( unknown) date) [id number] unknown) (unknown) (no (unknown) (unknown) Documented By: (units (unknown) date) DKB unknown) (unknown) (no (unknown) (unknown) ED Orders (units (unkn own) date) unknown) (unknown) (no (unknown) (unknown) Emergency (units (unkn own) date) Report unknown) (unknown) (no (unknown) (unknown) [facility] (units (unknown) date) unknown) (unknown) (no (unknown) (unknown) [facility] (units (unknown) date) [address] unknown) [place] [id number] (unknown) (no (unknown) (unknown) Last Admin: (units (un known) date) 02/18/22 22:54 unknown) Dose: 0.5 ml (unknown) (no (unknown) (unknown) Signed (units (unkno wn) date) unknown) (unknown) (no (unknown) (unknown) Stop: 02/18/22 (units (unknown) date) 22:14 unknown) (unknown) (no (unknown) (unknown) Vital Signs - 8 (units (unknown) date) hr unknown) (unknown) (no (unknown) (unknown) XRay Report (units (un known) date) unknown) (unknown) (no (unknown) (unknown) (no value) (units (unk nown) date) unknown) (unknown) (no (unknown) (unknown) 02/18/22 (units (unkno wn) date) unknown) (unknown) (no (unknown) (unknown) [id number] (units (unkno wn) date) unknown) (unknown) (no (unknown) (unknown) 02/18/22 22:13 (units (unknown) date) unknown) (unknown) (no (unknown) (unknown) 02/18/22 22:18 (units (unknown) date) unknown) (unknown) (no (unknown) (unknown) 1. No fractures (units (unknown) date) or radiopaque unknown) foreign bodies.? (unknown) (no (unknown) (unknown) 22:21 (units (unkno wn) date) unknown) (unknown) (no (unknown) (unknown) ? (units (unkno wn) date) unknown) (unknown) (no (unknown) (unknown) Accession (units (unkn own) date) Number: unknown) [id number] ?? (unknown) (no (unknown) (unknown) Acct:[id number] (units (unknown) date) unknown) (unknown) (no (unknown) (unknown) Age/Sex: 26 / F (units (unknown) date) unknown) (unknown) (no (unknown) (unknown) Age/Sex: 26 / F (units (unknown) date) unknown) (unknown) (no (unknown) (unknown) Allergy/AdvReac (units (unknown) date) Type Severity unknown) Reaction Status Date / Time (unknown) (no (unknown) (unknown) Antibiotics) (units (u nknown) date) unknown) (unknown) (no (unknown) (unknown) Approved by: (units (u nknown) date) Pepito Root unknownFelix Gillis on 02/19/2022 at 0:03 ? (unknown) (no (unknown) (unknown) February 19, 2022 (units (unknown) date) at 7:00 a.m.. unknown) Sign out to Dr. Kat patient has been cooperative (unknown) (no (unknown) (unknown) BACK: No flank (units (unknown) date) tenderness. unknown) (unknown) (no (unknown) (unknown) Blood Pressure (units (unknown) date) 109/75 02/18/22 unknown) 22:21 (unknown) (no (unknown) (unknown) Blood Pressure (units (unknown) date) unknown) (unknown) (no (unknown) (unknown) Bones:? No (units (unk nown) date) fractures or unknown) dislocations.? No suspicious bony lesions.? (unknown) (no (unknown) (unknown) CARDIOVASCULAR: (units (unknown) date) Denies chest unknown) pain, palpitations (unknown) (no (unknown) (unknown) CARDIOVASCULAR: (units (unknown) date) Regular rate and unknown) rhythm without murmurs (unknown) (no (unknown) (unknown) COMPARISON:? (units (u nknown) date) None. unknown) (unknown) (no (unknown) (unknown) Chief (units (unkno wn) date) Complaint: unknown) Extremity Injury, Lower (unknown) (no (unknown) (unknown) Consult to [facility] [employer] (units (unknown) date) - Social unknown) Services Stat (unknown) (no (unknown) (unknown) Course (units (unkno wn) date) unknown) (unknown) (no (unknown) (unknown) Course (units (unkno wn) date) Narrative: unknown) (unknown) (no (unknown) (unknown) : 1995 (units (unknown) date) Acct:[id number] unknown) (unknown) (no (unknown) (unknown) : 1995 (units (unknown) date) unknown) (unknown) (no (unknown) (unknown) Date of (units (unkno wn) date) Service: unknown) 02/18/22 (unknown) (no (unknown) (unknown) Dictated by: (units (u nknown) date) Pepito Root, unknownFelix Gillis on 02/19/2022 at 0:02 ? ? (unknown) (no (unknown) (unknown) Differential (units (u nknown) date) Diagnosis unknown) (unknown) (no (unknown) (unknown) Differential (units (u nknown) date) diagnosis: unknown) Likely acute psychosis, bipolar disorder, depression, (unknown) (no (unknown) (unknown) Diphtheria/Teta (units (unknown) date) nus/Acell unknown) Pertussis (Tet,Diph,Pertus s(Acell),Vac/Pf 0.5 Ml (unknown) (no (unknown) (unknown) Discontinued (units (u nknown) date) Medications unknown) (unknown) (no (unknown) (unknown) ENT: Mucous (units (un known) date) membranes moist. unknown) (unknown) (no (unknown) (unknown) ER Physician: (units ( unknown) date) Jeremy Griffin unknown) (unknown) (no (unknown) (unknown) EXTREMITIES: No (units (unknown) date) gross unknown) deformities. Nontender bilateral shoulders elbows wrists (unknown) (no (unknown) (unknown) EYES: Pupils (units (u nknown) date) equal round No unknown) scleral icterus. (unknown) (no (unknown) (unknown) Exam (units (unkno wn) date) unknown) (unknown) (no (unknown) (unknown) Exam Narrative: (units (unknown) date) unknown) (unknown) (no (unknown) (unknown) Extremity x-ray (units (unknown) date) #1: unknown) (unknown) (no (unknown) (unknown) FINDINGS:? (units (unk nown) date) unknown) (unknown) (no (unknown) (unknown) GASTROINTESTINA (units (unknown) date) L: Abdomen soft, unknown) non-tender (unknown) (no (unknown) (unknown) GASTROINTESTINA (units (unknown) date) L: Denies unknown) nausea, vomiting, abdominal pain (unknown) (no (unknown) (unknown) GENERAL: Denies (units (unknown) date) chills, fatigue, unknown) malaise, fever, sweats. (unknown) (no (unknown) (unknown) GENERAL: in no (units (unknown) date) distress, not unknown) toxic not dyspneic (unknown) (no (unknown) (unknown) : Denies (units (unk nown) date) dysuria, unknown) frequency, hematuria (unknown) (no (unknown) (unknown) General (units (unkno wn) date) unknown) (unknown) (no (unknown) (unknown) HEAD: (units (unkno wn) date) Normocephalic. unknown) (unknown) (no (unknown) (unknown) HEENT: Denies (units ( unknown) date) sinus pain, ear unknown) pain, sore throat (unknown) (no (unknown) (unknown) HPI - Psych (units (un known) date) unknown) (unknown) (no (unknown) (unknown) HPI Narrative: (units (unknown) date) unknown) (unknown) (no (unknown) (unknown) History of (units (unk nown) date) Present Illness unknown) (unknown) (no (unknown) (unknown) IMPRESSION:? (units (u nknown) date) unknown) (unknown) (no (unknown) (unknown) INDICATIONS:? (units ( unknown) date) Pain/injury/fore unknown) ign body (unknown) (no (unknown) (unknown) Imaging Data (units (u nknown) date) unknown) (unknown) (no (unknown) (unknown) Initial Vital (units ( unknown) date) Signs unknown) (unknown) (no (unknown) (unknown) Initial Vital (units ( unknown) date) Signs: unknown) (unknown) (no (unknown) (unknown) Loc: ED (units (unkno wn) date) unknown) (unknown) (no (unknown) (unknown) MDM - Psych (units (un known) date) unknown) (unknown) (no (unknown) (unknown) MDM Narrative (units ( unknown) date) unknown) (unknown) (no (unknown) (unknown) MR#: [id number] (units (unknown) date) unknown) (unknown) (no (unknown) (unknown) MUSCULOSKELETAL (units (unknown) date) : denies muscle unknown) or bony pain (unknown) (no (unknown) (unknown) Medical (units (unkno wn) date) decision making unknown) narrative: (unknown) (no (unknown) (unknown) Mild tenderness (units (unknown) date) to touch. No unknown) erythema. (unknown) (no (unknown) (unknown) NECK: Trachea (units ( unknown) date) midline. unknown) (unknown) (no (unknown) (unknown) NEURO: Awake (units (un known) date) alert oriented unknown) to self and date of , clear speech. No facial (unknown) (no (unknown) (unknown) NEUROLOGIC: (units (un known) date) Denies weakness, unknown) numbness (unknown) (no (unknown) (unknown) Narrative (units (unkn own) date) unknown) (unknown) (no (unknown) (unknown) Narrative: (units (unk nown) date) unknown) (unknown) (no (unknown) (unknown) Not combative. (units (unknown) date) unknown) (unknown) (no (unknown) (unknown) On arrival (units (unk nown) date) patient denies unknown) any drug use or meth use. However she did have some (unknown) (no (unknown) (unknown) Ordered: (units (unkno wn) date) unknown) (unknown) (no (unknown) (unknown) Ordering (units (unkno wn) date) Provider: unknown) Jeremy Griffin MD (unknown) (no (unknown) (unknown) Orders (units (unkno wn) date) unknown) (unknown) (no (unknown) (unknown) Oxygen Delivery (units (unknown) date) Method 02/18/22 unknown) 22:21 (unknown) (no (unknown) (unknown) Oxygen Delivery (units (unknown) date) Method Room Air unknown) (unknown) (no (unknown) (unknown) PROCEDURE:? XR (units (unknown) date) FOOT RT MIN 3V unknown) (unknown) (no (unknown) (unknown) PSYCH: Is (units (unkn own) date) slightly unknown) anxious, is cooperative, no SI or HI. No hallucinations. (unknown) (no (unknown) (unknown) PSYCH: No SI (units (u nknown) date) HI. Denies any unknown) auditory or visual hallucinations. Is not (unknown) (no (unknown) (unknown) Patient History (units (unknown) date) unknown) (unknown) (no (unknown) (unknown) Patient brought (units (unknown) date) in by ambulance unknown) from a [facility]it[facility]. Police were called because (unknown) (no (unknown) (unknown) Patient (units (unkno wn) date) sleeping unknown) comfortably in no distress not agitated (unknown) (no (unknown) (unknown) Patient (units (unkno wn) date) sleeping very unknown) comfortably. No agitation (unknown) (no (unknown) (unknown) Patient: (units (unkno wn) date) Suzi Davis unknown) MR#: [id number] (unknown) (no (unknown) (unknown) Patient: (units (unkno wn) date) Suzi Davis unknown) (unknown) (no (unknown) (unknown) Procedure: XR (units ( unknown) date) foot RT min 3V unknown) (unknown) (no (unknown) (unknown) Pulse Oximetry (units (unknown) date) 100 02/18/22 unknown) 22:21 (unknown) (no (unknown) (unknown) Pulse Oximetry (units (unknown) date) 100 unknown) (unknown) (no (unknown) (unknown) Pulse Rate 91 H (units (unknown) date) 02/18/22 22:21 unknown) (unknown) (no (unknown) (unknown) Pulse Rate 91 H (units (unknown) date) unknown) (unknown) (no (unknown) (unknown) RESPIRATORY: (units (un known) date) Clear to unknown) auscultation. Breath sounds equal bilaterally. No wheezes, (unknown) (no (unknown) (unknown) RESPIRATORY: (units (u nknown) date) Denies dyspnea, unknown) cough (unknown) (no (unknown) (unknown) ROS (units (unkno wn) date) Unobtainable: unknown) All systems reviewed + are unremarkable except as noted in HPI (unknown) (no (unknown) (unknown) Reevaluation (units (u nknown) date) #1: unknown) (unknown) (no (unknown) (unknown) Reevaluation (units (u nknown) date) #2: unknown) (unknown) (no (unknown) (unknown) Reevaluation(s) (units (unknown) date) unknown) (unknown) (no (unknown) (unknown) Related Data (units (u nknown) date) unknown) (unknown) (no (unknown) (unknown) Review of (units (unkn own) date) Systems unknown) (unknown) (no (unknown) (unknown) SKIN: Warm and (units (unknown) date) dry unknown) (unknown) (no (unknown) (unknown) SKIN: Denies (units (u nknown) date) rash, skin unknown) lesions, positive skin injury (unknown) (no (unknown) (unknown) Signed By: (units (unk nown) date) unknown) (unknown) (no (unknown) (unknown) Smoking Status: (units (unknown) date) Current every unknown) day smoker (unknown) (no (unknown) (unknown) Social History (units (unknown) date) (Reviewed unknown) 02/18/22 @ 22:18 by Jeremy Griffin MD) (unknown) (no (unknown) (unknown) Soft tissues:? (units (unknown) date) No radiopaque unknown) foreign bodies. (unknown) (no (unknown) (unknown) Stated (units (unkno wn) date) Complaint: psych unknown) (unknown) (no (unknown) (unknown) Sulfa (units (unkno wn) date) (Sulfonamide unknown) Allergy Verified 02/18/22 22:55 (unknown) (no (unknown) (unknown) Syringe) 0.5 ml (units (unknown) date) IM .ONCE ONE unknown) (unknown) (no (unknown) (unknown) TECHNIQUE:? 3 (units ( unknown) date) views of the unknown) foot were acquired.? (unknown) (no (unknown) (unknown) Temperature (units (un known) date) 97.6 F 02/18/22 unknown) 22:21 (unknown) (no (unknown) (unknown) Temperature (units (un known) date) 97.6 F unknown) (unknown) (no (unknown) (unknown) Time Seen by (units (u nknown) date) Provider: unknown) 02/18/22 22:12 (unknown) (no (unknown) (unknown) Time: 01:35 (units (un known) date) unknown) (unknown) (no (unknown) (unknown) Time: 06:08 (units (un known) date) unknown) (unknown) (no (unknown) (unknown) Vital Signs (units (un known) date) unknown) (unknown) (no (unknown) (unknown) Vital signs: (units (u nknown) date) unknown) (unknown) (no (unknown) (unknown) XR foot RT min (units (unknown) date) 3V Stat unknown) (unknown) (no (unknown) (unknown) agent listed. We (units (unknown) date) are calling this unknown) contact center professional for more information. Patient (unknown) (no (unknown) (unknown) and below (units (unkn own) date) unknown) (unknown) (no (unknown) (unknown) combative. Is (units ( unknown) date) cooperative. unknown) (unknown) (no (unknown) (unknown) droop. 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 Denied any SI or HI. During course of (unknown) (no (unknown) (unknown) evaluate when (units ( unknown) date) she is rested unknown) and more alert for questioning (unknown) (no (unknown) (unknown) has no medical (units (unknown) date) records in our unknown) system. Patient denies any pain. No recent (unknown) (no (unknown) (unknown) her very well. (units (unknown) date) She is usually unknown) very agitated because she does meth, no known (unknown) (no (unknown) (unknown) illness. (units (unkno wn) date) unknown) (unknown) (no (unknown) (unknown) instructions. (units ( unknown) date) Is compliant at unknown) this time. Patient arrives with a DCR form with (unknown) (no (unknown) (unknown) lateral sole of (units (unknown) date) the foot. No unknown) discharge. Nontender. No visible foreign body. (unknown) (no (unknown) (unknown) night she has (units ( unknown) date) been sleeping. unknown) Would be appropriate to re-questioned and re- (unknown) (no (unknown) (unknown) other (units (unkno wn) date) substances. No unknown) alcohol. She is known in the community. She called the (unknown) (no (unknown) (unknown) overnight. No (units ( unknown) date) new issues. unknown) Awaiting for social work evaluation. However (unknown) (no (unknown) (unknown) patient denied (units (unknown) date) any drug use but unknown) at this time overnight patient has been (unknown) (no (unknown) (unknown) patient was (units (un known) date) being disruptive unknown) at the [facility]itent[facility]. JUAN CARLOS was placed by police and EMS (unknown) (no (unknown) (unknown) pelvis hips (units (un known) date) knees and unknown) ankles. Small punctate skin puncture at the right distal (unknown) (no (unknown) (unknown) rales, or (units (unkn own) date) rhonchi. unknown) (unknown) (no (unknown) (unknown) same EMS (units (unkno wn) date) personnel today unknown) for a right foot injury but then refused treatment. At (unknown) (no (unknown) (unknown) sleeping. November (units ( unknown) date) need to unknown) re-evaluate when more alert (unknown) (no (unknown) (unknown) smokes meth, (units (u nknown) date) does not inject. unknown) She denies any SI or HI. Patient is following (unknown) (no (unknown) (unknown) this time she (units ( unknown) date) is cooperative. unknown) She states she denies taking meth today. She (unknown) (no (unknown) (unknown) was called. EMS (units (unknown) date) state law unknown) enforcement left and they were instructed to go to (unknown) (no (unknown) (unknown) [facility] (units (unknown) date) [facility]. unknown) However they are on EMS divert. EMS state they know Result panel 5 (unknown) (no date) (unknown) (unknown) Negative (units (unkn own) unknown) Result panel 6 (unknown) (no date) (unknown) (unknown) 0 /uL (unkn own) (unknown) (no date) (unknown) (unknown) 0 /uL (unkn own) (unknown) (no date) (unknown) (unknown) 0.0 % (unkn own) (unknown) (no date) (unknown) (unknown) 0.5 % (unkn own) (unknown) (no date) (unknown) (unknown) 11.2 g/dL (unkn own) (unknown) (no date) (unknown) (unknown) 14.9 % (unkn own) (unknown) (no date) (unknown) (unknown) 1700 /uL (unkn own) (unknown) (no date) (unknown) (unknown) 242 X10 3/uL (unkn own) (unknown) (no date) (unknown) (unknown) 2600 /uL (unkn own) (unknown) (no date) (unknown) (unknown) 29.0 PG (unkn own) (unknown) (no date) (unknown) (unknown) 3.84 X10 6/uL (unkn own) (unknown) (no date) (unknown) (unknown) 32.9 % (unkn own) (unknown) (no date) (unknown) (unknown) 34.0 % (unkn own) (unknown) (no date) (unknown) (unknown) 36.2 % (unkn own) (unknown) (no date) (unknown) (unknown) 4.7 X10 3/uL (unkn own) (unknown) (no date) (unknown) (unknown) 400 /uL (unkn own) (unknown) (no date) (unknown) (unknown) 54.5 % (unkn own) (unknown) (no date) (unknown) (unknown) 8.8 % (unkn own) (unknown) (no date) (unknown) (unknown) 85.5 fL (unkn own) Result panel 7 (unknown) (no (unknown) (unknown) (no value) (units (unk nown) date) unknown) (unknown) (no (unknown) (unknown) Radiologist's (units ( unknown) date) Impression: unknown) (unknown) (no (unknown) (unknown) Date of Service: (units (unknown) date) 02/18/22 unknown) (unknown) (no (unknown) (unknown) (no value) (units (unk nown) date) unknown) (unknown) (no (unknown) (unknown) 02/19/22 11:25 (units (unknown) date) unknown) (unknown) (no (unknown) (unknown) [address] (units (unknown) date) unknown) (unknown) (no (unknown) (unknown) Allergies (units (unkn own) date) unknown) (unknown) (no (unknown) (unknown) ESTELLA [place]on (units ( unknown) date) [id number] unknown) (unknown) (no (unknown) (unknown) Documented By: (units (unknown) date) DKB unknown) (unknown) (no (unknown) (unknown) ED Orders (units (unkn own) date) unknown) (unknown) (no (unknown) (unknown) Emergency Report (units (unknown) date) unknown) (unknown) (no (unknown) (unknown) [facility] (units (unknown) date) unknown) (unknown) (no (unknown) (unknown) [facility] (units (unknown) date) [address] unknown) [place] [id number] (unknown) (no (unknown) (unknown) Lab Results (units (un known) date) unknown) (unknown) (no (unknown) (unknown) Last Admin: (units (un known) date) 02/18/22 22:54 unknown) Dose: 0.5 ml (unknown) (no (unknown) (unknown) Signed (units (unkno wn) date) unknown) (unknown) (no (unknown) (unknown) Stop: 02/18/22 (units (unknown) date) 22:14 unknown) (unknown) (no (unknown) (unknown) Vital Signs - 8 (units (unknown) date) hr unknown) (unknown) (no (unknown) (unknown) XRay Report (units (un known) date) unknown) (unknown) (no (unknown) (unknown) (no value) (units (unk nown) date) unknown) (unknown) (no (unknown) (unknown) 02/19/22 (units (unkno wn) date) 02/19/22 unknown) Range/Units (unknown) (no (unknown) (unknown) 10:10 11:25 (units (un known) date) unknown) (unknown) (no (unknown) (unknown) 02/19/22 (units (unkno wn) date) unknown) (unknown) (no (unknown) (unknown) [id number] (units (unkno wn) date) unknown) (unknown) (no (unknown) (unknown) 06:49 (units (unkno wn) date) unknown) (unknown) (no (unknown) (unknown) 02/19/22 10:09 (units (unknown) date) unknown) (unknown) (no (unknown) (unknown) 02/19/22 10:10 (units (unknown) date) unknown) (unknown) (no (unknown) (unknown) 02/19/22 11:25 (units (unknown) date) unknown) (unknown) (no (unknown) (unknown) 1. No fractures (units (unknown) date) or radiopaque unknown) foreign bodies.? (unknown) (no (unknown) (unknown) ? (units (unkno wn) date) unknown) (unknown) (no (unknown) (unknown) Accession (units (unkn own) date) Number: unknown) [id number] ?? (unknown) (no (unknown) (unknown) Acct:[id number] (units (unknown) date) unknown) (unknown) (no (unknown) (unknown) Acetaminophen (units ( unknown) date) Stat unknown) (unknown) (no (unknown) (unknown) Age/Sex: 26 / F (units (unknown) date) unknown) (unknown) (no (unknown) (unknown) Age/Sex: 26 / F (units (unknown) date) unknown) (unknown) (no (unknown) (unknown) Allergy/AdvReac (units (unknown) date) Type Severity unknown) Reaction Status Date / Time (unknown) (no (unknown) (unknown) Antibiotics) (units (u nknown) date) unknown) (unknown) (no (unknown) (unknown) Approved by: (units (u nknown) date) Pepito Root unknown) Elis on 02/19/2022 at 0:03 ? (unknown) (no (unknown) (unknown) February 19, 2022 (units (unknown) date) at 7:00 a.m.. unknown) Sign out to Dr. Kat patient has been cooperative (unknown) (no (unknown) (unknown) BACK: No flank (units (unknown) date) tenderness. unknown) (unknown) (no (unknown) (unknown) Baso # (Auto) 0 (units (unknown) date) (0-100) /uL unknown) (unknown) (no (unknown) (unknown) Baso % (Auto) (units ( unknown) date) 0.5 (0-2) % unknown) (unknown) (no (unknown) (unknown) Blood Pressure (units (unknown) date) 109/75 02/18/22 unknown) 22:21 (unknown) (no (unknown) (unknown) Blood Pressure (units (unknown) date) 102/54 L unknown) (unknown) (no (unknown) (unknown) Bones:? No (units (unk nown) date) fractures or unknown) dislocations.? No suspicious bony lesions.? (unknown) (no (unknown) (unknown) CARDIOVASCULAR: (units (unknown) date) Denies chest unknown) pain, palpitations (unknown) (no (unknown) (unknown) CARDIOVASCULAR: (units (unknown) date) Regular rate and unknown) rhythm without murmurs (unknown) (no (unknown) (unknown) COMPARISON:? (units (u nknown) date) None. unknown) (unknown) (no (unknown) (unknown) COVID19 -Nasal (units (unknown) date) RAPID/Pre-Proc unknown) Stat (unknown) (no (unknown) (unknown) Chief Complaint: (units (unknown) date) Extremity Injury, unknown) Lower (unknown) (no (unknown) (unknown) Complete Blood (units (unknown) date) Count AUTO DIFF unknown) Stat (unknown) (no (unknown) (unknown) Comprehensive (units ( unknown) date) Metabolic Panel unknown) Stat (unknown) (no (unknown) (unknown) Course (units (unkno wn) date) unknown) (unknown) (no (unknown) (unknown) Course (units (unkno wn) date) Narrative: unknown) (unknown) (no (unknown) (unknown) : 1995 (units (unknown) date) Acct:[id number] unknown) (unknown) (no (unknown) (unknown) : 1995 (units (unknown) date) unknown) (unknown) (no (unknown) (unknown) Date of Service: (units (unknown) date) 02/18/22 unknown) (unknown) (no (unknown) (unknown) Dictated by: (units (u nknown) date) ezra Abernathy M.D. on 02/19/2022 at 0:02 ? ? (unknown) (no (unknown) (unknown) Differential (units (u nknown) date) Diagnosis unknown) (unknown) (no (unknown) (unknown) Differential (units (u nknown) date) diagnosis: Likely unknown) acute psychosis, bipolar disorder, depression, (unknown) (no (unknown) (unknown) Diphtheria/Tetan (units (unknown) date) us/Acell unknown) Pertussis (Tet,Diph,Pertuss (Acell),Vac/Pf 0.5 Ml (unknown) (no (unknown) (unknown) Discontinued (units (u nknown) date) Medications unknown) (unknown) (no (unknown) (unknown) ENT: Mucous (units (un known) date) membranes moist. unknown) (unknown) (no (unknown) (unknown) ER Physician: (units ( unknown) date) Janki Kat unknown) D.O. (unknown) (no (unknown) (unknown) EXTREMITIES: No (units (unknown) date) gross unknown) deformities. Nontender bilateral shoulders elbows wrists (unknown) (no (unknown) (unknown) EYES: Pupils (units (u nknown) date) equal round No unknown) scleral icterus. (unknown) (no (unknown) (unknown) Eos # (Auto) 0 (units (unknown) date) (0-450) /uL unknown) (unknown) (no (unknown) (unknown) Eos % (Auto) 0.0 (units (unknown) date) L (2-4) % unknown) (unknown) (no (unknown) (unknown) Ethanol (ETOH) (units (unknown) date) Stat unknown) (unknown) (no (unknown) (unknown) Exam (units (unkno wn) date) unknown) (unknown) (no (unknown) (unknown) Exam Narrative: (units (unknown) date) unknown) (unknown) (no (unknown) (unknown) Extremity x-ray (units (unknown) date) #1: unknown) (unknown) (no (unknown) (unknown) FINDINGS:? (units (unk nown) date) unknown) (unknown) (no (unknown) (unknown) Free T4, Direct (units (unknown) date) Thyroxine Stat unknown) (unknown) (no (unknown) (unknown) GASTROINTESTINAL (units (unknown) date) : Abdomen soft, unknown) non-tender (unknown) (no (unknown) (unknown) GASTROINTESTINAL (units (unknown) date) : Denies nausea, unknown) vomiting, abdominal pain (unknown) (no (unknown) (unknown) GENERAL: Denies (units (unknown) date) chills, fatigue, unknown) malaise, fever, sweats. (unknown) (no (unknown) (unknown) GENERAL: in no (units (unknown) date) distress, not unknown) toxic not dyspneic (unknown) (no (unknown) (unknown) : Denies (units (unk nown) date) dysuria, unknown) frequency, hematuria (unknown) (no (unknown) (unknown) General (units (unkno wn) date) unknown) (unknown) (no (unknown) (unknown) GenericComposite (units (unknown) date) [Plt Count 242 unknown) (150-400) X10^3/uL ] (unknown) (no (unknown) (unknown) GenericComposite (units (unknown) date) [RBC 3.84 L unknown) (4.0-5.2) X10^6/uL ] (unknown) (no (unknown) (unknown) GenericComposite (units (unknown) date) [WBC 4.7 unknown) (4.5-11.0) X10^3/uL ] (unknown) (no (unknown) (unknown) HEAD: (units (unkno wn) date) Normocephalic. unknown) (unknown) (no (unknown) (unknown) HEENT: Denies (units ( unknown) date) sinus pain, ear unknown) pain, sore throat (unknown) (no (unknown) (unknown) HPI - Psych (units (un known) date) unknown) (unknown) (no (unknown) (unknown) HPI Narrative: (units (unknown) date) unknown) (unknown) (no (unknown) (unknown) Hct 32.9 L (units (unk nown) date) (36-46) % unknown) (unknown) (no (unknown) (unknown) Hgb 11.2 L (units (unk nown) date) (12.0-16.0) g/dL unknown) (unknown) (no (unknown) (unknown) History of (units (unk nown) date) Present Illness unknown) (unknown) (no (unknown) (unknown) IMPRESSION:? (units (u nknown) date) unknown) (unknown) (no (unknown) (unknown) INDICATIONS:? (units ( unknown) date) Pain/injury/forei unknown) gn body (unknown) (no (unknown) (unknown) Imaging Data (units (u nknown) date) unknown) (unknown) (no (unknown) (unknown) Initial Vital (units ( unknown) date) Signs unknown) (unknown) (no (unknown) (unknown) Initial Vital (units ( unknown) date) Signs: unknown) (unknown) (no (unknown) (unknown) Lab Data (units (unkno wn) date) unknown) (unknown) (no (unknown) (unknown) Labs: (units (unkno wn) date) unknown) (unknown) (no (unknown) (unknown) Loc: ED (units (unkno wn) date) unknown) (unknown) (no (unknown) (unknown) Lymph # (Auto) (units (unknown) date) 1700 (7712-8075) unknown) /uL (unknown) (no (unknown) (unknown) Lymph % (Auto) (units (unknown) date) 36.2 (25-40) % unknown) (unknown) (no (unknown) (unknown) MCH 29.0 (26-34) (units (unknown) date) PG unknown) (unknown) (no (unknown) (unknown) MCHC 34.0 (units (unkn own) date) (30-36) % unknown) (unknown) (no (unknown) (unknown) MCV 85.5 (units (unkno wn) date) (80-100) fL unknown) (unknown) (no (unknown) (unknown) MDM - Psych (units (un known) date) unknown) (unknown) (no (unknown) (unknown) MDM Narrative (units ( unknown) date) unknown) (unknown) (no (unknown) (unknown) MR#: [id number] (units (unknown) date) unknown) (unknown) (no (unknown) (unknown) MUSCULOSKELETAL: (units (unknown) date) denies muscle or unknown) bony pain (unknown) (no (unknown) (unknown) Medical decision (units (unknown) date) making narrative: unknown) (unknown) (no (unknown) (unknown) Mild tenderness (units (unknown) date) to touch. No unknown) erythema. (unknown) (no (unknown) (unknown) [place] # (Auto) (units ( unknown) date) 400 (0-900) /uL unknown) (unknown) (no (unknown) (unknown) [place] % (Auto) (units ( unknown) date) 8.8 (3-14) % unknown) (unknown) (no (unknown) (unknown) NECK: Trachea (units ( unknown) date) midline. unknown) (unknown) (no (unknown) (unknown) NEURO: Awake (units (un known) date) alert oriented to unknown) self and date of , clear speech. No facial (unknown) (no (unknown) (unknown) NEUROLOGIC: (units (un known) date) Denies weakness, unknown) numbness (unknown) (no (unknown) (unknown) Narrative (units (unkn own) date) unknown) (unknown) (no (unknown) (unknown) Narrative: (units (unk nown) date) unknown) (unknown) (no (unknown) (unknown) Neut # (Auto) (units ( unknown) date) 2600 (1489-2352) unknown) /uL (unknown) (no (unknown) (unknown) Neut % (Auto) (units ( unknown) date) 54.5 (50-75) % unknown) (unknown) (no (unknown) (unknown) Not combative. (units (unknown) date) unknown) (unknown) (no (unknown) (unknown) On arrival (units (unk nown) date) patient denies unknown) any drug use or meth use. However she did have some (unknown) (no (unknown) (unknown) Ordered: (units (unkno wn) date) unknown) (unknown) (no (unknown) (unknown) Ordering (units (unkno wn) date) Provider: unknown) Jeremy Griffin MD (unknown) (no (unknown) (unknown) Orders (units (unkno wn) date) unknown) (unknown) (no (unknown) (unknown) Oxygen Delivery (units (unknown) date) Method 02/18/22 unknown) 22:21 (unknown) (no (unknown) (unknown) Oxygen Delivery (units (unknown) date) Method Room Air unknown) (unknown) (no (unknown) (unknown) PROCEDURE:? XR (units (unknown) date) FOOT RT MIN 3V unknown) (unknown) (no (unknown) (unknown) PSYCH: Is (units (unkn own) date) slightly anxious, unknown) is cooperative, no SI or HI. No hallucinations. (unknown) (no (unknown) (unknown) PSYCH: No SI HI. (units (unknown) date) Denies any unknown) auditory or visual hallucinations. Is not (unknown) (no (unknown) (unknown) Patient History (units (unknown) date) unknown) (unknown) (no (unknown) (unknown) Patient brought (units (unknown) date) in by ambulance unknown) from a [facility]itent[facility]. Police were called because (unknown) (no (unknown) (unknown) Patient sleeping (units (unknown) date) comfortably in no unknown) distress not agitated (unknown) (no (unknown) (unknown) Patient sleeping (units (unknown) date) very comfortably. unknown) No agitation (unknown) (no (unknown) (unknown) Patient: (units (unkno wn) date) NayanObduliaashlie Gerber unknown) MR#: [id number] (unknown) (no (unknown) (unknown) Patient: (units (unkno wn) date) Suzi Davis unknown) (unknown) (no (unknown) (unknown) Procedure: XR (units ( unknown) date) foot RT min 3V unknown) (unknown) (no (unknown) (unknown) Pulse Oximetry (units (unknown) date) 100 02/18/22 unknown) 22:21 (unknown) (no (unknown) (unknown) Pulse Oximetry (units (unknown) date) 99 unknown) (unknown) (no (unknown) (unknown) Pulse Rate 91 H (units (unknown) date) 02/18/22 22:21 unknown) (unknown) (no (unknown) (unknown) Pulse Rate 61 (units ( unknown) date) unknown) (unknown) (no (unknown) (unknown) RDW 14.9 H (units (unk nown) date) (11.6-14.8) % unknown) (unknown) (no (unknown) (unknown) RESPIRATORY: (units (un known) date) Clear to unknown) auscultation. Breath sounds equal bilaterally. No wheezes, (unknown) (no (unknown) (unknown) RESPIRATORY: (units (u nknown) date) Denies dyspnea, unknown) cough (unknown) (no (unknown) (unknown) ROS Unobtainable: (units (unknown) date) All systems unknown) reviewed + are unremarkable except as noted in HPI (unknown) (no (unknown) (unknown) Reevaluation #1: (units (unknown) date) unknown) (unknown) (no (unknown) (unknown) Reevaluation #2: (units (unknown) date) unknown) (unknown) (no (unknown) (unknown) Reevaluation(s) (units (unknown) date) unknown) (unknown) (no (unknown) (unknown) Related Data (units (u nknown) date) unknown) (unknown) (no (unknown) (unknown) Respiratory Rate (units (unknown) date) 16 unknown) (unknown) (no (unknown) (unknown) Result diagrams: (units (unknown) date) unknown) (unknown) (no (unknown) (unknown) Review of (units (unkn own) date) Systems unknown) (unknown) (no (unknown) (unknown) SARS-CoV-2 (PCR) (units (unknown) date) Negative unknown) (Negative) (unknown) (no (unknown) (unknown) SKIN: Warm and (units (unknown) date) dry unknown) (unknown) (no (unknown) (unknown) SKIN: Denies (units (u nknown) date) rash, skin unknown) lesions, positive skin injury (unknown) (no (unknown) (unknown) Salicylate Stat (units (unknown) date) unknown) (unknown) (no (unknown) (unknown) Signed By: (units (unk nown) date) unknown) (unknown) (no (unknown) (unknown) Smoking Status: (units (unknown) date) Current every day unknown) smoker (unknown) (no (unknown) (unknown) Social History (units (unknown) date) (Reviewed unknown) 02/18/22 @ 22:18 by Jeremy Griffin MD) (unknown) (no (unknown) (unknown) Soft tissues:? (units (unknown) date) No radiopaque unknown) foreign bodies. (unknown) (no (unknown) (unknown) Stated (units (unkno wn) date) Complaint: psych unknown) (unknown) (no (unknown) (unknown) Sulfa (units (unkno wn) date) (Sulfonamide unknown) Allergy Verified 02/18/22 22:55 (unknown) (no (unknown) (unknown) Syringe) 0.5 ml (units (unknown) date) IM .ONCE ONE unknown) (unknown) (no (unknown) (unknown) TECHNIQUE:? 3 (units ( unknown) date) views of the foot unknown) were acquired.? (unknown) (no (unknown) (unknown) Temperature 97.6 (units (unknown) date) F 02/18/22 22:21 unknown) (unknown) (no (unknown) (unknown) Thyroid (units (unkno wn) date) Stimulating unknown) Hormone Stat (unknown) (no (unknown) (unknown) Time Seen by (units (u nknown) date) Provider: unknown) 02/18/22 22:12 (unknown) (no (unknown) (unknown) Time: 01:35 (units (un known) date) unknown) (unknown) (no (unknown) (unknown) Time: 06:08 (units (un known) date) unknown) (unknown) (no (unknown) (unknown) Urine Drug (units (unk nown) date) Screen, Rapid unknown) Stat (unknown) (no (unknown) (unknown) Vital Signs (units (un known) date) unknown) (unknown) (no (unknown) (unknown) Vital signs: (units (u nknown) date) unknown) (unknown) (no (unknown) (unknown) [Embedded Image (units (unknown) date) Not Available] unknown) (unknown) (no (unknown) (unknown) agent listed. We (units (unknown) date) are calling this unknown) contact center professional for more information. Patient (unknown) (no (unknown) (unknown) and below (units (unkn own) date) unknown) (unknown) (no (unknown) (unknown) combative. Is (units ( unknown) date) cooperative. unknown) (unknown) (no (unknown) (unknown) droop. 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 Denied any SI or HI. During course of (unknown) (no (unknown) (unknown) evaluate when (units ( unknown) date) she is rested and unknown) more alert for questioning (unknown) (no (unknown) (unknown) has no medical (units (unknown) date) records in our unknown) system. Patient denies any pain. No recent (unknown) (no (unknown) (unknown) her very well. (units (unknown) date) She is usually unknown) very agitated because she does meth, no known (unknown) (no (unknown) (unknown) illness. (units (unkno wn) date) unknown) (unknown) (no (unknown) (unknown) instructions. Is (units (unknown) date) compliant at this unknown) time. Patient arrives with a DCR form with (unknown) (no (unknown) (unknown) lateral sole of (units (unknown) date) the foot. No unknown) discharge. Nontender. No visible foreign body. (unknown) (no (unknown) (unknown) night she has (units ( unknown) date) been sleeping. unknown) Would be appropriate to re-questioned and re- (unknown) (no (unknown) (unknown) other (units (unkno wn) date) substances. No unknown) alcohol. She is known in the community. She called the (unknown) (no (unknown) (unknown) overnight. No (units ( unknown) date) new issues. unknown) Awaiting for social work evaluation. However (unknown) (no (unknown) (unknown) patient denied (units (unknown) date) any drug use but unknown) at this time overnight patient has been (unknown) (no (unknown) (unknown) patient was (units (un known) date) being disruptive unknown) at the penitentiary. JUAN CARLOS was placed by police and EMS (unknown) (no (unknown) (unknown) pelvis hips (units (un known) date) knees and ankles. unknown) Small punctate skin puncture at the right distal (unknown) (no (unknown) (unknown) rales, or (units (unkn own) date) rhonchi. unknown) (unknown) (no (unknown) (unknown) same EMS (units (unkno wn) date) personnel today unknown) for a right foot injury but then refused treatment. At (unknown) (no (unknown) (unknown) sleeping. November (units ( unknown) date) need to unknown) re-evaluate when more alert (unknown) (no (unknown) (unknown) smokes meth, (units (u nknown) date) does not inject. unknown) She denies any SI or HI. Patient is following (unknown) (no (unknown) (unknown) this time she is (units (unknown) date) cooperative. She unknown) states she denies taking meth today. She (unknown) (no (unknown) (unknown) was called. EMS (units (unknown) date) state law unknown) enforcement left and they were instructed to go to (unknown) (no (unknown) (unknown) [facility] (units (unknown) date) [facility]. However unknown) they are on EMS divert. EMS state they know Result panel 8 (unknown) (no date) (unknown) (unknown) > 60 mL/min (unkn own) (unknown) (no date) (unknown) (unknown) < 1.0 mg/dL (unkn own) (unknown) (no date) (unknown) (unknown) < 10 mg/dL (unkn own) (unknown) (no date) (unknown) (unknown) < 10 ug/mL (unkn own) (unknown) (no date) (unknown) (unknown) 0.5 mg/dL (unkn own) (unknown) (no date) (unknown) (unknown) 0.55 mg/dL (unkn own) (unknown) (no date) (unknown) (unknown) 1.4 (units unknown) (unknown) (unknown) (no date) (unknown) (unknown) 10 mg/dL (unkn own) (unknown) (no date) (unknown) (unknown) 108 mmol/L (unkn own) (unknown) (no date) (unknown) (unknown) 138 mmol/L (unkn own) (unknown) (no date) (unknown) (unknown) 18.2 (units unknown) (unknown) (unknown) (no date) (unknown) (unknown) 2.7 g/dL (unkn own) (unknown) (no date) (unknown) (unknown) 24 IU/L (unkn own) (unknown) (no date) (unknown) (unknown) 26 mmol/L (unkn own) (unknown) (no date) (unknown) (unknown) 3.8 g/dL (unkn own) (unknown) (no date) (unknown) (unknown) 30 IU/L (unkn own) (unknown) (no date) (unknown) (unknown) 4.1 mmol/L (unkn own) (unknown) (no date) (unknown) (unknown) 51 U/L (unkn own) (unknown) (no date) (unknown) (unknown) 6.5 g/dL (unkn own) (unknown) (no date) (unknown) (unknown) 8.3 mg/dL (unkn own) (unknown) (no date) (unknown) (unknown) 90 mg/dL (unkn own) Result panel 9 (unknown) (no date) (unknown) (unknown) 1.23 ng/dL (unkn own) Result panel 10 (unknown) (no date) (unknown) (unknown) 0.402 uIU/mL (unkn own) (unknown) (no date) (unknown) (unknown) 1.23 ng/dL (unkn own) Result panel 11 (unknown) (no date) (unknown) (unknown) Negative (units (unkn own) unknown) (unknown) (no date) (unknown) (unknown) Normal (units (unkn own) unknown) (unknown) (no date) (unknown) (unknown) Positive (units (unkn own) unknown) Result panel 12 (unknown) (no date) (unknown) (unknown) 0-1/HPF (units (unkn own) unknown) (unknown) (no date) (unknown) (unknown) 2+ (units (unkn own) unknown) (unknown) (no date) (unknown) (unknown) 5-10 /HPF (units (unk nown) unknown) (unknown) (no date) (unknown) (unknown) 5-10/HPF (units (unkn own) unknown) (unknown) (no date) (unknown) (unknown) Cult Not (units (unkn own) Indicated unknown) (unknown) (no date) (unknown) (unknown) Many (>30) (units (un known) unknown) Result panel 13 (unknown) (no (unknown) (unknown) (no value) (units (unk nown) date) unknown) (unknown) (no (unknown) (unknown) Radiologist's (units ( unknown) date) Impression: unknown) (unknown) (no (unknown) (unknown) Date of Service: (units (unknown) date) 02/18/22 unknown) (unknown) (no (unknown) (unknown) (no value) (units (unk nown) date) unknown) (unknown) (no (unknown) (unknown) 02/19/22 11:25 (units (unknown) date) unknown) (unknown) (no (unknown) (unknown) [address] [place] [id number] (units (unknown) date) unknown) (unknown) (no (unknown) (unknown) Allergies (units (unkn own) date) unknown) (unknown) (no (unknown) (unknown) [place]ELLA [place]on (units ( unknown) date) [id number] unknown) (unknown) (no (unknown) (unknown) Documented By: DKB (units (unknown) date) unknown) (unknown) (no (unknown) (unknown) ED Orders (units (unkn own) date) unknown) (unknown) (no (unknown) (unknown) Emergency Report (units (unknown) date) unknown) (unknown) (no (unknown) (unknown) [facility] (units (unknown) date) unknown) (unknown) (no (unknown) (unknown) [facility] (units (unknown) date) [address] unknown) [place] [id number] (unknown) (no (unknown) (unknown) Lab Results (units (un known) date) unknown) (unknown) (no (unknown) (unknown) Last Admin: (units (un known) date) 02/18/22 22:54 unknown) Dose: 0.5 ml (unknown) (no (unknown) (unknown) Point of Care (units ( unknown) date) Testing unknown) (unknown) (no (unknown) (unknown) Signed (units (unkno wn) date) unknown) (unknown) (no (unknown) (unknown) Stop: 02/18/22 (units (unknown) date) 22:14 unknown) (unknown) (no (unknown) (unknown) Urine Dip (units (unkn own) date) unknown) (unknown) (no (unknown) (unknown) Vital Signs - 8 hr (units (unknown) date) unknown) (unknown) (no (unknown) (unknown) XRay Report (units (un known) date) unknown) (unknown) (no (unknown) (unknown) (no value) (units (unk nown) date) unknown) (unknown) (no (unknown) (unknown) 02/19/22 02/19/22 (units (unknown) date) 02/19/22 unknown) Range/Units (unknown) (no (unknown) (unknown) 10:10 11:25 11:25 (units (unknown) date) unknown) (unknown) (no (unknown) (unknown) 11:25 12:59 13:08 (units (unknown) date) unknown) (unknown) (no (unknown) (unknown) 02/19/22 (units (unkno wn) date) unknown) (unknown) (no (unknown) (unknown) [phone] (units (unkno wn) date) unknown) (unknown) (no (unknown) (unknown) 06:49 (units (unkno wn) date) unknown) (unknown) (no (unknown) (unknown) 02/19/22 10:10 (units (unknown) date) unknown) (unknown) (no (unknown) (unknown) 02/19/22 11:25 (units (unknown) date) unknown) (unknown) (no (unknown) (unknown) 02/19/22 12:59 (units (unknown) date) unknown) (unknown) (no (unknown) (unknown) 02/19/22 13:08 (units (unknown) date) unknown) (unknown) (no (unknown) (unknown) 1. No fractures or (units (unknown) date) radiopaque foreign unknown) bodies.? (unknown) (no (unknown) (unknown) ? (units (unkno wn) date) unknown) (unknown) (no (unknown) (unknown) ALT (<35) IU/L (units (unknown) date) unknown) (unknown) (no (unknown) (unknown) ALT 24 (<35) IU/L (units (unknown) date) unknown) (unknown) (no (unknown) (unknown) AST (14-36) IU/L (units (unknown) date) unknown) (unknown) (no (unknown) (unknown) AST 30 (14-36) (units (unknown) date) IU/L unknown) (unknown) (no (unknown) (unknown) Accession Number: (units (unknown) date) [id number] ?? unknown) (unknown) (no (unknown) (unknown) Acct:[id number] (units (unknown) date) unknown) (unknown) (no (unknown) (unknown) Acetaminophen (units ( unknown) date) (10-30) ug/mL unknown) (unknown) (no (unknown) (unknown) Acetaminophen < 10 (units (unknown) date) (10-30) ug/mL unknown) (unknown) (no (unknown) (unknown) Acetaminophen Stat (units (unknown) date) unknown) (unknown) (no (unknown) (unknown) Age/Sex: 26 / F (units (unknown) date) unknown) (unknown) (no (unknown) (unknown) Age/Sex: 26 / F (units (unknown) date) unknown) (unknown) (no (unknown) (unknown) Albumin (3.5-5.0) (units (unknown) date) g/dL unknown) (unknown) (no (unknown) (unknown) Albumin 3.8 (units (un known) date) (3.5-5.0) g/dL unknown) (unknown) (no (unknown) (unknown) Albumin/Globulin (units (unknown) date) Ratio (1.0-2.8) unknown) (unknown) (no (unknown) (unknown) Albumin/Globulin (units (unknown) date) Ratio 1.4 (1.0-2.8) unknown) (unknown) (no (unknown) (unknown) Alkaline (units (unkno wn) date) Phosphatase unknown) (38-126) U/L (unknown) (no (unknown) (unknown) Alkaline (units (unkno wn) date) Phosphatase 51 unknown) (38-126) U/L (unknown) (no (unknown) (unknown) Allergy/AdvReac (units (unknown) date) Type Severity unknown) Reaction Status Date / Time (unknown) (no (unknown) (unknown) Antibiotics) (units (u nknown) date) unknown) (unknown) (no (unknown) (unknown) Approved by: (units (u nknown) date) Pepito Root, unknown) Elis on 02/19/2022 at 0:03 ? (unknown) (no (unknown) (unknown) February 19, 2022 at (units (unknown) date) 7:00 a.m.. Sign out unknown) to Dr. Kat patient has been cooperative (unknown) (no (unknown) (unknown) BACK: No flank (units (unknown) date) tenderness. unknown) (unknown) (no (unknown) (unknown) BUN (7-17) mg/dL (units (unknown) date) unknown) (unknown) (no (unknown) (unknown) BUN 10 (7-17) (units ( unknown) date) mg/dL unknown) (unknown) (no (unknown) (unknown) BUN/Creatinine (units (unknown) date) Ratio (6-22) unknown) (unknown) (no (unknown) (unknown) BUN/Creatinine (units (unknown) date) Ratio 18.2 (6-22) unknown) (unknown) (no (unknown) (unknown) Baso # (Auto) (units ( unknown) date) (0-100) /uL unknown) (unknown) (no (unknown) (unknown) Baso # (Auto) 0 (units (unknown) date) (0-100) /uL unknown) (unknown) (no (unknown) (unknown) Baso % (Auto) (units ( unknown) date) (0-2) % unknown) (unknown) (no (unknown) (unknown) Baso % (Auto) 0.5 (units (unknown) date) (0-2) % unknown) (unknown) (no (unknown) (unknown) Bedside Urine (units ( unknown) date) Bilirubin - unknown) Negative (unknown) (no (unknown) (unknown) Bedside Urine (units ( unknown) date) Glucose Negative unknown) (unknown) (no (unknown) (unknown) Bedside Urine (units ( unknown) date) Ketone - Negative unknown) (unknown) (no (unknown) (unknown) Bedside Urine (units ( unknown) date) Leukocytes - unknown) Negative (unknown) (no (unknown) (unknown) Bedside Urine (units ( unknown) date) Nitrite - Negative unknown) (unknown) (no (unknown) (unknown) Bedside Urine (units ( unknown) date) Occult Blood - unknown) Negative (unknown) (no (unknown) (unknown) Bedside Urine (units ( unknown) date) Protein - Negative unknown) (unknown) (no (unknown) (unknown) Bedside Urine (units ( unknown) date) Urobilinogen +/- unknown) 1mg (unknown) (no (unknown) (unknown) Bedside Urine pH (units (unknown) date) 6.0 unknown) (unknown) (no (unknown) (unknown) Blood Pressure (units (unknown) date) 109/75 02/18/22 unknown) 22:21 (unknown) (no (unknown) (unknown) Blood Pressure (units (unknown) date) 102/54 L unknown) (unknown) (no (unknown) (unknown) Bones:? No (units (unk nown) date) fractures or unknown) dislocations.? No suspicious bony lesions.? (unknown) (no (unknown) (unknown) CARDIOVASCULAR: (units (unknown) date) Denies chest pain, unknown) palpitations (unknown) (no (unknown) (unknown) CARDIOVASCULAR: (units (unknown) date) Regular rate and unknown) rhythm without murmurs (unknown) (no (unknown) (unknown) COMPARISON:? None. (units (unknown) date) unknown) (unknown) (no (unknown) (unknown) COVID19 -Nasal (units (unknown) date) RAPID/Pre-Proc Stat unknown) (unknown) (no (unknown) (unknown) Calcium (8.4-10.2) (units (unknown) date) mg/dL unknown) (unknown) (no (unknown) (unknown) Calcium 8.3 L (units ( unknown) date) (8.4-10.2) mg/dL unknown) (unknown) (no (unknown) (unknown) Carbon Dioxide (units (unknown) date) (22-32) mmol/L unknown) (unknown) (no (unknown) (unknown) Carbon Dioxide 26 (units (unknown) date) (22-32) mmol/L unknown) (unknown) (no (unknown) (unknown) Chief Complaint: (units (unknown) date) Extremity Injury, unknown) Lower (unknown) (no (unknown) (unknown) Chloride (98-107) (units (unknown) date) mmol/L unknown) (unknown) (no (unknown) (unknown) Chloride 108 H (units (unknown) date) (98-107) mmol/L unknown) (unknown) (no (unknown) (unknown) Complete Blood (units (unknown) date) Count AUTO DIFF unknown) Stat (unknown) (no (unknown) (unknown) Comprehensive (units ( unknown) date) Metabolic Panel unknown) Stat (unknown) (no (unknown) (unknown) Course (units (unkno wn) date) unknown) (unknown) (no (unknown) (unknown) Course Narrative: (units (unknown) date) unknown) (unknown) (no (unknown) (unknown) Creatinine (units (unk nown) date) (0.52-1.04) mg/dL unknown) (unknown) (no (unknown) (unknown) Creatinine 0.55 (units (unknown) date) (0.52-1.04) mg/dL unknown) (unknown) (no (unknown) (unknown) : 1995 (units (unknown) date) Acct:[id number] unknown) (unknown) (no (unknown) (unknown) : 1995 (units (unknown) date) unknown) (unknown) (no (unknown) (unknown) Date of Service: (units (unknown) date) 02/18/22 unknown) (unknown) (no (unknown) (unknown) Dictated by: (units (u nknown) date) Pepito Root unknownFelix Gillis on 02/19/2022 at 0:02 ? ? (unknown) (no (unknown) (unknown) Differential (units (u nknown) date) Diagnosis unknown) (unknown) (no (unknown) (unknown) Differential (units (u nknown) date) diagnosis: Likely unknown) acute psychosis, bipolar disorder, depression, (unknown) (no (unknown) (unknown) Diphtheria/Tetanus (units (unknown) date) /Acell Pertussis unknown) (Tet,Diph,Pertuss(A cell),Vac/Pf 0.5 Ml (unknown) (no (unknown) (unknown) Discontinued (units (u nknown) date) Medications unknown) (unknown) (no (unknown) (unknown) ENT: Mucous (units (un known) date) membranes moist. unknown) (unknown) (no (unknown) (unknown) ER Physician: (units ( unknown) date) Janki Kat D.O. unknown) (unknown) (no (unknown) (unknown) EXTREMITIES: No (units (unknown) date) gross deformities. unknown) Nontender bilateral shoulders elbows wrists (unknown) (no (unknown) (unknown) EYES: Pupils equal (units (unknown) date) round No scleral unknown) icterus. (unknown) (no (unknown) (unknown) Eos # (Auto) (units (u nknown) date) (0-450) /uL unknown) (unknown) (no (unknown) (unknown) Eos # (Auto) 0 (units (unknown) date) (0-450) /uL unknown) (unknown) (no (unknown) (unknown) Eos % (Auto) (units (u nknown) date) (2-4) % unknown) (unknown) (no (unknown) (unknown) Eos % (Auto) 0.0 L (units (unknown) date) (2-4) % unknown) (unknown) (no (unknown) (unknown) Esterase (units (unkno wn) date) unknown) (unknown) (no (unknown) (unknown) Estimated GFR (units ( unknown) date) (>60) mL/min unknown) (unknown) (no (unknown) (unknown) Estimated GFR > 60 (units (unknown) date) (>60) mL/min unknown) (unknown) (no (unknown) (unknown) Ethanol (ETOH) (units (unknown) date) Stat unknown) (unknown) (no (unknown) (unknown) Ethyl Alcohol < 10 (units (unknown) date) ( - 10) mg/dL unknown) (unknown) (no (unknown) (unknown) Ethyl Alcohol ( - (units (unknown) date) 10) mg/dL unknown) (unknown) (no (unknown) (unknown) Exam (units (unkno wn) date) unknown) (unknown) (no (unknown) (unknown) Exam Narrative: (units (unknown) date) unknown) (unknown) (no (unknown) (unknown) Extremity x-ray (units (unknown) date) #1: unknown) (unknown) (no (unknown) (unknown) FINDINGS:? (units (unk nown) date) unknown) (unknown) (no (unknown) (unknown) Free T4 (units (unkno wn) date) (0.78-2.19) ng/dL unknown) (unknown) (no (unknown) (unknown) Free T4 1.23 (units (u nknown) date) (0.78-2.19) ng/dL unknown) (unknown) (no (unknown) (unknown) Free T4, Direct (units (unknown) date) Thyroxine Stat unknown) (unknown) (no (unknown) (unknown) GASTROINTESTINAL: (units (unknown) date) Abdomen soft, unknown) non-tender (unknown) (no (unknown) (unknown) GASTROINTESTINAL: (units (unknown) date) Denies nausea, unknown) vomiting, abdominal pain (unknown) (no (unknown) (unknown) GENERAL: Denies (units (unknown) date) chills, fatigue, unknown) malaise, fever, sweats. (unknown) (no (unknown) (unknown) GENERAL: in no (units (unknown) date) distress, not toxic unknown) not dyspneic (unknown) (no (unknown) (unknown) : Denies (units (unk nown) date) dysuria, frequency, unknown) hematuria (unknown) (no (unknown) (unknown) General (units (unkno wn) date) unknown) (unknown) (no (unknown) (unknown) GenericComposite[P (units (unknown) date) lt Count (150-400) unknown) X10^3/uL ] (unknown) (no (unknown) (unknown) GenericComposite[P (units (unknown) date) lt Count 242 unknown) (150-400) X10^3/uL ] (unknown) (no (unknown) (unknown) GenericComposite[R (units (unknown) date) BC (4.0-5.2) unknown) X10^6/uL ] (unknown) (no (unknown) (unknown) GenericComposite[R (units (unknown) date) BC 3.84 L (4.0-5.2) unknown) X10^6/uL ] (unknown) (no (unknown) (unknown) GenericComposite[W (units (unknown) date) BC (4.5-11.0) unknown) X10^3/uL ] (unknown) (no (unknown) (unknown) GenericComposite[W (units (unknown) date) BC 4.7 (4.5-11.0) unknown) X10^3/uL ] (unknown) (no (unknown) (unknown) Globulin (1.7-4.1) (units (unknown) date) g/dL unknown) (unknown) (no (unknown) (unknown) Globulin 2.7 (units (u nknown) date) (1.7-4.1) g/dL unknown) (unknown) (no (unknown) (unknown) Glucose (70-100) (units (unknown) date) mg/dL unknown) (unknown) (no (unknown) (unknown) Glucose 90 (units (unk nown) date) (70-100) mg/dL unknown) (unknown) (no (unknown) (unknown) HEAD: (units (unkno wn) date) Normocephalic. unknown) (unknown) (no (unknown) (unknown) HEENT: Denies (units ( unknown) date) sinus pain, ear unknown) pain, sore throat (unknown) (no (unknown) (unknown) HPI - Psych (units (un known) date) unknown) (unknown) (no (unknown) (unknown) HPI Narrative: (units (unknown) date) unknown) (unknown) (no (unknown) (unknown) Hct (36-46) % (units ( unknown) date) unknown) (unknown) (no (unknown) (unknown) Hct 32.9 L (36-46) (units (unknown) date) % unknown) (unknown) (no (unknown) (unknown) Hgb (12.0-16.0) (units (unknown) date) g/dL unknown) (unknown) (no (unknown) (unknown) Hgb 11.2 L (units (unk nown) date) (12.0-16.0) g/dL unknown) (unknown) (no (unknown) (unknown) History of Present (units (unknown) date) Illness unknown) (unknown) (no (unknown) (unknown) IMPRESSION:? (units (u nknown) date) unknown) (unknown) (no (unknown) (unknown) INDICATIONS:? (units ( unknown) date) Pain/injury/foreign unknown) body (unknown) (no (unknown) (unknown) Imaging Data (units (u nknown) date) unknown) (unknown) (no (unknown) (unknown) Initial Vital (units ( unknown) date) Signs unknown) (unknown) (no (unknown) (unknown) Initial Vital (units ( unknown) date) Signs: unknown) (unknown) (no (unknown) (unknown) Lab Data (units (unkno wn) date) unknown) (unknown) (no (unknown) (unknown) Labs: (units (unkno wn) date) unknown) (unknown) (no (unknown) (unknown) Loc: ED (units (unkno wn) date) unknown) (unknown) (no (unknown) (unknown) Lymph # (Auto) (units (unknown) date) (0553-5089) /uL unknown) (unknown) (no (unknown) (unknown) Lymph # (Auto) (units (unknown) date) 1700 (8792-2368) unknown) /uL (unknown) (no (unknown) (unknown) Lymph % (Auto) (units (unknown) date) (25-40) % unknown) (unknown) (no (unknown) (unknown) Lymph % (Auto) (units (unknown) date) 36.2 (25-40) % unknown) (unknown) (no (unknown) (unknown) MCH (26-34) PG (units (unknown) date) unknown) (unknown) (no (unknown) (unknown) MCH 29.0 (26-34) (units (unknown) date) PG unknown) (unknown) (no (unknown) (unknown) MCHC (30-36) % (units (unknown) date) unknown) (unknown) (no (unknown) (unknown) MCHC 34.0 (30-36) (units (unknown) date) % unknown) (unknown) (no (unknown) (unknown) MCV (80-100) fL (units (unknown) date) unknown) (unknown) (no (unknown) (unknown) MCV 85.5 (80-100) (units (unknown) date) fL unknown) (unknown) (no (unknown) (unknown) MDM - Psych (units (un known) date) unknown) (unknown) (no (unknown) (unknown) MDM Narrative (units ( unknown) date) unknown) (unknown) (no (unknown) (unknown) MR#: [id number] (units (unknown) date) unknown) (unknown) (no (unknown) (unknown) MUSCULOSKELETAL: (units (unknown) date) denies muscle or unknown) bony pain (unknown) (no (unknown) (unknown) Medical decision (units (unknown) date) making narrative: unknown) (unknown) (no (unknown) (unknown) Mild tenderness to (units (unknown) date) touch. No erythema. unknown) (unknown) (no (unknown) (unknown) [place] # (Auto) (units ( unknown) date) (0-900) /uL unknown) (unknown) (no (unknown) (unknown) [place] # (Auto) 400 (units (unknown) date) (0-900) /uL unknown) (unknown) (no (unknown) (unknown) [place] % (Auto) (units ( unknown) date) (3-14) % unknown) (unknown) (no (unknown) (unknown) [place] % (Auto) 8.8 (units (unknown) date) (3-14) % unknown) (unknown) (no (unknown) (unknown) NECK: Trachea (units ( unknown) date) midline. unknown) (unknown) (no (unknown) (unknown) NEURO: Awake alert (units (unknown) date) oriented to self unknown) and date of , clear speech. No facial (unknown) (no (unknown) (unknown) NEUROLOGIC: Denies (units (unknown) date) weakness, numbness unknown) (unknown) (no (unknown) (unknown) Narrative (units (unkn own) date) unknown) (unknown) (no (unknown) (unknown) Narrative: (units (unk nown) date) unknown) (unknown) (no (unknown) (unknown) Neut # (Auto) (units ( unknown) date) (4780-5769) /uL unknown) (unknown) (no (unknown) (unknown) Neut # (Auto) 2600 (units (unknown) date) (6986-6997) /uL unknown) (unknown) (no (unknown) (unknown) Neut % (Auto) (units ( unknown) date) (50-75) % unknown) (unknown) (no (unknown) (unknown) Neut % (Auto) 54.5 (units (unknown) date) (50-75) % unknown) (unknown) (no (unknown) (unknown) Not combative. (units (unknown) date) unknown) (unknown) (no (unknown) (unknown) On arrival patient (units (unknown) date) denies any drug use unknown) or meth use. However she did have some (unknown) (no (unknown) (unknown) Ordered: (units (unkno wn) date) unknown) (unknown) (no (unknown) (unknown) Ordering Provider: (units (unknown) date) Jeremy Griffin MD unknown) (unknown) (no (unknown) (unknown) Orders (units (unkno wn) date) unknown) (unknown) (no (unknown) (unknown) Oxygen Delivery (units (unknown) date) Method 02/18/22 unknown) 22:21 (unknown) (no (unknown) (unknown) Oxygen Delivery (units (unknown) date) Method Room Air unknown) (unknown) (no (unknown) (unknown) PROCEDURE:? XR (units (unknown) date) FOOT RT MIN 3V unknown) (unknown) (no (unknown) (unknown) PSYCH: Is slightly (units (unknown) date) anxious, is unknown) cooperative, no SI or HI. No hallucinations. (unknown) (no (unknown) (unknown) PSYCH: No SI HI. (units (unknown) date) Denies any auditory unknown) or visual hallucinations. Is not (unknown) (no (unknown) (unknown) Patient History (units (unknown) date) unknown) (unknown) (no (unknown) (unknown) Patient brought in (units (unknown) date) by ambulance [facility] a [facility]. Police were called because (unknown) (no (unknown) (unknown) Patient sleeping (units (unknown) date) comfortably in no unknown) distress not agitated (unknown) (no (unknown) (unknown) Patient sleeping (units (unknown) date) very comfortably. unknown) No agitation (unknown) (no (unknown) (unknown) Patient: (units (unkno wn) date) Cerra,Jennique C unknown) MR#: [id number] (unknown) (no (unknown) (unknown) Patient: (units (unkno wn) date) Suzi Davis unknown) (unknown) (no (unknown) (unknown) Potassium (units (unkn own) date) (3.4-5.1) mmol/L unknown) (unknown) (no (unknown) (unknown) Potassium 4.1 (units ( unknown) date) (3.4-5.1) mmol/L unknown) (unknown) (no (unknown) (unknown) Test (units (unknown) date) Results Negative unknown) (unknown) (no (unknown) (unknown) Procedure: XR foot (units (unknown) date) RT min 3V unknown) (unknown) (no (unknown) (unknown) Pulse Oximetry 100 (units (unknown) date) 02/18/22 22:21 unknown) (unknown) (no (unknown) (unknown) Pulse Oximetry 99 (units (unknown) date) unknown) (unknown) (no (unknown) (unknown) Pulse Rate 91 H (units (unknown) date) 02/18/22 22:21 unknown) (unknown) (no (unknown) (unknown) Pulse Rate 61 (units ( unknown) date) unknown) (unknown) (no (unknown) (unknown) RDW (11.6-14.8) % (units (unknown) date) unknown) (unknown) (no (unknown) (unknown) RDW 14.9 H (units (un known) date) (11.6-14.8) % unknown) (unknown) (no (unknown) (unknown) RESPIRATORY: Clear (units (unknown) date) to auscultation. unknown) Breath sounds equal bilaterally. No wheezes, (unknown) (no (unknown) (unknown) RESPIRATORY: (units (u nknown) date) Denies dyspnea, unknown) cough (unknown) (no (unknown) (unknown) ROS Unobtainable: (units (unknown) date) All systems unknown) reviewed + are unremarkable except as noted in HPI (unknown) (no (unknown) (unknown) Reevaluation #1: (units (unknown) date) unknown) (unknown) (no (unknown) (unknown) Reevaluation #2: (units (unknown) date) unknown) (unknown) (no (unknown) (unknown) Reevaluation(s) (units (unknown) date) unknown) (unknown) (no (unknown) (unknown) Related Data (units (u nknown) date) unknown) (unknown) (no (unknown) (unknown) Respiratory Rate (units (unknown) date) 16 unknown) (unknown) (no (unknown) (unknown) Result diagrams: (units (unknown) date) unknown) (unknown) (no (unknown) (unknown) Review of Systems (units (unknown) date) unknown) (unknown) (no (unknown) (unknown) SARS-CoV-2 (PCR) (units (unknown) date) (Negative) unknown) (unknown) (no (unknown) (unknown) SARS-CoV-2 (PCR) (units (unknown) date) Negative (Negative) unknown) (unknown) (no (unknown) (unknown) SKIN: Warm and dry (units (unknown) date) unknown) (unknown) (no (unknown) (unknown) SKIN: Denies rash, (units (unknown) date) skin lesions, unknown) positive skin injury (unknown) (no (unknown) (unknown) Salicylate Stat (units (unknown) date) unknown) (unknown) (no (unknown) (unknown) Salicylates (<20) (units (unknown) date) mg/dL unknown) (unknown) (no (unknown) (unknown) Salicylates < 1.0 (units (unknown) date) (<20) mg/dL unknown) (unknown) (no (unknown) (unknown) Signed By: (units (unk nown) date) unknown) (unknown) (no (unknown) (unknown) Smoking Status: (units (unknown) date) Current every day unknown) smoker (unknown) (no (unknown) (unknown) Social History (units (unknown) date) (Reviewed 02/18/22 unknown) @ 22:18 by Jeremy Griffin MD) (unknown) (no (unknown) (unknown) Sodium (137-145) (units (unknown) date) mmol/L unknown) (unknown) (no (unknown) (unknown) Sodium 138 (units (unk nown) date) (137-145) mmol/L unknown) (unknown) (no (unknown) (unknown) Soft tissues:? No (units (unknown) date) radiopaque foreign unknown) bodies. (unknown) (no (unknown) (unknown) Stated Complaint: (units (unknown) date) psych unknown) (unknown) (no (unknown) (unknown) Sulfa (Sulfonamide (units (unknown) date) Allergy Verified unknown) 02/18/22 22:55 (unknown) (no (unknown) (unknown) Syringe) 0.5 ml IM (units (unknown) date) .ONCE ONE unknown) (unknown) (no (unknown) (unknown) TECHNIQUE:? 3 (units ( unknown) date) views of the foot unknown) were acquired.? (unknown) (no (unknown) (unknown) TSH (0.47-4.68) (units (unknown) date) uIU/mL unknown) (unknown) (no (unknown) (unknown) TSH 0.402 L (units (un known) date) (0.47-4.68) uIU/mL unknown) (unknown) (no (unknown) (unknown) Temperature 97.6 F (units (unknown) date) 02/18/22 22:21 unknown) (unknown) (no (unknown) (unknown) Thyroid (units (unkno wn) date) Stimulating Hormone unknown) Stat (unknown) (no (unknown) (unknown) Time Seen by (units (u nknown) date) Provider: 02/18/22 unknown) 22:12 (unknown) (no (unknown) (unknown) Time: 01:35 (units (un known) date) unknown) (unknown) (no (unknown) (unknown) Time: 06:08 (units (un known) date) unknown) (unknown) (no (unknown) (unknown) Total Bilirubin (units (unknown) date) (0.2-1.3) mg/dL unknown) (unknown) (no (unknown) (unknown) Total Bilirubin (units (unknown) date) 0.5 (0.2-1.3) mg/dL unknown) (unknown) (no (unknown) (unknown) Total Protein (units ( unknown) date) (6.3-8.2) g/dL unknown) (unknown) (no (unknown) (unknown) Total Protein 6.5 (units (unknown) date) (6.3-8.2) g/dL unknown) (unknown) (no (unknown) (unknown) U Benzodiazepines (units (unknown) date) Scrn (Negative) unknown) (unknown) (no (unknown) (unknown) U Benzodiazepines (units (unknown) date) Scrn Negative unknown) (Negative) (unknown) (no (unknown) (unknown) U Marijuana (THC) (units (unknown) date) Screen (Negative) unknown) (unknown) (no (unknown) (unknown) U Marijuana (THC) (units (unknown) date) Screen Negative unknown) (Negative) (unknown) (no (unknown) (unknown) U Methamphetamines (units (unknown) date) Scrn (Negative) unknown) (unknown) (no (unknown) (unknown) U Methamphetamines (units (unknown) date) Scrn Positive H unknown) (Negative) (unknown) (no (unknown) (unknown) U Opiates 300ng/mL (units (unknown) date) cut (Negative) unknown) (unknown) (no (unknown) (unknown) U Opiates 300ng/mL (units (unknown) date) cut Negative unknown) (Negative) (unknown) (no (unknown) (unknown) U Tricyclic (units (un known) date) Antidepress unknown) (Negative) (unknown) (no (unknown) (unknown) U Tricyclic (units (un known) date) Antidepress unknown) Negative (Negative) (unknown) (no (unknown) (unknown) Ur Amphetamines (units (unknown) date) Screen (Negative) unknown) (unknown) (no (unknown) (unknown) Ur Amphetamines (units (unknown) date) Screen Positive H unknown) (Negative) (unknown) (no (unknown) (unknown) Ur Barbiturates (units (unknown) date) Screen (Negative) unknown) (unknown) (no (unknown) (unknown) Ur Barbiturates (units (unknown) date) Screen Negative unknown) (Negative) (unknown) (no (unknown) (unknown) Ur Culture (units (unk nown) date) Indicated? unknown) (unknown) (no (unknown) (unknown) Ur Culture (units (unk nown) date) Indicated? Cult not unknown) indicated (unknown) (no (unknown) (unknown) Ur MDMA Scrn (units (u nknown) date) (Ecstasy) unknown) (Negative) (unknown) (no (unknown) (unknown) Ur MDMA Scrn (units (u nknown) date) (Ecstasy) Negative unknown) (Negative) (unknown) (no (unknown) (unknown) Ur Oxycodone (units (u nknown) date) Screen (Negative) unknown) (unknown) (no (unknown) (unknown) Ur Oxycodone (units (u nknown) date) Screen Negative unknown) (Negative) (unknown) (no (unknown) (unknown) Ur Phencyclidine (units (unknown) date) Scrn (Negative) unknown) (unknown) (no (unknown) (unknown) Ur Phencyclidine (units (unknown) date) Scrn Negative unknown) (Negative) (unknown) (no (unknown) (unknown) Ur Squamous Epith (units (unknown) date) Cells (0-5/HPF) unknown) (unknown) (no (unknown) (unknown) Ur Squamous Epith (units (unknown) date) Cells 5-10 /hpf H unknown) (0-5/HPF) (unknown) (no (unknown) (unknown) Urine Bacteria (units (unknown) date) (None) unknown) (unknown) (no (unknown) (unknown) Urine Bacteria (units (unknown) date) Many (>30) H (None) unknown) (unknown) (no (unknown) (unknown) Urine Cocaine (units ( unknown) date) Screen (Negative) unknown) (unknown) (no (unknown) (unknown) Urine Cocaine (units ( unknown) date) Screen Negative unknown) (Negative) (unknown) (no (unknown) (unknown) Urine Drug Screen, (units (unknown) date) Rapid Stat unknown) (unknown) (no (unknown) (unknown) Urine Methadone (units (unknown) date) Screen (Negative) unknown) (unknown) (no (unknown) (unknown) Urine Methadone (units (unknown) date) Screen Negative unknown) (Negative) (unknown) (no (unknown) (unknown) Urine Microscopic (units (unknown) date) Stat unknown) (unknown) (no (unknown) (unknown) Urine Mucus (units (un known) date) (Negative) unknown) (unknown) (no (unknown) (unknown) Urine Mucus 2+ H (units (unknown) date) (Negative) unknown) (unknown) (no (unknown) (unknown) Urine RBC (units (unkn own) date) (0-5/HPF) unknown) (unknown) (no (unknown) (unknown) Urine RBC 0-1/hpf (units (unknown) date) (0-5/HPF) unknown) (unknown) (no (unknown) (unknown) Urine Specific (units (unknown) date) [place] 1.030 unknown) (unknown) (no (unknown) (unknown) Urine WBC (units (unkn own) date) (0-5/HPF) unknown) (unknown) (no (unknown) (unknown) Urine WBC 5-10/hpf (units (unknown) date) H (0-5/HPF) unknown) (unknown) (no (unknown) (unknown) Vital Signs (units (un known) date) unknown) (unknown) (no (unknown) (unknown) Vital signs: (units (u nknown) date) unknown) (unknown) (no (unknown) (unknown) [Embedded Image (units (unknown) date) Not Available] unknown) (unknown) (no (unknown) (unknown) agent listed. We (units (unknown) date) are calling this unknown) contact center professional for more information. Patient (unknown) (no (unknown) (unknown) and below (units (unkn own) date) unknown) (unknown) (no (unknown) (unknown) combative. Is (units ( unknown) date) cooperative. unknown) (unknown) (no (unknown) (unknown) droop. 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 Denied any SI or HI. During course of (unknown) (no (unknown) (unknown) evaluate when she (units (unknown) date) is rested and more unknown) alert for questioning (unknown) (no (unknown) (unknown) has no medical (units (unknown) date) records in our unknown) system. Patient denies any pain. No recent (unknown) (no (unknown) (unknown) her very well. She (units (unknown) date) is usually very unknown) agitated because she does meth, no known (unknown) (no (unknown) (unknown) illness. (units (unkno wn) date) unknown) (unknown) (no (unknown) (unknown) instructions. Is (units (unknown) date) compliant at this unknown) time. Patient arrives with a DCR form with (unknown) (no (unknown) (unknown) lateral sole of (units (unknown) date) the foot. No unknown) discharge. Nontender. No visible foreign body. (unknown) (no (unknown) (unknown) night she has been (units (unknown) date) sleeping. Would be unknown) appropriate to re-questioned and re- (unknown) (no (unknown) (unknown) other substances. (units (unknown) date) No alcohol. She is unknown) known in the community. She called the (unknown) (no (unknown) (unknown) overnight. No new (units (unknown) date) issues. Awaiting unknown) for social work evaluation. However (unknown) (no (unknown) (unknown) patient denied any (units (unknown) date) drug use but at unknown) this time overnight patient has been (unknown) (no (unknown) (unknown) patient was being (units (unknown) date) disruptive at the unknown[facility]. JUAN CARLOS was placed by police and EMS (unknown) (no (unknown) (unknown) pelvis hips knees (units (unknown) date) and ankles. Small unknown) punctate skin puncture at the right distal (unknown) (no (unknown) (unknown) rales, or rhonchi. (units (unknown) date) unknown) (unknown) (no (unknown) (unknown) same EMS personnel (units (unknown) date) today for a right unknown) foot injury but then refused treatment. At (unknown) (no (unknown) (unknown) sleeping. May need (units (unknown) date) to re-evaluate when unknown) more alert (unknown) (no (unknown) (unknown) smokes meth, does (units (unknown) date) not inject. She unknown) denies any SI or HI. Patient is following (unknown) (no (unknown) (unknown) this time she is (units (unknown) date) cooperative. She unknown) states she denies taking meth today. She (unknown) (no (unknown) (unknown) was called. EMS (units (unknown) date) state law unknown) enforcement left and they were instructed to go to (unknown) (no (unknown) (unknown) [facility] (units (unknown) date) [facility]. However unknown) they are on EMS divert. EMS state they know Result panel 14 (unknown) (no (unknown) (unknown) (no value) (units (unk nown) date) unknown) (unknown) (no (unknown) (unknown) Radiologist's (units ( unknown) date) Impression: unknown) (unknown) (no (unknown) (unknown) Date of Service: (units (unknown) date) 02/18/22 unknown) (unknown) (no (unknown) (unknown) (no value) (units (unk nown) date) unknown) (unknown) (no (unknown) (unknown) 02/19/22 11:25 (units (unknown) date) unknown) (unknown) (no (unknown) (unknown) [address] [place] [id number] (units (unknown) date) unknown) (unknown) (no (unknown) (unknown) Allergies (units (unkn own) date) unknown) (unknown) (no (unknown) (unknown) ESTELLA Hanson (units ( unknown) date) [id number] unknown) (unknown) (no (unknown) (unknown) Documented By: DKB (units (unknown) date) unknown) (unknown) (no (unknown) (unknown) ED Orders (units (unkn own) date) unknown) (unknown) (no (unknown) (unknown) Emergency Report (units (unknown) date) unknown) (unknown) (no (unknown) (unknown) [facility] (units (unknown) date) unknown) (unknown) (no (unknown) (unknown) [facility] (units (unknown) date) [address] unknown) [place] [id number] (unknown) (no (unknown) (unknown) Lab Results (units (un known) date) unknown) (unknown) (no (unknown) (unknown) Last Admin: (units (un known) date) 02/18/22 22:54 unknown) Dose: 0.5 ml (unknown) (no (unknown) (unknown) Point of Care (units ( unknown) date) Testing unknown) (unknown) (no (unknown) (unknown) Signed (units (unkno wn) date) unknown) (unknown) (no (unknown) (unknown) Stop: 02/18/22 (units (unknown) date) 22:14 unknown) (unknown) (no (unknown) (unknown) Urine Dip (units (unkn own) date) unknown) (unknown) (no (unknown) (unknown) Vital Signs - 8 hr (units (unknown) date) unknown) (unknown) (no (unknown) (unknown) XRay Report (units (un known) date) unknown) (unknown) (no (unknown) (unknown) (no value) (units (unk nown) date) unknown) (unknown) (no (unknown) (unknown) 02/19/22 02/19/22 (units (unknown) date) 02/19/22 unknown) Range/Units (unknown) (no (unknown) (unknown) 10:10 11:25 11:25 (units (unknown) date) unknown) (unknown) (no (unknown) (unknown) 11:25 12:59 13:08 (units (unknown) date) unknown) (unknown) (no (unknown) (unknown) 02/19/22 (units (unkno wn) date) unknown) (unknown) (no (unknown) (unknown) Psychosis (units (unkn own) date) unknown) (unknown) (no (unknown) (unknown) <Jeremy Griffin (units (unknown) date) - Last Filed: unknown) 02/19/22 06:08> (unknown) (no (unknown) (unknown) <Janki Kat DO (units (unknown) date) - Last Filed: unknown) 02/19/22 15:10> (unknown) (no (unknown) (unknown) [id number] (units (unkno wn) date) unknown) (unknown) (no (unknown) (unknown) 06:49 (units (unkno wn) date) unknown) (unknown) (no (unknown) (unknown) 02/19/22 10:10 (units (unknown) date) unknown) (unknown) (no (unknown) (unknown) 02/19/22 11:25 (units (unknown) date) unknown) (unknown) (no (unknown) (unknown) 02/19/22 12:59 (units (unknown) date) unknown) (unknown) (no (unknown) (unknown) 02/19/22 13:08 (units (unknown) date) unknown) (unknown) (no (unknown) (unknown) 1. No fractures or (units (unknown) date) radiopaque foreign unknown) bodies.? (unknown) (no (unknown) (unknown) ? (units (unkno wn) date) unknown) (unknown) (no (unknown) (unknown) ALT (<35) IU/L (units (unknown) date) unknown) (unknown) (no (unknown) (unknown) ALT 24 (<35) IU/L (units (unknown) date) unknown) (unknown) (no (unknown) (unknown) AST (14-36) IU/L (units (unknown) date) unknown) (unknown) (no (unknown) (unknown) AST 30 (14-36) (units (unknown) date) IU/L unknown) (unknown) (no (unknown) (unknown) Accession Number: (units (unknown) date) [id number] ?? unknown) (unknown) (no (unknown) (unknown) Acct:[id number] (units (unknown) date) unknown) (unknown) (no (unknown) (unknown) Acetaminophen (units ( unknown) date) (10-30) ug/mL unknown) (unknown) (no (unknown) (unknown) Acetaminophen < 10 (units (unknown) date) (10-30) ug/mL unknown) (unknown) (no (unknown) (unknown) Acetaminophen Stat (units (unknown) date) unknown) (unknown) (no (unknown) (unknown) Age/Sex: 26 / F (units (unknown) date) unknown) (unknown) (no (unknown) (unknown) Age/Sex: 26 / F (units (unknown) date) unknown) (unknown) (no (unknown) (unknown) Albumin (3.5-5.0) (units (unknown) date) g/dL unknown) (unknown) (no (unknown) (unknown) Albumin 3.8 (units (un known) date) (3.5-5.0) g/dL unknown) (unknown) (no (unknown) (unknown) Albumin/Globulin (units (unknown) date) Ratio (1.0-2.8) unknown) (unknown) (no (unknown) (unknown) Albumin/Globulin (units (unknown) date) Ratio 1.4 (1.0-2.8) unknown) (unknown) (no (unknown) (unknown) Alkaline (units (unkno wn) date) Phosphatase unknown) (38-126) U/L (unknown) (no (unknown) (unknown) Alkaline (units (unkno wn) date) Phosphatase 51 unknown) (38-126) U/L (unknown) (no (unknown) (unknown) Allergy/AdvReac (units (unknown) date) Type Severity unknown) Reaction Status Date / Time (unknown) (no (unknown) (unknown) Antibiotics) (units (u nknown) date) unknown) (unknown) (no (unknown) (unknown) Approved by: (units (u nknown) date) Pepito Root, unknown) Elis on 02/19/2022 at 0:03 ? (unknown) (no (unknown) (unknown) February 19, 2022 at (units (unknown) date) 7:00 a.m.. Sign out unknown) to Dr. Kat patient has been cooperative (unknown) (no (unknown) (unknown) BACK: No flank (units (unknown) date) tenderness. unknown) (unknown) (no (unknown) (unknown) BUN (7-17) mg/dL (units (unknown) date) unknown) (unknown) (no (unknown) (unknown) BUN 10 (7-17) (units ( unknown) date) mg/dL unknown) (unknown) (no (unknown) (unknown) BUN/Creatinine (units (unknown) date) Ratio (6-22) unknown) (unknown) (no (unknown) (unknown) BUN/Creatinine (units (unknown) date) Ratio 18.2 (6-22) unknown) (unknown) (no (unknown) (unknown) Baso # (Auto) (units ( unknown) date) (0-100) /uL unknown) (unknown) (no (unknown) (unknown) Baso # (Auto) 0 (units (unknown) date) (0-100) /uL unknown) (unknown) (no (unknown) (unknown) Baso % (Auto) (units ( unknown) date) (0-2) % unknown) (unknown) (no (unknown) (unknown) Baso % (Auto) 0.5 (units (unknown) date) (0-2) % unknown) (unknown) (no (unknown) (unknown) Bedside Urine (units ( unknown) date) Bilirubin - unknown) Negative (unknown) (no (unknown) (unknown) Bedside Urine (units ( unknown) date) Glucose Negative unknown) (unknown) (no (unknown) (unknown) Bedside Urine (units ( unknown) date) Ketone - Negative unknown) (unknown) (no (unknown) (unknown) Bedside Urine (units ( unknown) date) Leukocytes - unknown) Negative (unknown) (no (unknown) (unknown) Bedside Urine (units ( unknown) date) Nitrite - Negative unknown) (unknown) (no (unknown) (unknown) Bedside Urine (units ( unknown) date) Occult Blood - unknown) Negative (unknown) (no (unknown) (unknown) Bedside Urine (units ( unknown) date) Protein - Negative unknown) (unknown) (no (unknown) (unknown) Bedside Urine (units ( unknown) date) Urobilinogen +/- unknown) 1mg (unknown) (no (unknown) (unknown) Bedside Urine pH (units (unknown) date) 6.0 unknown) (unknown) (no (unknown) (unknown) Blood Pressure (units (unknown) date) 109/75 02/18/22 unknown) 22:21 (unknown) (no (unknown) (unknown) Blood Pressure (units (unknown) date) 102/54 L unknown) (unknown) (no (unknown) (unknown) Bones:? No (units (unk nown) date) fractures or unknown) dislocations.? No suspicious bony lesions.? (unknown) (no (unknown) (unknown) CARDIOVASCULAR: (units (unknown) date) Denies chest pain, unknown) palpitations (unknown) (no (unknown) (unknown) CARDIOVASCULAR: (units (unknown) date) Regular rate and unknown) rhythm without murmurs (unknown) (no (unknown) (unknown) COMPARISON:? None. (units (unknown) date) unknown) (unknown) (no (unknown) (unknown) COVID19 -Nasal (units (unknown) date) RAPID/Pre-Proc Stat unknown) (unknown) (no (unknown) (unknown) Calcium (8.4-10.2) (units (unknown) date) mg/dL unknown) (unknown) (no (unknown) (unknown) Calcium 8.3 L (units ( unknown) date) (8.4-10.2) mg/dL unknown) (unknown) (no (unknown) (unknown) Carbon Dioxide (units (unknown) date) (22-32) mmol/L unknown) (unknown) (no (unknown) (unknown) Carbon Dioxide 26 (units (unknown) date) (22-32) mmol/L unknown) (unknown) (no (unknown) (unknown) Chief Complaint: (units (unknown) date) Extremity Injury, unknown) Lower (unknown) (no (unknown) (unknown) Chloride (98-107) (units (unknown) date) mmol/L unknown) (unknown) (no (unknown) (unknown) Chloride 108 H (units (unknown) date) (98-107) mmol/L unknown) (unknown) (no (unknown) (unknown) Clinical (units (unkno wn) date) Impression: unknown) (unknown) (no (unknown) (unknown) Complete Blood (units (unknown) date) Count AUTO DIFF unknown) Stat (unknown) (no (unknown) (unknown) Comprehensive (units ( unknown) date) Metabolic Panel unknown) Stat (unknown) (no (unknown) (unknown) Course (units (unkno wn) date) unknown) (unknown) (no (unknown) (unknown) Course Narrative: (units (unknown) date) unknown) (unknown) (no (unknown) (unknown) Creatinine (units (unk nown) date) (0.52-1.04) mg/dL unknown) (unknown) (no (unknown) (unknown) Creatinine 0.55 (units (unknown) date) (0.52-1.04) mg/dL unknown) (unknown) (no (unknown) (unknown) : 1995 (units (unknown) date) Acct:[id number] unknown) (unknown) (no (unknown) (unknown) : 1995 (units (unknown) date) unknown) (unknown) (no (unknown) (unknown) Date of Service: (units (unknown) date) 02/18/22 unknown) (unknown) (no (unknown) (unknown) Departure (units (unkn own) date) unknown) (unknown) (no (unknown) (unknown) Dictated by: (units (u nknown) date) ezra Abernathy M.D. on 02/19/2022 at 0:02 ? ? (unknown) (no (unknown) (unknown) Differential (units (u nknown) date) Diagnosis unknown) (unknown) (no (unknown) (unknown) Differential (units (u nknown) date) diagnosis: Likely unknown) acute psychosis, bipolar disorder, depression, (unknown) (no (unknown) (unknown) Diphtheria/Tetanus (units (unknown) date) /Acell Pertussis unknown) (Tet,Diph,Pertuss(A cell),Vac/Pf 0.5 Ml (unknown) (no (unknown) (unknown) Discharge Plan (units (unknown) date) unknown) (unknown) (no (unknown) (unknown) Discontinued (units (u nknown) date) Medications unknown) (unknown) (no (unknown) (unknown) ENT: Mucous (units (un known) date) membranes moist. unknown) (unknown) (no (unknown) (unknown) ER Physician: (units ( unknown) date) Janki Kat D.O. unknown) (unknown) (no (unknown) (unknown) EXTREMITIES: No (units (unknown) date) gross deformities. unknown) Nontender bilateral shoulders elbows wrists (unknown) (no (unknown) (unknown) EYES: Pupils equal (units (unknown) date) round No scleral unknown) icterus. (unknown) (no (unknown) (unknown) Eos # (Auto) (units (u nknown) date) (0-450) /uL unknown) (unknown) (no (unknown) (unknown) Eos # (Auto) 0 (units (unknown) date) (0-450) /uL unknown) (unknown) (no (unknown) (unknown) Eos % (Auto) (2-4) (units (unknown) date) % unknown) (unknown) (no (unknown) (unknown) Eos % (Auto) 0.0 L (units (unknown) date) (2-4) % unknown) (unknown) (no (unknown) (unknown) Esterase (units (unkno wn) date) unknown) (unknown) (no (unknown) (unknown) Estimated GFR (units ( unknown) date) (>60) mL/min unknown) (unknown) (no (unknown) (unknown) Estimated GFR > 60 (units (unknown) date) (>60) mL/min unknown) (unknown) (no (unknown) (unknown) Ethanol (ETOH) (units (unknown) date) Stat unknown) (unknown) (no (unknown) (unknown) Ethyl Alcohol < 10 (units (unknown) date) ( - 10) mg/dL unknown) (unknown) (no (unknown) (unknown) Ethyl Alcohol ( - (units (unknown) date) 10) mg/dL unknown) (unknown) (no (unknown) (unknown) Exam (units (unkno wn) date) unknown) (unknown) (no (unknown) (unknown) Exam Narrative: (units (unknown) date) unknown) (unknown) (no (unknown) (unknown) Extremity x-ray (units (unknown) date) #1: unknown) (unknown) (no (unknown) (unknown) FINDINGS:? (units (unk nown) date) unknown) (unknown) (no (unknown) (unknown) Free T4 (units (unkno wn) date) (0.78-2.19) ng/dL unknown) (unknown) (no (unknown) (unknown) Free T4 1.23 (units (u nknown) date) (0.78-2.19) ng/dL unknown) (unknown) (no (unknown) (unknown) Free T4, Direct (units (unknown) date) Thyroxine Stat unknown) (unknown) (no (unknown) (unknown) GASTROINTESTINAL: (units (unknown) date) Abdomen soft, unknown) non-tender (unknown) (no (unknown) (unknown) GASTROINTESTINAL: (units (unknown) date) Denies nausea, unknown) vomiting, abdominal pain (unknown) (no (unknown) (unknown) GENERAL: Denies (units (unknown) date) chills, fatigue, unknown) malaise, fever, sweats. (unknown) (no (unknown) (unknown) GENERAL: in no (units (unknown) date) distress, not toxic unknown) not dyspneic (unknown) (no (unknown) (unknown) : Denies (units (unk nown) date) dysuria, frequency, unknown) hematuria (unknown) (no (unknown) (unknown) General (units (unkno wn) date) unknown) (unknown) (no (unknown) (unknown) GenericComposite[P (units (unknown) date) lt Count (150-400) unknown) X10^3/uL ] (unknown) (no (unknown) (unknown) GenericComposite[P (units (unknown) date) lt Count 242 unknown) (150-400) X10^3/uL ] (unknown) (no (unknown) (unknown) GenericComposite[R (units (unknown) date) BC (4.0-5.2) unknown) X10^6/uL ] (unknown) (no (unknown) (unknown) GenericComposite[R (units (unknown) date) BC 3.84 L (4.0-5.2) unknown) X10^6/uL ] (unknown) (no (unknown) (unknown) GenericComposite[W (units (unknown) date) BC (4.5-11.0) unknown) X10^3/uL ] (unknown) (no (unknown) (unknown) GenericComposite[W (units (unknown) date) BC 4.7 (4.5-11.0) unknown) X10^3/uL ] (unknown) (no (unknown) (unknown) Globulin (1.7-4.1) (units (unknown) date) g/dL unknown) (unknown) (no (unknown) (unknown) Globulin 2.7 (units (u nknown) date) (1.7-4.1) g/dL unknown) (unknown) (no (unknown) (unknown) Glucose (70-100) (units (unknown) date) mg/dL unknown) (unknown) (no (unknown) (unknown) Glucose 90 (units (unk nown) date) (70-100) mg/dL unknown) (unknown) (no (unknown) (unknown) HEAD: (units (unkno wn) date) Normocephalic. unknown) (unknown) (no (unknown) (unknown) HEENT: Denies (units ( unknown) date) sinus pain, ear unknown) pain, sore throat (unknown) (no (unknown) (unknown) HPI - Psych (units (un known) date) unknown) (unknown) (no (unknown) (unknown) HPI Narrative: (units (unknown) date) unknown) (unknown) (no (unknown) (unknown) Hct (36-46) % (units ( unknown) date) unknown) (unknown) (no (unknown) (unknown) Hct 32.9 L (36-46) (units (unknown) date) % unknown) (unknown) (no (unknown) (unknown) Hgb (12.0-16.0) (units (unknown) date) g/dL unknown) (unknown) (no (unknown) (unknown) Hgb 11.2 L (units (unk nown) date) (12.0-16.0) g/dL unknown) (unknown) (no (unknown) (unknown) History of Present (units (unknown) date) Illness unknown) (unknown) (no (unknown) (unknown) IMPRESSION:? (units (u nknown) date) unknown) (unknown) (no (unknown) (unknown) INDICATIONS:? (units ( unknown) date) Pain/injury/foreign unknown) body (unknown) (no (unknown) (unknown) Imaging Data (units (u nknown) date) unknown) (unknown) (no (unknown) (unknown) Initial Vital (units ( unknown) date) Signs unknown) (unknown) (no (unknown) (unknown) Initial Vital (units ( unknown) date) Signs: unknown) (unknown) (no (unknown) (unknown) Lab Data (units (unkno wn) date) unknown) (unknown) (no (unknown) (unknown) Labs: (units (unkno wn) date) unknown) (unknown) (no (unknown) (unknown) Loc: ED (units (unkno wn) date) unknown) (unknown) (no (unknown) (unknown) Lymph # (Auto) (units (unknown) date) ([id number]) /uL unknown) (unknown) (no (unknown) (unknown) Lymph # (Auto) (units (unknown) date) 1700 ([id number]) unknown) /uL (unknown) (no (unknown) (unknown) Lymph % (Auto) (units (unknown) date) (25-40) % unknown) (unknown) (no (unknown) (unknown) Lymph % (Auto) (units (unknown) date) 36.2 (25-40) % unknown) (unknown) (no (unknown) (unknown) MCH (26-34) PG (units (unknown) date) unknown) (unknown) (no (unknown) (unknown) MCH 29.0 (26-34) (units (unknown) date) PG unknown) (unknown) (no (unknown) (unknown) MCHC (30-36) % (units (unknown) date) unknown) (unknown) (no (unknown) (unknown) MCHC 34.0 (30-36) (units (unknown) date) % unknown) (unknown) (no (unknown) (unknown) MCV (80-100) fL (units (unknown) date) unknown) (unknown) (no (unknown) (unknown) MCV 85.5 (80-100) (units (unknown) date) fL unknown) (unknown) (no (unknown) (unknown) MDM - Psych (units (un known) date) unknown) (unknown) (no (unknown) (unknown) MDM Narrative (units ( unknown) date) unknown) (unknown) (no (unknown) (unknown) MR#: [id number] (units (unknown) date) unknown) (unknown) (no (unknown) (unknown) MUSCULOSKELETAL: (units (unknown) date) denies muscle or unknown) bony pain (unknown) (no (unknown) (unknown) Medical decision (units (unknown) date) making narrative: unknown) (unknown) (no (unknown) (unknown) Mild tenderness to (units (unknown) date) touch. No erythema. unknown) (unknown) (no (unknown) (unknown) [place] # (Auto) (units ( unknown) date) (0-900) /uL unknown) (unknown) (no (unknown) (unknown) [place] # (Auto) 400 (units (unknown) date) (0-900) /uL unknown) (unknown) (no (unknown) (unknown) [place] % (Auto) (units ( unknown) date) (3-14) % unknown) (unknown) (no (unknown) (unknown) [place] % (Auto) 8.8 (units (unknown) date) (3-14) % unknown) (unknown) (no (unknown) (unknown) NECK: Trachea (units ( unknown) date) midline. unknown) (unknown) (no (unknown) (unknown) NEURO: Awake alert (units (unknown) date) oriented to self unknown) and date of , clear speech. No facial (unknown) (no (unknown) (unknown) NEUROLOGIC: Denies (units (unknown) date) weakness, numbness unknown) (unknown) (no (unknown) (unknown) Narrative (units (unkn own) date) unknown) (unknown) (no (unknown) (unknown) Narrative: (units (unk nown) date) unknown) (unknown) (no (unknown) (unknown) Neut # (Auto) (units ( unknown) date) (7999-7755) /uL unknown) (unknown) (no (unknown) (unknown) Neut # (Auto) 2600 (units (unknown) date) (0872-8943) /uL unknown) (unknown) (no (unknown) (unknown) Neut % (Auto) (units ( unknown) date) (50-75) % unknown) (unknown) (no (unknown) (unknown) Neut % (Auto) 54.5 (units (unknown) date) (50-75) % unknown) (unknown) (no (unknown) (unknown) Not combative. (units (unknown) date) unknown) (unknown) (no (unknown) (unknown) On arrival patient (units (unknown) date) denies any drug use unknown) or meth use. However she did have some (unknown) (no (unknown) (unknown) Ordered: (units (unkno wn) date) unknown) (unknown) (no (unknown) (unknown) Ordering Provider: (units (unknown) date) Jeremy Griffin MD unknown) (unknown) (no (unknown) (unknown) Orders (units (unkno wn) date) unknown) (unknown) (no (unknown) (unknown) Oxygen Delivery (units (unknown) date) Method 02/18/22 unknown) 22:21 (unknown) (no (unknown) (unknown) Oxygen Delivery (units (unknown) date) Method Room Air unknown) (unknown) (no (unknown) (unknown) PROCEDURE:? XR (units (unknown) date) FOOT RT MIN 3V unknown) (unknown) (no (unknown) (unknown) PSYCH: Is slightly (units (unknown) date) anxious, is unknown) cooperative, no SI or HI. No hallucinations. (unknown) (no (unknown) (unknown) PSYCH: No SI HI. (units (unknown) date) Denies any auditory unknown) or visual hallucinations. Is not (unknown) (no (unknown) (unknown) Patient (units (unkno wn) date) [facility]: [facility] (no (unknown) (unknown) Patient History (units (unknown) date) unknown) (unknown) (no (unknown) (unknown) Patient brought in (units (unknown) date) by ambulance from a unknown) [facility]itentiary. Police were called because (unknown) (no (unknown) (unknown) Patient signed out (units (unknown) date) to myself by Dr. mendiola) Elias. Patient has a DCR for (unknown) (no (unknown) (unknown) Patient sleeping (units (unknown) date) comfortably in no unknown) distress not agitated (unknown) (no (unknown) (unknown) Patient sleeping (units (unknown) date) very comfortably. unknown) No agitation (unknown) (no (unknown) (unknown) Patient: (units (unkno wn) date) Suzi Davis unknown) MR#: [id number] (unknown) (no (unknown) (unknown) Patient: (units (unkno wn) date) Suzi Davis unknown) (unknown) (no (unknown) (unknown) Potassium (units (unkn own) date) (3.4-5.1) mmol/L unknown) (unknown) (no (unknown) (unknown) Potassium 4.1 (units ( unknown) date) (3.4-5.1) mmol/L unknown) (unknown) (no (unknown) (unknown) Test (units (unknown) date) Results Negative unknown) (unknown) (no (unknown) (unknown) Procedure: XR foot (units (unknown) date) RT min 3V unknown) (unknown) (no (unknown) (unknown) Pulse Oximetry 100 (units (unknown) date) 02/18/22 22:21 unknown) (unknown) (no (unknown) (unknown) Pulse Oximetry 99 (units (unknown) date) unknown) (unknown) (no (unknown) (unknown) Pulse Rate 91 H (units (unknown) date) 02/18/22 22:21 unknown) (unknown) (no (unknown) (unknown) Pulse Rate 61 (units ( unknown) date) unknown) (unknown) (no (unknown) (unknown) RDW (11.6-14.8) % (units (unknown) date) unknown) (unknown) (no (unknown) (unknown) RDW 14.9 H (units (unk nown) date) (11.6-14.8) % unknown) (unknown) (no (unknown) (unknown) RESPIRATORY: Clear (units (unknown) date) to auscultation. unknown) Breath sounds equal bilaterally. No wheezes, (unknown) (no (unknown) (unknown) RESPIRATORY: (units (u nknown) date) Denies dyspnea, unknown) cough (unknown) (no (unknown) (unknown) ROS Unobtainable: (units (unknown) date) All systems unknown) reviewed + are unremarkable except as noted in HPI (unknown) (no (unknown) (unknown) Reevaluation #1: (units (unknown) date) unknown) (unknown) (no (unknown) (unknown) Reevaluation #2: (units (unknown) date) unknown) (unknown) (no (unknown) (unknown) Reevaluation(s) (units (unknown) date) unknown) (unknown) (no (unknown) (unknown) Related Data (units (u nknown) date) unknown) (unknown) (no (unknown) (unknown) Respiratory Rate (units (unknown) date) 16 unknown) (unknown) (no (unknown) (unknown) Result diagrams: (units (unknown) date) unknown) (unknown) (no (unknown) (unknown) Review of Systems (units (unknown) date) unknown) (unknown) (no (unknown) (unknown) SARS-CoV-2 (PCR) (units (unknown) date) (Negative) unknown) (unknown) (no (unknown) (unknown) SARS-CoV-2 (PCR) (units (unknown) date) Negative (Negative) unknown) (unknown) (no (unknown) (unknown) SKIN: Warm and dry (units (unknown) date) unknown) (unknown) (no (unknown) (unknown) SKIN: Denies rash, (units (unknown) date) skin lesions, unknown) positive skin injury (unknown) (no (unknown) (unknown) Salicylate Stat (units (unknown) date) unknown) (unknown) (no (unknown) (unknown) Salicylates (<20) (units (unknown) date) mg/dL unknown) (unknown) (no (unknown) (unknown) Salicylates < 1.0 (units (unknown) date) (<20) mg/dL unknown) (unknown) (no (unknown) (unknown) Signed By: (units (unk nown) date) unknown) (unknown) (no (unknown) (unknown) Smoking Status: (units (unknown) date) Current every day unknown) smoker (unknown) (no (unknown) (unknown) Social History (units (unknown) date) (Reviewed 02/18/22 unknown) @ 22:18 by Jeremy Griffin MD) (unknown) (no (unknown) (unknown) Sodium (137-145) (units (unknown) date) mmol/L unknown) (unknown) (no (unknown) (unknown) Sodium 138 (units (unk nown) date) (137-145) mmol/L unknown) (unknown) (no (unknown) (unknown) Soft tissues:? No (units (unknown) date) radiopaque foreign unknown) bodies. (unknown) (no (unknown) (unknown) Stated Complaint: (units (unknown) date) psych unknown) (unknown) (no (unknown) (unknown) Sulfa (Sulfonamide (units (unknown) date) Allergy Verified unknown) 02/18/22 22:55 (unknown) (no (unknown) (unknown) Syringe) 0.5 ml IM (units (unknown) date) .ONCE ONE unknown) (unknown) (no (unknown) (unknown) TECHNIQUE:? 3 (units ( unknown) date) views of the foot unknown) were acquired.? (unknown) (no (unknown) (unknown) TSH (0.47-4.68) (units (unknown) date) uIU/mL unknown) (unknown) (no (unknown) (unknown) TSH 0.402 L (units (un known) date) (0.47-4.68) uIU/mL unknown) (unknown) (no (unknown) (unknown) Temperature 97.6 F (units (unknown) date) 02/18/22 22:21 unknown) (unknown) (no (unknown) (unknown) Thyroid (units (unkno wn) date) Stimulating Hormone unknown) Stat (unknown) (no (unknown) (unknown) Time Seen by (units (u nknown) date) Provider: 02/18/22 unknown) 22:12 (unknown) (no (unknown) (unknown) Time: 01:35 (units (un known) date) unknown) (unknown) (no (unknown) (unknown) Time: 06:08 (units (un known) date) unknown) (unknown) (no (unknown) (unknown) Total Bilirubin (units (unknown) date) (0.2-1.3) mg/dL unknown) (unknown) (no (unknown) (unknown) Total Bilirubin (units (unknown) date) 0.5 (0.2-1.3) mg/dL unknown) (unknown) (no (unknown) (unknown) Total Protein (units ( unknown) date) (6.3-8.2) g/dL unknown) (unknown) (no (unknown) (unknown) Total Protein 6.5 (units (unknown) date) (6.3-8.2) g/dL unknown) (unknown) (no (unknown) (unknown) U Benzodiazepines (units (unknown) date) Scrn (Negative) unknown) (unknown) (no (unknown) (unknown) U Benzodiazepines (units (unknown) date) Scrn Negative unknown) (Negative) (unknown) (no (unknown) (unknown) U Marijuana (THC) (units (unknown) date) Screen (Negative) unknown) (unknown) (no (unknown) (unknown) U Marijuana (THC) (units (unknown) date) Screen Negative unknown) (Negative) (unknown) (no (unknown) (unknown) U Methamphetamines (units (unknown) date) Scrn (Negative) unknown) (unknown) (no (unknown) (unknown) U Methamphetamines (units (unknown) date) Scrn Positive H unknown) (Negative) (unknown) (no (unknown) (unknown) U Opiates 300ng/mL (units (unknown) date) cut (Negative) unknown) (unknown) (no (unknown) (unknown) U Opiates 300ng/mL (units (unknown) date) cut Negative unknown) (Negative) (unknown) (no (unknown) (unknown) U Tricyclic (units (un known) date) Antidepress unknown) (Negative) (unknown) (no (unknown) (unknown) U Tricyclic (units (un known) date) Antidepress unknown) Negative (Negative) (unknown) (no (unknown) (unknown) Ur Amphetamines (units (unknown) date) Screen (Negative) unknown) (unknown) (no (unknown) (unknown) Ur Amphetamines (units (unknown) date) Screen Positive H unknown) (Negative) (unknown) (no (unknown) (unknown) Ur Barbiturates (units (unknown) date) Screen (Negative) unknown) (unknown) (no (unknown) (unknown) Ur Barbiturates (units (unknown) date) Screen Negative unknown) (Negative) (unknown) (no (unknown) (unknown) Ur Culture (units (unk nown) date) Indicated? unknown) (unknown) (no (unknown) (unknown) Ur Culture (units (unk nown) date) Indicated? Cult not unknown) indicated (unknown) (no (unknown) (unknown) Ur MDMA Scrn (units (u nknown) date) (Ecstasy) unknown) (Negative) (unknown) (no (unknown) (unknown) Ur MDMA Scrn (units (u nknown) date) (Ecstasy) Negative unknown) (Negative) (unknown) (no (unknown) (unknown) Ur Oxycodone (units (u nknown) date) Screen (Negative) unknown) (unknown) (no (unknown) (unknown) Ur Oxycodone (units (u nknown) date) Screen Negative unknown) (Negative) (unknown) (no (unknown) (unknown) Ur Phencyclidine (units (unknown) date) Scrn (Negative) unknown) (unknown) (no (unknown) (unknown) Ur Phencyclidine (units (unknown) date) Scrn Negative unknown) (Negative) (unknown) (no (unknown) (unknown) Ur Squamous Epith (units (unknown) date) Cells (0-5/HPF) unknown) (unknown) (no (unknown) (unknown) Ur Squamous Epith (units (unknown) date) Cells 5-10 /hpf H unknown) (0-5/HPF) (unknown) (no (unknown) (unknown) Urine Bacteria (units (unknown) date) (None) unknown) (unknown) (no (unknown) (unknown) Urine Bacteria (units (unknown) date) Many (>30) H (None) unknown) (unknown) (no (unknown) (unknown) Urine Cocaine (units ( unknown) date) Screen (Negative) unknown) (unknown) (no (unknown) (unknown) Urine Cocaine (units ( unknown) date) Screen Negative unknown) (Negative) (unknown) (no (unknown) (unknown) Urine Drug Screen, (units (unknown) date) Rapid Stat unknown) (unknown) (no (unknown) (unknown) Urine Methadone (units (unknown) date) Screen (Negative) unknown) (unknown) (no (unknown) (unknown) Urine Methadone (units (unknown) date) Screen Negative unknown) (Negative) (unknown) (no (unknown) (unknown) Urine Microscopic (units (unknown) date) Stat unknown) (unknown) (no (unknown) (unknown) Urine Mucus (units (un known) date) (Negative) unknown) (unknown) (no (unknown) (unknown) Urine Mucus 2+ H (units (unknown) date) (Negative) unknown) (unknown) (no (unknown) (unknown) Urine RBC (units (unkn own) date) (0-5/HPF) unknown) (unknown) (no (unknown) (unknown) Urine RBC 0-1/hpf (units (unknown) date) (0-5/HPF) unknown) (unknown) (no (unknown) (unknown) Urine Specific (units (unknown) date) [place] 1.030 unknown) (unknown) (no (unknown) (unknown) Urine WBC (units (unkn own) date) (0-5/HPF) unknown) (unknown) (no (unknown) (unknown) Urine WBC 5-10/hpf (units (unknown) date) H (0-5/HPF) unknown) (unknown) (no (unknown) (unknown) Vital Signs (units (un known) date) unknown) (unknown) (no (unknown) (unknown) Vital signs: (units (u nknown) date) unknown) (unknown) (no (unknown) (unknown) [Embedded Image (units (unknown) date) Not Available] unknown) (unknown) (no (unknown) (unknown) agent listed. We (units (unknown) date) are calling this unknown) contact center professional for more information. Patient (unknown) (no (unknown) (unknown) and below (units (unkn own) date) unknown) (unknown) (no (unknown) (unknown) combative. Is (units ( unknown) date) cooperative. unknown) (unknown) (no (unknown) (unknown) droop. 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 Denied any SI or HI. During course of (unknown) (no (unknown) (unknown) evaluate when she (units (unknown) date) is rested and more unknown) alert for questioning (unknown) (no (unknown) (unknown) evaluate when she (units (unknown) date) is rested and more unknown) alert for questioning. (unknown) (no (unknown) (unknown) has no medical (units (unknown) date) records in our unknown) system. Patient denies any pain. No recent (unknown) (no (unknown) (unknown) her very well. She (units (unknown) date) is usually very unknown) agitated because she does meth, no known (unknown) (no (unknown) (unknown) illness. (units (unkno wn) date) unknown) (unknown) (no (unknown) (unknown) instructions. Is (units (unknown) date) compliant at this unknown) time. Patient arrives with a DCR form with (unknown) (no (unknown) (unknown) lateral sole of (units (unknown) date) the foot. No unknown) discharge. Nontender. No visible foreign body. (unknown) (no (unknown) (unknown) night she has been (units (unknown) date) sleeping. Would be unknown) appropriate to re-questioned and re- (unknown) (no (unknown) (unknown) other substances. (units (unknown) date) No alcohol. She is unknown) known in the community. She called the (unknown) (no (unknown) (unknown) overnight. No new (units (unknown) date) issues. Awaiting unknown) for social work evaluation. However (unknown) (no (unknown) (unknown) patient denied any (units (unknown) date) drug use but at unknown) this time overnight patient has been (unknown) (no (unknown) (unknown) patient was being (units (unknown) date) disruptive at the unknown) penitentiary. JUAN CARLOS was placed by police and EMS (unknown) (no (unknown) (unknown) pelvis hips knees (units (unknown) date) and ankles. Small unknown) punctate skin puncture at the right distal (unknown) (no (unknown) (unknown) rales, or rhonchi. (units (unknown) date) unknown) (unknown) (no (unknown) (unknown) same EMS personnel (units (unknown) date) today for a right unknown) foot injury but then refused treatment. At (unknown) (no (unknown) (unknown) sleeping. May need (units (unknown) date) to re-evaluate when unknown) more alert (unknown) (no (unknown) (unknown) smokes meth, does (units (unknown) date) not inject. She unknown) denies any SI or HI. Patient is following (unknown) (no (unknown) (unknown) this time she is (units (unknown) date) cooperative. She unknown) states she denies taking meth today. She (unknown) (no (unknown) (unknown) was called. EMS (units (unknown) date) state law unknown) enforcement left and they were instructed to go to (unknown) (no (unknown) (unknown) [facility] (units (unknown) date) [facility]. However unknown) they are on EMS divert. EMS state they know Result panel 15 (unknown) (no (unknown) (unknown) (no value) (units (unk nown) date) unknown) (unknown) (no (unknown) (unknown) Radiologist's (units ( unknown) date) Impression: unknown) (unknown) (no (unknown) (unknown) Date of Service: (units (unknown) date) 02/18/22 unknown) (unknown) (no (unknown) (unknown) (no value) (units (unk nown) date) unknown) (unknown) (no (unknown) (unknown) 02/19/22 11:25 (units (unknown) date) unknown) (unknown) (no (unknown) (unknown) [address] (units (unknown) date) unknown) (unknown) (no (unknown) (unknown) Allergies (units (unkn own) date) unknown) (unknown) (no (unknown) (unknown) [place] (units ( unknown) date) [id number] unknown) (unknown) (no (unknown) (unknown) Documented By: DKB (units (unknown) date) unknown) (unknown) (no (unknown) (unknown) ED Orders (units (unkn own) date) unknown) (unknown) (no (unknown) (unknown) Emergency Report (units (unknown) date) unknown) (unknown) (no (unknown) (unknown) [facility] (units (unknown) date) unknown) (unknown) (no (unknown) (unknown) [facility] (units (unknown) date) [address] unknown) [place] [id number] (unknown) (no (unknown) (unknown) Lab Results (units (un known) date) unknown) (unknown) (no (unknown) (unknown) Last Admin: (units (un known) date) 02/18/22 22:54 unknown) Dose: 0.5 ml (unknown) (no (unknown) (unknown) Point of Care (units ( unknown) date) Testing unknown) (unknown) (no (unknown) (unknown) Signed (units (unkno wn) date) unknown) (unknown) (no (unknown) (unknown) Stop: 02/18/22 (units (unknown) date) 22:14 unknown) (unknown) (no (unknown) (unknown) Urine Dip (units (unkn own) date) unknown) (unknown) (no (unknown) (unknown) Vital Signs - 8 hr (units (unknown) date) unknown) (unknown) (no (unknown) (unknown) XRay Report (units (un known) date) unknown) (unknown) (no (unknown) (unknown) (no value) (units (unk nown) date) unknown) (unknown) (no (unknown) (unknown) 02/19/22 02/19/22 (units (unknown) date) 02/19/22 unknown) Range/Units (unknown) (no (unknown) (unknown) 10:10 11:25 11:25 (units (unknown) date) unknown) (unknown) (no (unknown) (unknown) 11:25 12:59 13:08 (units (unknown) date) unknown) (unknown) (no (unknown) (unknown) 02/19/22 (units (unkno wn) date) unknown) (unknown) (no (unknown) (unknown) Psychosis (units (unkn own) date) unknown) (unknown) (no (unknown) (unknown) a bed that has (units (unknown) date) been found and is unknown) being transferred this afternoon. Throughout (unknown) (no (unknown) (unknown) they were given (units (unknown) date) the paperwork. We unknown) attempted to reach contact the DCR as (unknown) (no (unknown) (unknown) <Jeremy Griffin (units (unknown) date) - Last Filed: unknown) 02/19/22 06:08> (unknown) (no (unknown) (unknown) <Janki Kat DO (units (unknown) date) - Last Filed: unknown) 02/19/22 17:04> (unknown) (no (unknown) (unknown) [id number] (units (unkno wn) date) unknown) (unknown) (no (unknown) (unknown) 02/19/22 10:10 (units (unknown) date) unknown) (unknown) (no (unknown) (unknown) 02/19/22 11:25 (units (unknown) date) unknown) (unknown) (no (unknown) (unknown) 02/19/22 12:59 (units (unknown) date) unknown) (unknown) (no (unknown) (unknown) 02/19/22 13:08 (units (unknown) date) unknown) (unknown) (no (unknown) (unknown) 1. No fractures or (units (unknown) date) radiopaque foreign unknown) bodies.? (unknown) (no (unknown) (unknown) 16:57 (units (unkno wn) date) unknown) (unknown) (no (unknown) (unknown) ? (units (unkno wn) date) unknown) (unknown) (no (unknown) (unknown) ALT (<35) IU/L (units (unknown) date) unknown) (unknown) (no (unknown) (unknown) ALT 24 (<35) IU/L (units (unknown) date) unknown) (unknown) (no (unknown) (unknown) AST (14-36) IU/L (units (unknown) date) unknown) (unknown) (no (unknown) (unknown) AST 30 (14-36) (units (unknown) date) IU/L unknown) (unknown) (no (unknown) (unknown) Accession Number: (units (unknown) date) [id number] ?? unknown) (unknown) (no (unknown) (unknown) Acct:[id number] (units (unknown) date) unknown) (unknown) (no (unknown) (unknown) Acetaminophen (units ( unknown) date) (10-30) ug/mL unknown) (unknown) (no (unknown) (unknown) Acetaminophen < 10 (units (unknown) date) (10-30) ug/mL unknown) (unknown) (no (unknown) (unknown) Acetaminophen Stat (units (unknown) date) unknown) (unknown) (no (unknown) (unknown) Age/Sex: 26 / F (units (unknown) date) unknown) (unknown) (no (unknown) (unknown) Age/Sex: 26 / F (units (unknown) date) unknown) (unknown) (no (unknown) (unknown) Albumin (3.5-5.0) (units (unknown) date) g/dL unknown) (unknown) (no (unknown) (unknown) Albumin 3.8 (units (un known) date) (3.5-5.0) g/dL unknown) (unknown) (no (unknown) (unknown) Albumin/Globulin (units (unknown) date) Ratio (1.0-2.8) unknown) (unknown) (no (unknown) (unknown) Albumin/Globulin (units (unknown) date) Ratio 1.4 (1.0-2.8) unknown) (unknown) (no (unknown) (unknown) Alkaline (units (unkno wn) date) Phosphatase unknown) (38-126) U/L (unknown) (no (unknown) (unknown) Alkaline (units (unkno wn) date) Phosphatase 51 unknown) (38-126) U/L (unknown) (no (unknown) (unknown) Allergy/AdvReac (units (unknown) date) Type Severity unknown) Reaction Status Date / Time (unknown) (no (unknown) (unknown) Antibiotics) (units (u nknown) date) unknown) (unknown) (no (unknown) (unknown) Approved by: (units (u nknown) date) Pepito Root unknownFelix Gillis on 02/19/2022 at 0:03 ? (unknown) (no (unknown) (unknown) February 19, 2022 at (units (unknown) date) 7:00 a.m.. Sign out unknown) to Dr. Kat patient has been cooperative (unknown) (no (unknown) (unknown) BACK: No flank (units (unknown) date) tenderness. unknown) (unknown) (no (unknown) (unknown) BUN (7-17) mg/dL (units (unknown) date) unknown) (unknown) (no (unknown) (unknown) BUN 10 (7-17) (units ( unknown) date) mg/dL unknown) (unknown) (no (unknown) (unknown) BUN/Creatinine (units (unknown) date) Ratio (6-22) unknown) (unknown) (no (unknown) (unknown) BUN/Creatinine (units (unknown) date) Ratio 18.2 (6-22) unknown) (unknown) (no (unknown) (unknown) Baso # (Auto) (units ( unknown) date) (0-100) /uL unknown) (unknown) (no (unknown) (unknown) Baso # (Auto) 0 (units (unknown) date) (0-100) /uL unknown) (unknown) (no (unknown) (unknown) Baso % (Auto) (units ( unknown) date) (0-2) % unknown) (unknown) (no (unknown) (unknown) Baso % (Auto) 0.5 (units (unknown) date) (0-2) % unknown) (unknown) (no (unknown) (unknown) Bedside Urine (units ( unknown) date) Bilirubin - unknown) Negative (unknown) (no (unknown) (unknown) Bedside Urine (units ( unknown) date) Glucose Negative unknown) (unknown) (no (unknown) (unknown) Bedside Urine (units ( unknown) date) Ketone - Negative unknown) (unknown) (no (unknown) (unknown) Bedside Urine (units ( unknown) date) Leukocytes - unknown) Negative (unknown) (no (unknown) (unknown) Bedside Urine (units ( unknown) date) Nitrite - Negative unknown) (unknown) (no (unknown) (unknown) Bedside Urine (units ( unknown) date) Occult Blood - unknown) Negative (unknown) (no (unknown) (unknown) Bedside Urine (units ( unknown) date) Protein - Negative unknown) (unknown) (no (unknown) (unknown) Bedside Urine (units ( unknown) date) Urobilinogen +/- unknown) 1mg (unknown) (no (unknown) (unknown) Bedside Urine pH (units (unknown) date) 6.0 unknown) (unknown) (no (unknown) (unknown) Blood Pressure (units (unknown) date) 109/75 02/18/22 unknown) 22:21 (unknown) (no (unknown) (unknown) Blood Pressure (units (unknown) date) 118/55 L unknown) (unknown) (no (unknown) (unknown) Bones:? No (units (unk nown) date) fractures or unknown) dislocations.? No suspicious bony lesions.? (unknown) (no (unknown) (unknown) CARDIOVASCULAR: (units (unknown) date) Denies chest pain, unknown) palpitations (unknown) (no (unknown) (unknown) CARDIOVASCULAR: (units (unknown) date) Regular rate and unknown) rhythm without murmurs (unknown) (no (unknown) (unknown) COMPARISON:? None. (units (unknown) date) unknown) (unknown) (no (unknown) (unknown) COVID19 -Nasal (units (unknown) date) RAPID/Pre-Proc Stat unknown) (unknown) (no (unknown) (unknown) Calcium (8.4-10.2) (units (unknown) date) mg/dL unknown) (unknown) (no (unknown) (unknown) Calcium 8.3 L (units ( unknown) date) (8.4-10.2) mg/dL unknown) (unknown) (no (unknown) (unknown) Carbon Dioxide (units (unknown) date) (22-32) mmol/L unknown) (unknown) (no (unknown) (unknown) Carbon Dioxide 26 (units (unknown) date) (22-32) mmol/L unknown) (unknown) (no (unknown) (unknown) Chief Complaint: (units (unknown) date) Extremity Injury, unknown) Lower (unknown) (no (unknown) (unknown) Chloride (98-107) (units (unknown) date) mmol/L unknown) (unknown) (no (unknown) (unknown) Chloride 108 H (units (unknown) date) (98-107) mmol/L unknown) (unknown) (no (unknown) (unknown) Clinical (units (unkno wn) date) Impression: unknown) (unknown) (no (unknown) (unknown) Complete Blood (units (unknown) date) Count AUTO DIFF unknown) Stat (unknown) (no (unknown) (unknown) Comprehensive (units ( unknown) date) Metabolic Panel unknown) Stat (unknown) (no (unknown) (unknown) Course (units (unkno wn) date) unknown) (unknown) (no (unknown) (unknown) Course Narrative: (units (unknown) date) unknown) (unknown) (no (unknown) (unknown) Creatinine (units (unk nown) date) (0.52-1.04) mg/dL unknown) (unknown) (no (unknown) (unknown) Creatinine 0.55 (units (unknown) date) (0.52-1.04) mg/dL unknown) (unknown) (no (unknown) (unknown) : 1995 (units (unknown) date) Acct:[id number] unknown) (unknown) (no (unknown) (unknown) : 1995 (units (unknown) date) unknown) (unknown) (no (unknown) (unknown) Date of Service: (units (unknown) date) 02/18/22 unknown) (unknown) (no (unknown) (unknown) Departure (units (unkn own) date) unknown) (unknown) (no (unknown) (unknown) Dictated by: (units (u nknown) date) ezra Abernathy M.D. on 02/19/2022 at 0:02 ? ? (unknown) (no (unknown) (unknown) Differential (units (u nknown) date) Diagnosis unknown) (unknown) (no (unknown) (unknown) Differential (units (u nknown) date) diagnosis: Likely unknown) acute psychosis, bipolar disorder, depression, (unknown) (no (unknown) (unknown) Diphtheria/Tetanus (units (unknown) date) /Acell Pertussis unknown) (Tet,Diph,Pertuss(A cell),Vac/Pf 0.5 Ml (unknown) (no (unknown) (unknown) Discharge Plan (units (unknown) date) unknown) (unknown) (no (unknown) (unknown) Discontinued (units (u nknown) date) Medications unknown) (unknown) (no (unknown) (unknown) ENT: Mucous (units (un known) date) membranes moist. unknown) (unknown) (no (unknown) (unknown) ER Physician: (units ( unknown) date) Janki Kat D.O. unknown) (unknown) (no (unknown) (unknown) EXTREMITIES: No (units (unknown) date) gross deformities. unknown) Nontender bilateral shoulders elbows wrists (unknown) (no (unknown) (unknown) EYES: Pupils equal (units (unknown) date) round No scleral unknown) icterus. (unknown) (no (unknown) (unknown) Eos # (Auto) (units (u nknown) date) (0-450) /uL unknown) (unknown) (no (unknown) (unknown) Eos # (Auto) 0 (units (unknown) date) (0-450) /uL unknown) (unknown) (no (unknown) (unknown) Eos % (Auto) (2-4) (units (unknown) date) % unknown) (unknown) (no (unknown) (unknown) Eos % (Auto) 0.0 L (units (unknown) date) (2-4) % unknown) (unknown) (no (unknown) (unknown) Esterase (units (unkno wn) date) unknown) (unknown) (no (unknown) (unknown) Estimated GFR (units ( unknown) date) (>60) mL/min unknown) (unknown) (no (unknown) (unknown) Estimated GFR > 60 (units (unknown) date) (>60) mL/min unknown) (unknown) (no (unknown) (unknown) Ethanol (ETOH) (units (unknown) date) Stat unknown) (unknown) (no (unknown) (unknown) Ethyl Alcohol < 10 (units (unknown) date) ( - 10) mg/dL unknown) (unknown) (no (unknown) (unknown) Ethyl Alcohol ( - (units (unknown) date) 10) mg/dL unknown) (unknown) (no (unknown) (unknown) Exam (units (unkno wn) date) unknown) (unknown) (no (unknown) (unknown) Exam Narrative: (units (unknown) date) unknown) (unknown) (no (unknown) (unknown) Extremity x-ray (units (unknown) date) #1: unknown) (unknown) (no (unknown) (unknown) FINDINGS:? (units (unk nown) date) unknown) (unknown) (no (unknown) (unknown) Free T4 (units (unkno wn) date) (0.78-2.19) ng/dL unknown) (unknown) (no (unknown) (unknown) Free T4 1.23 (units (u nknown) date) (0.78-2.19) ng/dL unknown) (unknown) (no (unknown) (unknown) Free T4, Direct (units (unknown) date) Thyroxine Stat unknown) (unknown) (no (unknown) (unknown) GASTROINTESTINAL: (units (unknown) date) Abdomen soft, unknown) non-tender (unknown) (no (unknown) (unknown) GASTROINTESTINAL: (units (unknown) date) Denies nausea, unknown) vomiting, abdominal pain (unknown) (no (unknown) (unknown) GENERAL: Denies (units (unknown) date) chills, fatigue, unknown) malaise, fever, sweats. (unknown) (no (unknown) (unknown) GENERAL: in no (units (unknown) date) distress, not toxic unknown) not dyspneic (unknown) (no (unknown) (unknown) : Denies (units (unk nown) date) dysuria, frequency, unknown) hematuria (unknown) (no (unknown) (unknown) General (units (unkno wn) date) unknown) (unknown) (no (unknown) (unknown) GenericComposite[P (units (unknown) date) lt Count (150-400) unknown) X10^3/uL ] (unknown) (no (unknown) (unknown) GenericComposite[P (units (unknown) date) lt Count 242 unknown) (150-400) X10^3/uL ] (unknown) (no (unknown) (unknown) GenericComposite[R (units (unknown) date) BC (4.0-5.2) unknown) X10^6/uL ] (unknown) (no (unknown) (unknown) GenericComposite[R (units (unknown) date) BC 3.84 L unknown) (4.0-5.2) X10^6/uL ] (unknown) (no (unknown) (unknown) GenericComposite[W (units (unknown) date) BC (4.5-11.0) unknown) X10^3/uL ] (unknown) (no (unknown) (unknown) GenericComposite[W (units (unknown) date) BC 4.7 (4.5-11.0) unknown) X10^3/uL ] (unknown) (no (unknown) (unknown) Globulin (1.7-4.1) (units (unknown) date) g/dL unknown) (unknown) (no (unknown) (unknown) Globulin 2.7 (units (u nknown) date) (1.7-4.1) g/dL unknown) (unknown) (no (unknown) (unknown) Glucose (70-100) (units (unknown) date) mg/dL unknown) (unknown) (no (unknown) (unknown) Glucose 90 (units (unk nown) date) (70-100) mg/dL unknown) (unknown) (no (unknown) (unknown) HEAD: (units (unkno wn) date) Normocephalic. unknown) (unknown) (no (unknown) (unknown) HEENT: Denies (units ( unknown) date) sinus pain, ear unknown) pain, sore throat (unknown) (no (unknown) (unknown) HPI - Psych (units (un known) date) unknown) (unknown) (no (unknown) (unknown) HPI Narrative: (units (unknown) date) unknown) (unknown) (no (unknown) (unknown) Hct (36-46) % (units ( unknown) date) unknown) (unknown) (no (unknown) (unknown) Hct 32.9 L (36-46) (units (unknown) date) % unknown) (unknown) (no (unknown) (unknown) Hgb (12.0-16.0) (units (unknown) date) g/dL unknown) (unknown) (no (unknown) (unknown) Hgb 11.2 L (units (unk nown) date) (12.0-16.0) g/dL unknown) (unknown) (no (unknown) (unknown) History of Present (units (unknown) date) Illness unknown) (unknown) (no (unknown) (unknown) IMPRESSION:? (units (u nknown) date) unknown) (unknown) (no (unknown) (unknown) INDICATIONS:? (units ( unknown) date) Pain/injury/foreign unknown) body (unknown) (no (unknown) (unknown) Imaging Data (units (u nknown) date) unknown) (unknown) (no (unknown) (unknown) Initial Vital (units ( unknown) date) Signs unknown) (unknown) (no (unknown) (unknown) Initial Vital (units ( unknown) date) Signs: unknown) (unknown) (no (unknown) (unknown) [place] D[place] that (units (unknown) date) states that she is unknown) to be detained based on violation of a court (unknown) (no (unknown) (unknown) Angela has detained (units (unknown) date) the patient based unknown) on violation of court ordered. Patient has (unknown) (no (unknown) (unknown) Lab Data (units (unkno wn) date) unknown) (unknown) (no (unknown) (unknown) Labs: (units (unkno wn) date) unknown) (unknown) (no (unknown) (unknown) Loc: ED (units (unkno wn) date) unknown) (unknown) (no (unknown) (unknown) Lymph # (Auto) (units (unknown) date) (6104-2064) /uL unknown) (unknown) (no (unknown) (unknown) Lymph # (Auto) (units (unknown) date) 1700 (6040-9079) unknown) /uL (unknown) (no (unknown) (unknown) Lymph % (Auto) (units (unknown) date) (25-40) % unknown) (unknown) (no (unknown) (unknown) Lymph % (Auto) (units (unknown) date) 36.2 (25-40) % unknown) (unknown) (no (unknown) (unknown) MCH (26-34) PG (units (unknown) date) unknown) (unknown) (no (unknown) (unknown) MCH 29.0 (26-34) (units (unknown) date) PG unknown) (unknown) (no (unknown) (unknown) MCHC (30-36) % (units (unknown) date) unknown) (unknown) (no (unknown) (unknown) MCHC 34.0 (30-36) (units (unknown) date) % unknown) (unknown) (no (unknown) (unknown) MCV (80-100) fL (units (unknown) date) unknown) (unknown) (no (unknown) (unknown) MCV 85.5 (80-100) (units (unknown) date) fL unknown) (unknown) (no (unknown) (unknown) MDM - Psych (units (un known) date) unknown) (unknown) (no (unknown) (unknown) MDM Narrative (units ( unknown) date) unknown) (unknown) (no (unknown) (unknown) MR#: [id number] (units (unknown) date) unknown) (unknown) (no (unknown) (unknown) MUSCULOSKELETAL: (units (unknown) date) denies muscle or unknown) bony pain (unknown) (no (unknown) (unknown) Medical decision (units (unknown) date) making narrative: unknown) (unknown) (no (unknown) (unknown) Mild tenderness to (units (unknown) date) touch. No erythema. unknown) (unknown) (no (unknown) (unknown) [place] # (Auto) (units ( unknown) date) (0-900) /uL unknown) (unknown) (no (unknown) (unknown) [place] # (Auto) 400 (units (unknown) date) (0-900) /uL unknown) (unknown) (no (unknown) (unknown) [place] % (Auto) (units ( unknown) date) (3-14) % unknown) (unknown) (no (unknown) (unknown) [place] % (Auto) 8.8 (units (unknown) date) (3-14) % unknown) (unknown) (no (unknown) (unknown) NECK: Trachea (units ( unknown) date) midline. unknown) (unknown) (no (unknown) (unknown) NEURO: Awake alert (units (unknown) date) oriented to self unknown) and date of , clear speech. No facial (unknown) (no (unknown) (unknown) NEUROLOGIC: Denies (units (unknown) date) weakness, numbness unknown) (unknown) (no (unknown) (unknown) Narrative (units (unkn own) date) unknown) (unknown) (no (unknown) (unknown) Narrative: (units (unk nown) date) unknown) (unknown) (no (unknown) (unknown) Neut # (Auto) (units ( unknown) date) (9673-4089) /uL unknown) (unknown) (no (unknown) (unknown) Neut # (Auto) 2600 (units (unknown) date) (4172-9080) /uL unknown) (unknown) (no (unknown) (unknown) Neut % (Auto) (units ( unknown) date) (50-75) % unknown) (unknown) (no (unknown) (unknown) Neut % (Auto) 54.5 (units (unknown) date) (50-75) % unknown) (unknown) (no (unknown) (unknown) Not combative. (units (unknown) date) unknown) (unknown) (no (unknown) (unknown) On arrival patient (units (unknown) date) denies any drug use unknown) or meth use. However she did have some (unknown) (no (unknown) (unknown) Ordered: (units (unkno wn) date) unknown) (unknown) (no (unknown) (unknown) Ordering Provider: (units (unknown) date) Jeremy Griffin MD unknown) (unknown) (no (unknown) (unknown) Orders (units (unkno wn) date) unknown) (unknown) (no (unknown) (unknown) Oxygen Delivery (units (unknown) date) Method 02/18/22 unknown) 22:21 (unknown) (no (unknown) (unknown) Oxygen Delivery (units (unknown) date) Method Room Air unknown) (unknown) (no (unknown) (unknown) PROCEDURE:? XR (units (unknown) date) FOOT RT MIN 3V unknown) (unknown) (no (unknown) (unknown) PSYCH: Is slightly (units (unknown) date) anxious, is unknown) cooperative, no SI or HI. No hallucinations. (unknown) (no (unknown) (unknown) PSYCH: No SI HI. (units (unknown) date) Denies any auditory unknown) or visual hallucinations. Is not (unknown) (no (unknown) (unknown) Patient (units (unkno wn) date) Disposition: [facility]fer [facility] (no (unknown) (unknown) Patient History (units (unknown) date) unknown) (unknown) (no (unknown) (unknown) Patient brought in (units (unknown) date) by ambulance [facility] a unknown[facility]. Police were called because (unknown) (no (unknown) (unknown) Patient signed out (units (unknown) date) to myself by Dr. mendiola) Elias. [facility] (no (unknown) (unknown) Patient sleeping (units (unknown) date) comfortably in no unknown) distress not agitated (unknown) (no (unknown) (unknown) Patient sleeping (units (unknown) date) very comfortably. unknown) No agitation (unknown) (no (unknown) (unknown) Patient: (units (unkno wn) date) Suzi Davis unknown) MR#: [id number] (unknown) (no (unknown) (unknown) Patient: (units (unkno wn) date) Suzi Davis unknown) (unknown) (no (unknown) (unknown) Potassium (units (unkn own) date) (3.4-5.1) mmol/L unknown) (unknown) (no (unknown) (unknown) Potassium 4.1 (units ( unknown) date) (3.4-5.1) mmol/L unknown) (unknown) (no (unknown) (unknown) Test (units (unknown) date) Results Negative unknown) (unknown) (no (unknown) (unknown) Procedure: XR foot (units (unknown) date) RT min 3V unknown) (unknown) (no (unknown) (unknown) Pulse Oximetry 100 (units (unknown) date) 02/18/22 22:21 unknown) (unknown) (no (unknown) (unknown) Pulse Oximetry 98 (units (unknown) date) unknown) (unknown) (no (unknown) (unknown) Pulse Rate 91 H (units (unknown) date) 02/18/22 22:21 unknown) (unknown) (no (unknown) (unknown) Pulse Rate 75 (units ( unknown) date) unknown) (unknown) (no (unknown) (unknown) RDW (11.6-14.8) % (units (unknown) date) unknown) (unknown) (no (unknown) (unknown) RDW 14.9 H (units (unk nown) date) (11.6-14.8) % unknown) (unknown) (no (unknown) (unknown) RESPIRATORY: Clear (units (unknown) date) to auscultation. unknown) Breath sounds equal bilaterally. No wheezes, (unknown) (no (unknown) (unknown) RESPIRATORY: (units (u nknown) date) Denies dyspnea, unknown) cough (unknown) (no (unknown) (unknown) ROS Unobtainable: (units (unknown) date) All systems unknown) reviewed + are unremarkable except as noted in HPI (unknown) (no (unknown) (unknown) Reevaluation #1: (units (unknown) date) unknown) (unknown) (no (unknown) (unknown) Reevaluation #2: (units (unknown) date) unknown) (unknown) (no (unknown) (unknown) Reevaluation(s) (units (unknown) date) unknown) (unknown) (no (unknown) (unknown) Related Data (units (u nknown) date) unknown) (unknown) (no (unknown) (unknown) Respiratory Rate (units (unknown) date) 18 unknown) (unknown) (no (unknown) (unknown) Result diagrams: (units (unknown) date) unknown) (unknown) (no (unknown) (unknown) Review of Systems (units (unknown) date) unknown) (unknown) (no (unknown) (unknown) SARS-CoV-2 (PCR) (units (unknown) date) (Negative) unknown) (unknown) (no (unknown) (unknown) SARS-CoV-2 (PCR) (units (unknown) date) Negative (Negative) unknown) (unknown) (no (unknown) (unknown) SKIN: Warm and dry (units (unknown) date) unknown) (unknown) (no (unknown) (unknown) SKIN: Denies rash, (units (unknown) date) skin lesions, unknown) positive skin injury (unknown) (no (unknown) (unknown) Salicylate Stat (units (unknown) date) unknown) (unknown) (no (unknown) (unknown) Salicylates (<20) (units (unknown) date) mg/dL unknown) (unknown) (no (unknown) (unknown) Salicylates < 1.0 (units (unknown) date) (<20) mg/dL unknown) (unknown) (no (unknown) (unknown) Signed By: (units (unk nown) date) unknown) (unknown) (no (unknown) (unknown) Smoking Status: (units (unknown) date) Current every day unknown) smoker (unknown) (no (unknown) (unknown) Social History (units (unknown) date) (Reviewed 02/18/22 unknown) @ 22:18 by Jeremy Griffin MD) (unknown) (no (unknown) (unknown) Sodium (137-145) (units (unknown) date) mmol/L unknown) (unknown) (no (unknown) (unknown) Sodium 138 (units (unk nown) date) (137-145) mmol/L unknown) (unknown) (no (unknown) (unknown) Soft tissues:? No (units (unknown) date) radiopaque foreign unknown) bodies. (unknown) (no (unknown) (unknown) Stated Complaint: (units (unknown) date) psych unknown) (unknown) (no (unknown) (unknown) Sulfa (Sulfonamide (units (unknown) date) Allergy Verified unknown) 02/18/22 22:55 (unknown) (no (unknown) (unknown) Syringe) 0.5 ml IM (units (unknown) date) .ONCE ONE unknown) (unknown) (no (unknown) (unknown) TECHNIQUE:? 3 (units ( unknown) date) views of the foot unknown) were acquired.? (unknown) (no (unknown) (unknown) TSH (0.47-4.68) (units (unknown) date) uIU/mL unknown) (unknown) (no (unknown) (unknown) TSH 0.402 L (units (un known) date) (0.47-4.68) uIU/mL unknown) (unknown) (no (unknown) (unknown) Temperature 97.6 F (units (unknown) date) 02/18/22 22:21 unknown) (unknown) (no (unknown) (unknown) Temperature 99 F (units (unknown) date) unknown) (unknown) (no (unknown) (unknown) Thyroid (units (unkno wn) date) Stimulating Hormone unknown) Stat (unknown) (no (unknown) (unknown) Time Seen by (units (u nknown) date) Provider: 02/18/22 unknown) 22:12 (unknown) (no (unknown) (unknown) Time: 01:35 (units (un known) date) unknown) (unknown) (no (unknown) (unknown) Time: 06:08 (units (un known) date) unknown) (unknown) (no (unknown) (unknown) Total Bilirubin (units (unknown) date) (0.2-1.3) mg/dL unknown) (unknown) (no (unknown) (unknown) Total Bilirubin (units (unknown) date) 0.5 (0.2-1.3) mg/dL unknown) (unknown) (no (unknown) (unknown) Total Protein (units ( unknown) date) (6.3-8.2) g/dL unknown) (unknown) (no (unknown) (unknown) Total Protein 6.5 (units (unknown) date) (6.3-8.2) g/dL unknown) (unknown) (no (unknown) (unknown) U Benzodiazepines (units (unknown) date) Scrn (Negative) unknown) (unknown) (no (unknown) (unknown) U Benzodiazepines (units (unknown) date) Scrn Negative unknown) (Negative) (unknown) (no (unknown) (unknown) U Marijuana (THC) (units (unknown) date) Screen (Negative) unknown) (unknown) (no (unknown) (unknown) U Marijuana (THC) (units (unknown) date) Screen Negative unknown) (Negative) (unknown) (no (unknown) (unknown) U Methamphetamines (units (unknown) date) Scrn (Negative) unknown) (unknown) (no (unknown) (unknown) U Methamphetamines (units (unknown) date) Scrn Positive H unknown) (Negative) (unknown) (no (unknown) (unknown) U Opiates 300ng/mL (units (unknown) date) cut (Negative) unknown) (unknown) (no (unknown) (unknown) U Opiates 300ng/mL (units (unknown) date) cut Negative unknown) (Negative) (unknown) (no (unknown) (unknown) U Tricyclic (units (un known) date) Antidepress unknown) (Negative) (unknown) (no (unknown) (unknown) U Tricyclic (units (un known) date) Antidepress unknown) Negative (Negative) (unknown) (no (unknown) (unknown) Ur Amphetamines (units (unknown) date) Screen (Negative) unknown) (unknown) (no (unknown) (unknown) Ur Amphetamines (units (unknown) date) Screen Positive H unknown) (Negative) (unknown) (no (unknown) (unknown) Ur Barbiturates (units (unknown) date) Screen (Negative) unknown) (unknown) (no (unknown) (unknown) Ur Barbiturates (units (unknown) date) Screen Negative unknown) (Negative) (unknown) (no (unknown) (unknown) Ur Culture (units (unk nown) date) Indicated? unknown) (unknown) (no (unknown) (unknown) Ur Culture (units (unk nown) date) Indicated? Cult not unknown) indicated (unknown) (no (unknown) (unknown) Ur MDMA Scrn (units (u nknown) date) (Ecstasy) unknown) (Negative) (unknown) (no (unknown) (unknown) Ur MDMA Scrn (units (u nknown) date) (Ecstasy) Negative unknown) (Negative) (unknown) (no (unknown) (unknown) Ur Oxycodone (units (u nknown) date) Screen (Negative) unknown) (unknown) (no (unknown) (unknown) Ur Oxycodone (units (u nknown) date) Screen Negative unknown) (Negative) (unknown) (no (unknown) (unknown) Ur Phencyclidine (units (unknown) date) Scrn (Negative) unknown) (unknown) (no (unknown) (unknown) Ur Phencyclidine (units (unknown) date) Scrn Negative unknown) (Negative) (unknown) (no (unknown) (unknown) Ur Squamous Epith (units (unknown) date) Cells (0-5/HPF) unknown) (unknown) (no (unknown) (unknown) Ur Squamous Epith (units (unknown) date) Cells 5-10 /hpf H unknown) (0-5/HPF) (unknown) (no (unknown) (unknown) Urine Bacteria (units (unknown) date) (None) unknown) (unknown) (no (unknown) (unknown) Urine Bacteria (units (unknown) date) Many (>30) H (None) unknown) (unknown) (no (unknown) (unknown) Urine Cocaine (units ( unknown) date) Screen (Negative) unknown) (unknown) (no (unknown) (unknown) Urine Cocaine (units ( unknown) date) Screen Negative unknown) (Negative) (unknown) (no (unknown) (unknown) Urine Drug Screen, (units (unknown) date) Rapid Stat unknown) (unknown) (no (unknown) (unknown) Urine Methadone (units (unknown) date) Screen (Negative) unknown) (unknown) (no (unknown) (unknown) Urine Methadone (units (unknown) date) Screen Negative unknown) (Negative) (unknown) (no (unknown) (unknown) Urine Microscopic (units (unknown) date) Stat unknown) (unknown) (no (unknown) (unknown) Urine Mucus (units (un known) date) (Negative) unknown) (unknown) (no (unknown) (unknown) Urine Mucus 2+ H (units (unknown) date) (Negative) unknown) (unknown) (no (unknown) (unknown) Urine RBC (units (unkn own) date) (0-5/HPF) unknown) (unknown) (no (unknown) (unknown) Urine RBC 0-1/hpf (units (unknown) date) (0-5/HPF) unknown) (unknown) (no (unknown) (unknown) Urine Specific (units (unknown) date) [place] 1.030 unknown) (unknown) (no (unknown) (unknown) Urine WBC (units (unkn own) date) (0-5/HPF) unknown) (unknown) (no (unknown) (unknown) Urine WBC 5-10/hpf (units (unknown) date) H (0-5/HPF) unknown) (unknown) (no (unknown) (unknown) Vital Signs (units (un known) date) unknown) (unknown) (no (unknown) (unknown) Vital signs: (units (u nknown) date) unknown) (unknown) (no (unknown) (unknown) [Embedded Image (units (unknown) date) Not Available] unknown) (unknown) (no (unknown) (unknown) agent listed. We (units (unknown) date) are calling this unknown) contact center professional for more information. Patient (unknown) (no (unknown) (unknown) and below (units (unkn own) date) unknown) (unknown) (no (unknown) (unknown) combative. Is (units ( unknown) date) cooperative. unknown) (unknown) (no (unknown) (unknown) droop. 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 Denied any SI or HI. During course of (unknown) (no (unknown) (unknown) evaluate when she (units (unknown) date) is rested and more unknown) alert for questioning (unknown) (no (unknown) (unknown) evaluate when she (units (unknown) date) is rested and more unknown) alert for questioning. (unknown) (no (unknown) (unknown) has no medical (units (unknown) date) records in our unknown) system. Patient denies any pain. No recent (unknown) (no (unknown) (unknown) her very well. She (units (unknown) date) is usually very unknown) agitated because she does meth, no known (unknown) (no (unknown) (unknown) illness. (units (unkno wn) date) unknown) (unknown) (no (unknown) (unknown) incorrect we are (units (unknown) date) able to reach unknown) [facility], they referred us to [facility] were (unknown) (no (unknown) (unknown) information. (units (u nknown) date) Patient had been unknown) expected to go to would be Hospital according to (unknown) (no (unknown) (unknown) instructions. Is (units (unknown) date) compliant at this unknown) time. Patient arrives with a DCR form with (unknown) (no (unknown) (unknown) lateral sole of (units (unknown) date) the foot. No unknown) discharge. Nontender. No visible foreign body. (unknown) (no (unknown) (unknown) night she has been (units (unknown) date) sleeping. Would be unknown) appropriate to re-questioned and re- (unknown) (no (unknown) (unknown) order. Overnight (units (unknown) date) staff called were unknown) unable to verify this or get any additional (unknown) (no (unknown) (unknown) other substances. (units (unknown) date) No alcohol. She is unknown) known in the community. She called the (unknown) (no (unknown) (unknown) overnight they (units (unknown) date) were unsuccessful. unknown) After several tries the initial number was (unknown) (no (unknown) (unknown) overnight. No new (units (unknown) date) issues. Awaiting unknown) for social work evaluation. However (unknown) (no (unknown) (unknown) patient denied any (units (unknown) date) drug use but at unknown) this time overnight patient has been (unknown) (no (unknown) (unknown) patient was being (units (unknown) date) disruptive at the unknown[facility] JUAN CARLOS was placed by police and EMS (unknown) (no (unknown) (unknown) pelvis hips knees (units (unknown) date) and ankles. Small unknown) punctate skin puncture at the right distal (unknown) (no (unknown) (unknown) rales, or rhonchi. (units (unknown) date) unknown) (unknown) (no (unknown) (unknown) same EMS personnel (units (unknown) date) today for a right unknown) foot injury but then refused treatment. At (unknown) (no (unknown) (unknown) sleeping. May need (units (unknown) date) to re-evaluate when unknown) more alert (unknown) (no (unknown) (unknown) smokes meth, does (units (unknown) date) not inject. She unknown) denies any SI or HI. Patient is following (unknown) (no (unknown) (unknown) the day patient (units (unknown) date) has been unknown) cooperative, sedate and has been medically cleared. (unknown) (no (unknown) (unknown) the document. (units (u nknown) date) Police never came unknown) or called. EMS medics from would be state that (unknown) (no (unknown) (unknown) this time she is (units (unknown) date) cooperative. She unknown) states she denies taking meth today. She (unknown) (no (unknown) (unknown) was called. EMS (units (unknown) date) state law unknown) enforcement left and they were [facility]. However unknown) they are on EMS divert. EMS state they know Result panel 16 (unknown) (no (unknown) (unknown) (no value) (units (unk nown) date) unknown) (unknown) (no (unknown) (unknown) Radiologist's (units ( unknown) date) Impression: unknown) (unknown) (no (unknown) (unknown) Date of Service: (units (unknown) date) 02/18/22 unknown) (unknown) (no (unknown) (unknown) (no value) (units (unk nown) date) unknown) (unknown) (no (unknown) (unknown) <Electronically (units (unknown) date) signed by Janki Gerber unknown) Stuart Kat> (unknown) (no (unknown) (unknown) 02/19/22 11:25 (units (unknown) date) unknown) (unknown) (no (unknown) (unknown) 02/24/22 0405 (units ( unknown) date) unknown) (unknown) (no (unknown) (unknown) [address] [place] [address] (units (unknown) date) unknown) (unknown) (no (unknown) (unknown) Allergies (units (unkn own) date) unknown) (unknown) (no (unknown) (unknown) ESTELLA Hanson (units ( unknown) date) [address] unknown) (unknown) (no (unknown) (unknown) Documented By: DKPhoenix (units (unknown) date) unknown) (unknown) (no (unknown) (unknown) Emergency Report (units (unknown) date) unknown) (unknown) (no (unknown) (unknown) [facility] (units (unknown) date) unknown) (unknown) (no (unknown) (unknown) [facility] (units (unknown) date) [address] unknown) [place]ELLA Hanson [id number] (unknown) (no (unknown) (unknown) Lab Results (units (un known) date) unknown) (unknown) (no (unknown) (unknown) Last Admin: (units (un known) date) 02/18/22 22:54 unknown) Dose: 0.5 ml (unknown) (no (unknown) (unknown) Point of Care (units ( unknown) date) Testing unknown) (unknown) (no (unknown) (unknown) Signed (units (unkno wn) date) unknown) (unknown) (no (unknown) (unknown) Stop: 02/18/22 (units (unknown) date) 22:14 unknown) (unknown) (no (unknown) (unknown) Urine Dip (units (unkn own) date) unknown) (unknown) (no (unknown) (unknown) Vital Signs - 8 hr (units (unknown) date) unknown) (unknown) (no (unknown) (unknown) XRay Report (units (un known) date) unknown) (unknown) (no (unknown) (unknown) (no value) (units (unk nown) date) unknown) (unknown) (no (unknown) (unknown) 02/19/22 02/19/22 (units (unknown) date) 02/19/22 unknown) Range/Units (unknown) (no (unknown) (unknown) 10:10 11:25 11:25 (units (unknown) date) unknown) (unknown) (no (unknown) (unknown) 11:25 12:59 13:08 (units (unknown) date) unknown) (unknown) (no (unknown) (unknown) 02/19/22 (units (unkno wn) date) unknown) (unknown) (no (unknown) (unknown) Psychosis (units (unkn own) date) unknown) (unknown) (no (unknown) (unknown) a bed that has (units (unknown) date) been found and is unknown) being transferred this afternoon. Throughout (unknown) (no (unknown) (unknown) they were given (units (unknown) date) the paperwork. We unknown) attempted to reach contact the DCR as (unknown) (no (unknown) (unknown) <Jeremy Griffin, (units (unknown) date) - Last Filed: unknown) 02/19/22 06:08> (unknown) (no (unknown) (unknown) <Janki Kat DO (units (unknown) date) - Last Filed: unknown) 02/24/22 04:05> (unknown) (no (unknown) (unknown) [id number] (units (unkno wn) date) unknown) (unknown) (no (unknown) (unknown) 1. No fractures or (units (unknown) date) radiopaque foreign unknown) bodies.? (unknown) (no (unknown) (unknown) 16:57 (units (unkno wn) date) unknown) (unknown) (no (unknown) (unknown) ? (units (unkno wn) date) unknown) (unknown) (no (unknown) (unknown) ALT (<35) IU/L (units (unknown) date) unknown) (unknown) (no (unknown) (unknown) ALT 24 (<35) IU/L (units (unknown) date) unknown) (unknown) (no (unknown) (unknown) AST (14-36) IU/L (units (unknown) date) unknown) (unknown) (no (unknown) (unknown) AST 30 (14-36) (units (unknown) date) IU/L unknown) (unknown) (no (unknown) (unknown) Accession Number: (units (unknown) date) [id number] ?? unknown) (unknown) (no (unknown) (unknown) Acct:[id number] (units (unknown) date) unknown) (unknown) (no (unknown) (unknown) Acetaminophen (units ( unknown) date) (10-30) ug/mL unknown) (unknown) (no (unknown) (unknown) Acetaminophen < 10 (units (unknown) date) (10-30) ug/mL unknown) (unknown) (no (unknown) (unknown) Age/Sex: 26 / F (units (unknown) date) unknown) (unknown) (no (unknown) (unknown) Age/Sex: 26 / F (units (unknown) date) unknown) (unknown) (no (unknown) (unknown) Albumin (3.5-5.0) (units (unknown) date) g/dL unknown) (unknown) (no (unknown) (unknown) Albumin 3.8 (units (un known) date) (3.5-5.0) g/dL unknown) (unknown) (no (unknown) (unknown) Albumin/Globulin (units (unknown) date) Ratio (1.0-2.8) unknown) (unknown) (no (unknown) (unknown) Albumin/Globulin (units (unknown) date) Ratio 1.4 (1.0-2.8) unknown) (unknown) (no (unknown) (unknown) Alkaline (units (unkno wn) date) Phosphatase unknown) (38-126) U/L (unknown) (no (unknown) (unknown) Alkaline (units (unkno wn) date) Phosphatase 51 unknown) (38-126) U/L (unknown) (no (unknown) (unknown) Allergy/AdvReac (units (unknown) date) Type Severity unknown) Reaction Status Date / Time (unknown) (no (unknown) (unknown) Antibiotics) (units (u nknown) date) unknown) (unknown) (no (unknown) (unknown) Approved by: (units (u nknown) date) Pepito Root, unknown) Elis on 02/19/2022 at 0:03 ? (unknown) (no (unknown) (unknown) February 19, 2022 at (units (unknown) date) 7:00 a.m.. Sign out unknown) to Dr. Kat patient has been cooperative (unknown) (no (unknown) (unknown) BACK: No flank (units (unknown) date) tenderness. unknown) (unknown) (no (unknown) (unknown) BUN (7-17) mg/dL (units (unknown) date) unknown) (unknown) (no (unknown) (unknown) BUN 10 (7-17) (units ( unknown) date) mg/dL unknown) (unknown) (no (unknown) (unknown) BUN/Creatinine (units (unknown) date) Ratio (6-22) unknown) (unknown) (no (unknown) (unknown) BUN/Creatinine (units (unknown) date) Ratio 18.2 (6-22) unknown) (unknown) (no (unknown) (unknown) Baso # (Auto) (units ( unknown) date) (0-100) /uL unknown) (unknown) (no (unknown) (unknown) Baso # (Auto) 0 (units (unknown) date) (0-100) /uL unknown) (unknown) (no (unknown) (unknown) Baso % (Auto) (units ( unknown) date) (0-2) % unknown) (unknown) (no (unknown) (unknown) Baso % (Auto) 0.5 (units (unknown) date) (0-2) % unknown) (unknown) (no (unknown) (unknown) Bedside Urine (units ( unknown) date) Bilirubin - unknown) Negative (unknown) (no (unknown) (unknown) Bedside Urine (units ( unknown) date) Glucose Negative unknown) (unknown) (no (unknown) (unknown) Bedside Urine (units ( unknown) date) Ketone - Negative unknown) (unknown) (no (unknown) (unknown) Bedside Urine (units ( unknown) date) Leukocytes - unknown) Negative (unknown) (no (unknown) (unknown) Bedside Urine (units ( unknown) date) Nitrite - Negative unknown) (unknown) (no (unknown) (unknown) Bedside Urine (units ( unknown) date) Occult Blood - unknown) Negative (unknown) (no (unknown) (unknown) Bedside Urine (units ( unknown) date) Protein - Negative unknown) (unknown) (no (unknown) (unknown) Bedside Urine (units ( unknown) date) Urobilinogen +/- unknown) 1mg (unknown) (no (unknown) (unknown) Bedside Urine pH (units (unknown) date) 6.0 unknown) (unknown) (no (unknown) (unknown) Blood Pressure (units (unknown) date) 109/75 02/18/22 unknown) 22:21 (unknown) (no (unknown) (unknown) Blood Pressure (units (unknown) date) 118/55 L unknown) (unknown) (no (unknown) (unknown) Bones:? No (units (unk nown) date) fractures or unknown) dislocations.? No suspicious bony lesions.? (unknown) (no (unknown) (unknown) CARDIOVASCULAR: (units (unknown) date) Denies chest pain, unknown) palpitations (unknown) (no (unknown) (unknown) CARDIOVASCULAR: (units (unknown) date) Regular rate and unknown) rhythm without murmurs (unknown) (no (unknown) (unknown) COMPARISON:? None. (units (unknown) date) unknown) (unknown) (no (unknown) (unknown) Calcium (8.4-10.2) (units (unknown) date) mg/dL unknown) (unknown) (no (unknown) (unknown) Calcium 8.3 L (units ( unknown) date) (8.4-10.2) mg/dL unknown) (unknown) (no (unknown) (unknown) Carbon Dioxide (units (unknown) date) (22-32) mmol/L unknown) (unknown) (no (unknown) (unknown) Carbon Dioxide 26 (units (unknown) date) (22-32) mmol/L unknown) (unknown) (no (unknown) (unknown) Chief Complaint: (units (unknown) date) Extremity Injury, unknown) Lower (unknown) (no (unknown) (unknown) Chloride (98-107) (units (unknown) date) mmol/L unknown) (unknown) (no (unknown) (unknown) Chloride 108 H (units (unknown) date) (98-107) mmol/L unknown) (unknown) (no (unknown) (unknown) Clinical (units (unkno wn) date) Impression: unknown) (unknown) (no (unknown) (unknown) Course (units (unkno wn) date) unknown) (unknown) (no (unknown) (unknown) Course Narrative: (units (unknown) date) unknown) (unknown) (no (unknown) (unknown) Creatinine (units (unk nown) date) (0.52-1.04) mg/dL unknown) (unknown) (no (unknown) (unknown) Creatinine 0.55 (units (unknown) date) (0.52-1.04) mg/dL unknown) (unknown) (no (unknown) (unknown) : 1995 (units (unknown) date) Acct:[id number] unknown) (unknown) (no (unknown) (unknown) : 1995 (units (unknown) date) unknown) (unknown) (no (unknown) (unknown) Date of Service: (units (unknown) date) 02/18/22 unknown) (unknown) (no (unknown) (unknown) Departure (units (unkn own) date) unknown) (unknown) (no (unknown) (unknown) Dictated by: (units (u nknown) date) Pepito Root unknownFelix Gillis on 02/19/2022 at 0:02 ? ? (unknown) (no (unknown) (unknown) Differential (units (u nknown) date) Diagnosis unknown) (unknown) (no (unknown) (unknown) Differential (units (u nknown) date) diagnosis: Likely unknown) acute psychosis, bipolar disorder, depression, (unknown) (no (unknown) (unknown) Diphtheria/Tetanus (units (unknown) date) /Acell Pertussis unknown) (Tet,Diph,Pertuss(A cell),Vac/Pf 0.5 Ml (unknown) (no (unknown) (unknown) Discharge Plan (units (unknown) date) unknown) (unknown) (no (unknown) (unknown) Discontinued (units (u nknown) date) Medications unknown) (unknown) (no (unknown) (unknown) ENT: Mucous (units (un known) date) membranes moist. unknown) (unknown) (no (unknown) (unknown) ER Physician: (units ( unknown) date) Janki Kat D.O. unknown) (unknown) (no (unknown) (unknown) EXTREMITIES: No (units (unknown) date) gross deformities. unknown) Nontender bilateral shoulders elbows wrists (unknown) (no (unknown) (unknown) EYES: Pupils equal (units (unknown) date) round No scleral unknown) icterus. (unknown) (no (unknown) (unknown) Eos # (Auto) (units (u nknown) date) (0-450) /uL unknown) (unknown) (no (unknown) (unknown) Eos # (Auto) 0 (units (unknown) date) (0-450) /uL unknown) (unknown) (no (unknown) (unknown) Eos % (Auto) (2-4) (units (unknown) date) % unknown) (unknown) (no (unknown) (unknown) Eos % (Auto) 0.0 L (units (unknown) date) (2-4) % unknown) (unknown) (no (unknown) (unknown) Esterase (units (unkno wn) date) unknown) (unknown) (no (unknown) (unknown) Estimated GFR (units ( unknown) date) (>60) mL/min unknown) (unknown) (no (unknown) (unknown) Estimated GFR > 60 (units (unknown) date) (>60) mL/min unknown) (unknown) (no (unknown) (unknown) Ethyl Alcohol < 10 (units (unknown) date) ( - 10) mg/dL unknown) (unknown) (no (unknown) (unknown) Ethyl Alcohol ( - (units (unknown) date) 10) mg/dL unknown) (unknown) (no (unknown) (unknown) Exam (units (unkno wn) date) unknown) (unknown) (no (unknown) (unknown) Exam Narrative: (units (unknown) date) unknown) (unknown) (no (unknown) (unknown) Extremity x-ray (units (unknown) date) #1: unknown) (unknown) (no (unknown) (unknown) FINDINGS:? (units (unk nown) date) unknown) (unknown) (no (unknown) (unknown) Free T4 (units (unkno wn) date) (0.78-2.19) ng/dL unknown) (unknown) (no (unknown) (unknown) Free T4 1.23 (units (u nknown) date) (0.78-2.19) ng/dL unknown) (unknown) (no (unknown) (unknown) GASTROINTESTINAL: (units (unknown) date) Abdomen soft, unknown) non-tender (unknown) (no (unknown) (unknown) GASTROINTESTINAL: (units (unknown) date) Denies nausea, unknown) vomiting, abdominal pain (unknown) (no (unknown) (unknown) GENERAL: Denies (units (unknown) date) chills, fatigue, unknown) malaise, fever, sweats. (unknown) (no (unknown) (unknown) GENERAL: in no (units (unknown) date) distress, not toxic unknown) not dyspneic (unknown) (no (unknown) (unknown) : Denies (units (unk nown) date) dysuria, frequency, unknown) hematuria (unknown) (no (unknown) (unknown) General (units (unkno wn) date) unknown) (unknown) (no (unknown) (unknown) GenericComposite[P (units (unknown) date) lt Count (150-400) unknown) X10^3/uL ] (unknown) (no (unknown) (unknown) GenericComposite[P (units (unknown) date) lt Count 242 unknown) (150-400) X10^3/uL ] (unknown) (no (unknown) (unknown) GenericComposite[R (units (unknown) date) BC (4.0-5.2) unknown) X10^6/uL ] (unknown) (no (unknown) (unknown) GenericComposite[R (units (unknown) date) BC 3.84 L (4.0-5.2) unknown) X10^6/uL ] (unknown) (no (unknown) (unknown) GenericComposite[W (units (unknown) date) BC (4.5-11.0) unknown) X10^3/uL ] (unknown) (no (unknown) (unknown) GenericComposite[W (units (unknown) date) BC 4.7 (4.5-11.0) unknown) X10^3/uL ] (unknown) (no (unknown) (unknown) Globulin (1.7-4.1) (units (unknown) date) g/dL unknown) (unknown) (no (unknown) (unknown) Globulin 2.7 (units (u nknown) date) (1.7-4.1) g/dL unknown) (unknown) (no (unknown) (unknown) Glucose (70-100) (units (unknown) date) mg/dL unknown) (unknown) (no (unknown) (unknown) Glucose 90 (units (unk nown) date) (70-100) mg/dL unknown) (unknown) (no (unknown) (unknown) HEAD: (units (unkno wn) date) Normocephalic. unknown) (unknown) (no (unknown) (unknown) HEENT: Denies (units ( unknown) date) sinus pain, ear unknown) pain, sore throat (unknown) (no (unknown) (unknown) HPI - Psych (units (un known) date) unknown) (unknown) (no (unknown) (unknown) HPI Narrative: (units (unknown) date) unknown) (unknown) (no (unknown) (unknown) Hct (36-46) % (units ( unknown) date) unknown) (unknown) (no (unknown) (unknown) Hct 32.9 L (36-46) (units (unknown) date) % unknown) (unknown) (no (unknown) (unknown) Hgb (12.0-16.0) (units (unknown) date) g/dL unknown) (unknown) (no (unknown) (unknown) Hgb 11.2 L (units (unk nown) date) (12.0-16.0) g/dL unknown) (unknown) (no (unknown) (unknown) History of Present (units (unknown) date) Illness unknown) (unknown) (no (unknown) (unknown) IMPRESSION:? (units (u nknown) date) unknown) (unknown) (no (unknown) (unknown) INDICATIONS:? (units ( unknown) date) Pain/injury/foreign unknown) body (unknown) (no (unknown) (unknown) Imaging Data (units (u nknown) date) unknown) (unknown) (no (unknown) (unknown) Initial Vital (units ( unknown) date) Signs unknown) (unknown) (no (unknown) (unknown) Initial Vital (units ( unknown) date) Signs: unknown) (unknown) (no (unknown) (unknown) [place] D[place] that (units (unknown) date) states that she is unknown) to be detained based on violation of a court (unknown) (no (unknown) (unknown) Angela has detained (units (unknown) date) the patient based unknown) on violation of court ordered. Patient has (unknown) (no (unknown) (unknown) Lab Data (units (unkno wn) date) unknown) (unknown) (no (unknown) (unknown) Labs: (units (unkno wn) date) unknown) (unknown) (no (unknown) (unknown) Loc: ED (units (unkno wn) date) unknown) (unknown) (no (unknown) (unknown) Lymph # (Auto) (units (unknown) date) (3046-2713) /uL unknown) (unknown) (no (unknown) (unknown) Lymph # (Auto) (units (unknown) date) 1700 (7737-0587) unknown) /uL (unknown) (no (unknown) (unknown) Lymph % (Auto) (units (unknown) date) (25-40) % unknown) (unknown) (no (unknown) (unknown) Lymph % (Auto) (units (unknown) date) 36.2 (25-40) % unknown) (unknown) (no (unknown) (unknown) MCH (26-34) PG (units (unknown) date) unknown) (unknown) (no (unknown) (unknown) MCH 29.0 (26-34) (units (unknown) date) PG unknown) (unknown) (no (unknown) (unknown) MCHC (30-36) % (units (unknown) date) unknown) (unknown) (no (unknown) (unknown) MCHC 34.0 (30-36) (units (unknown) date) % unknown) (unknown) (no (unknown) (unknown) MCV (80-100) fL (units (unknown) date) unknown) (unknown) (no (unknown) (unknown) MCV 85.5 (80-100) (units (unknown) date) fL unknown) (unknown) (no (unknown) (unknown) MDM - Psych (units (un known) date) unknown) (unknown) (no (unknown) (unknown) MDM Narrative (units ( unknown) date) unknown) (unknown) (no (unknown) (unknown) MR#: [id number] (units (unknown) date) unknown) (unknown) (no (unknown) (unknown) MUSCULOSKELETAL: (units (unknown) date) denies muscle or unknown) bony pain (unknown) (no (unknown) (unknown) Medical decision (units (unknown) date) making narrative: unknown) (unknown) (no (unknown) (unknown) Mild tenderness to (units (unknown) date) touch. No erythema. unknown) (unknown) (no (unknown) (unknown) [place] # (Auto) (units ( unknown) date) (0-900) /uL unknown) (unknown) (no (unknown) (unknown) [place] # (Auto) 400 (units (unknown) date) (0-900) /uL unknown) (unknown) (no (unknown) (unknown) [place] % (Auto) (units ( unknown) date) (3-14) % unknown) (unknown) (no (unknown) (unknown) [place] % (Auto) 8.8 (units (unknown) date) (3-14) % unknown) (unknown) (no (unknown) (unknown) NECK: Trachea (units ( unknown) date) midline. unknown) (unknown) (no (unknown) (unknown) NEURO: Awake alert (units (unknown) date) oriented to self unknown) and date of , clear speech. No facial (unknown) (no (unknown) (unknown) NEUROLOGIC: Denies (units (unknown) date) weakness, numbness unknown) (unknown) (no (unknown) (unknown) Narrative (units (unkn own) date) unknown) (unknown) (no (unknown) (unknown) Narrative: (units (unk nown) date) unknown) (unknown) (no (unknown) (unknown) Neut # (Auto) (units ( unknown) date) (4079-7627) /uL unknown) (unknown) (no (unknown) (unknown) Neut # (Auto) 2600 (units (unknown) date) (0429-0063) /uL unknown) (unknown) (no (unknown) (unknown) Neut % (Auto) (units ( unknown) date) (50-75) % unknown) (unknown) (no (unknown) (unknown) Neut % (Auto) 54.5 (units (unknown) date) (50-75) % unknown) (unknown) (no (unknown) (unknown) Not combative. (units (unknown) date) unknown) (unknown) (no (unknown) (unknown) On arrival patient (units (unknown) date) denies any drug use unknown) or meth use. However she did have some (unknown) (no (unknown) (unknown) Ordered: (units (unkno wn) date) unknown) (unknown) (no (unknown) (unknown) Ordering Provider: (units (unknown) date) Jeremy Griffin MD unknown) (unknown) (no (unknown) (unknown) Orders (units (unkno wn) date) unknown) (unknown) (no (unknown) (unknown) Oxygen Delivery (units (unknown) date) Method 02/18/22 unknown) 22:21 (unknown) (no (unknown) (unknown) Oxygen Delivery (units (unknown) date) Method Room Air unknown) (unknown) (no (unknown) (unknown) PROCEDURE:? XR (units (unknown) date) FOOT RT MIN 3V unknown) (unknown) (no (unknown) (unknown) PSYCH: Is slightly (units (unknown) date) anxious, is unknown) cooperative, no SI or HI. No hallucinations. (unknown) (no (unknown) (unknown) PSYCH: No SI HI. (units (unknown) date) Denies any auditory unknown) or visual hallucinations. Is not (unknown) (no (unknown) (unknown) Patient (units (unkno wn) date) Disposition: Xfer unknown) Acute [facility] (unknown) (no (unknown) (unknown) Patient History (units (unknown) date) unknown) (unknown) (no (unknown) (unknown) Patient brought in (units (unknown) date) by ambulance from a unknown[facility] penitentiary. Police were called because (unknown) (no (unknown) (unknown) Patient signed out (units (unknown) date) to myself by Dr. mendiola) Elias. Patient has a for from [employer] (unknown) (no (unknown) (unknown) Patient sleeping (units (unknown) date) comfortably in no unknown) distress not agitated (unknown) (no (unknown) (unknown) Patient sleeping (units (unknown) date) very comfortably. unknown) No agitation (unknown) (no (unknown) (unknown) Patient: (units (unkno wn) date) Suzi Davis unknown) MR#: [id number] (unknown) (no (unknown) (unknown) Patient: (units (unkno wn) date) Suzi Davis unknown) (unknown) (no (unknown) (unknown) Potassium (units (unkn own) date) (3.4-5.1) mmol/L unknown) (unknown) (no (unknown) (unknown) Potassium 4.1 (units ( unknown) date) (3.4-5.1) mmol/L unknown) (unknown) (no (unknown) (unknown) Test (units (unknown) date) Results Negative unknown) (unknown) (no (unknown) (unknown) Procedure: XR foot (units (unknown) date) RT min 3V unknown) (unknown) (no (unknown) (unknown) Pulse Oximetry 100 (units (unknown) date) 02/18/22 22:21 unknown) (unknown) (no (unknown) (unknown) Pulse Oximetry 98 (units (unknown) date) unknown) (unknown) (no (unknown) (unknown) Pulse Rate 91 H (units (unknown) date) 02/18/22 22:21 unknown) (unknown) (no (unknown) (unknown) Pulse Rate 75 (units ( unknown) date) unknown) (unknown) (no (unknown) (unknown) RDW (11.6-14.8) % (units (unknown) date) unknown) (unknown) (no (unknown) (unknown) RDW 14.9 H (units (unk nown) date) (11.6-14.8) % unknown) (unknown) (no (unknown) (unknown) RESPIRATORY: Clear (units (unknown) date) to auscultation. unknown) Breath sounds equal bilaterally. No wheezes, (unknown) (no (unknown) (unknown) RESPIRATORY: (units (u nknown) date) Denies dyspnea, unknown) cough (unknown) (no (unknown) (unknown) ROS Unobtainable: (units (unknown) date) All systems unknown) reviewed + are unremarkable except as noted in HPI (unknown) (no (unknown) (unknown) Reevaluation #1: (units (unknown) date) unknown) (unknown) (no (unknown) (unknown) Reevaluation #2: (units (unknown) date) unknown) (unknown) (no (unknown) (unknown) Reevaluation(s) (units (unknown) date) unknown) (unknown) (no (unknown) (unknown) Related Data (units (u nknown) date) unknown) (unknown) (no (unknown) (unknown) Respiratory Rate (units (unknown) date) 18 unknown) (unknown) (no (unknown) (unknown) Result diagrams: (units (unknown) date) unknown) (unknown) (no (unknown) (unknown) Review of Systems (units (unknown) date) unknown) (unknown) (no (unknown) (unknown) SARS-CoV-2 (PCR) (units (unknown) date) (Negative) unknown) (unknown) (no (unknown) (unknown) SARS-CoV-2 (PCR) (units (unknown) date) Negative (Negative) unknown) (unknown) (no (unknown) (unknown) SKIN: Warm and dry (units (unknown) date) unknown) (unknown) (no (unknown) (unknown) SKIN: Denies rash, (units (unknown) date) skin lesions, unknown) positive skin injury (unknown) (no (unknown) (unknown) Salicylates (<20) (units (unknown) date) mg/dL unknown) (unknown) (no (unknown) (unknown) Salicylates < 1.0 (units (unknown) date) (<20) mg/dL unknown) (unknown) (no (unknown) (unknown) Signed By: (units (unk nown) date) unknown) (unknown) (no (unknown) (unknown) Smoking Status: (units (unknown) date) Current every day unknown) smoker (unknown) (no (unknown) (unknown) Social History (units (unknown) date) (Reviewed 02/18/22 unknown) @ 22:18 by Jeremy Griffin MD) (unknown) (no (unknown) (unknown) Sodium (137-145) (units (unknown) date) mmol/L unknown) (unknown) (no (unknown) (unknown) Sodium 138 (units (unk nown) date) (137-145) mmol/L unknown) (unknown) (no (unknown) (unknown) Soft tissues:? No (units (unknown) date) radiopaque foreign unknown) bodies. (unknown) (no (unknown) (unknown) Stated Complaint: (units (unknown) date) psych unknown) (unknown) (no (unknown) (unknown) Sulfa (Sulfonamide (units (unknown) date) Allergy Verified unknown) 02/18/22 22:55 (unknown) (no (unknown) (unknown) Syringe) 0.5 ml IM (units (unknown) date) .ONCE ONE unknown) (unknown) (no (unknown) (unknown) TECHNIQUE:? 3 (units ( unknown) date) views of the foot unknown) were acquired.? (unknown) (no (unknown) (unknown) TSH (0.47-4.68) (units (unknown) date) uIU/mL unknown) (unknown) (no (unknown) (unknown) TSH 0.402 L (units (un known) date) (0.47-4.68) uIU/mL unknown) (unknown) (no (unknown) (unknown) Temperature 97.6 F (units (unknown) date) 02/18/22 22:21 unknown) (unknown) (no (unknown) (unknown) Temperature 99 F (units (unknown) date) unknown) (unknown) (no (unknown) (unknown) Time Seen by (units (u nknown) date) Provider: 02/18/22 unknown) 22:12 (unknown) (no (unknown) (unknown) Time: 01:35 (units (un known) date) unknown) (unknown) (no (unknown) (unknown) Time: 06:08 (units (un known) date) unknown) (unknown) (no (unknown) (unknown) Total Bilirubin (units (unknown) date) (0.2-1.3) mg/dL unknown) (unknown) (no (unknown) (unknown) Total Bilirubin (units (unknown) date) 0.5 (0.2-1.3) mg/dL unknown) (unknown) (no (unknown) (unknown) Total Protein (units ( unknown) date) (6.3-8.2) g/dL unknown) (unknown) (no (unknown) (unknown) Total Protein 6.5 (units (unknown) date) (6.3-8.2) g/dL unknown) (unknown) (no (unknown) (unknown) U Benzodiazepines (units (unknown) date) Scrn (Negative) unknown) (unknown) (no (unknown) (unknown) U Benzodiazepines (units (unknown) date) Scrn Negative unknown) (Negative) (unknown) (no (unknown) (unknown) U Marijuana (THC) (units (unknown) date) Screen (Negative) unknown) (unknown) (no (unknown) (unknown) U Marijuana (THC) (units (unknown) date) Screen Negative unknown) (Negative) (unknown) (no (unknown) (unknown) U Methamphetamines (units (unknown) date) Scrn (Negative) unknown) (unknown) (no (unknown) (unknown) U Methamphetamines (units (unknown) date) Scrn Positive H unknown) (Negative) (unknown) (no (unknown) (unknown) U Opiates 300ng/mL (units (unknown) date) cut (Negative) unknown) (unknown) (no (unknown) (unknown) U Opiates 300ng/mL (units (unknown) date) cut Negative unknown) (Negative) (unknown) (no (unknown) (unknown) U Tricyclic (units (un known) date) Antidepress unknown) (Negative) (unknown) (no (unknown) (unknown) U Tricyclic (units (un known) date) Antidepress unknown) Negative (Negative) (unknown) (no (unknown) (unknown) Ur Amphetamines (units (unknown) date) Screen (Negative) unknown) (unknown) (no (unknown) (unknown) Ur Amphetamines (units (unknown) date) Screen Positive H unknown) (Negative) (unknown) (no (unknown) (unknown) Ur Barbiturates (units (unknown) date) Screen (Negative) unknown) (unknown) (no (unknown) (unknown) Ur Barbiturates (units (unknown) date) Screen Negative unknown) (Negative) (unknown) (no (unknown) (unknown) Ur Culture (units (unk nown) date) Indicated? unknown) (unknown) (no (unknown) (unknown) Ur Culture (units (unk nown) date) Indicated? Cult not unknown) indicated (unknown) (no (unknown) (unknown) Ur MDMA Scrn (units (u nknown) date) (Ecstasy) unknown) (Negative) (unknown) (no (unknown) (unknown) Ur MDMA Scrn (units (u nknown) date) (Ecstasy) Negative unknown) (Negative) (unknown) (no (unknown) (unknown) Ur Oxycodone (units (u nknown) date) Screen (Negative) unknown) (unknown) (no (unknown) (unknown) Ur Oxycodone (units (u nknown) date) Screen Negative unknown) (Negative) (unknown) (no (unknown) (unknown) Ur Phencyclidine (units (unknown) date) Scrn (Negative) unknown) (unknown) (no (unknown) (unknown) Ur Phencyclidine (units (unknown) date) Scrn Negative unknown) (Negative) (unknown) (no (unknown) (unknown) Ur Squamous Epith (units (unknown) date) Cells (0-5/HPF) unknown) (unknown) (no (unknown) (unknown) Ur Squamous Epith (units (unknown) date) Cells 5-10 /hpf H unknown) (0-5/HPF) (unknown) (no (unknown) (unknown) Urine Bacteria (units (unknown) date) (None) unknown) (unknown) (no (unknown) (unknown) Urine Bacteria (units (unknown) date) Many (>30) H (None) unknown) (unknown) (no (unknown) (unknown) Urine Cocaine (units ( unknown) date) Screen (Negative) unknown) (unknown) (no (unknown) (unknown) Urine Cocaine (units ( unknown) date) Screen Negative unknown) (Negative) (unknown) (no (unknown) (unknown) Urine Methadone (units (unknown) date) Screen (Negative) unknown) (unknown) (no (unknown) (unknown) Urine Methadone (units (unknown) date) Screen Negative unknown) (Negative) (unknown) (no (unknown) (unknown) Urine Mucus (units (un known) date) (Negative) unknown) (unknown) (no (unknown) (unknown) Urine Mucus 2+ H (units (unknown) date) (Negative) unknown) (unknown) (no (unknown) (unknown) Urine RBC (units (unkn own) date) (0-5/HPF) unknown) (unknown) (no (unknown) (unknown) Urine RBC 0-1/hpf (units (unknown) date) (0-5/HPF) unknown) (unknown) (no (unknown) (unknown) Urine Specific (units (unknown) date) [place] 1.030 unknown) (unknown) (no (unknown) (unknown) Urine WBC (units (unkn own) date) (0-5/HPF) unknown) (unknown) (no (unknown) (unknown) Urine WBC 5-10/hpf (units (unknown) date) H (0-5/HPF) unknown) (unknown) (no (unknown) (unknown) Vital Signs (units (un known) date) unknown) (unknown) (no (unknown) (unknown) Vital signs: (units (u nknown) date) unknown) (unknown) (no (unknown) (unknown) [Embedded Image (units (unknown) date) Not Available] unknown) (unknown) (no (unknown) (unknown) agent listed. We (units (unknown) date) are calling this unknown) contact center professional for more information. Patient (unknown) (no (unknown) (unknown) and below (units (unkn own) date) unknown) (unknown) (no (unknown) (unknown) combative. Is (units ( unknown) date) cooperative. unknown) (unknown) (no (unknown) (unknown) droop. 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 Denied any SI or HI. During course of (unknown) (no (unknown) (unknown) evaluate when she (units (unknown) date) is rested and more unknown) alert for questioning (unknown) (no (unknown) (unknown) evaluate when she (units (unknown) date) is rested and more unknown) alert for questioning. (unknown) (no (unknown) (unknown) has no medical (units (unknown) date) records in our unknown) system. Patient denies any pain. No recent (unknown) (no (unknown) (unknown) her very well. She (units (unknown) date) is usually very unknown) agitated because she does meth, no known (unknown) (no (unknown) (unknown) illness. (units (unkno wn) date) unknown) (unknown) (no (unknown) (unknown) incorrect we are (units (unknown) date) able to reach unknown) [facility], they referred us to [facility] were (unknown) (no (unknown) (unknown) information. (units (u nknown) date) Patient had been unknown) expected [facility] according to (unknown) (no (unknown) (unknown) instructions. Is (units (unknown) date) compliant at this unknown) time. Patient arrives with a DCR form with (unknown) (no (unknown) (unknown) lateral sole of (units (unknown) date) the foot. No unknown) discharge. Nontender. No visible foreign body. (unknown) (no (unknown) (unknown) night she has been (units (unknown) date) sleeping. Would be unknown) appropriate to re-questioned and re- (unknown) (no (unknown) (unknown) order. Overnight (units (unknown) date) staff called were unknown) unable to verify this or get any additional (unknown) (no (unknown) (unknown) other substances. (units (unknown) date) No alcohol. She is unknown) known in the community. She called the (unknown) (no (unknown) (unknown) overnight they (units (unknown) date) were unsuccessful. unknown) After several tries the initial number was (unknown) (no (unknown) (unknown) overnight. No new (units (unknown) date) issues. Awaiting unknown) for social work evaluation. However (unknown) (no (unknown) (unknown) patient denied any (units (unknown) date) drug use but at unknown) this time overnight patient has been (unknown) (no (unknown) (unknown) patient was being (units (unknown) date) disruptive at the unknown[facility]. JUAN CARLOS was placed by police and EMS (unknown) (no (unknown) (unknown) pelvis hips knees (units (unknown) date) and ankles. Small unknown) punctate skin puncture at the right distal (unknown) (no (unknown) (unknown) rales, or rhonchi. (units (unknown) date) unknown) (unknown) (no (unknown) (unknown) same EMS personnel (units (unknown) date) today for a right unknown) foot injury but then refused treatment. At (unknown) (no (unknown) (unknown) sleeping. May need (units (unknown) date) to re-evaluate when unknown) more alert (unknown) (no (unknown) (unknown) smokes meth, does (units (unknown) date) not inject. She unknown) denies any SI or HI. Patient is following (unknown) (no (unknown) (unknown) the day patient (units (unknown) date) has been unknown) cooperative, sedate and has been medically cleared. (unknown) (no (unknown) (unknown) the document. (units (u nknown) date) Police never came unknown) or called. EMS medics from would be state that (unknown) (no (unknown) (unknown) this time she is (units (unknown) date) cooperative. She unknown) states she denies taking meth today. She (unknown) (no (unknown) (unknown) was called. EMS (units (unknown) date) state law unknown) enforcement left and they were instructed to go to (unknown) (no (unknown) (unknown) [facility] (units (unknown) date) [facility]. However unknown) they are on EMS divert. EMS state they know Result panel 17 (unknown) (no (unknown) (unknown) (no value) (units (unk nown) date) unknown) (unknown) (no (unknown) (unknown) Radiologist's (units ( unknown) date) Impression: unknown) (unknown) (no (unknown) (unknown) Date of Service: (units (unknown) date) 02/18/22 unknown) (unknown) (no (unknown) (unknown) (no value) (units (unk nown) date) unknown) (unknown) (no (unknown) (unknown) <Electronically (units (unknown) date) signed by Jeremy unknown) MD Elias> (unknown) (no (unknown) (unknown) <Electronically (units (unknown) date) signed by Janki Gerber unknown) Stuart Kat> (unknown) (no (unknown) (unknown) 02/19/22 11:25 (units (unknown) date) unknown) (unknown) (no (unknown) (unknown) 02/24/22 0405 (units ( unknown) date) unknown) (unknown) (no (unknown) (unknown) 02/25/22 1811 (units ( unknown) date) unknown) (unknown) (no (unknown) (unknown) [address] [place] [address] (units (unknown) date) unknown) (unknown) (no (unknown) (unknown) Allergies (units (unkn own) date) unknown) (unknown) (no (unknown) (unknown) [place] (units ( unknown) date) [id number] unknown) (unknown) (no (unknown) (unknown) Documented By: [place] (units (unknown) date) unknown) (unknown) (no (unknown) (unknown) Emergency Report (units (unknown) date) unknown) (unknown) (no (unknown) (unknown) [facility] (units (unknown) date) unknown) (unknown) (no (unknown) (unknown) [facility] (units (unknown) date) [address] unknown) [place] [address] (unknown) (no (unknown) (unknown) Lab Results (units (un known) date) unknown) (unknown) (no (unknown) (unknown) Last Admin: (units (un known) date) 02/18/22 22:54 unknown) Dose: 0.5 ml (unknown) (no (unknown) (unknown) Point of Care (units ( unknown) date) Testing unknown) (unknown) (no (unknown) (unknown) Signed (units (unkno wn) date) unknown) (unknown) (no (unknown) (unknown) Stop: 02/18/22 (units (unknown) date) 22:14 unknown) (unknown) (no (unknown) (unknown) Urine Dip (units (unkn own) date) unknown) (unknown) (no (unknown) (unknown) Vital Signs - 8 hr (units (unknown) date) unknown) (unknown) (no (unknown) (unknown) XRay Report (units (un known) date) unknown) (unknown) (no (unknown) (unknown) (no value) (units (unk nown) date) unknown) (unknown) (no (unknown) (unknown) 02/19/22 02/19/22 (units (unknown) date) 02/19/22 unknown) Range/Units (unknown) (no (unknown) (unknown) 10:10 11:25 11:25 (units (unknown) date) unknown) (unknown) (no (unknown) (unknown) 11:25 12:59 13:08 (units (unknown) date) unknown) (unknown) (no (unknown) (unknown) 02/19/22 (units (unkno wn) date) unknown) (unknown) (no (unknown) (unknown) Psychosis (units (unkn own) date) unknown) (unknown) (no (unknown) (unknown) a bed that has (units (unknown) date) been found and is unknown) being transferred this afternoon. Throughout (unknown) (no (unknown) (unknown) they were given (units (unknown) date) the paperwork. We unknown) attempted to reach contact the DCR as (unknown) (no (unknown) (unknown) <Jeremy Griffin (units (unknown) date) - Last Filed: unknown) 02/25/22 18:11> (unknown) (no (unknown) (unknown) <Janki Kat DO (units (unknown) date) - Last Filed: unknown) 02/24/22 04:05> (unknown) (no (unknown) (unknown) [id number] (units (unkno wn) date) unknown) (unknown) (no (unknown) (unknown) 1. No fractures or (units (unknown) date) radiopaque foreign unknown) bodies.? (unknown) (no (unknown) (unknown) 16:57 (units (unkno wn) date) unknown) (unknown) (no (unknown) (unknown) ? (units (unkno wn) date) unknown) (unknown) (no (unknown) (unknown) ALT (<35) IU/L (units (unknown) date) unknown) (unknown) (no (unknown) (unknown) ALT 24 (<35) IU/L (units (unknown) date) unknown) (unknown) (no (unknown) (unknown) AST (14-36) IU/L (units (unknown) date) unknown) (unknown) (no (unknown) (unknown) AST 30 (14-36) (units (unknown) date) IU/L unknown) (unknown) (no (unknown) (unknown) Accession Number: (units (unknown) date) [id number] ?? unknown) (unknown) (no (unknown) (unknown) Acct:[id number] (units (unknown) date) unknown) (unknown) (no (unknown) (unknown) Acetaminophen (units ( unknown) date) (10-30) ug/mL unknown) (unknown) (no (unknown) (unknown) Acetaminophen < 10 (units (unknown) date) (10-30) ug/mL unknown) (unknown) (no (unknown) (unknown) Age/Sex: 26 / F (units (unknown) date) unknown) (unknown) (no (unknown) (unknown) Age/Sex: 26 / F (units (unknown) date) unknown) (unknown) (no (unknown) (unknown) Albumin (3.5-5.0) (units (unknown) date) g/dL unknown) (unknown) (no (unknown) (unknown) Albumin 3.8 (units (un known) date) (3.5-5.0) g/dL unknown) (unknown) (no (unknown) (unknown) Albumin/Globulin (units (unknown) date) Ratio (1.0-2.8) unknown) (unknown) (no (unknown) (unknown) Albumin/Globulin (units (unknown) date) Ratio 1.4 (1.0-2.8) unknown) (unknown) (no (unknown) (unknown) Alkaline (units (unkno wn) date) Phosphatase unknown) (38-126) U/L (unknown) (no (unknown) (unknown) Alkaline (units (unkno wn) date) Phosphatase 51 unknown) (38-126) U/L (unknown) (no (unknown) (unknown) Allergy/AdvReac (units (unknown) date) Type Severity unknown) Reaction Status Date / Time (unknown) (no (unknown) (unknown) Antibiotics) (units (u nknown) date) unknown) (unknown) (no (unknown) (unknown) Approved by: (units (u nknown) date) Pepito Root, unknown) Elis on 02/19/2022 at 0:03 ? (unknown) (no (unknown) (unknown) February 19, 2022 at (units (unknown) date) 7:00 a.m.. Sign out unknown) to Dr. Kat patient has been cooperative (unknown) (no (unknown) (unknown) BACK: No flank (units (unknown) date) tenderness. unknown) (unknown) (no (unknown) (unknown) BUN (7-17) mg/dL (units (unknown) date) unknown) (unknown) (no (unknown) (unknown) BUN 10 (7-17) (units (unknown) date) mg/dL unknown) (unknown) (no (unknown) (unknown) BUN/Creatinine (units (unknown) date) Ratio (6-22) unknown) (unknown) (no (unknown) (unknown) BUN/Creatinine (units (unknown) date) Ratio 18.2 (6-22) unknown) (unknown) (no (unknown) (unknown) Baso # (Auto) (units ( unknown) date) (0-100) /uL unknown) (unknown) (no (unknown) (unknown) Baso # (Auto) 0 (units (unknown) date) (0-100) /uL unknown) (unknown) (no (unknown) (unknown) Baso % (Auto) (units ( unknown) date) (0-2) % unknown) (unknown) (no (unknown) (unknown) Baso % (Auto) 0.5 (units (unknown) date) (0-2) % unknown) (unknown) (no (unknown) (unknown) Bedside Urine (units ( unknown) date) Bilirubin - unknown) Negative (unknown) (no (unknown) (unknown) Bedside Urine (units ( unknown) date) Glucose Negative unknown) (unknown) (no (unknown) (unknown) Bedside Urine (units ( unknown) date) Ketone - Negative unknown) (unknown) (no (unknown) (unknown) Bedside Urine (units ( unknown) date) Leukocytes - unknown) Negative (unknown) (no (unknown) (unknown) Bedside Urine (units ( unknown) date) Nitrite - Negative unknown) (unknown) (no (unknown) (unknown) Bedside Urine (units ( unknown) date) Occult Blood - unknown) Negative (unknown) (no (unknown) (unknown) Bedside Urine (units ( unknown) date) Protein - Negative unknown) (unknown) (no (unknown) (unknown) Bedside Urine (units ( unknown) date) Urobilinogen +/- unknown) 1mg (unknown) (no (unknown) (unknown) Bedside Urine pH (units (unknown) date) 6.0 unknown) (unknown) (no (unknown) (unknown) Blood Pressure (units (unknown) date) 109/75 02/18/22 unknown) 22:21 (unknown) (no (unknown) (unknown) Blood Pressure (units (unknown) date) 118/55 L unknown) (unknown) (no (unknown) (unknown) Bones:? No (units (unk nown) date) fractures or unknown) dislocations.? No suspicious bony lesions.? (unknown) (no (unknown) (unknown) CARDIOVASCULAR: (units (unknown) date) Denies chest pain, unknown) palpitations (unknown) (no (unknown) (unknown) CARDIOVASCULAR: (units (unknown) date) Regular rate and unknown) rhythm without murmurs (unknown) (no (unknown) (unknown) COMPARISON:? None. (units (unknown) date) unknown) (unknown) (no (unknown) (unknown) Calcium (8.4-10.2) (units (unknown) date) mg/dL unknown) (unknown) (no (unknown) (unknown) Calcium 8.3 L (units ( unknown) date) (8.4-10.2) mg/dL unknown) (unknown) (no (unknown) (unknown) Carbon Dioxide (units (unknown) date) (22-32) mmol/L unknown) (unknown) (no (unknown) (unknown) Carbon Dioxide 26 (units (unknown) date) (22-32) mmol/L unknown) (unknown) (no (unknown) (unknown) Chief Complaint: (units (unknown) date) Extremity Injury, unknown) Lower (unknown) (no (unknown) (unknown) Chloride (98-107) (units (unknown) date) mmol/L unknown) (unknown) (no (unknown) (unknown) Chloride 108 H (units (unknown) date) (98-107) mmol/L unknown) (unknown) (no (unknown) (unknown) Clinical (units (unkno wn) date) Impression: unknown) (unknown) (no (unknown) (unknown) Course (units (unkno wn) date) unknown) (unknown) (no (unknown) (unknown) Course Narrative: (units (unknown) date) unknown) (unknown) (no (unknown) (unknown) Creatinine (units (unk nown) date) (0.52-1.04) mg/dL unknown) (unknown) (no (unknown) (unknown) Creatinine 0.55 (units (unknown) date) (0.52-1.04) mg/dL unknown) (unknown) (no (unknown) (unknown) : 1995 (units (unknown) date) Acct:[id number] unknown) (unknown) (no (unknown) (unknown) : 1995 (units (unknown) date) unknown) (unknown) (no (unknown) (unknown) Date of Service: (units (unknown) date) 02/18/22 unknown) (unknown) (no (unknown) (unknown) Departure (units (unkn own) date) unknown) (unknown) (no (unknown) (unknown) Dictated by: (units (u nknown) date) Pepito Root, unknown) Elis on 02/19/2022 at 0:02 ? ? (unknown) (no (unknown) (unknown) Differential (units (u nknown) date) Diagnosis unknown) (unknown) (no (unknown) (unknown) Differential (units (u nknown) date) diagnosis: Likely unknown) acute psychosis, bipolar disorder, depression, (unknown) (no (unknown) (unknown) Diphtheria/Tetanus (units (unknown) date) /Acell Pertussis unknown) (Tet,Diph,Pertuss(A cell),Vac/Pf 0.5 Ml (unknown) (no (unknown) (unknown) Discharge Plan (units (unknown) date) unknown) (unknown) (no (unknown) (unknown) Discontinued (units (u nknown) date) Medications unknown) (unknown) (no (unknown) (unknown) ENT: Mucous (units (un known) date) membranes moist. unknown) (unknown) (no (unknown) (unknown) ER Physician: (units ( unknown) date) Janki Kat D.O. unknown) (unknown) (no (unknown) (unknown) EXTREMITIES: No (units (unknown) date) gross deformities. unknown) Nontender bilateral shoulders elbows wrists (unknown) (no (unknown) (unknown) EYES: Pupils equal (units (unknown) date) round No scleral unknown) icterus. (unknown) (no (unknown) (unknown) Eos # (Auto) (units (u nknown) date) (0-450) /uL unknown) (unknown) (no (unknown) (unknown) Eos # (Auto) 0 (units (unknown) date) (0-450) /uL unknown) (unknown) (no (unknown) (unknown) Eos % (Auto) (2-4) (units (unknown) date) % unknown) (unknown) (no (unknown) (unknown) Eos % (Auto) 0.0 L (units (unknown) date) (2-4) % unknown) (unknown) (no (unknown) (unknown) Esterase (units (unkno wn) date) unknown) (unknown) (no (unknown) (unknown) Estimated GFR (units ( unknown) date) (>60) mL/min unknown) (unknown) (no (unknown) (unknown) Estimated GFR > 60 (units (unknown) date) (>60) mL/min unknown) (unknown) (no (unknown) (unknown) Ethyl Alcohol < 10 (units (unknown) date) ( - 10) mg/dL unknown) (unknown) (no (unknown) (unknown) Ethyl Alcohol ( - (units (unknown) date) 10) mg/dL unknown) (unknown) (no (unknown) (unknown) Exam (units (unkno wn) date) unknown) (unknown) (no (unknown) (unknown) Exam Narrative: (units (unknown) date) unknown) (unknown) (no (unknown) (unknown) Extremity x-ray (units (unknown) date) #1: unknown) (unknown) (no (unknown) (unknown) FINDINGS:? (units (unk nown) date) unknown) (unknown) (no (unknown) (unknown) Free T4 (units (unkno wn) date) (0.78-2.19) ng/dL unknown) (unknown) (no (unknown) (unknown) Free T4 1.23 (units (u nknown) date) (0.78-2.19) ng/dL unknown) (unknown) (no (unknown) (unknown) GASTROINTESTINAL: (units (unknown) date) Abdomen soft, unknown) non-tender (unknown) (no (unknown) (unknown) GASTROINTESTINAL: (units (unknown) date) Denies nausea, unknown) vomiting, abdominal pain (unknown) (no (unknown) (unknown) GENERAL: Denies (units (unknown) date) chills, fatigue, unknown) malaise, fever, sweats. (unknown) (no (unknown) (unknown) GENERAL: in no (units (unknown) date) distress, not toxic unknown) not dyspneic (unknown) (no (unknown) (unknown) : Denies (units (unk nown) date) dysuria, frequency, unknown) hematuria (unknown) (no (unknown) (unknown) General (units (unkno wn) date) unknown) (unknown) (no (unknown) (unknown) GenericComposite[P (units (unknown) date) lt Count (150-400) unknown) X10^3/uL ] (unknown) (no (unknown) (unknown) GenericComposite[P (units (unknown) date) lt Count 242 unknown) (150-400) X10^3/uL ] (unknown) (no (unknown) (unknown) GenericComposite[R (units (unknown) date) BC (4.0-5.2) unknown) X10^6/uL ] (unknown) (no (unknown) (unknown) GenericComposite[R (units (unknown) date) BC 3.84 L (4.0-5.2) unknown) X10^6/uL ] (unknown) (no (unknown) (unknown) GenericComposite[W (units (unknown) date) BC (4.5-11.0) unknown) X10^3/uL ] (unknown) (no (unknown) (unknown) GenericComposite[W (units (unknown) date) BC 4.7 (4.5-11.0) unknown) X10^3/uL ] (unknown) (no (unknown) (unknown) Globulin (1.7-4.1) (units (unknown) date) g/dL unknown) (unknown) (no (unknown) (unknown) Globulin 2.7 (units (u nknown) date) (1.7-4.1) g/dL unknown) (unknown) (no (unknown) (unknown) Glucose (70-100) (units (unknown) date) mg/dL unknown) (unknown) (no (unknown) (unknown) Glucose 90 (units (unk nown) date) (70-100) mg/dL unknown) (unknown) (no (unknown) (unknown) HEAD: (units (unkno wn) date) Normocephalic. unknown) (unknown) (no (unknown) (unknown) HEENT: Denies (units ( unknown) date) sinus pain, ear unknown) pain, sore throat (unknown) (no (unknown) (unknown) HPI - Psych (units (un known) date) unknown) (unknown) (no (unknown) (unknown) HPI Narrative: (units (unknown) date) unknown) (unknown) (no (unknown) (unknown) Hct (36-46) % (units ( unknown) date) unknown) (unknown) (no (unknown) (unknown) Hct 32.9 L (36-46) (units (unknown) date) % unknown) (unknown) (no (unknown) (unknown) Hgb (12.0-16.0) (units (unknown) date) g/dL unknown) (unknown) (no (unknown) (unknown) Hgb 11.2 L (units (unk nown) date) (12.0-16.0) g/dL unknown) (unknown) (no (unknown) (unknown) History of Present (units (unknown) date) Illness unknown) (unknown) (no (unknown) (unknown) IMPRESSION:? (units (u nknown) date) unknown) (unknown) (no (unknown) (unknown) INDICATIONS:? (units ( unknown) date) Pain/injury/foreign unknown) body (unknown) (no (unknown) (unknown) Imaging Data (units (u nknown) date) unknown) (unknown) (no (unknown) (unknown) Initial Vital (units ( unknown) date) Signs unknown) (unknown) (no (unknown) (unknown) Initial Vital (units ( unknown) date) Signs: unknown) (unknown) (no (unknown) (unknown) Main DCR that (units (unknown) date) states that she is unknown) to be detained based on violation of a court (unknown) (no (unknown) (unknown) Angela has detained (units (unknown) date) the patient based unknown) on violation of court ordered. Patient has (unknown) (no (unknown) (unknown) Lab Data (units (unkno wn) date) unknown) (unknown) (no (unknown) (unknown) Labs: (units (unkno wn) date) unknown) (unknown) (no (unknown) (unknown) Loc: ED (units (unkno wn) date) unknown) (unknown) (no (unknown) (unknown) Lymph # (Auto) (units (unknown) date) ([id number]) /uL unknown) (unknown) (no (unknown) (unknown) Lymph # (Auto) (units (unknown) date) 1700 (8070-5701) unknown) /uL (unknown) (no (unknown) (unknown) Lymph % (Auto) (units (unknown) date) (25-40) % unknown) (unknown) (no (unknown) (unknown) Lymph % (Auto) (units (unknown) date) 36.2 (25-40) % unknown) (unknown) (no (unknown) (unknown) MCH (26-34) PG (units (unknown) date) unknown) (unknown) (no (unknown) (unknown) MCH 29.0 (26-34) (units (unknown) date) PG unknown) (unknown) (no (unknown) (unknown) MCHC (30-36) % (units (unknown) date) unknown) (unknown) (no (unknown) (unknown) MCHC 34.0 (30-36) (units (unknown) date) % unknown) (unknown) (no (unknown) (unknown) MCV (80-100) fL (units (unknown) date) unknown) (unknown) (no (unknown) (unknown) MCV 85.5 (80-100) (units (unknown) date) fL unknown) (unknown) (no (unknown) (unknown) MDM - Psych (units (un known) date) unknown) (unknown) (no (unknown) (unknown) MDM Narrative (units ( unknown) date) unknown) (unknown) (no (unknown) (unknown) MR#: [id number] (units (unknown) date) unknown) (unknown) (no (unknown) (unknown) MUSCULOSKELETAL: (units (unknown) date) denies muscle or unknown) bony pain (unknown) (no (unknown) (unknown) Medical decision (units (unknown) date) making narrative: unknown) (unknown) (no (unknown) (unknown) Mild tenderness to (units (unknown) date) touch. No erythema. unknown) (unknown) (no (unknown) (unknown) [place] # (Auto) (units ( unknown) date) (0-900) /uL unknown) (unknown) (no (unknown) (unknown) [place] # (Auto) 400 (units (unknown) date) (0-900) /uL unknown) (unknown) (no (unknown) (unknown) [place] % (Auto) (units ( unknown) date) (3-14) % unknown) (unknown) (no (unknown) (unknown) [place] % (Auto) 8.8 (units (unknown) date) (3-14) % unknown) (unknown) (no (unknown) (unknown) NECK: Trachea (units ( unknown) date) midline. unknown) (unknown) (no (unknown) (unknown) NEURO: Awake alert (units (unknown) date) oriented to self unknown) and date of , clear speech. No facial (unknown) (no (unknown) (unknown) NEUROLOGIC: Denies (units (unknown) date) weakness, numbness unknown) (unknown) (no (unknown) (unknown) Narrative (units (unkn own) date) unknown) (unknown) (no (unknown) (unknown) Narrative: (units (unk nown) date) unknown) (unknown) (no (unknown) (unknown) Neut # (Auto) (units ( unknown) date) (2423-6582) /uL unknown) (unknown) (no (unknown) (unknown) Neut # (Auto) 2600 (units (unknown) date) (8771-1605) /uL unknown) (unknown) (no (unknown) (unknown) Neut % (Auto) (units ( unknown) date) (50-75) % unknown) (unknown) (no (unknown) (unknown) Neut % (Auto) 54.5 (units (unknown) date) (50-75) % unknown) (unknown) (no (unknown) (unknown) Not combative. (units (unknown) date) unknown) (unknown) (no (unknown) (unknown) On arrival patient (units (unknown) date) denies any drug use unknown) or meth use. However she did have some (unknown) (no (unknown) (unknown) Ordered: (units (unkno wn) date) unknown) (unknown) (no (unknown) (unknown) Ordering Provider: (units (unknown) date) Jeremy Griffin MD unknown) (unknown) (no (unknown) (unknown) Orders (units (unkno wn) date) unknown) (unknown) (no (unknown) (unknown) Oxygen Delivery (units (unknown) date) Method 02/18/22 unknown) 22:21 (unknown) (no (unknown) (unknown) Oxygen Delivery (units (unknown) date) Method Room Air unknown) (unknown) (no (unknown) (unknown) PROCEDURE:? XR (units (unknown) date) FOOT RT MIN 3V unknown) (unknown) (no (unknown) (unknown) PSYCH: Is slightly (units (unknown) date) anxious, is unknown) cooperative, no SI or HI. No hallucinations. (unknown) (no (unknown) (unknown) PSYCH: No SI HI. (units (unknown) date) Denies any auditory unknown) or visual hallucinations. Is not (unknown) (no (unknown) (unknown) Patient (units (unkno wn) date) [facility]position: [facility] (no (unknown) (unknown) Patient History (units (unknown) date) unknown) (unknown) (no (unknown) (unknown) Patient brought in (units (unknown) date) by ambulance [facility] a [facility]ent[facility]. Police were called because (unknown) (no (unknown) (unknown) Patient signed out (units (unknown) date) to myself by unknown) Elias. Patient has a for from [facility] (unknown) (no (unknown) (unknown) Patient sleeping (units (unknown) date) comfortably in no unknown) distress not agitated (unknown) (no (unknown) (unknown) Patient sleeping (units (unknown) date) very comfortably. unknown) No agitation (unknown) (no (unknown) (unknown) Patient: (units (unkno wn) date) Suzi Davis unknown) MR#: [id number] (unknown) (no (unknown) (unknown) Patient: (units (unkno wn) date) Suzi Davis unknown) (unknown) (no (unknown) (unknown) Potassium (units (unkn own) date) (3.4-5.1) mmol/L unknown) (unknown) (no (unknown) (unknown) Potassium 4.1 (units ( unknown) date) (3.4-5.1) mmol/L unknown) (unknown) (no (unknown) (unknown) Test (units (unknown) date) Results Negative unknown) (unknown) (no (unknown) (unknown) Procedure: XR foot (units (unknown) date) RT min 3V unknown) (unknown) (no (unknown) (unknown) Pulse Oximetry 100 (units (unknown) date) 02/18/22 22:21 unknown) (unknown) (no (unknown) (unknown) Pulse Oximetry 98 (units (unknown) date) unknown) (unknown) (no (unknown) (unknown) Pulse Rate 91 H (units (unknown) date) 02/18/22 22:21 unknown) (unknown) (no (unknown) (unknown) Pulse Rate 75 (units ( unknown) date) unknown) (unknown) (no (unknown) (unknown) RDW (11.6-14.8) % (units (unknown) date) unknown) (unknown) (no (unknown) (unknown) RDW 14.9 H (units (unk nown) date) (11.6-14.8) % unknown) (unknown) (no (unknown) (unknown) RESPIRATORY: Clear (units (unknown) date) to auscultation. unknown) Breath sounds equal bilaterally. No wheezes, (unknown) (no (unknown) (unknown) RESPIRATORY: (units (u nknown) date) Denies dyspnea, unknown) cough (unknown) (no (unknown) (unknown) ROS Unobtainable: (units (unknown) date) All systems unknown) reviewed + are unremarkable except as noted in HPI (unknown) (no (unknown) (unknown) Reevaluation #1: (units (unknown) date) unknown) (unknown) (no (unknown) (unknown) Reevaluation #2: (units (unknown) date) unknown) (unknown) (no (unknown) (unknown) Reevaluation(s) (units (unknown) date) unknown) (unknown) (no (unknown) (unknown) Related Data (units (u nknown) date) unknown) (unknown) (no (unknown) (unknown) Respiratory Rate (units (unknown) date) 18 unknown) (unknown) (no (unknown) (unknown) Result diagrams: (units (unknown) date) unknown) (unknown) (no (unknown) (unknown) Review of Systems (units (unknown) date) unknown) (unknown) (no (unknown) (unknown) SARS-CoV-2 (PCR) (units (unknown) date) (Negative) unknown) (unknown) (no (unknown) (unknown) SARS-CoV-2 (PCR) (units (unknown) date) Negative (Negative) unknown) (unknown) (no (unknown) (unknown) SKIN: Warm and dry (units (unknown) date) unknown) (unknown) (no (unknown) (unknown) SKIN: Denies rash, (units (unknown) date) skin lesions, unknown) positive skin injury (unknown) (no (unknown) (unknown) Salicylates (<20) (units (unknown) date) mg/dL unknown) (unknown) (no (unknown) (unknown) Salicylates < 1.0 (units (unknown) date) (<20) mg/dL unknown) (unknown) (no (unknown) (unknown) Signed By: (units (unk nown) date) unknown) (unknown) (no (unknown) (unknown) Smoking Status: (units (unknown) date) Current every day unknown) smoker (unknown) (no (unknown) (unknown) Social History (units (unknown) date) (Reviewed 02/18/22 unknown) @ 22:18 by Jeremy Griffin MD) (unknown) (no (unknown) (unknown) Sodium (137-145) (units (unknown) date) mmol/L unknown) (unknown) (no (unknown) (unknown) Sodium 138 (units (unk nown) date) (137-145) mmol/L unknown) (unknown) (no (unknown) (unknown) Soft tissues:? No (units (unknown) date) radiopaque foreign unknown) bodies. (unknown) (no (unknown) (unknown) Stated Complaint: (units (unknown) date) psych unknown) (unknown) (no (unknown) (unknown) Sulfa (Sulfonamide (units (unknown) date) Allergy Verified unknown) 02/18/22 22:55 (unknown) (no (unknown) (unknown) Syringe) 0.5 ml IM (units (unknown) date) .ONCE ONE unknown) (unknown) (no (unknown) (unknown) TECHNIQUE:? 3 (units ( unknown) date) views of the foot unknown) were acquired.? (unknown) (no (unknown) (unknown) TSH (0.47-4.68) (units (unknown) date) uIU/mL unknown) (unknown) (no (unknown) (unknown) TSH 0.402 L (units (un known) date) (0.47-4.68) uIU/mL unknown) (unknown) (no (unknown) (unknown) Temperature 97.6 F (units (unknown) date) 02/18/22 22:21 unknown) (unknown) (no (unknown) (unknown) Temperature 99 F (units (unknown) date) unknown) (unknown) (no (unknown) (unknown) Time Seen by (units (u nknown) date) Provider: 02/18/22 unknown) 22:12 (unknown) (no (unknown) (unknown) Time: 01:35 (units (un known) date) unknown) (unknown) (no (unknown) (unknown) Time: 06:08 (units (un known) date) unknown) (unknown) (no (unknown) (unknown) Total Bilirubin (units (unknown) date) (0.2-1.3) mg/dL unknown) (unknown) (no (unknown) (unknown) Total Bilirubin (units (unknown) date) 0.5 (0.2-1.3) mg/dL unknown) (unknown) (no (unknown) (unknown) Total Protein (units ( unknown) date) (6.3-8.2) g/dL unknown) (unknown) (no (unknown) (unknown) Total Protein 6.5 (units (unknown) date) (6.3-8.2) g/dL unknown) (unknown) (no (unknown) (unknown) U Benzodiazepines (units (unknown) date) Scrn (Negative) unknown) (unknown) (no (unknown) (unknown) U Benzodiazepines (units (unknown) date) Scrn Negative unknown) (Negative) (unknown) (no (unknown) (unknown) U Marijuana (THC) (units (unknown) date) Screen (Negative) unknown) (unknown) (no (unknown) (unknown) U Marijuana (THC) (units (unknown) date) Screen Negative unknown) (Negative) (unknown) (no (unknown) (unknown) U Methamphetamines (units (unknown) date) Scrn (Negative) unknown) (unknown) (no (unknown) (unknown) U Methamphetamines (units (unknown) date) Scrn Positive H unknown) (Negative) (unknown) (no (unknown) (unknown) U Opiates 300ng/mL (units (unknown) date) cut (Negative) unknown) (unknown) (no (unknown) (unknown) U Opiates 300ng/mL (units (unknown) date) cut Negative unknown) (Negative) (unknown) (no (unknown) (unknown) U Tricyclic (units (un known) date) Antidepress unknown) (Negative) (unknown) (no (unknown) (unknown) U Tricyclic (units (un known) date) Antidepress unknown) Negative (Negative) (unknown) (no (unknown) (unknown) Ur Amphetamines (units (unknown) date) Screen (Negative) unknown) (unknown) (no (unknown) (unknown) Ur Amphetamines (units (unknown) date) Screen Positive H unknown) (Negative) (unknown) (no (unknown) (unknown) Ur Barbiturates (units (unknown) date) Screen (Negative) unknown) (unknown) (no (unknown) (unknown) Ur Barbiturates (units (unknown) date) Screen Negative unknown) (Negative) (unknown) (no (unknown) (unknown) Ur Culture (units (unk nown) date) Indicated? unknown) (unknown) (no (unknown) (unknown) Ur Culture (units (unk nown) date) Indicated? Cult not unknown) indicated (unknown) (no (unknown) (unknown) Ur MDMA Scrn (units (u nknown) date) (Ecstasy) unknown) (Negative) (unknown) (no (unknown) (unknown) Ur MDMA Scrn (units (u nknown) date) (Ecstasy) Negative unknown) (Negative) (unknown) (no (unknown) (unknown) Ur Oxycodone (units (u nknown) date) Screen (Negative) unknown) (unknown) (no (unknown) (unknown) Ur Oxycodone (units (u nknown) date) Screen Negative unknown) (Negative) (unknown) (no (unknown) (unknown) Ur Phencyclidine (units (unknown) date) Scrn (Negative) unknown) (unknown) (no (unknown) (unknown) Ur Phencyclidine (units (unknown) date) Scrn Negative unknown) (Negative) (unknown) (no (unknown) (unknown) Ur Squamous Epith (units (unknown) date) Cells (0-5/HPF) unknown) (unknown) (no (unknown) (unknown) Ur Squamous Epith (units (unknown) date) Cells 5-10 /hpf H unknown) (0-5/HPF) (unknown) (no (unknown) (unknown) Urine Bacteria (units (unknown) date) (None) unknown) (unknown) (no (unknown) (unknown) Urine Bacteria (units (unknown) date) Many (>30) H (None) unknown) (unknown) (no (unknown) (unknown) Urine Cocaine (units ( unknown) date) Screen (Negative) unknown) (unknown) (no (unknown) (unknown) Urine Cocaine (units ( unknown) date) Screen Negative unknown) (Negative) (unknown) (no (unknown) (unknown) Urine Methadone (units (unknown) date) Screen (Negative) unknown) (unknown) (no (unknown) (unknown) Urine Methadone (units (unknown) date) Screen Negative unknown) (Negative) (unknown) (no (unknown) (unknown) Urine Mucus (units (un known) date) (Negative) unknown) (unknown) (no (unknown) (unknown) Urine Mucus 2+ H (units (unknown) date) (Negative) unknown) (unknown) (no (unknown) (unknown) Urine RBC (units (unkn own) date) (0-5/HPF) unknown) (unknown) (no (unknown) (unknown) Urine RBC 0-1/hpf (units (unknown) date) (0-5/HPF) unknown) (unknown) (no (unknown) (unknown) Urine Specific (units (unknown) date) [place] 1.030 unknown) (unknown) (no (unknown) (unknown) Urine WBC (units (unkn own) date) (0-5/HPF) unknown) (unknown) (no (unknown) (unknown) Urine WBC 5-10/hpf (units (unknown) date) H (0-5/HPF) unknown) (unknown) (no (unknown) (unknown) Vital Signs (units (un known) date) unknown) (unknown) (no (unknown) (unknown) Vital signs: (units (u nknown) date) unknown) (unknown) (no (unknown) (unknown) [Embedded Image (units (unknown) date) Not Available] unknown) (unknown) (no (unknown) (unknown) agent listed. We (units (unknown) date) are calling this unknown) contact center professional for more information. Patient (unknown) (no (unknown) (unknown) and below (units (unkn own) date) unknown) (unknown) (no (unknown) (unknown) combative. Is (units ( unknown) date) cooperative. unknown) (unknown) (no (unknown) (unknown) droop. 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 Denied any SI or HI. During course of (unknown) (no (unknown) (unknown) evaluate when she (units (unknown) date) is rested and more unknown) alert for questioning (unknown) (no (unknown) (unknown) evaluate when she (units (unknown) date) is rested and more unknown) alert for questioning. (unknown) (no (unknown) (unknown) has no medical (units (unknown) date) records in our unknown) system. Patient denies any pain. No recent (unknown) (no (unknown) (unknown) her very well. She (units (unknown) date) is usually very unknown) agitated because she does meth, no known (unknown) (no (unknown) (unknown) illness. (units (unkno wn) date) unknown) (unknown) (no (unknown) (unknown) incorrect we are (units (unknown) date) able to reach unknown) [facility], they referred us to [facility] were (unknown) (no (unknown) (unknown) information. (units (u nknown) date) Patient had been unknown) expected to go to would be Hospital according to (unknown) (no (unknown) (unknown) instructions. Is (units (unknown) date) compliant at this unknown) time. Patient arrives with a DCR form with (unknown) (no (unknown) (unknown) lateral sole of (units (unknown) date) the foot. No unknown) discharge. Nontender. No visible foreign body. (unknown) (no (unknown) (unknown) night she has been (units (unknown) date) sleeping. Would be unknown) appropriate to re-questioned and re- (unknown) (no (unknown) (unknown) order. Overnight (units (unknown) date) staff called were unknown) unable to verify this or get any additional (unknown) (no (unknown) (unknown) other substances. (units (unknown) date) No alcohol. She is unknown) known in the community. She called the (unknown) (no (unknown) (unknown) overnight they (units (unknown) date) were unsuccessful. unknown) After several tries the initial number was (unknown) (no (unknown) (unknown) overnight. No new (units (unknown) date) issues. Awaiting unknown) for social work evaluation. However (unknown) (no (unknown) (unknown) patient denied any (units (unknown) date) drug use but at unknown) this time overnight patient has been (unknown) (no (unknown) (unknown) patient was being (units (unknown) date) disruptive at the unknown) penitentiary. JUAN CARLOS was placed by police and EMS (unknown) (no (unknown) (unknown) pelvis hips knees (units (unknown) date) and ankles. Small unknown) punctate skin puncture at the right distal (unknown) (no (unknown) (unknown) rales, or rhonchi. (units (unknown) date) unknown) (unknown) (no (unknown) (unknown) same EMS personnel (units (unknown) date) today for a right unknown) foot injury but then refused treatment. At (unknown) (no (unknown) (unknown) sleeping. May need (units (unknown) date) to re-evaluate when unknown) more alert (unknown) (no (unknown) (unknown) smokes meth, does (units (unknown) date) not inject. She unknown) denies any SI or HI. Patient is following (unknown) (no (unknown) (unknown) the day patient (units (unknown) date) has been unknown) cooperative, sedate and has been medically cleared. (unknown) (no (unknown) (unknown) the document. (units (u nknown) date) Police never came unknown) or called. EMS medics from would be state that (unknown) (no (unknown) (unknown) this time she is (units (unknown) date) cooperative. She unknown) states she denies taking meth today. She (unknown) (no (unknown) (unknown) was called. EMS (units (unknown) date) state law unknown) enforcement left and they were instructed to go to (unknown) (no (unknown) (unknown) [facility] (units (unknown) date) [facility]. However unknown) they are on EMS divert. EMS state they know Social History No information. Vital Signs No information.
[2022-04-10 10:03] LABS: BILIRUBIN,URINE NEGATIVE (NEGATIVE); GLUCOSE, URINE (UA) NEGATIVE (NEGATIVE); KETONES,URINE (UA) NEGATIVE (NEGATIVE); LEUKOCYTE ESTERASE, URINE NEGATIVE (NEGATIVE); MUDS CUTOFF CONCENTRATIONS CUTOFF CONC BELOW:; NITRITE,URINE NEGATIVE (NEGATIVE); OCCULT BLOOD,URINE NEGATIVE (NEGATIVE); PROTEIN,URINE 100 mg/dL (NEGATIVE); UROBILINOGEN,URINE 1 (NORMAL) E.U./dL (NORMAL)
[2022-04-10 10:11] LABS: BACTERIA,URINE Few /HPF (None Seen); CLARITY,URINE HAZY (CLEAR); HCG UR QUAL NEGATIVE; RBC,URINE None Seen /HPF (0-5); SQUAMOUS EPITHELIAL CELL,UR MOD Squamous (<= Few); WBC,URINE 0-3 /HPF (0-5)
[2022-04-10 10:12] LABS: AMPHETAMINE SCREEN,URINE POSITIVE (NEGATIVE); BARBITURATE SCREEN,UR NEGATIVE (NEGATIVE); BENZODIAZEPINES SCREEN, URINE NEGATIVE (NEGATIVE); COCAINE SCREEN URINE NEGATIVE (NEGATIVE); METHADONE SCREEN, URINE NEGATIVE (NEGATIVE); METHAMPHETAMINES SCREEN, URINE POSITIVE (NEGATIVE); OPIATE SCREEN, URINE NEGATIVE (NEGATIVE); OXYCODONE SCREEN, URINE NEGATIVE (NEGATIVE); PROPOXYPHENE SCREEN, URINE NEGATIVE (NEGATIVE); THC CANNABINOID SCREEN, URINE NEGATIVE (NEGATIVE); TRICYCLIC ANTIDEPRESSANT,URINE NEGATIVE (NEGATIVE)
[2022-04-10] MEDS ORDERED: KETAMINE 500 MG/10 ML VIAL IM STA (10:27)
--- NOTE | 2022-04-10 10:49 | ED Physician Documentation ---
Restraint [id number] - Immediate Situation Face to Face Evaluation Date: 04/10/22 Face to Face Evaluation Time: 10:30 Restraint Classification: Violent, chemical Restraint Type: Physical escort - Patient's Reaction & Behaviors Verbal: Screaming/Yelling - Behavioral Condition Attitude: Indifferent Behavior: Belligerent, Agitated Orientation: Person, Place Mood: Labile, Angry - Evaluation Review of Systems: See ER note Pertinent History/Illicit Drugs/Medications/Results: Schizophrenia, history of methamphetamine abuse,History of traumatic brain injury - Plan Need to Continue or Terminate Violent or Chemical Restraint: Will discontinue when safe
[2022-04-10 11:08] LABS: BASOPHILS % (AUTO) 0.3 %; HGB - HEMOGLOBIN 11.5 g/dL (12.0-16.0); LYMPHOCYTES # (AUTO) 1.1 10^3/uL (1.5-3.5); LYMPHOCYTES % (AUTO) 11.7 %; MEAN CORPUSCULAR HEMOGLOBIN 29.2 pg (27.0-31.0); MEAN CORPUSCULAR HGB CONC 33.8 g/dL (32.0-36.0); MEAN CORPUSCULAR VOLUME 86.3 fL (81.0-99.0); MEAN PLATELET VOLUME 8.6 fL (7.9-10.8); NEUTROPHILS # (AUTO) 7.3 10^3/uL (1.5-6.6); NEUTROPHILS % (AUTO) 76.7 %; PLT - PLATELET COUNT 249 10^3/uL (130-450); RED BLOOD COUNT 3.94 10^6/uL (4.20-5.40); RED CELL DISTRIBUTION WIDTH 13.2 % (12.0-15.0); WHITE BLOOD COUNT 9.5 x10^3/uL (4.8-10.8)
[2022-04-10 11:26] LABS: ACETAMINOPHEN < 10 ug/mL (10-30); ALBUMIN 4.7 g/dL (3.2-5.5); ALBUMIN/GLOBULIN RATIO 1.6 (1.0-2.2); ALKALINE PHOSPHATASE 50 IU/L (42-121); ALT ALANINE AMINOTRANSFERASE 20 IU/L (10-60); AST ASPARTATE AMINOTRANSFERASE 28 IU/L (10-42); BILIRUBIN,TOTAL 0.7 mg/dL (0.2-1.0); BUN - BLOOD UREA NITROGEN 15 mg/dL (6-20); CALCIUM 9.1 mg/dL (8.5-10.3); CARBON DIOXIDE - CO2 22 mmol/L (21-32); CHLORIDE 101 mmol/L (101-111); CREATININE 0.6 mg/dL (0.4-1.0); ETOH - ETHANOL < 5.0 mg/dL; GFR - MDRD 120 (>89); GLUCOSE 91 mg/dL (70-100); LIPASE 28 U/L (22-51); SALICYLATE < 6.0 mg/dL; SODIUM 133 mmol/L (135-145); TOTAL PROTEIN 7.7 g/dL (6.7-8.2)
--- NOTE | 2022-04-10 11:58 | ED Physician Documentation ---
PD HPI MHE - Stated complaint Stated Complaint: MHE - Chief complaint Chief Complaint: MHE - History obtained from History obtained from: Police, Other (DCR) - Additional information Additional information: Patient is a 26-year-old female with a history of schizophrenia, traumatic brain injury and methamphetamine abuse brought in by the Treating Machine Operator's department at the request of DCR. Patient has apparently violated her court order which requires her to keep her mental health appointments, be compliant with taking her Zyprexa and refrain from methamphetamine abuse. She has not had her Zyprexa in 4 to 5 days. She was at her mother's home at 2:00 in the morning screaming and yelling which the DCR witnessed.DCR has found an accepting Inpatient bed and is involuntarily detaining of this patient. Requesting medical clearance with labs. Patient is not able to provide any meaningful history. Review of Systems Unable to obtain: Intoxicated (On methamphetamine) PD PAST MEDICAL HISTORY - Past Medical History Cardiovascular: None Respiratory: None Neuro: Head injury Endocrine/Autoimmune: None GI: None SOIL TECHNOLOGIST: None : None HEENT: None Psych: Depression, Anxiety, Bipolar disorder, Other Musculoskeletal: None Derm: None - Past Surgical History Past Surgical History: No - Present Medications Home Medications: Ambulatory Orders Medication Instructions Recorded Confirmed No Known Home Medications 12/08/21 02/15/22 - Allergies Allergies/Adverse Reactions: Allergies Allergy/AdvReac Type Severity Reaction Status Date / Time No Known Drug Allergies Allergy Verified 04/10/22 09:25 - Social History Does the pt smoke?: Yes Smoking Status: Current every day smoker Does the pt drink ETOH?: Yes Does the pt have substance abuse?: Yes - Immunizations Immunizations are current?: Yes - POLST Patient has POLST: No PD ED PE NORMAL - General General: Alert and oriented X 3, No acute distress - HEENT HEENT: Atraumatic, PERRL, EOMI, Moist mucous membranes, Pharynx benign - Neck Neck: Supple, no meningeal sign - Cardiac Cardiac: No murmur, Strong equal pulses, Other (Tachycardic, regular rhythm) - Respiratory Respiratory: No respiratory distress, Clear bilaterally - Abdomen Abdomen: Non tender, Non distended - Extremities Extremities: No tenderness to palpate - Neuro Neuro: Alert and oriented X 3, No motor deficit - Psych Psych: Other (Rapid, pressured speech, at times yelling out; muttering to herself; can answer some directed questions; denies SI/HI) Results - Vitals Vitals: Vital Signs - 24 hr 04/10/22 04/10/22 04/10/22 09:20 09:41 10:27 Temperature 37.7 C 36.4 C L Heart Rate 129 H 111 H 111 H Respiratory 18 18 25 H Rate Blood Pressure 159/89 H 136/60 H 124/67 O2 Saturation 97 97 96 04/10/22 04/10/22 04/10/22 10:52 10:57 14:58 Temperature 36.4 C L 36.9 C Heart Rate 133 H 133 H 93 Respiratory 16 16 19 Rate Blood Pressure 161/87 H 161/87 H 114/73 O2 Saturation 96 96 96 Oxygen O2 Source Room air - EKG (time done) 1055 Rate: Rate (enter#) (131) Rhythm: Sinus tachycardia [place]: Normal Intervals: No: Prolonged QT (QTC 448) Ischemia: No: ST elevation c/w ischemia - Labs Labs: Laboratory Tests 04/10/22 04/10/22 04/10/22 09:57 10:48 11:04 WBC 9.5 RBC 3.94 L Hgb 11.5 L Hct 34.0 L MCV 86.3 MCH 29.2 MCHC 33.8 RDW 13.2 Plt Count 249 MPV 8.6 Neut # (Auto) 7.3 H Lymph # (Auto) 1.1 L [place] # (Auto) 1.0 Eos # (Auto) 0.0 Baso # (Auto) 0.0 Absolute Nucleated RBC 0.00 Nucleated RBC % 0.0 Sodium Potassium Chloride Carbon Dioxide Anion Gap BUN Creatinine Estimated GFR (MDRD) Glucose Calcium Total Bilirubin AST ALT Alkaline Phosphatase Total Protein Albumin Globulin Albumin/Globulin Ratio Lipase TSH Urine Color DARK YELLOW Urine Clarity HAZY Urine pH 6.0 Ur Specific [place] >=1.030 H Urine Protein 100 H Urine Glucose (UA) NEGATIVE Urine Ketones NEGATIVE Urine Occult Blood NEGATIVE Urine Nitrite NEGATIVE Urine Bilirubin NEGATIVE Urine Urobilinogen 1 (NORMAL) Ur Leukocyte Esterase NEGATIVE Urine RBC None Seen Urine WBC 0-3 Ur Squamous Epith Cells MOD Squamous H Urine Bacteria Few Ur Microscopic Review INDICATED Urine Culture Comments NOT INDICATED Urine HCG, Qual NEGATIVE Salicylates Urine Opiates Screen NEGATIVE Ur Oxycodone Screen NEGATIVE Urine Methadone Screen NEGATIVE Ur Propoxyphene Screen NEGATIVE Acetaminophen Ur Barbiturates Screen NEGATIVE Ur Tricyclics Screen NEGATIVE Ur Phencyclidine Scrn NEGATIVE Ur Amphetamine Screen POSITIVE H U Methamphetamines Scrn POSITIVE H U Benzodiazepines Scrn NEGATIVE Urine Cocaine Screen NEGATIVE U Cannabinoids Screen NEGATIVE Ethyl Alcohol SARS-CoV-2 (PCR) DETECTED A 04/10/22 04/10/22 11:04 11:04 WBC RBC Hgb Hct MCV MCH MCHC RDW Plt Count MPV Neut # (Auto) Lymph # (Auto) [place] # (Auto) Eos # (Auto) Baso # (Auto) Absolute Nucleated RBC Nucleated RBC % Sodium 133 L Potassium 4.0 Chloride 101 Carbon Dioxide 22 Anion Gap 10.0 BUN 15 Creatinine 0.6 Estimated GFR (MDRD) 120 Glucose 91 Calcium 9.1 Total Bilirubin 0.7 AST 28 ALT 20 Alkaline Phosphatase 50 Total Protein 7.7 Albumin 4.7 Globulin 3.0 Albumin/Globulin Ratio 1.6 Lipase 28 TSH 0.94 Urine Color Urine Clarity Urine pH Ur Specific [place] Urine Protein Urine Glucose (UA) Urine Ketones Urine Occult Blood Urine Nitrite Urine Bilirubin Urine Urobilinogen Ur Leukocyte Esterase Urine RBC Urine WBC Ur Squamous Epith Cells Urine Bacteria Ur Microscopic Review Urine Culture Comments Urine HCG, Qual Salicylates < 6.0 Urine Opiates Screen Ur Oxycodone Screen Urine Methadone Screen Ur Propoxyphene Screen Acetaminophen < 10 L Ur Barbiturates Screen Ur Tricyclics Screen Ur Phencyclidine Scrn Ur Amphetamine Screen U Methamphetamines Scrn U Benzodiazepines Scrn Urine Cocaine Screen U Cannabinoids Screen Ethyl Alcohol < 5.0 SARS-CoV-2 (PCR) PD MEDICAL DECISION MAKING - ED course Complexity details: reviewed results, re-evaluated patient, d/w patient ED course: Patient brought into emergency department by [facility] at the request of DCR as she has not been compliant with her court order to take her medications, refrain from methamphetamine use. She was screaming and yelling in her mother's yard today. DCR is pursuing involuntary detainment.Patient did try to elope from the emergency department and was getting agitated and belligerent and required chemical sedation to evaluate her safely. Patient's labs were reviewed and she was noted to be positive for COVID-19. She did have a bed waiting for her but that was revoked when her COVID test was positive. The patient does not appear to be symptomatic. She was allowed to sober from her meth amphetamine abuse as well as from ketamine that she was given. She has returned to her baseline and DCR is not able to hold her as no facilities are willing to take her with a positive COVID test. Patient was given a dose of Zyprexa which is an outpatient medication for her. Departure - Departure Disposition: 01 Home, Self Care Clinical Impression: Methamphetamine abuse, COVID-19 Condition: Stable Instructions: ED Drug Abuse General, COVID-19 [facility] Comments: You were brought to the emergency department by the Treating Machine Operator's and DCR because they are worried about your safety - Please do not use meth or any other drugs. Please take your medications as prescribed. You have also tested positive for COVID-19. - Stay home/quarantine for 5 days. - If you have no symptoms or your symptoms are resolving after 5 days, you can leave your house. - Continue to wear a mask around others for 5 additional days. Discharge Date/Time: 04/10/22 15:08
--- NOTE | 2022-04-10 12:14 | ED Physician Documentation ---
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: None : None HEENT: None Psych: Depression, Anxiety, Bipolar disorder, Other Musculoskeletal: None Derm: None - Past Surgical History Past Surgical History: No - Present Medications Home Medications: Ambulatory Orders Medication Instructions Recorded Confirmed No Known Home Medications 12/08/21 02/15/22 - Allergies Allergies/Adverse Reactions: Allergies Allergy/AdvReac Type Severity Reaction Status Date / Time No Known Drug Allergies Allergy Verified 04/10/22 09:25 - Social History Does the pt smoke?: Yes Smoking Status: Current every day smoker Does the pt drink ETOH?: Yes Does the pt have substance abuse?: Yes - Immunizations Immunizations are current?: Yes - POLST Patient has POLST: No Results - Vitals Vitals: Vital Signs - 24 hr 04/10/22 04/10/22 04/10/22 09:20 09:41 10:52 Temperature 37.7 C Heart Rate 129 H 111 H 133 H Respiratory 18 18 16 Rate Blood Pressure 159/89 H 136/60 H 161/87 H O2 Saturation 97 97 96 Oxygen O2 Source Room air - Labs Labs: Laboratory Tests 04/10/22 04/10/22 04/10/22 09:57 10:48 11:04 WBC 9.5 RBC 3.94 L Hgb 11.5 L Hct 34.0 L MCV 86.3 MCH 29.2 MCHC 33.8 RDW 13.2 Plt Count 249 MPV 8.6 Neut # (Auto) 7.3 H Lymph # (Auto) 1.1 L [place] # (Auto) 1.0 Eos # (Auto) 0.0 Baso # (Auto) 0.0 Absolute Nucleated RBC 0.00 Nucleated RBC % 0.0 Sodium Potassium Chloride Carbon Dioxide Anion Gap BUN Creatinine Estimated GFR (MDRD) Glucose Calcium Total Bilirubin AST ALT Alkaline Phosphatase Total Protein Albumin Globulin Albumin/Globulin Ratio Lipase TSH Urine Color DARK YELLOW Urine Clarity HAZY Urine pH 6.0 Ur Specific [place] >=1.030 H Urine Protein 100 H Urine Glucose (UA) NEGATIVE Urine Ketones NEGATIVE Urine Occult Blood NEGATIVE Urine Nitrite NEGATIVE Urine Bilirubin NEGATIVE Urine Urobilinogen 1 (NORMAL) Ur Leukocyte Esterase NEGATIVE Urine RBC None Seen Urine WBC 0-3 Ur Squamous Epith Cells MOD Squamous H Urine Bacteria Few Ur Microscopic Review INDICATED Urine Culture Comments NOT INDICATED Urine HCG, Qual NEGATIVE Salicylates Urine Opiates Screen NEGATIVE Ur Oxycodone Screen NEGATIVE Urine Methadone Screen NEGATIVE Ur Propoxyphene Screen NEGATIVE Acetaminophen Ur Barbiturates Screen NEGATIVE Ur Tricyclics Screen NEGATIVE Ur Phencyclidine Scrn NEGATIVE Ur Amphetamine Screen POSITIVE H U Methamphetamines Scrn POSITIVE H U Benzodiazepines Scrn NEGATIVE Urine Cocaine Screen NEGATIVE U Cannabinoids Screen NEGATIVE Ethyl Alcohol SARS-CoV-2 (PCR) DETECTED A 04/10/22 04/10/22 11:04 11:04 WBC RBC Hgb Hct MCV MCH MCHC RDW Plt Count MPV Neut # (Auto) Lymph # (Auto) [place] # (Auto) Eos # (Auto) Baso # (Auto) Absolute Nucleated RBC Nucleated RBC % Sodium 133 L Potassium 4.0 Chloride 101 Carbon Dioxide 22 Anion Gap 10.0 BUN 15 Creatinine 0.6 Estimated GFR (MDRD) 120 Glucose 91 Calcium 9.1 Total Bilirubin 0.7 AST 28 ALT 20 Alkaline Phosphatase 50 Total Protein 7.7 Albumin 4.7 Globulin 3.0 Albumin/Globulin Ratio 1.6 Lipase 28 TSH 0.94 Urine Color Urine Clarity Urine pH Ur Specific [place] Urine Protein Urine Glucose (UA) Urine Ketones Urine Occult Blood Urine Nitrite Urine Bilirubin Urine Urobilinogen Ur Leukocyte Esterase Urine RBC Urine WBC Ur Squamous Epith Cells Urine Bacteria Ur Microscopic Review Urine Culture Comments Urine HCG, Qual Salicylates < 6.0 Urine Opiates Screen Ur Oxycodone Screen Urine Methadone Screen Ur Propoxyphene Screen Acetaminophen < 10 L Ur Barbiturates Screen Ur Tricyclics Screen Ur Phencyclidine Scrn Ur Amphetamine Screen U Methamphetamines Scrn U Benzodiazepines Scrn Urine Cocaine Screen U Cannabinoids Screen Ethyl Alcohol < 5.0 SARS-CoV-2 (PCR)
[2022-04-10] MEDS ORDERED: OLANZapine ODT 5 MG TABLET TL ONE (13:53)
[2022-04-10 14:58] VITALS: BP 114/73
== END 2022-04-10 15:08 | disposition home or self-care (01) ==
LOC: EDUNIT# → ED 09:13
DX: U07.1 COVID-19 (principal); F15.10 Other stimulant abuse, uncomplicated; Z78.1 Physical restraint status; F17.200 Nicotine dependence, unspecified, uncomplicated
CPT/HCPCS: 36415; 80053; 80306; 80307; 80320; 80329; 81001; 81025; 83690; 84443; 85025; 87635; 93005; 96372; 99281; 99285; A9270; 81003; 87086

== ENCOUNTER 2022-04-24 11:53 | Outpatient (CLI) | payer MEDICAID | END 2022-04-24 11:54 | disposition critical access hospital (66) | LOC: EMS 11:53 | DX: Z04.6 Encounter for general psychiatric examination, requested by authority (principal); R45.1 Restlessness and agitation; R41.0 Disorientation, unspecified; Z78.1 Physical restraint status | CPT/HCPCS: A0425; A0429; A0999 ==

== ENCOUNTER 2022-04-24 12:14 | Emergency (ER) | payer MEDICAID ==
[~2022-04-24 12:14] MED LIST: KETAMINE 500 MG/10 ML VIAL IM STA; OLANZapine 10 MG VIAL IM ONE
--- NOTE | 2022-04-24 12:20 | ED Physician Documentation ---
History of Present Illness - Stated complaint Stated Complaint: MHE - History obtained from History obtained from: EMS (26-year-old woman with history of mental health issues and methamphetamine abuse brought in by ambulance on a [facility] due to bizarre behavior. No history is available from the patient as she is agitated and nonverbal.) Review of Systems Unable to obtain: Uncooperative PD PAST MEDICAL HISTORY - Past Medical History Cardiovascular: None Respiratory: None Neuro: Head injury Endocrine/Autoimmune: None GI: None SAP SPECIALIST: None : None HEENT: None Psych: Depression, Anxiety, Bipolar disorder, Other Musculoskeletal: None Derm: None - Past Surgical History Past Surgical History: No - Present Medications Home Medications: Ambulatory Orders Medication Instructions Recorded Confirmed No Known Home Medications 12/08/21 02/15/22 - Allergies Allergies/Adverse Reactions: Allergies Allergy/AdvReac Type Severity Reaction Status Date / Time No Known Drug Allergies Allergy Verified 04/10/22 09:25 - Social History Does the pt smoke?: Yes Smoking Status: Current every day smoker Does the pt drink ETOH?: Yes Does the pt have substance abuse?: Yes - Immunizations Immunizations are current?: Yes - POLST Patient has POLST: No PD ED PE NORMAL - Vitals Vital signs reviewed: Yes - General General: Other (Thrashing, fighting, incontinent of urine) - HEENT HEENT: PERRL, EOMI - Neck Neck: Supple, no meningeal sign, No bony TTP - Cardiac Cardiac: RRR, No murmur - Respiratory Respiratory: No respiratory distress, Clear bilaterally - Abdomen Abdomen: Normal bowel sounds, Soft, Non tender - Back Back: No CVA TTP, No spinal TTP - Derm Derm: Normal color, Warm and dry - Extremities Extremities: Other (Good strength in all 4 extremities which we note as she is fighting us.) - Neuro Eye Opening: Spontaneous Motor: Localizes to Pain Verbal: Incomprehensible GCS Score: 11 Results - Vitals Vitals: Vital Signs - 24 hr 04/24/22 04/24/22 04/24/22 12:13 12:31 12:44 Temperature 37.2 C Heart Rate 125 H 80 82 Respiratory 26 H Rate Blood Pressure 131/71 H 122/60 125/71 O2 Saturation 99 99 96 04/24/22 04/24/22 13:00 13:30 Temperature Heart Rate 77 64 Respiratory 16 16 Rate Blood Pressure 122/77 122/63 O2 Saturation 99 99 Oxygen O2 Source Room air - EKG (time done) 1326 Rate: Rate (enter#) (92) Rhythm: NSR [place]: Normal Intervals: Normal [place] QRS: Normal Ischemia: Normal ST segments - Labs Labs: Laboratory Tests 04/24/22 04/24/22 04/24/22 13:12 13:12 13:12 WBC 11.4 H RBC 4.11 L Hgb 11.5 L Hct 35.0 L MCV 85.2 MCH 28.0 MCHC 32.9 RDW 12.9 Plt Count 374 MPV 8.5 Neut # (Auto) 6.9 H Lymph # (Auto) 3.1 [place] # (Auto) 1.3 H Eos # (Auto) 0.0 Baso # (Auto) 0.1 Absolute Nucleated RBC 0.00 Nucleated RBC % 0.0 Sodium 136 Potassium 3.7 Chloride 101 Carbon Dioxide 21 Anion Gap 14.0 H BUN 45 H Creatinine 1.2 H Estimated GFR (MDRD) 54 L Glucose 94 Calcium 9.5 Total Bilirubin 1.1 H AST 22 ALT 17 Alkaline Phosphatase 42 Total Protein 7.7 Albumin 4.9 Globulin 2.8 Albumin/Globulin Ratio 1.8 Lipase 27 TSH 0.57 Urine Color Urine Clarity Urine pH Ur Specific [place] Urine Protein Urine Glucose (UA) Urine Ketones Urine Occult Blood Urine Nitrite Urine Bilirubin Urine Urobilinogen Ur Leukocyte Esterase Urine RBC Urine WBC Ur Squamous Epith Cells Urine Crystals Urine Bacteria Ur Microscopic Review Urine Culture Comments Urine HCG, Qual Salicylates < 6.0 Urine Opiates Screen Ur Oxycodone Screen Urine Methadone Screen Ur Propoxyphene Screen Acetaminophen < 10 L Ur Barbiturates Screen Ur Tricyclics Screen Ur Phencyclidine Scrn Ur Amphetamine Screen U Methamphetamines Scrn U Benzodiazepines Scrn Urine Cocaine Screen U Cannabinoids Screen Ethyl Alcohol < 5.0 SARS-CoV-2 (PCR) 04/24/22 04/24/22 04/24/22 13:33 13:33 13:33 WBC RBC Hgb Hct MCV MCH MCHC RDW Plt Count MPV Neut # (Auto) Lymph # (Auto) [place] # (Auto) Eos # (Auto) Baso # (Auto) Absolute Nucleated RBC Nucleated RBC % Sodium Potassium Chloride Carbon Dioxide Anion Gap BUN Creatinine Estimated GFR (MDRD) Glucose Calcium Total Bilirubin AST ALT Alkaline Phosphatase Total Protein Albumin Globulin Albumin/Globulin Ratio Lipase TSH Urine Color YELLOW Urine Clarity CLEAR Urine pH 6.0 Ur Specific [place] 1.025 Urine Protein NEGATIVE Urine Glucose (UA) NEGATIVE Urine Ketones TRACE Urine Occult Blood MODERATE H Urine Nitrite NEGATIVE Urine Bilirubin NEGATIVE Urine Urobilinogen 0.2 (NORMAL) Ur Leukocyte Esterase NEGATIVE Urine RBC 0-5 Urine WBC 0-3 Ur Squamous Epith Cells RARE Squamous Urine Crystals 11-25 Uric Acid Urine Bacteria Few Ur Microscopic Review INDICATED Urine Culture Comments NOT INDICATED Urine HCG, Qual NEGATIVE Salicylates Urine Opiates Screen NEGATIVE Ur Oxycodone Screen NEGATIVE Urine Methadone Screen NEGATIVE Ur Propoxyphene Screen NEGATIVE Acetaminophen Ur Barbiturates Screen NEGATIVE Ur Tricyclics Screen NEGATIVE Ur Phencyclidine Scrn NEGATIVE Ur Amphetamine Screen POSITIVE H U Methamphetamines Scrn POSITIVE H U Benzodiazepines Scrn NEGATIVE Urine Cocaine Screen NEGATIVE U Cannabinoids Screen NEGATIVE Ethyl Alcohol SARS-CoV-2 (PCR) 04/24/22 13:55 WBC RBC Hgb Hct MCV MCH MCHC RDW Plt Count MPV Neut # (Auto) Lymph # (Auto) [place] # (Auto) Eos # (Auto) Baso # (Auto) Absolute Nucleated RBC Nucleated RBC % Sodium Potassium Chloride Carbon Dioxide Anion Gap BUN Creatinine Estimated GFR (MDRD) Glucose Calcium Total Bilirubin AST ALT Alkaline Phosphatase Total Protein Albumin Globulin Albumin/Globulin Ratio Lipase TSH Urine Color Urine Clarity Urine pH Ur Specific [place] Urine Protein Urine Glucose (UA) Urine Ketones Urine Occult Blood Urine Nitrite Urine Bilirubin Urine Urobilinogen Ur Leukocyte Esterase Urine RBC Urine WBC Ur Squamous Epith Cells Urine Crystals Urine Bacteria Ur Microscopic Review Urine Culture Comments Urine HCG, Qual Salicylates Urine Opiates Screen Ur Oxycodone Screen Urine Methadone Screen Ur Propoxyphene Screen Acetaminophen Ur Barbiturates Screen Ur Tricyclics Screen Ur Phencyclidine Scrn Ur Amphetamine Screen U Methamphetamines Scrn U Benzodiazepines Scrn Urine Cocaine Screen U Cannabinoids Screen Ethyl Alcohol SARS-CoV-2 (PCR) DETECTED A PD MEDICAL DECISION MAKING - ED course ED course: 26-year-old woman who is gravely ill related to remote traumatic brain injury and more recently ongoing methamphetamine abuse presents by ambulance for involuntary treatment. She had to be both chemically and physically restrained on arrival. Subsequently she slept for quite some time. The social media designer saw her but is unable to start the process of placement or DCR evaluation given her somnolence and she is boarding in the emergency department. Unfortunately her COVID positivity may preclude penitentiary and placement. Care to overnight ED MD at shift change pending sobriety. Departure - Departure Clinical Impression: Methamphetamine abuse, Psychosis Condition: Stable
--- NOTE | 2022-04-24 12:21 | ED Physician Documentation ---
Restraint [id number] - Immediate Situation Face to Face Evaluation Date: 04/24/22 Face to Face Evaluation Time: 12:20 Restraint Classification: Violent, chemical Restraint Type: Physical hold - Patient's Reaction & Behaviors Safety: Non-compliant, Unable to Follow Commands Verbal: Screaming/Yelling Harm: Potential harm to self, Potential harm to others Physical: Aggressive behavior, Fighting restraints - Behavioral Condition Attitude: Indifferent Behavior: Belligerent Orientation: Disoriented to all Mood: Labile, Angry - Evaluation Review of Systems: Unobtainable due to altered mental status Pertinent History/Illicit Drugs/Medications/Results: This [id number] is for the chemical restraint given on arrival. She was administered 300 mg of ketamine IM and 10 mg of Zyprexa IM for fighting all staff. She is on an involuntary hold. - Plan Need to Continue or Terminate Violent or Chemical Restraint: When calm and cooperative
--- NOTE | 2022-04-24 12:22 | ED Physician Documentation ---
Restraint [id number] - Immediate Situation Face to Face Evaluation Date: 04/24/22 Face to Face Evaluation Time: 12:21 Restraint Classification: Violent, physical Restraint Type: Locked extremity - Patient's Reaction & Behaviors Safety: Non-compliant, Unable to Follow Commands Verbal: Screaming/Yelling Harm: Potential harm to self, Potential harm to others Physical: Aggressive behavior, Punching - Behavioral Condition Attitude: Indifferent Behavior: Belligerent, Agitated Orientation: Disoriented to all Mood: Labile, Angry - Evaluation Review of Systems: Unobtainable due to altered mental status Pertinent History/Illicit Drugs/Medications/Results: This [id number] is for the chemical restraint given on arrival. She was administered 300 mg of ketamine IM and 10 mg of Zyprexa IM for fighting all staff. She is on an involuntary hold. - Plan Need to Continue or Terminate Violent or Chemical Restraint: This [id number] is for violent restraints placed shortly after the initiation of chemical restraints. She needed an adjunct of therapy of violent restraints to allow time for the chemical restraints to kick in.
--- OUTSIDE RECORDS SUMMARY | 2022-04-24 12:28 | EXTERNAL MEDICAL SUMMARY RPT | Continuity of Care Document ---
:1995 Author Organization [facility] Address [address] [place] [address] Phone Allergies and Intolerances date description facility type (no date) Sulfa (Sulfonamide Antibiotics) [facility] (unknown) Encounters No information. Functional Status No information. Immunizations No information. Medications No information. Problems No information. Procedures No information. Results/Labs test date author facility value unit interpret ation Result panel 1 (unknown) (no date) (unknown) (unknown) (no value) (units (un known) unknown) (unknown) (no date) (unknown) (unknown) [address]units [address] unknown) (unknown) (no date) (unknown) (unknown) [place], [place] (units (unknown) [id number] unknown) (unknown) (no date) (unknown) (unknown) [facility] unknown) (unknown) (no [...] Dictated by: (units ( unknown) Pepito Root unknownFelix Gillis on 02/19/2022 at 0:02 (unknown) (no date) [...] were acquired. (unknown) (no date) (unknown) (unknown) [id number] (units (unk nown) unknown) (unknown) (no date) (unknown) (unknown) Accession (units (unk nown) Number: unknown) [id number] (unknown) (no date) (unknown) (unknown) Age/Sex: 26 / (units (unknown) F Date of unknown) Service: (unknown) (no date) (unknown) (unknown) : (units (unkn own) 1995 unknown) Acct:[id number] (unknown) (no date) (unknown) (unknown) Loc: ED [...] (unknown) [facility] (units ( unknown) date) [address] unknown) (unknown) (no (unknown) (unknown) Documented By: (units (unknown) date) DKB unknown) (unknown) (no (unknown) (unknown) ED Orders (units (unkn own) date) unknown) (unknown) (no (unknown) (unknown) Emergency (units (unkn own) date) Report unknown) (unknown) (no (unknown) (unknown) [facility] (units (unknown) date) unknown) (unknown) (no (unknown) (unknown) [facility] (units (unknown) date) [address] unknown) [place] [id number] (unknown) (no (unknown) (unknown) Last Admin: (units [...] wn) date) unknown) (unknown) (no (unknown) (unknown) [id number] (units (unkno wn) date) unknown) (unknown) (no [...] Accession (units (unkn own) date) Number: unknown) [id number] ?? (unknown) (no (unknown) (unknown) Acct:[id number] (units (unknown) date) unknown) (unknown) (no (unknown) [...] Lower (unknown) (no (unknown) (unknown) Consult to LENDING ACTIVITIES SUPERVISOR (units (unknown) date) - Social unknown) Services Stat (unknown) (no (unknown) (unknown) Course (units (unkno wn) date) unknown) (unknown) (no (unknown) (unknown) : 1995 (units (unknown) date) Acct:[id number] unknown) (unknown) (no (unknown) (unknown) : 1995 (units (unknown) date) unknown) (unknown) (no (unknown) (unknown) Date of (units (unkno wn) date) Service: unknown) 02/18/22 (unknown) (no (unknown) (unknown) Dictated by: (units (u nknown) date) Pepito oRot, unknown) Elis on 02/19/2022 at 0:02 ? [...] date) unknown) (unknown) (no (unknown) (unknown) MR#: [id number] (units (unknown) date) unknown) (unknown) (no (unknown) [...] date) in by ambulance unknown) from a fdc. Police were called because (unknown) (no (unknown) [...] (units (unknown) date) are calling this unknown) personnel clerk for more information. Patient (unknown) (no (unknown) (unknown) and below (units (unkn own) date) unknown) (unknown) (no (unknown) (unknown) combative. Is (units ( unknown) date) cooperative. unknown) (unknown) (no (unknown) (unknown) droop. 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 JUAN CARLOS was placed by police and [...] to go to (unknown) (no (unknown) (unknown) [facility] (units (unknown) date) [facility]. unknown) However they are on EMS divert. [...] (unknown) [facility] (units ( unknown) date) [address] unknown) (unknown) (no (unknown) (unknown) Documented By: (units (unknown) date) DKB unknown) (unknown) (no (unknown) (unknown) ED Orders (units (unkn own) date) unknown) (unknown) (no (unknown) (unknown) Emergency (units (unkn own) date) Report unknown) (unknown) (no (unknown) (unknown) [facility] (units (unknown) date) unknown) (unknown) (no (unknown) (unknown) [facility] (units (unknown) date) [address] unknown) [place] [address] (unknown) (no (unknown) (unknown) Last Admin: (units [...] wn) date) unknown) (unknown) (no (unknown) (unknown) [id number] (units (unkno wn) date) unknown) (unknown) (no [...] Accession (units (unkn own) date) Number: unknown) [id number] ?? (unknown) (no (unknown) (unknown) Acct:[id number] (units (unknown) date) unknown) (unknown) (no (unknown) [...] (unknown) (unknown) Blood Pressure (units (unknown) date) 109 unknown) (unknown) (no (unknown) (unknown) Bones:? No [...] Lower (unknown) (no (unknown) (unknown) Consult to LENDING ACTIVITIES SUPERVISOR (units (unknown) date) - Social unknown) Services Stat (unknown) (no (unknown) (unknown) Course (units (unkno wn) date) unknown) (unknown) (no (unknown) (unknown) : 1995 (units (unknown) date) Acct:[id number] unknown) (unknown) (no (unknown) (unknown) : 1995 [...] date) unknown) (unknown) (no (unknown) (unknown) MR#: [id number] (units (unknown) date) unknown) (unknown) (no (unknown) [...] date) in by ambulance unknown) from a fdc. Police were called because (unknown) (no (unknown) [...] (units (unknown) date) are calling this unknown) personnel clerk for more information. Patient (unknown) (no (unknown) (unknown) and below (units (unkn own) date) unknown) (unknown) (no (unknown) (unknown) combative. Is (units ( unknown) date) cooperative. unknown) (unknown) (no (unknown) (unknown) droop. 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 JUAN CARLOS was placed by police and [...] to go to (unknown) (no (unknown) (unknown) [facility] (units (unknown) date) [facility]. unknown) However they are on EMS divert. [...] (unknown) [facility] (units ( unknown) date) [address] unknown) (unknown) (no (unknown) (unknown) Documented By: (units (unknown) date) DKB unknown) (unknown) (no (unknown) (unknown) ED Orders (units (unkn own) date) unknown) (unknown) (no (unknown) (unknown) Emergency (units (unkn own) date) Report unknown) (unknown) (no (unknown) (unknown) [facility] (units (unknown) date) unknown) (unknown) (no (unknown) (unknown) [facility] (units (unknown) date) [address] unknown) [place] [address] (unknown) (no (unknown) (unknown) Last Admin: (units [...] wn) date) unknown) (unknown) (no (unknown) (unknown) [id number] (units (unkno wn) date) unknown) (unknown) (no [...] Accession (units (unkn own) date) Number: unknown) [id number] ?? (unknown) (no (unknown) (unknown) Acct:[id number] (units (unknown) date) unknown) (unknown) (no (unknown) [...] Lower (unknown) (no (unknown) (unknown) Consult to LENDING ACTIVITIES SUPERVISOR (units (unknown) date) - Social unknown) Services Stat (unknown) (no (unknown) (unknown) Course (units (unkno wn) date) unknown) (unknown) (no (unknown) (unknown) Course (units (unkno wn) date) Narrative: unknown) (unknown) (no (unknown) (unknown) : 1995 (units (unknown) date) Acct:[id number] unknown) (unknown) (no (unknown) (unknown) : 1995 [...] date) unknown) (unknown) (no (unknown) (unknown) MR#: [id number] (units (unknown) date) unknown) (unknown) (no (unknown) [...] date) in by ambulance unknown) from a fdc. Police were called because (unknown) (no (unknown) [...] (units (unknown) date) are calling this unknown) personnel clerk for more information. Patient (unknown) (no (unknown) (unknown) and below (units (unkn own) date) unknown) (unknown) (no (unknown) (unknown) combative. Is (units ( unknown) date) cooperative. unknown) (unknown) (no (unknown) (unknown) droop. 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 JUAN CARLOS was placed by police and [...] to go to (unknown) (no (unknown) (unknown) [facility] (units (unknown) date) [facility]. unknown) However they are on EMS divert. [...] (unknown) date) unknown) (unknown) (no (unknown) (unknown) [address] (units (unknown) date) unknown) (unknown) (no (unknown) (unknown) Allergies (units (unkn own) date) unknown) (unknown) (no (unknown) (unknown) [place] (units ( unknown) date) [address] unknown) (unknown) (no (unknown) (unknown) Documented By: (units (unknown) date) DKB unknown) (unknown) (no (unknown) (unknown) ED Orders (units (unkn own) date) unknown) (unknown) (no (unknown) (unknown) Emergency Report (units (unknown) date) unknown) (unknown) (no (unknown) (unknown) [facility] (units (unknown) date) unknown) (unknown) (no (unknown) (unknown) [facility] (units (unknown) date) [address] [place] [address] unknown) [facility] [address] (unknown) (no (unknown) (unknown) Lab Results (units [...] wn) date) unknown) (unknown) (no (unknown) (unknown) [id number] (units (unkno wn) date) unknown) (unknown) (no [...] Accession (units (unkn own) date) Number: unknown) [id number] ?? (unknown) (no (unknown) (unknown) Acct:[id number] (units (unknown) date) unknown) (unknown) (no (unknown) [...] (unknown) (unknown) : 1995 (units (unknown) date) Acct:[id number] unknown) (unknown) (no (unknown) (unknown) : 1995 [...] Lymph # (Auto) (units (unknown) date) 1700 (1732-7368) unknown) /uL (unknown) (no (unknown) (unknown) Lymph [...] date) unknown) (unknown) (no (unknown) (unknown) MR#: [id number] (units (unknown) date) unknown) (unknown) (no (unknown) (unknown) MUSCULOSKELETAL: (units (unknown) date) denies muscle or unknown) bony pain (unknown) (no (unknown) (unknown) Medical decision (units (unknown) date) making narrative: unknown) (unknown) (no (unknown) (unknown) Mild tenderness (units (unknown) date) to touch. No unknown) erythema. (unknown) (no (unknown) (unknown) Taney # (Auto) (units ( unknown) date) 400 (0-900) /uL unknown) (unknown) (no (unknown) (unknown) Taney % (Auto) (units ( unknown) date) 8.8 [...] # (Auto) (units ( unknown) date) 2600 (2610-0734) unknown) /uL (unknown) (no (unknown) (unknown) Neut [...] date) in by ambulance unknown) from a fdc. Police were called because (unknown) (no (unknown) (unknown) Patient sleeping (units (unknown) date) comfortably in no unknown) distress not agitated (unknown) (no (unknown) (unknown) Patient sleeping (units (unknown) date) very comfortably. unknown) No agitation (unknown) (no (unknown) (unknown) Patient: (units (unkno wn) date) Maria A Davisleola Gerber unknown) MR#: [id number] (unknown) (no (unknown) (unknown) Patient: (units (unkno wn) date) Maria A Davisleola Gerber unknown) (unknown) (no (unknown) (unknown) Procedure: XR [...] (units (unknown) date) are calling this unknown) personnel clerk for more information. Patient (unknown) (no (unknown) (unknown) and below (units (unkn own) date) unknown) (unknown) (no (unknown) (unknown) combative. Is (units ( unknown) date) cooperative. unknown) (unknown) (no (unknown) (unknown) droop. 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 JUAN CARLOS was placed by police and [...] to go to (unknown) (no (unknown) (unknown) [facility] (units (unknown) date) [facility]. However unknown) they are on EMS [...] date) unknown) (unknown) (no (unknown) (unknown) [address] (units (unknown) date) unknown) (unknown) (no (unknown) (unknown) Allergies (units (unkn own) date) unknown) (unknown) (no (unknown) (unknown) [facility] (units ( unknown) date) [address] unknown) (unknown) (no (unknown) (unknown) Documented By: DKB (units (unknown) date) unknown) (unknown) (no (unknown) (unknown) ED Orders (units (unkn own) date) unknown) (unknown) (no (unknown) (unknown) Emergency Report (units (unknown) date) unknown) (unknown) (no (unknown) (unknown) [facility] (units (unknown) date) unknown) (unknown) (no (unknown) (unknown) [facility] (units (unknown) date) [address] unknown) [place] [address] (unknown) (no (unknown) (unknown) Lab Results (units [...] wn) date) unknown) (unknown) (no (unknown) (unknown) [id number] (units (unkno wn) date) unknown) (unknown) (no [...] (unknown) (unknown) Accession Number: (units (unknown) date) [id number] ?? unknown) (unknown) (no (unknown) (unknown) Acct:[id number] (units (unknown) date) unknown) (unknown) (no (unknown) [...] (unknown) (unknown) : 1995 (units (unknown) date) Acct:[id number] unknown) (unknown) (no (unknown) (unknown) : 1995 [...] (unknown) Lymph # (Auto) (units (unknown) date) (6180-4523) /uL unknown) (unknown) (no (unknown) (unknown) Lymph # (Auto) (units (unknown) date) 1700 (6402-0646) unknown) /uL (unknown) (no (unknown) (unknown) Lymph [...] date) unknown) (unknown) (no (unknown) (unknown) MR#: [id number] (units (unknown) date) unknown) (unknown) (no (unknown) (unknown) MUSCULOSKELETAL: (units (unknown) date) denies muscle or unknown) bony pain (unknown) (no (unknown) (unknown) Medical decision (units (unknown) date) making narrative: unknown) (unknown) (no (unknown) (unknown) Mild tenderness to (units (unknown) date) touch. No erythema. unknown) (unknown) (no (unknown) (unknown) Taney # (Auto) (units ( unknown) date) (0-900) /uL unknown) (unknown) (no (unknown) (unknown) Taney # (Auto) 400 (units (unknown) date) (0-900) /uL unknown) (unknown) (no (unknown) (unknown) Taney % (Auto) (units ( unknown) date) (3-14) % unknown) (unknown) (no (unknown) (unknown) Taney % (Auto) 8.8 (units (unknown) date) (3-14) [...] Neut # (Auto) (units ( unknown) date) (7569-4405) /uL unknown) (unknown) (no (unknown) (unknown) Neut # (Auto) 2600 (units (unknown) date) (1934-0297) /uL unknown) (unknown) (no (unknown) (unknown) Neut [...] (unknown) date) by ambulance from a unknown) fdc. Police were called because (unknown) (no (unknown) [...] (unknown) (unknown) Urine Specific (units (unknown) date) [place] 1.030 unknown) (unknown) (no (unknown) (unknown) Urine [...] (units (unknown) date) are calling this unknown) personnel clerk for more information. Patient (unknown) (no (unknown) (unknown) and below (units (unkn own) date) unknown) (unknown) (no (unknown) (unknown) combative. Is (units ( unknown) date) cooperative. unknown) (unknown) (no (unknown) (unknown) droop. 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 JUAN CARLOS was placed by police and [...] to go to (unknown) (no (unknown) (unknown) [facility] (units (unknown) date) [facility]. However unknown) they are on EMS [...] date) unknown) (unknown) (no (unknown) (unknown) [address] [place] [address] (units (unknown) date) unknown) (unknown) (no (unknown) (unknown) Allergies (units (unkn own) date) unknown) (unknown) (no (unknown) (unknown) [facility] (units ( unknown) date) [address] unknown) (unknown) (no (unknown) (unknown) Documented By: DKB (units (unknown) date) unknown) (unknown) (no (unknown) (unknown) ED Orders (units (unkn own) date) unknown) (unknown) (no (unknown) (unknown) Emergency Report (units (unknown) date) unknown) (unknown) (no (unknown) (unknown) [facility] (units (unknown) date) unknown) (unknown) (no (unknown) (unknown) [facility] (units (unknown) date) [address] unknown) [place] [facility] [address] (unknown) (no (unknown) (unknown) Lab Results (units [...] unknown) 02/19/22 15:10> (unknown) (no (unknown) (unknown) [id number] (units (unkno wn) date) unknown) (unknown) (no [...] (unknown) (unknown) Accession Number: (units (unknown) date) [id number] ?? unknown) (unknown) (no (unknown) (unknown) Acct:[id number] (units (unknown) date) unknown) (unknown) (no (unknown) [...] (unknown) (unknown) : 1995 (units (unknown) date) Acct:[id number] unknown) (unknown) (no (unknown) (unknown) : 1995 [...] (unknown) Lymph # (Auto) (units (unknown) date) (2432-3049) /uL unknown) (unknown) (no (unknown) (unknown) Lymph # (Auto) (units (unknown) date) 1700 (2648-0036) unknown) /uL (unknown) (no (unknown) (unknown) Lymph [...] date) unknown) (unknown) (no (unknown) (unknown) MR#: [id number] (units (unknown) date) unknown) (unknown) (no (unknown) (unknown) MUSCULOSKELETAL: (units (unknown) date) denies muscle or unknown) bony pain (unknown) (no (unknown) (unknown) Medical decision (units (unknown) date) making narrative: unknown) (unknown) (no (unknown) (unknown) Mild tenderness to (units (unknown) date) touch. No erythema. unknown) (unknown) (no (unknown) (unknown) Taney # (Auto) (units ( unknown) date) (0-900) /uL unknown) (unknown) (no (unknown) (unknown) Taney # (Auto) 400 (units (unknown) date) (0-900) /uL unknown) (unknown) (no (unknown) (unknown) Taney % (Auto) (units ( unknown) date) (3-14) % unknown) (unknown) (no (unknown) (unknown) Taney % (Auto) 8.8 (units (unknown) date) (3-14) [...] Neut # (Auto) (units ( unknown) date) (7782-3232) /uL unknown) (unknown) (no (unknown) (unknown) Neut # (Auto) 2600 (units (unknown) date) (8266-9198) /uL unknown) (unknown) (no (unknown) (unknown) Neut [...] (unknown) date) by ambulance from a unknown) fdc. Police were called because (unknown) (no (unknown) [...] (unknown) (unknown) Urine Specific (units (unknown) date) [place] 1.030 unknown) (unknown) (no (unknown) (unknown) Urine [...] (units (unknown) date) are calling this unknown) personnel clerk for more information. Patient (unknown) (no (unknown) (unknown) and below (units (unkn own) date) unknown) (unknown) (no (unknown) (unknown) combative. Is (units ( unknown) date) cooperative. unknown) (unknown) (no (unknown) (unknown) droop. 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 JUAN CARLOS was placed by police and [...] to go to (unknown) (no (unknown) (unknown) [facility] (units (unknown) date) [facility]. However unknown) they are on EMS [...] (unknown) date) unknown) (unknown) (no (unknown) (unknown) [address] [place] [address] (units (unknown) date) unknown) (unknown) (no (unknown) (unknown) Allergies (units (unkn own) date) unknown) (unknown) (no (unknown) (unknown) [place] (units ( unknown) date) [address] unknown) (unknown) (no (unknown) (unknown) Documented By: DKB (units (unknown) date) unknown) (unknown) (no (unknown) (unknown) ED Orders (units (unkn own) date) unknown) (unknown) (no (unknown) (unknown) Emergency Report (units (unknown) date) unknown) (unknown) (no (unknown) (unknown) [facility] (units (unknown) date) unknown) (unknown) (no (unknown) (unknown) [facility] (units (unknown) date) [address] [place] [address] unknown) [place] [address] (unknown) (no (unknown) (unknown) Lab Results (units [...] unknown) 02/19/22 17:04> (unknown) (no (unknown) (unknown) [id number] (units (unkno wn) date) unknown) (unknown) (no [...] (unknown) (unknown) Accession Number: (units (unknown) date) [id number] ?? unknown) (unknown) (no (unknown) (unknown) Acct:[id number] (units (unknown) date) unknown) (unknown) (no (unknown) [...] (unknown) (unknown) : 1995 (units (unknown) date) Acct:[id number] unknown) (unknown) (no (unknown) (unknown) : 1995 [...] (unknown) Lymph # (Auto) (units (unknown) date) (7435-2561) /uL unknown) (unknown) (no (unknown) (unknown) Lymph # (Auto) (units (unknown) date) 1700 (6441-3404) unknown) /uL (unknown) (no (unknown) (unknown) Lymph [...] date) unknown) (unknown) (no (unknown) (unknown) MR#: [id number] (units (unknown) date) unknown) (unknown) (no (unknown) (unknown) MUSCULOSKELETAL: (units (unknown) date) denies muscle or unknown) bony pain (unknown) (no (unknown) (unknown) Medical decision (units (unknown) date) making narrative: unknown) (unknown) (no (unknown) (unknown) Mild tenderness to (units (unknown) date) touch. No erythema. unknown) (unknown) (no (unknown) (unknown) Taney # (Auto) (units ( unknown) date) (0-900) /uL unknown) (unknown) (no (unknown) (unknown) Taney # (Auto) 400 (units (unknown) date) (0-900) /uL unknown) (unknown) (no (unknown) (unknown) Taney % (Auto) (units ( unknown) date) (3-14) % unknown) (unknown) (no (unknown) (unknown) Taney % (Auto) 8.8 (units (unknown) date) (3-14) [...] Neut # (Auto) (units ( unknown) date) (7327-8183) /uL unknown) (unknown) (no (unknown) (unknown) Neut # (Auto) 2600 (units (unknown) date) (2761-3158) /uL unknown) (unknown) (no (unknown) (unknown) Neut [...] (unknown) date) by ambulance from a unknown) fdc. Police were called because (unknown) (no (unknown) (unknown) Patient signed out (units (unknown) date) to myself by Dr. mendiola) Elias. Patient has a for from Crew (unknown) (no (unknown) (unknown) Patient sleeping (units [...] (unknown) (unknown) Urine Specific (units (unknown) date) [place] 1.030 unknown) (unknown) (no (unknown) (unknown) Urine [...] (units (unknown) date) are calling this unknown) personnel clerk for more information. Patient (unknown) (no (unknown) (unknown) and below (units (unkn own) date) unknown) (unknown) (no (unknown) (unknown) combative. Is (units ( unknown) date) cooperative. unknown) (unknown) (no (unknown) (unknown) droop. 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 (units [...] (units (unknown) date) disruptive at the unknown) fdc. JUAN CARLOS was placed by police and [...] to go to (unknown) (no (unknown) (unknown) [facility] (units (unknown) date) [facility]. However unknown) they are on EMS [...] unknown) date) unknown) (unknown) (no (unknown) (unknown) [address] [place] [address] (units (unknown) date) unknown) (unknown) (no (unknown) (unknown) Allergies (units (unkn own) date) unknown) (unknown) (no (unknown) (unknown) [facility] (units ( unknown) date) [address] unknown) (unknown) (no (unknown) (unknown) Documented By: DKB (units (unknown) date) unknown) (unknown) (no (unknown) (unknown) Emergency Report (units (unknown) date) unknown) (unknown) (no (unknown) (unknown) [facility] (units (unknown) date) unknown) (unknown) (no (unknown) (unknown) [facility] (units (unknown) date) [address] unknown) [place] [address] (unknown) (no (unknown) (unknown) Lab Results (units [...] unknown) 02/24/22 04:05> (unknown) (no (unknown) (unknown) [id number] (units (unkno wn) date) unknown) (unknown) (no [...] (unknown) (unknown) Accession Number: (units (unknown) date) [id number] ?? unknown) (unknown) (no (unknown) (unknown) Acct:[id number] (units (unknown) date) unknown) (unknown) (no (unknown) [...] (unknown) (unknown) : 1995 (units (unknown) date) Acct:[id number] unknown) (unknown) (no (unknown) (unknown) : 1995 [...] of a court (unknown) (no (unknown) (unknown) n[place]ela has detained (units (unknown) date) the patient based unknown) on violation of court ordered. Patient has (unknown) (no (unknown) (unknown) Lab Data (units (unkno wn) date) unknown) (unknown) (no (unknown) (unknown) Labs: (units (unkno wn) date) unknown) (unknown) (no (unknown) (unknown) Loc: ED (units (unkno wn) date) unknown) (unknown) (no (unknown) (unknown) Lymph # (Auto) (units (unknown) date) (0562-8447) /uL unknown) (unknown) (no (unknown) (unknown) Lymph # (Auto) (units (unknown) date) 1700 (8301-5387) unknown) /uL (unknown) (no (unknown) (unknown) Lymph [...] date) unknown) (unknown) (no (unknown) (unknown) MR#: [id number] (units (unknown) date) unknown) (unknown) (no (unknown) (unknown) MUSCULOSKELETAL: (units (unknown) date) denies muscle or unknown) bony pain (unknown) (no (unknown) (unknown) Medical decision (units (unknown) date) making narrative: unknown) (unknown) (no (unknown) (unknown) Mild tenderness to (units (unknown) date) touch. No erythema. unknown) (unknown) (no (unknown) (unknown) Taney # (Auto) (units ( unknown) date) (0-900) /uL unknown) (unknown) (no (unknown) (unknown) Taney # (Auto) 400 (units (unknown) date) (0-900) /uL unknown) (unknown) (no (unknown) (unknown) Taney % (Auto) (units ( unknown) date) (3-14) % unknown) (unknown) (no (unknown) (unknown) Taney % (Auto) 8.8 (units (unknown) date) (3-14) [...] Neut # (Auto) (units ( unknown) date) (8800-3724) /uL unknown) (unknown) (no (unknown) (unknown) Neut # (Auto) 2600 (units (unknown) date) (6262-4195) /uL unknown) (unknown) (no (unknown) (unknown) Neut [...] (unknown) date) by ambulance from a unknown) fdc. Police were called because (unknown) (no (unknown) (unknown) Patient signed out (units (unknown) date) to myself by unknown) Elias. [facility] ([facility] ([facility]) (unknown) Patient sleeping (units [...] (unknown) (unknown) Urine Specific (units (unknown) date) [place] 1.030 unknown) (unknown) (no (unknown) (unknown) Urine [...] (units (unknown) date) are calling this unknown) personnel clerk for more information. Patient (unknown) (no (unknown) (unknown) and below (units (unkn own) date) unknown) (unknown) (no (unknown) (unknown) combative. Is (units ( unknown) date) cooperative. unknown) (unknown) (no (unknown) (unknown) droop. 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 (units (u [...] (units (unknown) date) disruptive at the unknown) fdc. JUAN CARLOS was placed by police and [...] to go to (unknown) (no (unknown) (unknown) [facility] (units (unknown) date) [facility]. However unknown) they are on EMS [...] unknown) date) unknown) (unknown) (no (unknown) (unknown) [address] [place] [address] (units (unknown) date) unknown) (unknown) (no (unknown) (unknown) Allergies (units (unkn own) date) unknown) (unknown) (no (unknown) (unknown) [place] (units ( unknown) date) [id number] unknown) (unknown) (no (unknown) (unknown) Documented By: [facility] (units (unknown) date) unknown) (unknown) (no (unknown) (unknown) Emergency Report (units (unknown) date) unknown) (unknown) (no (unknown) (unknown) [facility] (units (unknown) date) unknown) (unknown) (no (unknown) (unknown) [facility] (units (unknown) date) [address] unknown) [place] [address] (unknown) (no (unknown) (unknown) Lab Results (units [...] unknown) 02/24/22 04:05> (unknown) (no (unknown) (unknown) [id number] (units (unkno wn) date) unknown) (unknown) (no [...] (unknown) (unknown) Accession Number: (units (unknown) date) [id number] ?? unknown) (unknown) (no (unknown) (unknown) Acct:[id number] (units (unknown) date) unknown) (unknown) (no (unknown) [...] (unknown) (no (unknown) (unknown) Albumin 3.8 (units (u nknown) date) (3.5-5.0) g/dL unknown) (unknown) (no (unknown) [...] (unknown) (unknown) : 1995 (units (unknown) date) Acct:[id number] unknown) (unknown) (no (unknown) (unknown) : 1995 [...] (unknown) Lymph # (Auto) (units (unknown) date) (8265-6466) /uL unknown) (unknown) (no (unknown) (unknown) Lymph # (Auto) (units (unknown) date) 1700 (3436-1848) unknown) /uL (unknown) (no (unknown) (unknown) Lymph [...] date) unknown) (unknown) (no (unknown) (unknown) MR#: [id number] (units (unknown) date) unknown) (unknown) (no (unknown) (unknown) MUSCULOSKELETAL: (units (unknown) date) denies muscle or unknown) bony pain (unknown) (no (unknown) (unknown) Medical decision (units (unknown) date) making narrative: unknown) (unknown) (no (unknown) (unknown) Mild tenderness to (units (unknown) date) touch. No erythema. unknown) (unknown) (no (unknown) (unknown) Taney # (Auto) (units ( unknown) date) (0-900) /uL unknown) (unknown) (no (unknown) (unknown) Taney # (Auto) 400 (units (unknown) date) (0-900) /uL unknown) (unknown) (no (unknown) (unknown) Taney % (Auto) (units ( unknown) date) (3-14) % unknown) (unknown) (no (unknown) (unknown) Taney % (Auto) 8.8 (units (unknown) date) (3-14) [...] Neut # (Auto) (units ( unknown) date) (0287-8450) /uL unknown) (unknown) (no (unknown) (unknown) Neut # (Auto) 2600 (units (unknown) date) (7376-0955) /uL unknown) (unknown) (no (unknown) (unknown) Neut [...] (unknown) date) by ambulance from a unknown) fdc. Police were called because (unknown) (no (unknown) (unknown) Patient signed out (units (unknown) date) to myself by unknown) Elias. Patient has a for from [facility] (unknown) (no (unknown) (unknown) Patient sleeping (units [...] (unknown) (unknown) Urine Specific (units (unknown) date) [place] 1.030 unknown) (unknown) (no (unknown) (unknown) Urine [...] (units (unknown) date) are calling this unknown) personnel clerk for more information. Patient (unknown) (no (unknown) (unknown) and below (units (unkn own) date) unknown) (unknown) (no (unknown) (unknown) combative. Is (units ( unknown) date) cooperative. unknown) (unknown) (no (unknown) (unknown) droop. 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 (units [...] (units (unknown) date) disruptive at the unknown) fdc. JUAN CARLOS was placed by police and [...] to go to (unknown) (no (unknown) (unknown) [facility] (units (unknown) date) [facility]. However unknown) they are on EMS divert. EMS state they know Social History No information. Vital Signs No information.
[2022-04-24 13:17] LABS: BASOPHILS # (AUTO) 0.1 10^3/uL (0.0-0.1); BASOPHILS % (AUTO) 0.5 %; EOSINOPHILS % (AUTO) 0.1 %; HGB - HEMOGLOBIN 11.5 g/dL (12.0-16.0); LYMPHOCYTES # (AUTO) 3.1 10^3/uL (1.5-3.5); LYMPHOCYTES % (AUTO) 27.1 %; MEAN CORPUSCULAR HGB CONC 32.9 g/dL (32.0-36.0); MEAN CORPUSCULAR VOLUME 85.2 fL (81.0-99.0); MEAN PLATELET VOLUME 8.5 fL (7.9-10.8); MONOCYTES # (AUTO) 1.3 10^3/uL (0.0-1.0); MONOCYTES % (AUTO) 11.2 %; NEUTROPHILS # (AUTO) 6.9 10^3/uL (1.5-6.6); NEUTROPHILS % (AUTO) 60.8 %; PLT - PLATELET COUNT 374 10^3/uL (130-450); RED BLOOD COUNT 4.11 10^6/uL (4.20-5.40); RED CELL DISTRIBUTION WIDTH 12.9 % (12.0-15.0); WHITE BLOOD COUNT 11.4 x10^3/uL (4.8-10.8)
[2022-04-24 13:54] LABS: ACETAMINOPHEN < 10 ug/mL (10-30); ALBUMIN 4.9 g/dL (3.2-5.5); ALBUMIN/GLOBULIN RATIO 1.8 (1.0-2.2); ALKALINE PHOSPHATASE 42 IU/L (42-121); ALT ALANINE AMINOTRANSFERASE 17 IU/L (10-60); AST ASPARTATE AMINOTRANSFERASE 22 IU/L (10-42); BILIRUBIN,TOTAL 1.1 mg/dL (0.2-1.0); BUN - BLOOD UREA NITROGEN 45 mg/dL (6-20); CALCIUM 9.5 mg/dL (8.5-10.3); CARBON DIOXIDE - CO2 21 mmol/L (21-32); CHLORIDE 101 mmol/L (101-111); CREATININE 1.2 mg/dL (0.4-1.0); ETOH - ETHANOL < 5.0 mg/dL; GFR - MDRD 54 (>89); GLUCOSE 94 mg/dL (70-100); LIPASE 27 U/L (22-51); POTASSIUM 3.7 mmol/L (3.5-5.0); SALICYLATE < 6.0 mg/dL; SODIUM 136 mmol/L (135-145); TOTAL PROTEIN 7.7 g/dL (6.7-8.2)
[2022-04-24 14:02] LABS: MUDS CUTOFF CONCENTRATIONS CUTOFF CONC BELOW:
[2022-04-24 14:09] LABS: BILIRUBIN,URINE NEGATIVE (NEGATIVE); GLUCOSE, URINE (UA) NEGATIVE (NEGATIVE); KETONES,URINE (UA) TRACE mg/dL (NEGATIVE); LEUKOCYTE ESTERASE, URINE NEGATIVE (NEGATIVE); NITRITE,URINE NEGATIVE (NEGATIVE); OCCULT BLOOD,URINE MODERATE (NEGATIVE); PROTEIN,URINE NEGATIVE (NEGATIVE); UROBILINOGEN,URINE 0.2 (NORMAL) E.U./dL (NORMAL)
[2022-04-24 14:17] LABS: AMPHETAMINE SCREEN,URINE POSITIVE (NEGATIVE); CLARITY,URINE CLEAR (CLEAR); METHAMPHETAMINES SCREEN, URINE POSITIVE (NEGATIVE)
[2022-04-24 14:18] LABS: BARBITURATE SCREEN,UR NEGATIVE (NEGATIVE); BENZODIAZEPINES SCREEN, URINE NEGATIVE (NEGATIVE); COCAINE SCREEN URINE NEGATIVE (NEGATIVE); METHADONE SCREEN, URINE NEGATIVE (NEGATIVE); OPIATE SCREEN, URINE NEGATIVE (NEGATIVE); OXYCODONE SCREEN, URINE NEGATIVE (NEGATIVE); PROPOXYPHENE SCREEN, URINE NEGATIVE (NEGATIVE); THC CANNABINOID SCREEN, URINE NEGATIVE (NEGATIVE); TRICYCLIC ANTIDEPRESSANT,URINE NEGATIVE (NEGATIVE)
[2022-04-24 14:25] LABS: BACTERIA,URINE Few /HPF (None Seen); RBC,URINE 0-5 /HPF (0-5); SQUAMOUS EPITHELIAL CELL,UR RARE Squamous (<= Few); WBC,URINE 0-3 /HPF (0-5)
[2022-04-24 14:26] LABS: CRYSTALS,URINE 11-25 Uric Acid /LPF
[2022-04-24 15:12] LABS: HCG UR QUAL NEGATIVE
--- NOTE | 2022-04-25 16:59 | ED Physician Documentation ---
ED Addendum - Addendum Addendum: 04/25/22 16:58 Seen by the DCR and detained. Bed was arranged at [facility]. Unclear when we will be able to get her transported there due to the distance but [employer]ras and PCS forms completed. Disposition: Transferred to psychiatric facility Condition: Stable
[2022-04-26 06:34] VITALS: BP 107/53
--- NOTE | 2022-04-26 09:31 | ED Physician Documentation ---
ED Addendum - Addendum Addendum: 04/26/22 09:29 The patient was interacting appropriately. She smiled when I greeted her this morning. She was having some breakfast. No apparent distress at this time. The patient has been accepted for admission to a psychiatric facility and transfer is anticipated later this morning. The medication regimen currently on seems to be appropriate. Report from nursing as the patient did sleep overnight without any complications. Assessment: Exacerbation of behavioral abnormality and psychiatric agitation Plan: The patient will be transferred to psychiatric facility later this morning if no change in current plans.
== END 2022-04-26 10:55 ==
LOC: EDUNIT# → ED 12:14
DX: F15.159 Other stimulant abuse with stimulant-induced psychotic disorder, unspecified (principal); F17.200 Nicotine dependence, unspecified, uncomplicated; Z78.1 Physical restraint status
CPT/HCPCS: 36415; 80053; 80306; 80307; 80320; 80329; 81001; 81003; 81025; 83690; 84443; 85025; 87086; 93005; 96372; 99281; 99285